=== PATIENT | male | born 1965 | race Caucasian/White ===

== ENCOUNTER 2017-01-18 09:14 | Outpatient (CLI) | payer OTHER ==
[2017-01-18 12:42] LABS: BASOPHILS % (AUTO) 0.5 % (0.0-3.0); EOSINOPHILS # (AUTO) 0.3 K/ul (0.0-0.7); EOSINOPHILS % (AUTO) 3.4 % (0.0-7.0); HEMATOCRIT 40.6 % (42.0-52.0); HEMOGLOBIN 13.4 g/dl (14.0-18.0); IMMATURE GRANULOCYTE % (AUTO) 0.4 % (0.0-5.0); LYMPHOCYTES # (AUTO) 2.3 K/uL (0.60-3.4); LYMPHOCYTES % (AUTO) 27.5 (10.0-50.0); MEAN CORPUSCULAR HEMOGLOBIN 29.6 pg (27.0-31.0); MEAN CORPUSCULAR VOLUME 89.8 fl (80.0-94.0); MONOCYTES # (AUTO) 0.6 K/uL (0.4-2.0); MONOCYTES % (AUTO) 7.3 (0-10); NEUTROPHILS # (AUTO) 5.1 K/ul (2.0-6.9); NEUTROPHILS % (AUTO) 60.9; PLATELET COUNT 295 10^3/uL (140-440); RED BLOOD COUNT 4.52 10^6/ul (4.70-6.10); WHITE BLOOD COUNT 8.35 K/ul (4.2-10.2)
[2017-01-18 13:07] LABS: ALBUMIN 3.6 g/dL (3.4-5.0); ALBUMIN/GLOBULIN RATIO 1.03; ANION GAP 10.6; BILIRUBIN,TOTAL 0.27 mg/dL (0.00-1.20); BUN/CREATININE RATIO 7.37; CALCIUM 9.5 mg/dL (8.2-10.2); CREATININE 1.22 mg/dL (0.60-1.10); POTASSIUM 4.6 mmol/L (3.5-5.1); TOTAL PROTEIN 7.1 g/dL (6.4-8.2)
== END 2017-01-18 09:15 | disposition home or self-care (01) ==
LOC: LAB 09:14
PROVIDERS: ATTEND Nurse Practitioner Family
DX: I10 Essential (primary) hypertension (principal); E78.5 Hyperlipidemia, unspecified
CPT/HCPCS: 36415; 80053; 80061; 85025

== ENCOUNTER 2017-08-03 13:29 | Outpatient (CLI) ==
[2017-08-03 13:47] LABS: BASOPHILS % (AUTO) 0.5 % (0.0-3.0); EOSINOPHILS # (AUTO) 0.2 K/ul (0.0-0.7); EOSINOPHILS % (AUTO) 2.6 % (0.0-7.0); HEMOGLOBIN 15.3 g/dl (14.0-18.0); IMMATURE GRANULOCYTE % (AUTO) 0.3 % (0.0-5.0); LYMPHOCYTES # (AUTO) 2.9 K/uL (0.60-3.4); LYMPHOCYTES % (AUTO) 36.1 (10.0-50.0); MEAN CORPUSCULAR HEMOGLOBIN 30.4 pg (27.0-31.0); MEAN CORPUSCULAR VOLUME 89.3 fl (80.0-94.0); MONOCYTES # (AUTO) 0.6 K/uL (0.4-2.0); MONOCYTES % (AUTO) 7.1 (0-10); NEUTROPHILS # (AUTO) 4.2 K/ul (2.0-6.9); NEUTROPHILS % (AUTO) 53.4; PLATELET COUNT 325 10^3/uL (140-440); RED BLOOD COUNT 5.04 10^6/ul (4.70-6.10); WHITE BLOOD COUNT 7.93 K/ul (4.2-10.2)
[2017-08-03 19:20] LABS: ALBUMIN 3.9 g/dL (3.4-5.0); ALBUMIN/GLOBULIN RATIO 0.98; ANION GAP 15.7; BILIRUBIN,TOTAL 0.58 mg/dL (0.00-1.20); BUN/CREATININE RATIO 7.35; CALCIUM 10.3 mg/dL (8.2-10.2); CHOL/HDL RATIO 4.2 (4.5-6.4); CREATININE 1.36 mg/dL (0.60-1.10); POTASSIUM 4.7 mmol/L (3.5-5.1); TOTAL PROTEIN 7.9 g/dL (6.4-8.2)
== END 2017-08-03 13:30 | disposition home or self-care (01) ==
LOC: LAB 13:29
PROVIDERS: ATTEND Nurse Practitioner Family
DX: E78.5 Hyperlipidemia, unspecified (principal); I10 Essential (primary) hypertension; J44.9 Chronic obstructive pulmonary disease, unspecified; Z72.0 Tobacco use
CPT/HCPCS: 36415; 80053; 80061; 84443; 85025

== ENCOUNTER 2017-10-24 18:56 | Inpatient (IN) | payer OTHER ==
[2017-10-24 19:08] VITALS: BMI 29.5
[2017-10-24] MEDS ORDERED: SODIUM CHLORIDE 1,000 ML IV STA (19:24)
--- NOTE | 2017-10-24 19:30 | ED.PDOC ---
General ED Provider: Dr. ANTONIETTA HWANG Chief Complaint: Chest Pain Stated Complaint: Patient states that he woke up this morning with substernal chest pain that went away then started having right lower chest pain and upper abdominal pain that has slowly progressed and is now unbearable hence came to the ER. Time Seen by Physician: 19:27 Mode of Arrival: Walk-In Information Source: Patient Exam Limitations: No limitations Primary Care Provider: AILYN PAULINO Nursing and Triage Documentation Reviewed and Agree: Yes Reviewed sepsis parameters & appropriate labs ordered?: No System Inflammatory Response Syndrome: Not Applicable Sepsis Protocol: For patient's 13 years and over: Temp is 96.8 and below OR 101 and greater Pulse >90 BPM Resp >20/minute Acutely Altered Mental Status Are patient's symptoms suggestive of a new infection, such as: -Pneumonia -Skin, Soft Tissue -Endocarditis -UTI -Bone, Joint Infection -Implantable Device -Acute Abdominal Infection -Wound Infection -Meningitis -Blood Stream Catheter Infection -Unknown System Inflammatory Response Syndrome: Not Applicable Review of Systems - Review Of Systems Constitutional: Reports: No symptoms Eyes: Reports: No symptoms Ears, Nose, Mouth, Throat: Reports: No symptoms Respiratory: Reports: Short of air Cardiac: Reports: Chest pain GI: Reports: Abdominal pain (right upper quadrant ) : Reports: No symptoms Musculoskeletal: Reports: No symptoms Skin: Reports: No symptoms Neurological: Reports: Anxiety Endocrine: Reports: No symptoms Hematologic/Lymphatic: Reports: No symptoms All Other Systems: Reviewed and Negative Past Medical History - Past Medical History Endocrine: Reports: None Cardiovascular: Reports: Hypertension Respiratory: Reports: COPD Hematological: Reports: None Gastrointestinal: Reports: Diverticulitis Genitourinary: Reports: None Neuro/Psych: Reports: Anxiety Musculoskeletal: Reports: None Cancer: Reports: None - Surgical History General Surgical History: Reports: Cholecystectomy, Tonsillectomy, Orthopedic ( Plate in the right lower leg ), Hernia Repair (double ), Other (colostomy). Denies: Adenoidectomy - Family History Family History: Reports: Heart - Social History Smoking Status: Current every day smoker Hx Substance Use: Yes (marijuana) Alcohol Screening: Occasionally - Immunizations Tetanus Shot up to Date: No (unknown) Physical Exam - Physical Exam Appearance: Ill-appearing Ill-appearing: Moderate Pain Distress: Severe Eyes: RAÚL, EOMI, Conjunctiva clear ENT: Oropharynx normal Neck: Supple Respiratory: Airway patent, Breath sounds clear, Breath sounds equal, Respirations nonlabored Cardiovascular: RRR, Pulses normal, No rub, No murmur GI/: Soft, Nontender, No masses, Bowel sounds normal, No Organomegaly Musculoskeletal: Normal strength, ROM intact, No edema, No calf tenderness Skin: Warm, Dry, Normal color Neurological: Sensation intact, Motor intact, Reflexes intact, Cranial nerves intact, Alert, Oriented Psychiatric: Anxious Interpretation - Radiology Interpretation Radiology Interpretation By: ED Physician Radiology Results: Negative Exam Interpreted: Portable CXR - EKG Interpretation Time of EKG #1: 19:15 Rate: Normal Rhythm: Sinus Ectopy: None [place]: NL ST Segment: Normal Interpretation: Normal EKG Critical Care Note - Critical Care Note Total Time (mins): 35 Course - Course Hematology/Chemistry: 10/24/17 19:30 10/24/17 19:30 Orders, Labs, Meds: Lab Review 10/24/17 10/24/17 10/24/17 19:30 19:30 19:30 WBC 12.27 H RBC 4.73 Hgb 14.5 Hct 42.2 MCV 89.2 MCH 30.7 MCHC 34.4 RDW Coeff of Heather 13.8 Plt Count 249 Immature Gran % (Auto) 0.3 Neut % (Auto) 57.0 Lymph % (Auto) 30.0 [place] % (Auto) 9.6 Eos % (Auto) 2.9 Baso % (Auto) 0.2 Immature Gran # (Auto) 0.0 Neut # 7.0 H Lymph # 3.7 H [place] # 1.2 Eos # 0.4 Baso # 0.0 D-Dimer (Manual) Sodium 139 Potassium 4.2 Chloride 104 Carbon Dioxide 24 Anion Gap 15.2 BUN 5 L Creatinine 1.09 Estimated GFR (MDRD) 71.00 BUN/Creatinine Ratio 4.58 Glucose 95 Calcium 9.4 Total Bilirubin 0.5 AST 17 ALT 22 Alkaline Phosphatase 117 Total Creatine Kinase 65 Troponin I 0.0160 B-Natriuretic Peptide < 10 Total Protein 7.1 Albumin 3.5 Globulin 3.6 Albumin/Globulin Ratio 0.97 Amylase Lipase Urine Color Urine Clarity Urine pH Ur Specific [place] Urine Protein Urine Glucose (UA) Urine Ketones Urine Blood Urine Nitrite Urine Bilirubin Urine Urobilinogen Ur Leukocyte Esterase 10/24/17 10/24/17 10/24/17 19:30 19:30 19:57 WBC RBC Hgb Hct MCV MCH MCHC RDW Coeff of Heather Plt Count Immature Gran % (Auto) Neut % (Auto) Lymph % (Auto) [place] % (Auto) Eos % (Auto) Baso % (Auto) Immature Gran # (Auto) Neut # Lymph # [place] # Eos # Baso # D-Dimer (Manual) 865.71 Sodium Potassium Chloride Carbon Dioxide Anion Gap BUN Creatinine Estimated GFR (MDRD) BUN/Creatinine Ratio Glucose Calcium Total Bilirubin AST ALT Alkaline Phosphatase Total Creatine Kinase Troponin I B-Natriuretic Peptide Total Protein Albumin Globulin Albumin/Globulin Ratio Amylase 54 Lipase 16 Urine Color Yellow Urine Clarity Clear Urine pH 7.0 Ur Specific [place] 1.010 Urine Protein Negative Urine Glucose (UA) Negative Urine Ketones Negative Urine Blood Negative Urine Nitrite Negative Urine Bilirubin Negative Urine Urobilinogen 0.2 Ur Leukocyte Esterase Negative Orders Category Date Time Status ADMIT PATIENT INPATIENT .TO [facility] (MONITORED BED) ADMISSION 10/24/17 20: 46 Active EKG-(ED ONLY) Stat CARDIO 10/24/17 19:06 Completed EKG-(ED ONLY) Stat CARDIO 10/24/17 19:24 Stop Req EKG-(IP & OP ONLY) Routine CARDIO 10/25/17 07:00 Ordered NEBULIZER TREATMENT Routine CARDIO 10/24/17 20:38 Ordered INTAKE & OUTPUT Q8HR CARE 10/24/17 20:33 Active TELEMETRY MONITORING TELE CARE 10/24/17 20:47 Active ED APPLY O2 .ONCE EMERGENCY 10/24/17 19:24 Active ED INFUSION THERAPY NURSE APPLIED .ONCE EMERGENCY 10/24/17 19:24 Active ED IV/MEDIPORT/POWERPORT .ONCE EMERGENCY 10/24/17 19:24 Active AMYLASE Stat LAB 10/24/17 19:30 Completed B-TYPE NATRIURETIC PEPTIDE Stat LAB 10/24/17 19:30 Completed BASIC METABOLIC PANEL DAILY@0600 LAB 10/25/17 06:00 Ordered CBC W/ AUTO DIFF DAILY@0600 LAB 10/25/17 06:00 Ordered CBC W/ AUTO DIFF Stat LAB 10/24/17 19:30 Completed COMPREHENSIVE METABOLIC PANEL Stat LAB 10/24/17 19:30 Completed CREATINE KINASE Q8H LAB 10/25/17 02:45 Ordered CREATINE KINASE Q8H LAB 10/25/17 10:45 Ordered CREATINE KINASE Stat LAB 10/24/17 19:30 Completed D-DIMER Stat LAB 10/24/17 19:30 Completed LIPASE Stat LAB 10/24/17 19:30 Completed TROPONIN I Q8H LAB 10/25/17 02:45 Ordered TROPONIN I Q8H LAB 10/25/17 10:45 Ordered TROPONIN I Stat LAB 10/24/17 19:30 Completed UA [URINALYSIS C & S IF INDICATED] Stat LAB 10/24/17 19:57 Completed 0.9 % Sodium Chloride [Saline Flush] MEDS 10/24/17 19:24 Ordered 1 syr IVF PRN PRN Aspirin [Aspirin Chewable] MEDS 10/24/17 19:35 Discontinued 324 mg PO ONCE STA Budesonide/Formoterol Fumarate [Symbicort 160-4.5 Mcg MEDS 10/24/17 21:00 Ordered Inhaler] DOSE puff IH BID Dextroamphetamine/Amphetamine [Adderall 30 mg Tablet] MEDS 10/24/17 21:00 Ordered 15 mg PO BID Diazepam [Valium] MEDS 10/24/17 21:00 Ordered 5 mg PO TID Enoxaparin Sodium [Lovenox] MEDS 10/24/17 20:32 Discontinued 88 mg SUBCUT ONCE STA Hydromorphone HCl [Dilaudid 1 mg/ml Syringe] MEDS 10/24/17 19:51 Discontinued 1 mg IM ONCE STA Hydromorphone HCl/Pf [Dilaudid 2 mg/ml Syringe] MEDS 10/24/17 19:53 Discontinued 2 mg .ROUTE .STK-MED ONE Ipratropium/Albuterol Neb [Duoneb] MEDS 10/24/17 20:33 Ordered 1 vial NEB RTQ6H PRN Lamotrigine [Lamictal] MEDS 10/24/17 21:00 Ordered 150 mg PO BEDTIME Lisinopril [Zestril] MEDS 10/24/17 21:00 Ordered 10 mg PO BID Morphine Sulfate [Morphine 4 mg/ml Vial] MEDS 10/24/17 20:33 Ordered 4 mg IVP Q6H PRN Nitroglycerin [Nitrostat] MEDS 10/24/17 19:41 Discontinued 0.4 mg SL .STK-MED ONE Nitroglycerin [Nitrostat] MEDS 10/24/17 19:34 Discontinued 0.4 mg SL ONCE STA Olanzapine [Zyprexa] MEDS 10/24/17 21:00 Ordered 20 mg PO BEDTIME Ondansetron HCl/Pf [Zofran 4 mg/2 ml] MEDS 10/24/17 19:51 Discontinued 4 mg IVP ONCE STA Ondansetron HCl/Pf [Zofran 4 mg/2 ml] MEDS 10/24/17 20:33 Ordered 4 mg IVP Q6H PRN Sodium Chloride 0.9% [Sodium Chloride] 1,000 ml MEDS 10/24/17 19:24 Active IV 125 mls/hr Sodium Chloride 0.9% [Sodium Chloride] 1,000 ml MEDS 10/24/17 21:00 Ordered IV 75 mls/hr RESUSCITATION STATUS Routine OTHERS 10/24/17 20:33 Ordered CHEST, 1V AP ONLY Stat RADS 10/24/17 19:[address] ABDOMEN/PELVIS WO CONTRAST Stat RADS 10/24/17 19:36 Completed PULMONARY VENT/PERFUSION/ NM Stat RADS 10/25/17 08:00 Ordered Medications Generic Name Dose Route Start Last Admin Trade Name Freq PRN Reason Stop Dose Admin Albuterol/Ipratropium 1 vial 10/24/17 20:33 Duoneb NEB RTQ6H PRN Wheezing Budesonide/Formoterol Fumarate puff 10/24/17 21:00 Symbicort 160-4.5 Mcg Inhaler IH BID MAHIN Diazepam 5 mg 10/24/17 21:00 10/24/17 22:29 Valium PO 5 mg TID MAHIN Administration Sodium Chloride 1,000 mls @ 125 mls/hr 10/24/17 19:24 10/24/17 19:32 Sodium Chloride IV 10/25/17 03:23 125 mls/hr .Q8H STA Administration Sodium Chloride 1,000 mls @ 75 mls/hr 10/24/17 21:00 Sodium Chloride IV .[id number] MAHIN Lisinopril 10 mg 10/24/17 21:00 10/24/17 22:29 Zestril PO 10 mg BID MAHIN Administration Morphine Sulfate 4 mg 10/24/17 20:33 10/24/17 22:30 Morphine 4 Mg/Ml Vial IVP 4 mg Q6H PRN Administration severe pain Non-Formulary Medication 150 mg 10/24/17 21:00 02/18/18 22:55 Lamotrigine [Lamictal] PO Not Given BEDTIME MAHIN Non-Formulary Medication 20 mg 10/24/17 21:00 10/24/17 22:55 Olanzapine [Zyprexa] PO Not Given BEDTIME MAHIN Non-Formulary Medication 15 mg 10/24/17 21:00 10/24/17 22:55 Dextroamphetamine/Amphetamine [Adderall 30 Mg Tablet] PO Not Given BID MAHIN Ondansetron HCl 4 mg 10/24/17 20:33 Zofran 4 Mg/2 Ml IVP Q6H PRN Nausea / Vomiting Sodium Chloride 1 syr 10/24/17 19:24 10/24/17 19:32 Saline Flush IVF 1 syr PRN PRN Administration To flush IV Discontinued Medications Generic Name Dose Route Start Last Admin Trade Name Freq PRN Reason Stop Dose Admin Aspirin 324 mg 10/24/17 19:35 10/24/17 19:44 Aspirin Chewable PO 10/24/17 19:36 324 mg ONCE STA Administration Enoxaparin Sodium 88 mg 10/24/17 20:32 10/24/17 20:43 Lovenox SUBCUT 10/24/17 20:33 88 mg ONCE STA Administration Hydromorphone HCl 1 mg 10/24/17 19:51 10/24/17 20:00 Dilaudid 1 Mg/Ml Syringe IM 10/24/17 19:52 1 mg ONCE STA Administration Nitroglycerin 0.4 mg 10/24/17 19:34 10/24/17 19:35 Nitrostat SL 10/24/17 19:35 0.4 mg ONCE STA Administration Ondansetron HCl 4 mg 10/24/17 19:51 10/24/17 20:01 Zofran 4 Mg/2 Ml IVP 10/24/17 19:52 4 mg ONCE STA Administration Vital Signs: Temp Pulse Resp BP Pulse Ox 10/24/17 18:58 99.1 F 96 H 20 152/97 H 95 KUMAR Risk Score Age >/= 65: No >/= 3 CAD Risk Factors: Yes Known CAD (Stenosis >/= 50%): No ASA Use in Past 7 Days: No Severe Angina (>/= 2 episodes in 24 hours): Yes EKG ST Changes >/= 0.5mm: No Postive Cardiac Marker: No KUMAR Total Score: 2 KUMAR Risk Score: Risk Score Odds of by 30D 0 0.1 (0.1-0.2) 1 0.3 (0.2-0.3) 2 0.4 (0.3-0.5) 3 0.7 (0.6-0.9) 4 1.2 (1.0-1.5) 5 2.2 (1.9-2.6) 6 3.0 (2.5-3.6) 7 4.8 (3.8-6.1) Departure - Departure Time of Disposition: 21:35 Disposition: ADMITTED INPATIENT Discharge Problem: Chest pain Condition: Stable Pt referred to PMD for follow-up: Yes IPMP verified?: No Allergies/Adverse Reactions: Allergies Iodinated Contrast- Oral and IV Dye [Iodinated Contrast Media - IV Dye] Allergy (Intermediate, Verified 10/24/17 19:05) Flushing Disposition Discussed With: Patient, Family
[2017-10-24] MEDS ORDERED: NITROSTAT SL STA (19:34)
[2017-10-24] MEDS ORDERED: ASPIRIN CHEWABLE PO STA (19:35)
[2017-10-24] MEDS ORDERED: NITROSTAT SL ONE (19:41)
[2017-10-24] MEDS ORDERED: DILAUDID 1 MG/ML SYRINGE IM STA (19:51)
[2017-10-24] MEDS ORDERED: ZOFRAN 4 MG/2 ML IVP STA (19:51)
[2017-10-24] MEDS ORDERED: DILAUDID 2 MG/ML SYRINGE ONE (19:53)
--- NOTE | 2017-10-24 20:27 | CT ---
EXAM: CT abdomen pelvis without contrast HISTORY: Right upper quadrant and abdominal pain. Prior cholecystectomy and hernia repair. Patient with history of diverticulitis. COMPARISON: CT abdomen pelvis 02/19/2015 TECHNIQUE: Serial axial images of the abdomen pelvis were performed from the lung bases through the inferior pelvis without contrast. These were viewed in multiple planes. FINDINGS: There is minimal right pleural fluid. The lungs are clear. Evaluation is limited due to lack of contrast. The liver is unremarkable. The gallbladder has been removed. The adrenal glands are normal. Kidneys are normal. The spleen is normal. The pancreas is unremarkable. The stomach is distended. The small bowel in the abdomen pelvis is unremarkable. The colon is unremarkable. The appendix is n ormal. There has been anterior hernia repair. Urinary bladder is distended. The prostate is unrema rkable. There is no free fluid or lymphadenopathy. There is scattered degenerative disease of the l umbosacral spine. IMPRESSION: 1. No acute intra-abdominal or pelvic process to account for patient's symptoms. 2. Prior cholecystectomy with abdominal hernia repair. 3. There is degenerative disease of the spine. 4. Minimal right pleural fluid.
[2017-10-24] MEDS ORDERED: LOVENOX SUBCUT STA (20:32)
[2017-10-24] MEDS ORDERED: ZOFRAN 4 MG/2 ML IVP PRN (20:33)
[2017-10-24] MEDS ORDERED: DUONEB NEB PRN (20:33)
[2017-10-24] MEDS ORDERED: DEXTROAMPHETAMINE PO SCH (21:00)
[2017-10-24] MEDS ORDERED: LAMOTRIGINE 150 MG PO SCH (21:00)
[2017-10-24] MEDS ORDERED: AMPHETAMINE PO SCH (21:00)
[2017-10-24] MEDS ORDERED: NON-FORMULARY MEDICATION (Olanzapine [Zyprexa] 20 MG) PO SCH (21:00)
[2017-10-24] MEDS: ZESTRIL PO SCH (22:29)
[2017-10-24] MEDS: VALIUM PO SCH (22:29)
[2017-10-24] MEDS: MORPHINE 4 MG/ML VIAL IVP PRN (22:30)
--- NOTE | 2017-10-25 04:26 | DI ---
EXAM: Chest, single view, 10/24/2017 HISTORY: Chest pain COMPARISON: 10/24/2017 FINDINGS / IMPRESSION: Cardiomediastinal countours appear stable. There is no focal pulmonary conso lidation. No pleural effusion or pneumothorax. No acute cardiopulmonary process.
[2017-10-25] MEDS: MORPHINE 4 MG/ML VIAL IVP PRN ×4 (04:29→23:29)
[2017-10-25] MEDS ORDERED: TYLENOL PO STA (07:56)
--- NOTE | 2017-10-25 09:12 | NM ---
EXAM: Ventilation-perfusion lung scan HISTORY: Elevated D-dimer and shortness of breath COMPARISON: Chest x-ray On 10/24/2017 showed no acute process. TECHNIQUE: Patient was injected 5.2 mCi of technetium 99m labeled MAA intravenously. Patient was giv en 31.9 mCi of technetium 99m DTPA aerosol for ventilation imaging. FINDINGS: There is a small subsegmental perfusion defect at the right lung base. No definite segment al defect is seen. Aerosol distribution is very heterogeneous in both lung de la cruz throughout suggest ing obstructive lung disease. IMPRESSION: Low probability of pulmonary embolism.
[2017-10-25] MEDS: AMPHETAMINE PO SCH ×2 (10:01→23:50)
[2017-10-25] MEDS: DEXTROAMPHETAMINE PO SCH ×2 (10:01→23:50)
[2017-10-25] MEDS: SYMBICORT 160-4.5 MCG INHALER IH SCH ×2 (10:03→21:11)
[2017-10-25] MEDS: SODIUM CHLORIDE 1,000 ML IV SCH ×2 (10:07→10:34)
[2017-10-25] MEDS: ZESTRIL PO SCH ×2 (10:29→21:11)
[2017-10-25] MEDS: VALIUM PO SCH ×3 (10:30→21:11)
[2017-10-25] MEDS ORDERED: IMODIUM PO STA (10:48)
[2017-10-25] MEDS ORDERED: DECADRON 4 MG/ML SDV IVP STA (10:58)
[2017-10-25] MEDS: IMODIUM PO SCH (10:59)
[2017-10-25] MEDS ORDERED: IMODIUM A-D PO SCH (11:00)
[2017-10-25] MEDS: TORADOL IVP SCH ×2 (15:00→21:17)
[2017-10-25] MEDS ORDERED: ZYPREXA PO SCH (21:00)
[2017-10-25] MEDS ORDERED: LAMICTAL PO SCH (21:00)
[2017-10-26] MEDS: SODIUM CHLORIDE 1,000 ML IV SCH (00:58)
[2017-10-26] MEDS: IMODIUM PO SCH (08:07)
[2017-10-26] MEDS: AMPHETAMINE PO SCH (08:08)
[2017-10-26] MEDS: DEXTROAMPHETAMINE PO SCH (08:08)
[2017-10-26] MEDS: SYMBICORT 160-4.5 MCG INHALER IH SCH (08:08)
[2017-10-26] MEDS: VALIUM PO SCH (08:10)
[2017-10-26] MEDS: MORPHINE 4 MG/ML VIAL IVP PRN (08:11)
[2017-10-26] MEDS: ZESTRIL PO SCH (08:11)
[2017-10-26] MEDS ORDERED: DECADRON 4 MG/ML SDV IM STA (08:13)
[2017-10-26] MEDS: TORADOL IVP SCH (08:58)
[2017-10-26 10:40] VITALS: BP 113/78; TEMP 97.7
--- NOTE | 2017-11-05 13:39 | HP ---
DATE OF SERVICE: 10/24/17 CHIEF COMPLAINT: Cough, congestion and the right sided chest pain. HISTORY OF PRESENT ILLNESS: This is a 52 year old male came to the emergency room for coughing, congestion and getting yellow/green phlegm. Started having the right sided sharp chest pain since yesterday, hurts to breath. As the patient was getting worse came to the emergency room and was seen by ER physician. Temperature was 99.1, WBC with left shift 12.27, D-Dimer 865. Chest x-ray was negative. CT chest showed the right sided pleural effusion. In review of elevated D-dimer and the pleuritic chest pain the patient being admitted to the hospital for acute bronchitis, pleurisy pain and rule out pulmonary embolism. The iodinated contrast not given as patient is allergic to it. REVIEW OF SYSTEMS: CONSTITUTIONAL: No fever, no chills. Weakness and tiredness. HEENT: Normal. ENDOCRINE: No weight gain; no weight loss. CVS: Sharp right side chest pain. No PND, no orthopnea. No shortness of breath. No PND, no orthopnea. RESPIRATORY: Cough, Congestion. No hemoptysis. GI: No nausea, no vomiting. No abdominal pain. No melena. : No hematuria. No polyuria. MUSCULOSKELETAL: No joint swelling. PSYCHIATRIC: Not anxious. No depression. No suicidal thoughts. No homicidal thoughts. SKIN: Intact, no open lesions. PAST MEDICAL HISTORY: Hypertension COPD Diverticulosis Depression Anxiety PAST SURGICAL HISTORY: Cholecystectomy Bowel resection Hernia repair x2 PERSONAL HISTORY: The patient smokes occasional marijuana. No alcohol and no drugs. The patient's history is significant for the CHF, melanoma, polyps. MEDICATIONS: Zyprexa Lamictal Valium Adderall Symbicort Lisinopril Albuterol Imodium ALLERGIES: Iodinated contrast PHYSICAL EXAMINATION: V/S: Blood pressure 152/97, respiratory rate 20, heart rate 96, temperature 99.1 and saturation is 95 on 2 liters. HEENT: Atraumatic, normocephalic. No scleral icterus. Mucosa dry. NECK: Supple. No JVD, no bruit. No lymphadenopathy. No thyromegaly. HEART: S1, S2 normal. No murmur. No cyanosis or clubbing. No ascites. Right sided pleuritic chest pain on the right lower rib area. LUNGS: Clear to auscultation with basilar crackles, right more than left. No rales or rhonchi. ABDOMEN: Soft, nontender. Bowel sounds are active. No CVA tenderness. No rigidity or guarding. EXTREMITIES: No pedal edema. No cyanosis or clubbing MUSCULOSKELETAL: Normal joints, no swelling. NEUROLOGIC: The patient is SKIN: Intact; no open lesions. LYMPHATIC: No lymph nodes palpable. LABS: Sodium 139, potassium 4.2, chloride 104, bicarb 24, BUN 5, creatinine 1.09 and glucose is 95.WBC 12.27, hgb 14.5, hct 42.2, plt count 249. ASSESSMENT: 1. Right sided pleuritic chest pain 2. Elevated D-Dimer rule out PE 3. Depression 4. Bipolar PLAN: 1. Admit patient to the regular floor 2. CBC and CMP today and daily 3. Cardiac enzymes and Troponin 4. IV fluids 5. Lovenox 1mg/kg 6. DUO NEBS 7. Decadron 8. Morphine for the pain 9. Continue home medications. TIME SPENT: MORE THAN 75 minutes MTDD
--- NOTE | 2017-11-05 13:44 | PN ---
DATE OF SERVICE: 10/25/17 SUBJECTIVE: The patient is still having pain, still hurts to breath. Going for the VQ scan today. REVIEW OF SYSTEMS: CONSTITUTIONAL: No fever, no chills. HEENT: Normal. ENDOCRINE: No weight gain, no weight loss. CVS: No angina symptoms. No CHF symptoms. No palpitations. No atypical chest pain for CAD. No shortness of breath. No PND, no orthopnea. RESPIRATORY: No cough, no hemoptysis. GI: No nausea, no vomiting. No abdominal pain. : No hematuria. No polyuria. MUSCULOSKELETAL: No joint swelling. PSYCHIATRIC: Not anxious. No depression. No suicidal thoughts. No homicidal thoughts. SKIN: Intact. No rash. PHYSICAL EXAMINATION: V/S: Blood pressure 134/91, respiratory rate 20, heart rate 86, temperature 97.7 with saturation 96%. HEENT: Normocephalic, atraumatic. Mucosa dry. NECK: Supple. No JVD, no carotid bruit. No lymphadenopathy. LUNGS: Clear to auscultation. No rales or rhonchi. HEART: S1, S2 normal. No S3. No murmur, gallop or regurgitation. ABDOMEN: Soft, nontender. Bowel sounds active. No rigidity. No rebound or guarding. No CVA tenderness. Right rib tenderness is present. EXTREMITIES: No pedal edema. No clubbing or cyanosis MUSCULOSKELETAL: No joint swelling. NEUROLOGIC: Awake, alert, oriented times three. No focal deficit. LYMPHATIC: No lymph nodes palpable. SKIN: Intact. LABS: WBC 9.54, hgb 13.5, hct 39.7, plt count 234, sodium 139, potassium 4.2, chloride 105, bicarb 24, BUN 6, creatinine 0.98 and glucose 103. ASSESSMENT: 1. Pleuritic chest pain 2. Bronchitis 3. Upper respiratory infection 4. Elevated D-Dimer 5. Hypertension 6. Dyslipidemia PLAN: 1. VQ scan 2. Lovenox 3. Decadron 1cc 4. DUO NEBS 5. Toradol for the pain PRN TIME SPENT: More than 35 minutes MTDD
--- NOTE | 2017-12-03 13:45 | DS ---
DATE OF SERVICE: 10/26/17 FINAL DIAGNOSIS: 1. Upper respiratory infection with pleuritic chest pain 2. Elevated D-Dimer VQ scan showing minimal probable for the PE 3. Bronchitis 4. Hypertension 5. Dyslipidemia DISCHARGE INSTRUCTIONS: Discharge patient home. Followup in the [facility] within 5-7 days. MEDICATIONS AT DISCHARGE: Zyprexa Lamictal Valium Adderall Symbicort Lisinopril Ventolin Imodium NEW PRESCRIPTIONS: Prednisone 10mg twice a day for 5 more days. DIET INSTRUCTIONS: Cardiac and healthy ACTIVITY: As much as tolerated SMOKING: Current everyday smoker. Counseling for smoker done. DISEASE SPECIFIC EDUCATION: Pleuritic chest pain Pneumonia risk been discussed. The patient was reassured that EKG was normal. Cardiac enzymes were negative. D- dimer was negative. Given chest pain is most likely pleural origin and not anything related to the heart. Verbalized understanding. HOSPITAL COURSE: 52 year old male to the emergency room with chest pain since two days before, sharp, intermittent, right sided. Been having some upper respiratory infection, cough, congestion and shortness of breath. Temperature was 99.1. He has a history of hypertension, COPD and Depression. The patient was seen by Dr. Slater in the emergency room. Initial WBC 12.27 with left shift, D-dimer 865, chemistry negative, BNP negative, troponin negative, EKG was normal sinus and lipase negative. At that time the patient was admitted to the hospital for elevate D-Dimer level and pleuritic chest pain to rule out pulmonary embolism. Next day the patient had scheduled for the VQ scan, the VQ scan was negative for minimal probability. Dilaudid was given for the pain and DUO NEBS, Toradol and Dexamethasone which did help him. Lovenox for the DVT prophylaxis until PE protocol was negative on minimal probability. Meanwhile the patient is up and about walking, less cough and congested. Did not have any complication during the hospital stay. At that time the patient being discharged home. TIME SPENT: MORE THAN 65 MINUTES MTDD
== END 2017-10-26 13:15 | disposition home or self-care (01) | DRG 153 ==
LOC: ED 18:56 → MEDSURG A 20:50
PROVIDERS: ADMIT Emergency Medicine; ATTEND Emergency Medicine
DX: J06.9 Acute upper respiratory infection, unspecified (principal); J90 Pleural effusion, not elsewhere classified; J40 Bronchitis, not specified as acute or chronic; R79.1 Abnormal coagulation profile; R07.9 Chest pain, unspecified; R10.11 Right upper quadrant pain; R06.02 Shortness of breath; I10 Essential (primary) hypertension; R07.81 Pleurodynia; E78.5 Hyperlipidemia, unspecified; F17.210 Nicotine dependence, cigarettes, uncomplicated
CPT/HCPCS: 36415; 80048; 80053; 81001; 82150; 82550; 83690; 83880; 84484; 85025; 85379; 93005; 93010; 94640; 94761; 96361; 96374; 96375; 99284

== ENCOUNTER 2017-10-27 11:33 | Outpatient (CLI) | payer OTHER | END 2017-10-27 11:34 | disposition home or self-care (01) | LOC: LAB 11:33 | PROVIDERS: ATTEND Nurse Practitioner Family | DX: E78.5 Hyperlipidemia, unspecified (principal); J44.9 Chronic obstructive pulmonary disease, unspecified; I10 Essential (primary) hypertension; Z12.5 Encounter for screening for malignant neoplasm of prostate; Z72.0 Tobacco use | CPT/HCPCS: 36415; 80053; 80061; 85025 ==

== ENCOUNTER 2018-01-26 10:49 | Outpatient (CLI) | payer OTHER | END 2018-01-26 10:50 | disposition home or self-care (01) | LOC: RHC-LAB 10:49 | PROVIDERS: ATTEND Emergency Medicine | DX: I10 Essential (primary) hypertension (principal); F31.9 Bipolar disorder, unspecified; F20.9 Schizophrenia, unspecified; F90.9 Attention-deficit hyperactivity disorder, unspecified type; J44.9 Chronic obstructive pulmonary disease, unspecified; Z72.0 Tobacco use | CPT/HCPCS: 36415; 80053; 80061; 84443; 85025 ==

== ENCOUNTER 2018-02-09 08:21 | Outpatient (CLI) | payer OTHER ==
[2018-02-09] MEDS ORDERED: ALBUTEROL 0.083% NEB NEB STA (09:02)
== END 2018-02-09 08:22 | disposition home or self-care (01) ==
LOC: CAR 08:21
PROVIDERS: ATTEND Emergency Medicine
DX: J44.9 Chronic obstructive pulmonary disease, unspecified (principal); Z72.0 Tobacco use

== ENCOUNTER 2018-06-02 09:58 | Outpatient (CLI) | payer OTHER | END 2018-06-02 09:59 | disposition home or self-care (01) | LOC: FCC-LAB 09:58 | PROVIDERS: ATTEND Nurse Practitioner Family | DX: I10 Essential (primary) hypertension (principal); J44.9 Chronic obstructive pulmonary disease, unspecified | CPT/HCPCS: 36415; 80053; 85025 ==

== ENCOUNTER 2018-11-02 23:11 | Observation (INO) ==
[2018-11-02] MEDS ORDERED: SOLU-MEDROL 125 MG IVP STA (23:21)
[2018-11-02] MEDS ORDERED: ROCEPHIN 1 GM in SODIUM CHLORIDE 50 ML IV STA (23:21)
[2018-11-02] MEDS ORDERED: ALBUTEROL 0.042% NEB NEB STA (23:22)
[2018-11-02] MEDS ORDERED: DUONEB NEB STA (23:22)
[2018-11-02] MEDS ORDERED: XOPENEX 1.25 MG NEB STA (23:22)
[2018-11-02] MEDS ORDERED: ROCEPHIN ONE (23:29)
--- NOTE | 2018-11-03 01:11 | CT ---
EXAM: CT chest without contrast. HISTORY: Dyspnea. PROCEDURE: Contiguous axial CT images of the chest without contrast with coronal and sagittal reform ats. FINDINGS: The heart is within normal limits in size. The thoracic aorta is within normal limits in d iameter. No infiltrate or consolidation. There are a few nodules in the right lung measuring up to 5 mm. There are degenerative changes in the spine. There are no acute findings in the visualized po rtion of the abdomen. Impression: Right lung nodules measuring up to 5 mm. Recommend follow-up CT in 6 months to confirm s tability.
--- NOTE | 2018-11-03 01:27 | ED.PDOC ---
General ED Provider: Dr. JAYLIN SHIRLEY-ER Chief Complaint: Shortness of Air Stated Complaint: im sob Time Seen by Physician: 23:20 Mode of Arrival: Walk-In Information Source: Patient, Other Exam Limitations: No limitations Primary Care Provider: DUARTE MICHELE Nursing and Triage Documentation Reviewed and Agree: Yes Does patient meet sepsis criteria?: No System Inflammatory Response Syndrome: Not Applicable Sepsis Protocol: For patient's 13 years and over: Temp is 96.8 and below OR 101 and greater Pulse >90 BPM Resp >20/minute Acutely Altered Mental Status Are patient's symptoms suggestive of a new infection, such as: -Pneumonia -Skin, Soft Tissue -Endocarditis -UTI -Bone, Joint Infection -Implantable Device -Acute Abdominal Infection -Wound Infection -Meningitis -Blood Stream Catheter Infection -Unknown Respiratory Complaint Exam - Shortness of Air Complaint/Exam Onset/Duration: 24hrs Symptoms Are: Still present Timing: Constant Initial Severity: Mild Current Severity: Moderate Character: Reports: Dyspnea at rest Aggravating: Reports: None Alleviating: Reports: Bronchodilators Associated Signs and Symptoms: Reports: Cough, Wheezing Related History: Reports: Similar episode History of Healthcare-Acquired Pneumonia: No Home Oxygen Use: No Recent Stress Test: No Recent Echo/LV Function: No Respiratory Distress: Moderate Stridor Present: No Tracheal Deviation: No Subcutaneous Emphysema: No Accessory Muscle Use: No Retractions: Intercostal Diminished Breath Sounds: Yes Prolonged Expiratory Phase: No Unable to Speak Full Sentences: Yes Fatigue: Yes Leg Swelling: No Vivian's Sign Present: No Grunting Respirations: No Kussmaul Respirations: No Differential Diagnoses: COPD Exacerbation Quality Indicator For Non-Traumatic Chest Pain/Syncope: EKG Performed Review of Systems - Review Of Systems Constitutional: Reports: No symptoms Eyes: Reports: No symptoms Ears, Nose, Mouth, Throat: Reports: No symptoms Respiratory: Reports: Cough, Short of air, Wheezing Cardiac: Reports: No symptoms GI: Reports: No symptoms : Reports: No symptoms Musculoskeletal: Reports: No symptoms Skin: Reports: No symptoms Neurological: Reports: No symptoms Endocrine: Reports: No symptoms Hematologic/Lymphatic: Reports: No symptoms All Other Systems: Reviewed and Negative Past Medical History - Past Medical History Previously Healthy: No Endocrine: Reports: None Cardiovascular: Reports: Hypertension Respiratory: Reports: COPD Hematological: Reports: None Gastrointestinal: Reports: Diverticulitis Genitourinary: Reports: None Neuro/Psych: Reports: Anxiety Musculoskeletal: Reports: None Cancer: Reports: None - Surgical History General Surgical History: Reports: Cholecystectomy, Tonsillectomy, Orthopedic ( Plate in the right lower leg ), Hernia Repair (double ), Other (colostomy). Denies: Adenoidectomy - Family History Family History: Reports: Heart - Social History Smoking Status: Current every day smoker Hx Substance Use: Yes (marijuana) Alcohol Screening: Occasionally - Immunizations Tetanus Shot up to Date: Yes Physical Exam - Physical Exam Appearance: Well-appearing, No pain distress, Well-nourished Eyes: RAÚL, EOMI, Conjunctiva clear ENT: Ears normal, Nose normal, Oropharynx normal Neck: Supple Respiratory: Rhonchi, Wheezes Cardiovascular: RRR, Pulses normal, No rub, No murmur GI/: Soft Musculoskeletal: Normal strength Skin: Warm, Dry, Normal color Neurological: Sensation intact, Motor intact, Reflexes intact, Cranial nerves intact, Alert, Oriented Psychiatric: Affect appropriate, Mood appropriate, Anxious Interpretation - Radiology Interpretation Radiology Interpretation By: Radiologist Radiology Results: Negative Exam Interpreted: CT Scan - EKG Interpretation Time of EKG #1: 01:26 Rate: Tachy Rhythm: Sinus Ectopy: None [place]: NL ST Segment: Normal Interpretation: sinus tachy Physician Notification - Case Discussed Physician Notified: dr renteria Time of Notification: 01:27 Critical Care Note - Critical Care Note Total Time (mins): 0 Course - Course Hematology/Chemistry: 11/02/18 23:45 11/02/18 23:45 Orders, Labs, Meds: Lab Review 11/02/18 11/02/18 11/02/18 23:20 23:30 23:45 WBC 7.92 RBC 4.42 L Hgb 13.2 L Hct 40.3 L MCV 91.2 MCH 29.9 MCHC 32.8 RDW Coeff of Heather 13.3 Plt Count 301 Immature Gran % (Auto) 0.4 Neut % (Auto) 43.3 Lymph % (Auto) 42.3 [place] % (Auto) 8.8 Eos % (Auto) 4.7 Baso % (Auto) 0.5 Immature Gran # (Auto) 0.0 Neut # (Auto) 3.4 Lymph # (Auto) 3.4 [place] # (Auto) 0.7 Eos # (Auto) 0.4 Baso # (Auto) 0.0 Puncture Site Lb O2 Saturation 93.0 L ABG pH 7.289 L* ABG pCO2 53.5 H ABG pO2 75.0 L ABG HCO3 25.6 ABG Total CO2 27 ABG Base Excess -1 Clement Test + FiO2 % 21.0 Sodium Potassium Chloride Carbon Dioxide Anion Gap BUN Creatinine Estimated GFR (MDRD) BUN/Creatinine Ratio Glucose Calcium Total Bilirubin AST ALT Alkaline Phosphatase NT-Pro-B Natriuret Pep Total Protein Albumin Globulin Albumin/Globulin Ratio Influ A Molecular Assay Negative by naat Influ B Molecular Assay Negative by naat 11/02/18 11/02/18 23:45 23:45 WBC RBC Hgb Hct MCV MCH MCHC RDW Coeff of Heather Plt Count Immature Gran % (Auto) Neut % (Auto) Lymph % (Auto) [place] % (Auto) Eos % (Auto) Baso % (Auto) Immature Gran # (Auto) Neut # (Auto) Lymph # (Auto) [place] # (Auto) Eos # (Auto) Baso # (Auto) Puncture Site O2 Saturation ABG pH ABG pCO2 ABG pO2 ABG HCO3 ABG Total CO2 ABG Base Excess Clement Test FiO2 % Sodium 139.8 Potassium 4.41 Chloride 102.1 Carbon Dioxide 29.0 Anion Gap 13.11 BUN 7.1 L Creatinine 1.03 Estimated GFR (MDRD) 76.00 BUN/Creatinine Ratio 6.89 Glucose 109.0 H Calcium 9.22 Total Bilirubin 0.26 AST 27.0 ALT 27.0 Alkaline Phosphatase 84.2 NT-Pro-B Natriuret Pep 46.000 Total Protein 6.92 Albumin 4.02 Globulin 2.90 Albumin/Globulin Ratio 1.38 Influ A Molecular Assay Influ B Molecular Assay Orders Category Date Time Status ABG DRAW REQUEST Stat CARDIO 11/02/18 23:21 Completed EKG-(ED ONLY) Stat CARDIO 11/02/18 23:20 Completed NEBULIZER TREATMENT Stat CARDIO 11/02/18 23:22 Completed NEBULIZER TREATMENT Stat CARDIO 11/02/18 23:23 Completed [employer] [ED FIELD ADJUSTER APPLIED] .ONCE EMERGENCY 11/02/18 23:24 Active IV [ED IV/MEDIPORT/POWERPORT] .ONCE EMERGENCY 11/02/18 23:21 Active ABG Stat LAB 11/02/18 23:20 Completed BLOOD CULTURE (ED ONLY) Stat LAB 11/02/18 23:45 Received CBC W/ AUTO DIFF Stat LAB 11/02/18 23:45 Completed COMPREHENSIVE METABOLIC PANEL Stat LAB 11/02/18 23:45 Completed FLU A/B MOLECULAR Stat LAB 11/02/18 23:30 Completed MOLECULAR GROUP A STREP Stat LAB 11/02/18 23:30 Completed PROBNP [NT-PROBNP] Stat LAB 11/02/18 23:45 Completed SPUTUM CULTURE Stat LAB 11/03/18 00:27 Received 0.9 % Sodium Chloride [Saline Flush] MEDS 11/02/18 23:21 Ordered 1 syr IVF PRN PRN Albuterol Sulfate 0.042% Neb [Albuterol 0.042% Neb] MEDS 11/02/18 23:22 Discontinued 1 vial NEB ONCE STA Ceftriaxone Sodium [Rocephin] MEDS 11/02/18 23:29 Discontinued 1 gm .ROUTE .STK-MED ONE Ceftriaxone Sodium [Rocephin] 1 gm MEDS 11/02/18 23:21 Discontinued 0.9 % Sodium Chloride [Sodium Chloride] 50 ml IV ONCE Ipratropium/Albuterol Neb [Duoneb] MEDS 11/02/18 23:22 Discontinued 1 vial NEB ONCE STA Levalbuterol HCl [Xopenex 1.25 mg] MEDS 11/02/18 23:22 Discontinued 1 vial NEB ONCE STA Methylprednisolone Sod Succ/Pf [Solu-Medrol 125 mg] MEDS 11/02/18 23:21 Discontinued 125 [address] IVP ONCE STA CT CHEST W/O CONTRAST Stat RADS 11/02/18 23:23 Completed Medications Generic Name Dose Route Start Last Admin Trade Name Freq PRN Reason Stop Dose Admin Sodium Chloride 1 syr 11/02/18 23:21 11/02/18 23:48 Saline Flush IVF 1 syr PRN PRN Administration To flush IV Discontinued Medications Generic Name Dose Route Start Last Admin Trade Name Freq PRN Reason Stop Dose Admin Albuterol Sulfate 1 vial 11/02/18 23:22 11/03/18 00:14 Albuterol 0.042% Neb NEB 11/02/18 23:23 1 vial ONCE STA Administration Albuterol/Ipratropium 1 vial 11/02/18 23:22 11/03/18 00:24 Duoneb NEB 11/02/18 23:23 1 vial ONCE STA Administration Ceftriaxone Sodium 1 gm/ 50 mls @ 75 mls/hr 11/02/18 23:21 11/02/18 23:48 Sodium Chloride IV 11/03/18 00:00 75 mls/hr ONCE STA Administration Levalbuterol HCl 1 vial 11/02/18 23:22 11/02/18 23:40 Xopenex 1.25 Mg NEB 11/02/18 23:23 1 vial ONCE STA Administration Methylprednisolone Sodium Succinate 125 mg 11/02/18 23:21 11/02/18 23:49 Solu-Medrol 125 Mg IVP 11/02/18 23:22 125 mg ONCE STA Administration Vital Signs: Temp Pulse Resp BP Pulse Ox 11/03/18 01:16 98 F 101 H 21 128/82 98 11/02/18 23:19 97.9 F 109 H 36 H 141/95 H 94 L Departure - Departure Time of Disposition: Disposition: ADMITTED INPATIENT Discharge Problem: COPD exacerbation Acute respiratory failure Qualifiers: Respiratory failure complication: hypoxia Qualified Code(s): J96.01 - Acute respiratory failure with hypoxia Instructions: COPD (Chronic Obstructive Pulmonary Disease) (ED) Condition: Stable Pt referred to PMD for follow-up: Yes IPMP verified?: No Allergies/Adverse Reactions: Allergies Iodinated Contrast- Oral and IV Dye [Iodinated Contrast Media - IV Dye] Allergy (Intermediate, Verified 10/24/17 19:05) [place] Home Medications: Ambulatory Orders Loperamide HCl [Imodium A-D] 4 mg PO DAILY 10/25/17 Albuterol Sulfate [Ventolin Hfa] 2 puff IH Q4-6H PRN 11/03/18 Dextroamphetamine/Amphetamine [Adderall 30 mg Tablet] 30 mg PO BID 11/03/18 Diazepam [Valium] 5 mg PO TID 11/03/18 Lamotrigine [Lamictal] 150 mg PO BEDTIME 11/03/18 Olanzapine [Zyprexa] 20 mg PO BEDTIME 11/03/18 Transfer Form Completed: No Disposition Discussed With: Patient, Family
[2018-11-03 02:48] VITALS: BMI 30.3
[2018-11-03] MEDS: DUONEB NEB SCH ×4 (04:48→23:56)
[2018-11-03] MEDS ORDERED: SOLU-MEDROL 125 MG IVP SCH (05:00)
[2018-11-03] MEDS ORDERED: SOLU-MEDROL 125 MG ONE (05:30)
--- NOTE | 2018-11-03 06:34 | PCM ---
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 encouraged. Risks of mood altering drug d/w patient. Discussed this also in regards to #1 above. DVT Prophy: Lovenox 40mg daily. Diet: Regular Activity: Ad edgardo Vaccinations: Discuss influenza and pneumonia vaccine PPSV 23 at d/c. Discussed risks/benefits to vaccination, reviewed components of the vaccine, discussed VIS , discussed informed consent, informed consent obtained. Patient was allowed to accept or refuse vaccine. Questions answered to satisfactory state of patient. Chronic Back Pain: Stable, not on opiates at present. Doing okay and no c/o today. No red flags, normal neuro exam, monitor. Bipolar Disorder: Continue home meds. He appears stable, not part of the reason for admit. - We will continue home meds while he is in hospital. Disposition: Patient came into hospital in resp distress and quickly improved with inhaled bronchodilators/muscarinic agents. I will place him into observation status for today, continue home meds. Stop Rocephin, change coordinator to PO doxy BID today and will d/c him tomorrow for a total of 5 days. Prednisone 40mg for total of 5 days started today d/c solumedrol. Duoneb 4x daily with albuterol PRN in between. I will provide him with nicotine patch while in hospital. Readdress tomorrow if he wishes to use these at d/c. Psych history reviewed and stable. Chronic HTN, borderline, will monitor for now. I spent > 70 minutes today with patient, reviewing above, discussing meds, reviewing history and discussing labs, reviewing imaging. I did discuss case with Dr. Villanueva personally this am 1:23 11/03/18. He can afford meds tomorrow 11/04/18. It is reasonable to monitor today, make sure resp status is stable and d/c in am 11/04/18.
[2018-11-03] MEDS ORDERED: ALBUTEROL 0.083% NEB NEB PRN (07:12)
[2018-11-03] MEDS ORDERED: PREDNISONE PO SCH (08:00)
[2018-11-03] MEDS ORDERED: IMODIUM PO SCH (09:00)
[2018-11-03] MEDS ORDERED: VALIUM PO SCH (09:00)
[2018-11-03] MEDS ORDERED: LOPERAMIDE HCL 4 MG PO SCH (09:00)
[2018-11-03] MEDS ORDERED: ROCEPHIN 1 GM in SODIUM CHLORIDE 50 ML IV SCH (09:00)
[2018-11-03] MEDS ORDERED: NON-FORMULARY MEDICATION (Lisinopril [Lisinopril] 20 MG) PO SCH (09:00)
[2018-11-03] MEDS ORDERED: ZESTRIL PO SCH ×2 (09:00→14:30)
[2018-11-03] MEDS: DOXYCYCLINE HYCLATE PO SCH ×3 (10:59→21:14)
[2018-11-03] MEDS: NICODERM 21 MG TD SCH ×2 (11:00→11:36)
[2018-11-03] MEDS: LOVENOX SUBCUT SCH (11:00)
[2018-11-03] MEDS: NON-FORMULARY MEDICATION (Dextroamphetamine/Amphetamine [Adderall 30 Mg Tablet] 30 MG) PO SCH ×2 (13:11→20:51)
[2018-11-03] MEDS: VALIUM PO SCH ×2 (14:58→21:14)
[2018-11-03] MEDS: SYMBICORT 160-4.5 MCG INHALER IH SCH ×2 (15:26→20:52)
[2018-11-03] MEDS ORDERED: TYLENOL PO PRN (17:36)
[2018-11-03] MEDS ORDERED: ZANTAC PO STA (17:36)
[2018-11-03] MEDS ORDERED: NON-FORMULARY MEDICATION (Olanzapine [Zyprexa] 20 MG) PO SCH (21:00)
[2018-11-03] MEDS ORDERED: LAMOTRIGINE 150 MG PO SCH (21:00)
[2018-11-03] MEDS ORDERED: ZYPREXA PO SCH ×2 (21:00)
[2018-11-03] MEDS ORDERED: LAMICTAL PO SCH ×2 (21:00)
[2018-11-03] MEDS: ZESTRIL PO SCH (21:15)
[2018-11-04] MEDS: DUONEB NEB SCH (04:36)
[2018-11-04 05:22] VITALS: BP 123/77; TEMP 97.4
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
[2018-11-04] MEDS ORDERED: PNEUMOVAX 23 IM ONE (08:07)
[2018-11-04] MEDS ORDERED: FLUZONE QUAD 2018-2019 SYRINGE IM ONE (08:07)
[2018-11-04] MEDS ORDERED: IMODIUM PO SCH (09:00)
[2018-11-04] MEDS: ZESTRIL PO SCH ×2 (09:39→09:45)
[2018-11-04] MEDS: VALIUM PO SCH (09:40)
[2018-11-04] MEDS: DOXYCYCLINE HYCLATE PO SCH (09:40)
[2018-11-04] MEDS: LOVENOX SUBCUT SCH (09:45)
== END 2018-11-04 11:20 | disposition home or self-care (01) ==
LOC: ED 23:11 → MEDSURG B 11-03 01:29 → INTOOBSV 11-03 01:29
PROVIDERS: ADMIT Family Medicine; ATTEND Family Medicine
DX: J96.01 Acute respiratory failure with hypoxia (principal); J44.1 Chronic obstructive pulmonary disease with (acute) exacerbation; R65.10 Systemic inflammatory response syndrome (SIRS) of non-infectious origin without acute organ dysfunction; R06.00 Dyspnea, unspecified; R05 Cough; R06.2 Wheezing; I10 Essential (primary) hypertension; M54.9 Dorsalgia, unspecified; M54.5 Low back pain; F31.9 Bipolar disorder, unspecified; F12.90 Cannabis use, unspecified, uncomplicated; F17.200 Nicotine dependence, unspecified, uncomplicated; L71.1 Rhinophyma
CPT/HCPCS: 36415; 80053; 82803; 83880; 85025; 87040; 87070; 87502; 87651; 93005; 93010; 94150; 94640; 96365; 96375; 99284

== ENCOUNTER 2018-11-08 10:38 | Outpatient (CLI) | payer OTHER | END 2018-11-08 10:39 | disposition home or self-care (01) | LOC: RHC-LAB 10:38 | PROVIDERS: ATTEND Nurse Practitioner Family | DX: B35.1 Tinea unguium (principal) | CPT/HCPCS: 87101 ==

== ENCOUNTER 2018-12-26 09:29 | Outpatient (CLI) ==
--- NOTE | 2018-12-26 13:09 | DI ---
Examination: Five views of the lumbar spine. HISTORY: Dorsalgia. COMPARISON: CT abdomen 10/24/2017. FINDINGS: Right upper quadrant surgical clips. Mild osteophytosis in the lumbar spine. Postsurgica l changes are seen with probable hernia anchors noted. Sacroiliac joint degenerative changes are not ed. There is mild neural foraminal narrowing suggested bilaterally. Multilevel degenerative disc di sease and endplate degenerative changes throughout the visualized lumbar spine, worst at L4-L5 and L5 -S1. Multilevel anterior osteophytes. The vertebral body height and alignment are otherwise maintai young. No definite evidence of acute compression fracture. Facet degenerative changes are suspected f rom L3-L4 through L5-S1, worst inferiorly. Aortic atherosclerosis is present. IMPRESSION: Multilevel multifactorial degenerative changes as above worst in the lower lumbar spine.
--- NOTE | 2018-12-26 13:19 | DI ---
Examination: Three views of the thoracic spine. HISTORY: Dorsalis head. COMPARISON: CT chest 11/03/2018. FINDINGS: Aortic arch atherosclerosis. Cardiomediastinal silhouette normal in overall size configur ation. There is multilevel level thoracic osteophytosis. Multilevel thoracic disc disease with endp late degenerative changes. Age indeterminate compression deformity in the mid thoracic spine. The l ower thoracic spine is not well evaluated given angulation. The cervical thoracic junction is obscur ed by overlying soft tissues. IMPRESSION: Multilevel degenerative changes of the cervical spine including osteophytosis and degene rative disc disease with mild endplate degenerative changes. Mid thoracic compression deformity, likely chronic and appearing similar to prior CT given difference s in technique. The cervical thoracic junction and lower thoracic spine are not well evaluated given overlying struct ures and angulation.
--- NOTE | 2018-12-26 13:21 | DI ---
EXAM: CERVICAL SPINE, 5 VIEWS HISTORY: Neck pain. FINDINGS: No noticeable scoliosis. Lateral masses of C1 and C2 are normally aligned and the odonto id process is intact. Lateral projection reveals bridging anterior osteophytic spurs at C5/C6. No l oss of vertebral body height, acute fracture or spondylolisthesis. Bilateral oblique views reveal no gross bony encroachment on the neural foramina. IMPRESSION: 1. Degenerative changes at C5/C6.
== END 2018-12-26 09:30 | disposition home or self-care (01) ==
LOC: RAD 09:29
PROVIDERS: ATTEND Nurse Practitioner Family
DX: M54.9 Dorsalgia, unspecified (principal); G89.29 Other chronic pain

== ENCOUNTER 2019-01-02 08:14 | Outpatient (RCR) ==
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
== END 2019-01-03 23:59 ==
PROVIDERS: ATTEND Nurse Practitioner Family
DX: M54.2 Cervicalgia (principal); M54.9 Dorsalgia, unspecified; G89.29 Other chronic pain

== ENCOUNTER 2019-02-03 08:00 | Outpatient (RCR) ==
--- NOTE | 2019-01-04 11:05 | RS.OPPTDN ---
Subjective Date of Note: 01/04/19 Visit #: 1 Number of visits approved by Insurance: NA Date of Evaluation: 01/02/19 Payer Source: MEDICARE Treatment Diagnosis: Chronic low back pain, neck pain Current Subjective/complaints:: States his neck hurts sometimes worse than his back. States he didn't realize his muscles were so tight in his legs and back. States he will work on some stretching at home also. Pain Assessment - Pain Description Pain Location: neck and back Current Pain Intensity: mild this morning - Heat/Cryotherapy Treatment: Hot Pack Comments:: X 20 mins to neck and back in supine, prior to stretching. Interventions - Exercise/Activities/Manual Therapy Exercises/Activities: Pt received stretching to the low back into rotation, and stretching to HS, piriformis, and SKTC. In sitting, patient received stretching into lateral cervical flexion and rotation. Right side of trunk is tighter, as lower trunk rotation to his left is much less. Also right lateral neck muscles are more restricted, lateral flexion of the cervical spine is much less. Instructed in home stretching of HS and lower trunk rotation. Discussed body mechanics at the neck and how forward head and rounded shoulders postures develop and how to avoid it. Total minutes of Exercise: X 35 mins Manual Therapy: NA HOME EXERCISE PROGRAM: stretching of HS and lower trunk rotation. - Charges Timed Code Treatment Minutes: 35 mins Total Treatment Time: 55 mins Procedures billed for this date of service:: HP, Ex2 Assessment: Patient shows need for stretching to low back and hips to gain more flexibility and reduce stress on his low back. Stretching to the neck will also reduce muscle tension and ROM. Patient Education: Education of diagnosis, Body/Joint mechanics, Home Exercise Program, Education of Plan of Care Short Term Goals Goal #1: Pt independent and compliant with initial HEP. Goal to be met by: 01/17/19 Goal #2: Right SLR to 45-50 degrees. Goal to be met by: 01/17/19 Goal #3: Muscle tone in the upper traps decreased to minimal Goal to be met by: 01/17/19 Goal #4: Pt will demonstrate improved postural awareness. Goal to be met by: 01/17/19 Hot End Operator Goals Goal #1: Pt knows HEP and to continue ex's to maintain functional level at D/C. Goal to be met by: 02/12/19 Goal #2: Score on Oswestry LBP scale improved to 20. Goal to be met by: 02/12/19 Goal #3: Pt perform household and light yard work with min. neck and back pain. Goal to be met by: 02/12/19 Goal #4: Pt able to ambulate community distances with minimal low back pain. Goal to be met by: 02/12/19 Plan Dates of Hot End Operator Goals: 02/12/19 Expiration date of current Insurance Approval:: NA PLAN: Progress stretching to back and neck, plan to give corner or doorway stretch at next visit.
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
--- NOTE | 2019-01-10 09:33 | RS.OPPTDN ---
Subjective Date of Note: 01/10/19 Visit #: 4 Number of visits approved by Insurance: na Date of Evaluation: 01/02/19 Payer Source: MEDICARE Treatment Diagnosis: Chronic low back pain, neck pain Current Subjective/complaints:: Reports he feels he is doing a little better since starting therapy. States he is working on HEP. Pain Assessment - Pain Description Pain Location: neck and back Current Pain Intensity: 3-4/10 after treatment - Heat/Cryotherapy Treatment: Hot Pack ([id number] to neck and back prior to EX. patient in supine. ) Interventions - Exercise/Activities/Manual Therapy Exercises/Activities: Assisted HS, piriformis, SKTC, and LTR stretching. Also, ITB stretching today. In sitting, patient received stretching into lateral cervical flexion and rotation. Started assisted anterior chest stretch with hands clasped behind head, lateral trunk stretch with UE overhead, mid scap stretch with UE across midline, all with assist of therapist. Scap retraction. Isometric cervical retraction, 2s/3reps. Began postural correction with back to wall. Peformed anterior chest/doorway stretching, 3 positions. Patient maintains a very forward head posture and received education on body mechanics and need for postural correction. Instructed to perform HEP 3-4 times per day and to try postural correction in supine as well. Total minutes of Exercise: 32mins Manual Therapy: NA HOME EXERCISE PROGRAM: stretching of HS and lower trunk rotation, lateral cervical flexion and doorway stretch (pec stretch) - Charges Timed Code Treatment Minutes: 32mins Total Treatment Time: 52mins Procedures billed for this date of service:: HP, EX2 Assessment: Patient reporting progress and is attentive to all education. Patient Education: Education of diagnosis, Body/Joint mechanics, Home Exercise Program Patient demonstrates compliance with HEP?: Yes Short Term Goals Goal #1: Pt independent and compliant with initial HEP. Goal to be met by: 01/17/19 Progress towards Goal:: Progressing Goal #2: Right SLR to 45-50 degrees. Goal to be met by: 01/17/19 Goal #3: Muscle tone in the upper traps decreased to minimal Goal to be met by: 01/17/19 Goal #4: Pt will demonstrate improved postural awareness. Goal to be met by: 01/17/19 Fpc Goals Goal #1: Pt knows HEP and to continue ex's to maintain functional level at D/C. Goal to be met by: 02/12/19 Goal #2: Score on Oswestry LBP scale improved to 20. Goal to be met by: 02/12/19 Goal #3: Pt perform household and light yard work with min. neck and back pain. Goal to be met by: 02/12/19 Goal #4: Pt able to ambulate community distances with minimal low back pain. Goal to be met by: 02/12/19 Plan Dates of Brick Stacker Goals: 02/12/19 Expiration date of current Insurance Approval:: 02/12/19 PLAN: Continue and progress exercise to correct posture and increase functional activity level.
--- NOTE | 2019-01-12 14:01 | RS.OPPTDN ---
Subjective Date of Note: 01/12/19 Visit #: 5 Number of visits approved by Insurance: na Date of Evaluation: 01/02/19 Payer Source: MEDICARE Treatment Diagnosis: Chronic low back pain, neck pain Current Subjective/complaints:: Patient reports hamstrings are tight but feels she is doing better overall. Pain Assessment - Pain Description Pain Location: neck and lowback Pain Description: Aching Current Pain Intensity: moderate - Heat/Cryotherapy Treatment: Hot Pack ([id number] to neck and lowback prior to EX. Patient in supine. ) Interventions - Exercise/Activities/Manual Therapy Exercises/Activities: Assisted HS, piriformis, SKTC, LTR, and ITB stretching. Isometric hip flexion and isometric hip add. SLR, 10reps each. In sitting, patient received stretching into lateral cervical flexion and rotation. Postural correction with back to wall. Total minutes of Exercise: 26mins Manual Therapy: NA HOME EXERCISE PROGRAM: stretching of HS and lower trunk rotation, lateral cervical flexion and doorway stretch (pec stretch) - Charges Timed Code Treatment Minutes: 26mins Total Treatment Time: 46mins Procedures billed for this date of service:: HP, EX2 Assessment: Patient reporting some progress. Will need to progress to strengthening exercises. Patient Education: Home Exercise Program Patient demonstrates compliance with HEP?: Yes Short Term Goals Goal #1: Pt independent and compliant with initial HEP. Goal to be met by: 01/17/19 Progress towards Goal:: Progressing Goal #2: Right SLR to 45-50 degrees. Goal to be met by: 01/17/19 Progress towards Goal:: Progressing Goal #3: Muscle tone in the upper traps decreased to minimal Goal to be met by: 01/17/19 Goal #4: Pt will demonstrate improved postural awareness. Goal to be met by: 01/17/19 Longterm Goals Goal #1: Pt knows HEP and to continue ex's to maintain functional level at D/C. Goal to be met by: 02/12/19 Goal #2: Score on Oswestry LBP scale improved to 20. Goal to be met by: 02/12/19 Goal #3: Pt perform household and light yard work with min. neck and back pain. Goal to be met by: 02/12/19 Goal #4: Pt able to ambulate community distances with minimal low back pain. Goal to be met by: 02/12/19 Plan Dates of Wire Annealer Goals: 02/12/19 Expiration date of current Insurance Approval:: 02/12/19 PLAN: Progress exercise to reduce pain and increase functional activity level.
--- NOTE | 2019-01-17 11:30 | RS.OPPTDN ---
Subjective Date of Note: 01/17/19 Visit #: 6 Number of visits approved by Insurance: na Date of Evaluation: 01/02/19 Payer Source: MEDICARE Treatment Diagnosis: Chronic low back pain, neck pain Current Subjective/complaints:: Patient reports he is having more difficulty breathing today. Pain Assessment - Pain Description Pain Location: back and neck Pain Description: Dull, Aching Pain Description: nagging Current Pain Intensity: moderate - Heat/Cryotherapy Treatment: Hot Pack ([id number] to neck and back prior to EX. Patient in supine. ) Interventions - Exercise/Activities/Manual Therapy Exercises/Activities: Assisted HS, piriformis, SKTC, LTR, and ITB stretching. Patient given long belt and then a sheet to work on self hamstring and piriformis bilaterally. Isometric hip flexion and isometric hip add. SLR, 10reps each. 3# wand for overhead flexion with cues to engage abdominals for modified crunch. Alt hip flexion with 3# to each ankle, also cued to engage quads. In sitting, patient received stretching into lateral cervical flexion and rotation. Discussion of need to be consistent with HEP and patient given copy of new exercises. Total minutes of Exercise: 32mins Manual Therapy: NA HOME EXERCISE PROGRAM: stretching of HS and lower trunk rotation, lateral cervical flexion and doorway stretch (pec stretch) - Charges Timed Code Treatment Minutes: 32mins Total Treatment Time: 47mins Procedures billed for this date of service:: HP, EX2 Assessment: Patient nneds to increase stretching with HEP to increase hamstring flexibility. Patient Education: Body/Joint mechanics, Home Exercise Program, Activity Modification Short Term Goals Goal #1: Pt independent and compliant with initial HEP. Goal to be met by: 01/17/19 Progress towards Goal:: Progressing Goal #2: Right SLR to 45-50 degrees. Goal to be met by: 01/17/19 Progress towards Goal:: Progressing Goal #3: Muscle tone in the upper traps decreased to minimal Goal to be met by: 01/17/19 Goal #4: Pt will demonstrate improved postural awareness. Goal to be met by: 01/17/19 Medical Facilities Section Director Goals Goal #1: Pt knows HEP and to continue ex's to maintain functional level at D/C. Goal to be met by: 02/12/19 Goal #2: Score on Oswestry LBP scale improved to 20. Goal to be met by: 02/12/19 Goal #3: Pt perform household and light yard work with min. neck and back pain. Goal to be met by: 02/12/19 Progress towards goal: No Change Goal #4: Pt able to ambulate community distances with minimal low back pain. Goal to be met by: 02/12/19 Plan Dates of Correction Goals: 02/12/19 Expiration date of current Insurance Approval:: 02/12/19 PLAN: Continue patient edcuation and progression of HEP to increase flexibility and functional activity level.
--- NOTE | 2019-01-19 10:18 | RS.OPPTDN ---
Subjective Date of Note: 01/19/19 Visit #: 7 Number of visits approved by Insurance: na Date of Evaluation: 01/02/19 Payer Source: MEDICARE Treatment Diagnosis: Chronic low back pain, neck pain Current Subjective/complaints:: Patient reports painb at the neck and back remains at 3-4/10. States he is trying to work on HEP. Pain Assessment - Pain Description Pain Location: neck and back Current Pain Intensity: 3-4/10 - Heat/Cryotherapy Treatment: Hot Pack ([id number] to neck and back prior to EX. Patient in supine. ) Interventions - Exercise/Activities/Manual Therapy Exercises/Activities: Assisted HS, piriformis, SKTC, LTR, and ITB stretching. Assisted patient with long flat sheet to work on self hamstring, piriformis, and SKTC stretching, bilaterally. Alt hip flexion with 3# to each ankle, also cued to engage quads. Isometric hip flexion and isometric hip add. Isometric ankle inversion with hip IR with ball between feet. SLR, 10reps each. Worked on pelvic tilt with patient having difficulty and needing cues. Reviewed HEP and has discussion of need to be consistent with HEP. Total minutes of Exercise: 28mins Manual Therapy: NA HOME EXERCISE PROGRAM: stretching of HS and lower trunk rotation, lateral cervical flexion and doorway stretch (pec stretch) - Charges Timed Code Treatment Minutes: 28mins Total Treatment Time: 48mins Procedures billed for this date of service:: HP, EX2 Assessment: Patient continues to need cues to perfomr exercises and reports pain remains at 3-4/10. Will prepare for discharge next week if there is no additional progress. Patient Education: Body/Joint mechanics, Home Exercise Program, Home Safety, Education of Plan of Care Patient demonstrates compliance with HEP?: Yes Short Term Goals Goal #1: Pt independent and compliant with initial HEP. Goal to be met by: 01/17/19 Progress towards Goal:: Partially Met Goal #2: Right SLR to 45-50 degrees. Goal to be met by: 01/17/19 Progress towards Goal:: Progressing Goal #3: Muscle tone in the upper traps decreased to minimal Goal to be met by: 01/17/19 Goal #4: Pt will demonstrate improved postural awareness. Goal to be met by: 01/17/19 Etl Manager Goals Goal #1: Pt knows HEP and to continue ex's to maintain functional level at D/C. Goal to be met by: 02/12/19 Goal #2: Score on Oswestry LBP scale improved to 20. Goal to be met by: 02/12/19 Goal #3: Pt perform household and light yard work with min. neck and back pain. Goal to be met by: 02/12/19 Progress towards goal: No Change Goal #4: Pt able to ambulate community distances with minimal low back pain. Goal to be met by: 02/12/19 Plan Dates of Etl Manager Goals: 02/12/19 Expiration date of current Insurance Approval:: 02/12/19 PLAN: Continue instruction and progression of HEP.
--- NOTE | 2019-01-24 11:09 | RS.OPPTDN ---
Subjective Date of Note: 01/24/19 Visit #: 8 Number of visits approved by Insurance: na Date of Evaluation: 01/02/19 Payer Source: MEDICARE Treatment Diagnosis: Chronic low back pain, neck pain Current Subjective/complaints:: Patient reports he is doing better with stretching now that he is using a long beach towel as instructed. Pain Assessment - Pain Description Pain Location: lowback, neck Pain Description: Tightness, Aching Current Pain Intensity: mod - Heat/Cryotherapy Treatment: Hot Pack (20mins to neck and lowback prior to EX. Pt supine. ) Interventions - Exercise/Activities/Manual Therapy Exercises/Activities: Assisted HS, piriformis, SKTC, LTR, and ITB stretching. Patient performs DKTC, 3reps. Alt hip flexion with 3# to each ankle, cued to engage quads and gluts. Isometric hip flexion and isometric hip add. SLR, increased to 2s/10reps each. Green theraband resisted hip add and hip abd in hook-lying, bilaterally. Patient demos improvement in pelvic tilt with cues. Began overhead shoulder flexion with wand with ball between knees to engage core. Reviewed HEP and has discussion of need to be consistent with HEP. Total minutes of Exercise: 25mins Manual Therapy: NA HOME EXERCISE PROGRAM: stretching of HS and lower trunk rotation, lateral cervical flexion and doorway stretch (pec stretch) - Charges Timed Code Treatment Minutes: 25mins Total Treatment Time: 50mins Procedures billed for this date of service:: HP, EX2 Assessment: Patient progressing with stretching and stability exercises. Patient Education: Body/Joint mechanics, Home Exercise Program, Home Safety, Activity Modification Comments: Patient education of dx, spinal mechanics, and benefits of flexibility and core strengthening exercise. Patient demonstrates compliance with HEP?: Yes Short Term Goals Goal #1: Pt independent and compliant with initial HEP. Goal to be met by: 01/17/19 Progress towards Goal:: Met Goal #2: Right SLR to 45-50 degrees. Goal to be met by: 01/17/19 Progress towards Goal:: Progressing Goal #3: Muscle tone in the upper traps decreased to minimal Goal to be met by: 01/17/19 Goal #4: Pt will demonstrate improved postural awareness. Goal to be met by: 01/17/19 Progress towards Goal:: Progressing Deputy Program Manager Goals Goal #1: Pt knows HEP and to continue ex's to maintain functional level at D/C. Goal to be met by: 02/12/19 Progress towards goal: Progressing Goal #2: Score on Oswestry LBP scale improved to 20. Goal to be met by: 02/12/19 Goal #3: Pt perform household and light yard work with min. neck and back pain. Goal to be met by: 02/12/19 Progress towards goal: Progressing Goal #4: Pt able to ambulate community distances with minimal low back pain. Goal to be met by: 02/12/19 Plan Dates of Deputy Program Manager Goals: 02/12/19 Expiration date of current Insurance Approval:: 02/12/19 PLAN: Progress with exercise to increase functional activity level.
--- NOTE | 2019-01-26 09:22 | RS.OPPTDN ---
Subjective Date of Note: 01/26/19 Visit #: 9 Number of visits approved by Insurance: na Date of Evaluation: 01/02/19 Payer Source: MEDICARE Treatment Diagnosis: Chronic low back pain, neck pain Current Subjective/complaints:: Patient reports he is doing better. States pain level is staying lower and he feels he is getting stronger. Pain Assessment - Pain Description Pain Location: neck and back Pain Description: Dull Current Pain Intensity: 2/10 prior to EX Other Comments regarding Pain:: Reports some increase soreness with exercise, but states "it's a good sore". - Heat/Cryotherapy Treatment: Hot Pack ([id number] to neck and back prior to EX. patient in supine. ) Interventions - Exercise/Activities/Manual Therapy Exercises/Activities: Assisted HS, piriformis, SKTC, LTR, and ITB stretching. Alt hip flexion increased to 4# to each ankle, cued to engage quads and gluts. Isometric hip flexion and isometric hip add. SLR 2s/10reps each. Green theraband resisted hip add and hip abd in hook-lying, bilaterally. Patient demos improvement in pelvic tilt with cues. Increased to 3# wand for overhead shoulder flexion with ball between knees to engage core. In sitting, scap retraction. Standing at wall for posutral correction exercise in wall yohan starting position. Also isometric cervical retraction with pillow behind head. Patient education and discussion of safety with ADL's. Total minutes of Exercise: 24mins Manual Therapy: NA HOME EXERCISE PROGRAM: stretching of HS and lower trunk rotation, lateral cervical flexion and doorway stretch (pec stretch) - Charges Timed Code Treatment Minutes: 24mins Total Treatment Time: 49mins Procedures billed for this date of service:: HP, EX2 Assessment: Patient progressing with trunk strengthening and postural correction exercise. He is reporting a decrease in his average pain level. Patient Education: Body/Joint mechanics, Home Exercise Program, Home Safety, Activity Modification Patient demonstrates compliance with HEP?: Yes Short Term Goals Goal #1: Pt independent and compliant with initial HEP. Goal to be met by: 01/17/19 Progress towards Goal:: Met Goal #2: Right SLR to 45-50 degrees. Goal to be met by: 01/17/19 Progress towards Goal:: Partially Met Comments:: Performs 45 degree SLR, but not consistent Goal #3: Muscle tone in the upper traps decreased to minimal Goal to be met by: 01/17/19 Progress towards Goal:: Progressing Goal #4: Pt will demonstrate improved postural awareness. Goal to be met by: 01/17/19 Progress towards Goal:: Progressing Jumpbasting Facing Baster Goals Goal #1: Pt knows HEP and to continue ex's to maintain functional level at D/C. Goal to be met by: 02/12/19 Progress towards goal: Progressing Goal #2: Score on Oswestry LBP scale improved to 20. Goal to be met by: 02/12/19 Goal #3: Pt perform household and light yard work with min. neck and back pain. Goal to be met by: 02/12/19 Progress towards goal: Progressing Goal #4: Pt able to ambulate community distances with minimal low back pain. Goal to be met by: 02/12/19 Plan Dates of Jumpbasting Facing Baster Goals: 02/12/19 Expiration date of current Insurance Approval:: 02/12/19 PLAN: Continue and progress strengthening and postural correction to increase patients functional activity level.
--- NOTE | 2019-01-31 14:15 | RS.OPPTDN ---
Subjective Date of Note: 01/31/19 Visit #: 10 Number of visits approved by Insurance: na Date of Evaluation: 01/02/19 Payer Source: MEDICARE Treatment Diagnosis: Chronic low back pain, neck pain Current Subjective/complaints:: Patient reports he is seeing progress with daily activities since attending PT and working on HEP. States he was able to push-mow his front yard, approx 15mins, over the weekend without his pain increasing. States he continues to have back and neck pain but is able to do more activities and walking without pain stopping him. Pain Assessment - Pain Description Pain Location: back and neck Pain Description: Tightness, Dull, Aching Current Pain Intensity: 10 - Heat/Cryotherapy Treatment: Hot Pack ([id number] to neck and back prior to EX. Patient in supine. ) Interventions - Exercise/Activities/Manual Therapy Exercises/Activities: Assisted HS, piriformis, SKTC, LTR, and ITB stretching. Alt hip flexion 4# to each ankle, cued to engage quads and gluts. Isometric hip flexion and isometric hip add. SAQ 4#, 2s/10reps. SLR 2s/10reps each. Green theraband resisted hip add and hip abd in hook-lying, bilaterally. Patient demos improvement in pelvic tilt with cues. 3# wand for overhead shoulder flexion with ball between knees to engage core. In sitting, scap retraction. Reviewed standing at wall for posutral correction exercise in wall yohan starting position. Discussion of safety with ADL's. Total minutes of Exercise: 33mins Manual Therapy: NA HOME EXERCISE PROGRAM: stretching of HS and lower trunk rotation, lateral cervical flexion and doorway stretch (pec stretch) - Objective Findings Observations,measurements,etc.: Oswestry LBP score increased to 19 or 38% deficit (was 22 or 44% deficit on Eval) - Charges Timed Code Treatment Minutes: 33mins Total Treatment Time: 53mins Procedures billed for this date of service:: HP, EX2 Assessment: Patient progressing well with ability to perform functional daily activities. Will benefit from continuing current POC to increase patient functional level. Short Term Goals Goal #1: Pt independent and compliant with initial HEP. Goal to be met by: 01/17/19 Progress towards Goal:: Met Goal #2: Right SLR to 45-50 degrees. Goal to be met by: 01/17/19 Progress towards Goal:: Partially Met Goal #3: Muscle tone in the upper traps decreased to minimal Goal to be met by: 01/17/19 Progress towards Goal:: Progressing Goal #4: Pt will demonstrate improved postural awareness. Goal to be met by: 01/17/19 Progress towards Goal:: Progressing Auto Body Builder Apprentice Goals Goal #1: Pt knows HEP and to continue ex's to maintain functional level at D/C. Goal to be met by: 02/12/19 Progress towards goal: Progressing Goal #2: Score on Oswestry LBP scale improved to 20. Goal to be met by: 02/12/19 Goal #3: Pt perform household and light yard work with min. neck and back pain. Goal to be met by: 02/12/19 Progress towards goal: Progressing Goal #4: Pt able to ambulate community distances with minimal low back pain. Goal to be met by: 02/12/19 Plan Dates of Correction Goals: 02/12/19 Expiration date of current Insurance Approval:: 02/12/19 PLAN: Continue through next week with current POC to increase patients functional activity level.
--- NOTE | 2019-02-02 13:48 | RS.PTSUM ---
Progress Note/Summary Date of Note: 01/31/19 Date of Evaluation: 01/02/19 Number of Visits: 10 Reporting Period for this Progress Note: 01/02/19 through 01/31/19 Current Complaints/Gains: Mr. Johnston reports he is getting better. States he was able to push-mow his yard for approximately 15 minutes, without an increase in back and neck pain. Objective Measurements/Presentation: Bilateral hip flexion strength 4+/5. Bilateral SLR 50-55 degrees. He demonstrates independence with HEP. Score on Oswestry LBP scale 38% impairment today. He scored it at 44% impairment at initial evaluation. G Codes: NA Source of G Code Score: NA - Short Term Goals Goal #1: Pt independent and compliant with initial HEP. Goal to be met by: 01/17/19 Progress towards Goal:: Met Goal #2: Right SLR to 45-50 degrees. Goal to be met by: 01/17/19 Progress towards Goal:: Met Goal #3: Muscle tone in the upper traps decreased to minimal Goal to be met by: 02/06/19 Progress towards Goal:: Progressing Goal #4: Pt will demonstrate improved postural awareness. Goal to be met by: 02/06/19 Progress towards Goal:: Progressing - Intermediate Goals Goal #1: Pt knows HEP and to continue ex's to maintain functional level at D/C. Goal to be met by: 02/12/19 Progress towards goal: Progressing Goal #2: Score on Oswestry LBP scale improved to 20. Goal to be met by: 02/12/19 Goal #3: Pt perform household and light yard work with min. neck and back pain. Goal to be met by: 02/12/19 Progress towards goal: Progressing Goal #4: Pt able to ambulate community distances with minimal low back pain. Goal to be met by: 02/12/19 - Assessment Assessment of Improvement/Progress: Mr. Johnston shows improvement per Oswestry scale and per reports of being able to push-mow his yard without an increase in his back and neck pain. He demonstrates potential to benefit from further stretching and strengthening exercises to improve his level of function. Summary: Patient has made progress towards goals., Patient demonstrates potential to gain increased function with therapy - Plan Plan: Continue Plan of Care Frequency: 2 X week Duration: 1 week Dates of Intermediate Goals: 02/12/19 Expiration date of current Insurance Approval:: JIN
--- NOTE | 2019-02-03 13:37 | RS.OPPTDN ---
Subjective Date of Note: 02/03/19 Visit #: 11 Number of visits approved by Insurance: na Date of Evaluation: 01/02/19 Payer Source: MEDICARE Treatment Diagnosis: Chronic low back pain, neck pain Current Subjective/complaints:: Patient states he is walking better and is working on HEP. States his stomach is bothering him this morning and may not be able to finish exercises. Pain Assessment - Pain Description Pain Location: Back and neck pain Current Pain Intensity: 2 Interventions - Exercise/Activities/Manual Therapy Exercises/Activities: Assisted HS, piriformis, SKTC, LTR, and ITB stretching. Alt hip flexion 4# to each ankle, cued to engage quads and gluts. Isometric hip flexion and isometric hip add. Green theraband resisted hip add and hip abd in hook-lying, bilaterally. 3# wand for overhead shoulder flexion with ball between knees to engage core. In standing, postural corrention at wall, then wand for overhead flexion at wall. Scap retraction at wall with wand. Doorway stretch, 3 positions. Total minutes of Exercise: 32mins Manual Therapy: NA HOME EXERCISE PROGRAM: stretching of HS and lower trunk rotation, lateral cervical flexion and doorway stretch (pec stretch) - Charges Timed Code Treatment Minutes: 32mins Total Treatment Time: 52mins Procedures billed for this date of service:: HP, EX2h Assessment: Patient reporting progress with walking and most ADL's, but feeling ill today. Patient Education: Body/Joint mechanics, Home Exercise Program, Activity Modification Patient demonstrates compliance with HEP?: Yes Short Term Goals Goal #1: Pt independent and compliant with initial HEP. Goal to be met by: 01/17/19 Progress towards Goal:: Met Goal #2: Right SLR to 45-50 degrees. Goal to be met by: 01/17/19 Progress towards Goal:: Met Goal #3: Muscle tone in the upper traps decreased to minimal Goal to be met by: 02/06/19 Progress towards Goal:: Progressing Goal #4: Pt will demonstrate improved postural awareness. Goal to be met by: 02/06/19 Progress towards Goal:: Progressing Sales Support Specialist Goals Goal #1: Pt knows HEP and to continue ex's to maintain functional level at D/C. Goal to be met by: 02/12/19 Progress towards goal: Progressing Goal #2: Score on Oswestry LBP scale improved to 20. Goal to be met by: 02/12/19 Goal #3: Pt perform household and light yard work with min. neck and back pain. Goal to be met by: 02/12/19 Progress towards goal: Progressing Goal #4: Pt able to ambulate community distances with minimal low back pain. Goal to be met by: 02/12/19 Plan Dates of Halfway Goals: 02/12/19 Expiration date of current Insurance Approval:: 02/12/19 PLAN: Continue next week to progress strength and increase patients functional activity level.
== END 2019-02-03 23:59 ==
PROVIDERS: ATTEND Nurse Practitioner Family
DX: M54.2 Cervicalgia (principal); M54.5 Low back pain; G89.29 Other chronic pain

== ENCOUNTER 2019-06-19 02:10 | Inpatient (IN) ==
[2019-06-19] MEDS ORDERED: DECADRON IV STA (02:16)
[2019-06-19] MEDS ORDERED: SODIUM CHLORIDE IV STA (02:16)
--- NOTE | 2019-06-19 02:16 | ED.PDOC ---
General ED Provider: Dr. KAITLIN GUPTA Chief Complaint: Shortness of Air Stated Complaint: 2 days cough, back pain, short of air. Time Seen by Physician: 02:10 Mode of Arrival: Walk-In Information Source: Patient Exam Limitations: No limitations Nursing and Triage Documentation Reviewed and Agree: Yes Does patient meet sepsis criteria?: No System Inflammatory Response Syndrome: Not Applicable Sepsis Protocol: For patient's 13 years and over: Temp is 96.8 and below OR 101 and greater Pulse >90 BPM Resp >20/minute Acutely Altered Mental Status Are patient's symptoms suggestive of a new infection, such as: -Pneumonia -Skin, Soft Tissue -Endocarditis -UTI -Bone, Joint Infection -Implantable Device -Acute Abdominal Infection -Wound Infection -Meningitis -Blood Stream Catheter Infection -Unknown Review of Systems Review Of Systems Constitutional: Reports Malaise Ears, Nose, Mouth, Throat: Reports No symptoms Respiratory: Reports Cough, Short of air and Wheezing Cardiac: Reports No symptoms Neurological: Reports Anxiety All Other Systems: Reviewed and Negative [facility] Social History (Updated 06/19/19 @ 05:27 by GARIMA ESCOTO RN) Do you feel safe at home: Yes History of physical abuse: No History of emotional abuse: No History of sexual abuse: No Would you like helpful sources: No Smoking and tobacco status: Current every day smoker Alcohol intake: former Do you think of yourself as: straight/heterosexual Current gender identity: male Current diet type/program: regular Caffeine: Yes Physical Exam Physical Exam Appearance: Ill-appearing Ill-appearing: Mild (appears tired) Pain Distress: None Eyes: RAÚL ENT: Oropharynx normal Neck: Supple Respiratory: Airway patent, Breath sounds diminished and Wheezes (bilateral expiratory) Cardiovascular: RRR and Pulses normal GI/: Soft Musculoskeletal: Normal strength, ROM intact and No edema Skin: Warm, Dry and Normal color Neurological: Sensation intact, Motor intact, Alert and Oriented Psychiatric: Affect appropriate and Mood appropriate Interpretation Radiology Interpretation Radiology Interpretation By: Radiologist Exam Interpreted: Portable CXR Xray Comments: Diffuse interstitial prominence; correlate for bronchiolitis EKG Interpretation Time of EKG #1: 02:19 Rate: Tachy Rhythm: Sinus Ectopy: None [place]: NL ST Segment: Normal Re-Evaluation Re-Evaluation Time of Re-Evaluation: 03:15 Status: Improved (not nearly as short of breath as on arrival) Vital Signs Stable: Yes Appearance: Other (still fatigued and ill appearing) Lungs: Other (wheezing ) Neuro: Alert and Oriented X3 Physician Notification Case Discussed Physician Notified: Dr Cordova Time of Notification: 04:26 Critical Care Note Critical Care Note Total Time (mins): 40 Comments: Review of PT hx, clinical picture, labs, XRay, EKG, discussion with Dr Cordova and decision to admit Course Course Hematology/Chemistry: 06/19/19 02:30 06/19/19 02:30 Orders, Labs, Meds: Lab Review 06/19/19 06/19/19 06/19/19 02:30 02:30 02:30 WBC 6.60 RBC 4.33 L Hgb 13.4 L Hct 41.0 L MCV 94.7 H MCH 30.9 MCHC 32.7 RDW Coeff of Heather 14.3 Plt Count 201 Immature Gran % (Auto) 0.5 Neut % (Auto) 58.9 Lymph % (Auto) 25.9 Lamb % (Auto) 10.0 Eos % (Auto) 4.2 Baso % (Auto) 0.5 Immature Gran # (Auto) 0.0 Neut # (Auto) 3.9 Lymph # (Auto) 1.7 Lamb # (Auto) 0.7 Eos # (Auto) 0.3 Baso # (Auto) 0.0 D-Dimer (Manual) 594.80 Puncture Site O2 Saturation ABG pH ABG pCO2 ABG pO2 ABG HCO3 ABG Total CO2 ABG Base Excess Clement Test FiO2 % Sodium 133.8 L Potassium 4.20 Chloride 100.0 Carbon Dioxide 25.6 Anion Gap 12.40 BUN 10.6 Creatinine 1.21 H Estimated GFR (MDRD) 62.00 BUN/Creatinine Ratio 8.76 Glucose 101.7 Calcium 9.24 Total Bilirubin 0.40 AST 24.3 ALT 20.8 Alkaline Phosphatase 104.4 Troponin I < 0.012 Total Protein 7.08 Albumin 4.12 Globulin 2.96 Albumin/Globulin Ratio 1.39 06/19/19 03:45 WBC RBC Hgb Hct MCV MCH MCHC RDW Coeff of Heather Plt Count Immature Gran % (Auto) Neut % (Auto) Lymph % (Auto) Lamb % (Auto) Eos % (Auto) Baso % (Auto) Immature Gran # (Auto) Neut # (Auto) Lymph # (Auto) Lamb # (Auto) Eos # (Auto) Baso # (Auto) D-Dimer (Manual) Puncture Site Rrad O2 Saturation 88.0 L ABG pH 7.329 L ABG pCO2 45.6 H ABG pO2 59.0 L* ABG HCO3 24 ABG Total CO2 25 ABG Base Excess -2 Clement Test + FiO2 % 21.0 Sodium Potassium Chloride Carbon Dioxide Anion Gap BUN Creatinine Estimated GFR (MDRD) BUN/Creatinine Ratio Glucose Calcium Total Bilirubin AST ALT Alkaline Phosphatase Troponin I Total Protein Albumin Globulin Albumin/Globulin Ratio Orders Category Date Time Status ABG DRAW REQUEST Stat CARDIO 06/19/19 03:46 Completed NEBULIZER TREATMENT Stat CARDIO 06/19/19 02:22 Completed ACTIVITY .BR with BRP CARE 06/19/19 04:27 Completed INTAKE & OUTPUT Q8HR CARE 06/19/19 04:28 Completed VITAL SIGNS Q8HR CARE 06/19/19 02:17 Completed VITAL SIGNS Q8HR CARE 06/19/19 04:28 Active REGULAR DIET DIETARY 06/19/19 Breakfast Ordered ABG Stat LAB 06/19/19 03:45 Completed CBC W/ AUTO DIFF DAILY@0600 LAB 06/20/19 06:00 Ordered CBC W/ AUTO DIFF Stat LAB 06/19/19 02:30 Completed COMPREHENSIVE METABOLIC PANEL DAILY@0600 LAB 06/20/19 06:00 Ordered COMPREHENSIVE METABOLIC PANEL Stat LAB 06/19/19 02:30 Completed D-DIMER Stat LAB 06/19/19 02:30 Completed TROPONIN I Stat LAB 06/19/19 02:30 Completed Acetaminophen [Tylenol] MEDS 06/19/19 03:58 Discontinued 650 mg PO ONCE STA Dexamethasone 4 mg/ml Inj [Decadron 4 mg/ml Sdv] MEDS 06/19/19 02:29 Discontinued 8 mg .ROUTE .STK-MED ONE Dexamethasone 4 mg/ml Inj [Decadron 4 mg/ml Sdv] 8 mg MEDS 06/19/19 02:16 Discontinued 0.9 % Sodium Chloride [Sodium Chloride] 50 ml IV ONCE Ipratropium/Albuterol Neb [Duoneb] MEDS 06/19/19 02:24 Discontinued 3 ml NEB .STK-MED ONE Ipratropium/Albuterol Neb [Duoneb] MEDS 06/19/19 02:21 Discontinued 3 ml NEB ONCE STA Methylprednisolone Sod Succ/Pf [Solu-Medrol 40 mg] MEDS 06/19/19 06:00 Discontinued 40 mg IVP Q6HR Sodium Chloride 0.9% [Sodium Chloride] 1,000 ml MEDS 06/19/19 04:30 Active IV 75 mls/hr RESUSCITATION STATUS Routine OTHERS 06/19/19 04:27 Ordered CHEST, 1V AP ONLY Stat RADS 06/19/19 02:16 Completed Medications Generic Name Dose Route Start Last Admin Trade Name Freq PRN Reason Stop Dose Admin Hydrocodone Bitart/Acetaminophen 1 tab 06/19/19 11:07 06/19/19 19:49 [place] 5-325 PO 1 tab Q8HR PRN Administration pain Albuterol Sulfate 2 puff 06/19/19 20:07 06/20/19 01:17 Proair Hfa IH 2 puff Q4-6H PRN Administration Shortness of air/wheezing Diazepam 5 mg 06/19/19 06:00 06/19/19 22:03 Valium PO 5 mg TID MAHIN Administration Hydrocortisone Sodium Succinate 125 mg 06/19/19 18:00 06/19/19 23:23 Solu-Cortef 250 Mg IVP 125 mg Q6HR MAHIN Administration Sodium Chloride 1,000 mls @ 75 mls/hr 06/19/19 04:30 06/19/19 18:13 Sodium Chloride IV 75 mls/hr .[id number] MAHIN Administration Lamotrigine 150 mg 06/19/19 21:00 06/19/19 22:02 Lamictal PO 150 mg BEDTIME MAHIN Administration Lisinopril 20 mg 06/19/19 09:00 06/19/19 22:02 Zestril PO 20 mg BID MAHIN Administration Nicotine 1 patch 06/19/19 09:00 06/19/19 10:13 Nicoderm 21 Mg TD 1 patch DAILY MAHIN Administration Olanzapine 20 mg 06/19/19 21:00 06/19/19 22:03 Zyprexa PO 20 mg BEDTIME MAHIN Administration Ranitidine HCl 150 mg 06/19/19 06:30 06/19/19 06:53 Zantac PO 150 mg 0630 MAHIN Administration Discontinued Medications Generic Name Dose Route Start Last Admin Trade Name Freq PRN Reason Stop Dose Admin Acetaminophen 650 mg 06/19/19 03:58 06/19/19 04:23 Tylenol PO 06/19/19 03:59 650 mg ONCE STA Administration Hydrocodone Bitart/Acetaminophen 1 tab 06/19/19 05:51 06/19/19 06:53 [place] 5-325 PO 1 tab Q4HR PRN Administration pain Albuterol/Ipratropium 3 ml 06/19/19 02:21 06/19/19 02:48 Duoneb NEB 06/19/19 02:22 Not Given ONCE STA Albuterol/Ipratropium 3 ml 06/19/19 11:06 Duoneb NEB RTQ6H PRN Wheezing Albuterol/Ipratropium 3 ml 06/19/19 12:00 06/19/19 17:37 Duoneb NEB 3 ml RTQ6H MAHIN Administration Diltiazem HCl 90 mg 06/19/19 18:00 06/19/19 18:16 Cardizem PO 06/19/19 18:01 90 mg ONCE ONE Administration Dexamethasone Sodium Phosphate 52 mls @ 75 mls/hr 06/19/19 02:16 06/19/19 02:32 8 mg/ Sodium Chloride IV 06/19/19 02:57 75 mls/hr ONCE STA Administration Methylprednisolone Sodium Succinate 40 mg 06/19/19 06:00 06/19/19 05:33 Solu-Medrol 40 Mg IVP 40 mg Q6HR MAHIN Administration Non-Formulary Medication 30 mg 06/19/19 09:00 06/19/19 10:13 Dextroamphetamine-Amphetamine [Adderall] PO Not Given BID MAHIN Non-Formulary Medication 125 mg 06/19/19 14:00 Solucortef IV Q6H MAHIN Vital Signs: Temp Pulse Resp BP Pulse Ox 06/19/19 03:14 99 H 27 H 100 06/19/19 02:44 99 H 34 H 121/88 92 L 06/19/19 02:11 97.8 F 98 H 36 H 132/91 H 96 Discharge Plan Discharge Patient Disposition: ADMITTED INPATIENT Discharge Problem: COPD exacerbation ED Provider: KAITLIN GUPTA Condition: Stable Discharge Date/Time: 06/19/19 05:15
[2019-06-19] MEDS ORDERED: DUONEB NEB STA (02:21)
[2019-06-19] MEDS ORDERED: DUONEB NEB ONE (02:24)
[2019-06-19] MEDS ORDERED: DECADRON 4 MG/ML SDV ONE (02:29)
--- NOTE | 2019-06-19 02:43 | DI ---
EXAM: Chest, single view, 06/19/2019 HISTORY: Cough COMPARISON: 11/03/2018 FINDINGS / IMPRESSION: Cardiomediastinal contours appear within normal limits. There is diffuse int erstitial prominence with suggestion of peribronchial thickening. Correlate for bronchiolitis. There is no focal pulmonary consolidation. No pleural effusion or pneumothorax
[2019-06-19] MEDS ORDERED: TYLENOL PO STA (03:58)
[2019-06-19 05:25] VITALS: BMI 30.9
[2019-06-19] MEDS: SODIUM CHLORIDE 1,000 ML IV SCH ×2 (05:33→18:13)
[2019-06-19] MEDS ORDERED: NORCO 5-325 PO PRN (05:51)
[2019-06-19] MEDS ORDERED: SOLU-MEDROL 40 MG IVP SCH (06:00)
[2019-06-19] MEDS: ZANTAC PO SCH (06:53)
[2019-06-19] MEDS: VALIUM PO SCH ×4 (06:53→22:03)
[2019-06-19] MEDS ORDERED: DEXTROAMPHETAMINE AMPHETAMINE 30 MG PO SCH (09:00)
[2019-06-19] MEDS: ZESTRIL PO SCH ×2 (10:12→22:02)
[2019-06-19] MEDS: NICODERM 21 MG TD SCH (10:13)
[2019-06-19] MEDS ORDERED: DUONEB NEB PRN (11:06)
[2019-06-19] MEDS: NORCO 5-325 PO PRN ×2 (11:39→19:49)
[2019-06-19] MEDS: DUONEB NEB SCH ×2 (11:49→17:37)
[2019-06-19] MEDS ORDERED: SOLU-MEDROL 125 MG IVP SCH (13:00)
[2019-06-19] MEDS ORDERED: HYDROCORTISONE IV SCH (14:00)
[2019-06-19] MEDS ORDERED: CARDIZEM PO ONE (18:00)
[2019-06-19] MEDS: SOLU-CORTEF 250 MG IVP SCH ×2 (18:17→23:23)
[2019-06-19] MEDS ORDERED: PROAIR HFA IH PRN (20:07)
[2019-06-19] MEDS: LAMICTAL PO SCH (22:02)
[2019-06-19] MEDS: ZYPREXA PO SCH (22:03)
[2019-06-20] MEDS: NORCO 5-325 PO PRN ×3 (03:51→20:20)
[2019-06-20] MEDS: SOLU-CORTEF 250 MG IVP SCH ×4 (05:44→23:23)
[2019-06-20] MEDS: ZANTAC PO SCH (05:44)
[2019-06-20] MEDS: SODIUM CHLORIDE 1,000 ML IV SCH (07:38)
[2019-06-20] MEDS: ZESTRIL PO SCH ×2 (08:12→22:01)
[2019-06-20] MEDS: VALIUM PO SCH ×3 (08:12→22:02)
[2019-06-20] MEDS: NICODERM 21 MG TD SCH (08:12)
[2019-06-20] MEDS ORDERED: TUSSIONEX PO SCH (09:00)
[2019-06-20] MEDS ORDERED: CARDIZEM PO SCH (09:00)
[2019-06-20] MEDS: TUSSIONEX PO SCH ×2 (09:14→22:00)
[2019-06-20] MEDS: IMODIUM PO PRN (09:14)
[2019-06-20] MEDS: CARDIZEM PO SCH ×4 (09:14→22:02)
[2019-06-20] MEDS: XOPENEX 1.25 MG NEB SCH ×3 (11:09→23:40)
[2019-06-20] MEDS: LAMICTAL PO SCH (22:01)
[2019-06-20] MEDS: ZYPREXA PO SCH (22:01)
[2019-06-21] MEDS: NORCO 5-325 PO PRN ×2 (04:21→13:07)
[2019-06-21] MEDS: XOPENEX 1.25 MG NEB SCH ×4 (05:13→23:25)
[2019-06-21] MEDS: SOLU-CORTEF 250 MG IVP SCH ×2 (05:28→13:06)
[2019-06-21] MEDS: IMODIUM PO PRN (05:32)
[2019-06-21] MEDS: ZANTAC PO SCH (05:33)
[2019-06-21] MEDS: VALIUM PO SCH ×3 (08:09→20:50)
[2019-06-21] MEDS: CARDIZEM PO SCH ×4 (08:10→20:50)
[2019-06-21] MEDS: ZESTRIL PO SCH ×2 (08:10→20:50)
[2019-06-21] MEDS: NICODERM 21 MG TD SCH (08:10)
[2019-06-21] MEDS: TUSSIONEX PO SCH ×2 (08:14→20:50)
--- NOTE | 2019-06-21 11:10 | HP ---
DATE OF SERVICE: 06/19/19 CHIEF COMPLAINT: Shortness of breath. HISTORY OF PRESENT ILLNESS: Mr. Johnston is a pleasant 54-year-old patient who presented to the Emergency Department on 06/19/19 with complaints of shortness of breath. Also, with complaints of back pain and cough for the past two days. He presented as a walk- in to the Emergency Department. He was diagnosed with COPD exacerbation. Chest x-ray did show diffuse interstitial prominence with suggestion of peribronchial thickening correlate for bronchiolitis. There is no focal pulmonary consolidation and no pleural effusion or pneumothorax. The patient was started on nebulizer treatments. Dexamethasone was ordered for this patient. PAST MEDICAL HISTORY: Attention deficit disorder Back pain Bipolar disorder Diarrhea Diverticulitis History of colostomy Hypertension PAST SURGICAL HISTORY: Hernia repair bilaterally Tonsillectomy Colostomy for approximately three months after severe diverticulitis. 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 Right leg plate Dislocated ankle Leg repair History of carpal tunnel FAMILY HISTORY: Aunts have a history of colon cancer, throat and lung cancer. Father at age 33. He did have emphysema of the lung. Mother - malignant neoplasm, unknown type at 32 years-old. SOCIAL HISTORY: He is a current every day smoker. He reports approximately one pack per day. He does report a history of alcoholism. He states he is still not drinking stopping at age 48. He does report occasional marijuana use but he has been off marijuana for approximately a few weeks. MEDICATIONS: (CURRENT HOME) Albuterol Ventolin HFA two puffs inhalation every 4 to 6 hr as needed Dextroamphetamine 30 mg p.o. twice a day Diazepam (Valium) 5 mg p.o. three times a day Lamictal 150 mg at bedtime Lisinopril 20 mg twice a day Zyprexa 20 mg at bedtime Ranitidine HCL 150 mg p.o. daily Incruse Ellipta one puff inhalation daily ALLERGIES: CONTRAST REVIEW OF SYSTEMS: CONSTITUTIONAL: No reports of fever, chills, nightsweats or weight changes. HEENT: No reports of headache, nasal drainage, sore throat or blurred vision. CARDIOVASCULAR: No reports of chest pain. Denies any irregular rhythm. No orthopnea or peripheral edema. RESPIRATORY: He does complain of shortness of breath. He does complain of cough and congestion. He does have a history of COPD. GASTROINTESTINAL: No complaints of abdominal pain. He does have a significant history of diverticulitis as well as history of a colostomy for that. That has been reversed. Denies any nausea, vomiting, diarrhea, constipation, blood in stool or changes in stool consistency. GENITOURINARY: No reports of dysuria, hematuria, nocturia or urinary incontinence. MUSCULOSKELETAL: No reports of any unusual muscle pain, redness or swelling. NEUROLOGIC: No reports of any neurological deficits. Denies any dizziness, fatigue. PSYCHIATRIC: No complaints of anxiety, depression or mood changes. He does report his anxiety is stable at this time. He does see Mental Health. ENDOCRINE: No reports of any diabetes mellitus or thyroid disease. Denies any increased thirst, urination or heat or cold intolerance. INTEGUMENTARY: No reports of any unusual rashes, lesions or skin changes. PHYSICAL EXAMINATION: GENERAL: He is alert and oriented. He answers all questions appropriately. VITAL SIGNS: Temperature 97.7, pulse rate 96, blood pressure 134/88, respiratory rate 16, 02 saturation 97% on 2L/NC. Height 5'7, weight 197 lbs. HEENT: Head normocephalic, atraumatic. Pupils equal/reactive to light. Conjunctivae clear. NECK: Supple. No masses. No lymphadenopathy appreciated. No carotid bruits auscultated. CARDIOVASCULAR: S1, S2 regular rate and rhythm. No peripheral edema. LUNGS: Wheezing bilaterally. He is a bit short of breath with minimal exertion. He does have [address] at 2L/NC. ABDOMEN: Soft. Bowel sounds are positive. He does have noted some abdominal protrusion. He reports a history of herniation and repair to the left side of the abdomen. He has no tenderness, no rebound tenderness and no rigidity. NEUROLOGIC: Cranial nerves 2-12 grossly intact without any overt neurological deficit. SKIN: Warm and dry without any rash, lesion or wound. LABS AND DIAGNOSTIC TESTING: Have been reviewed. On admission his white count 6.60, hemoglobin 13.4, hematocrit 41.0, platelet count 201. Chemistry panel: Sodium 133.8, potassium 4.20, BUN 10.6, creatinine 1.21. Cardiac markers were negative. NT Pro-BNP 29.9. Urinalysis was negative. His urine screen was positive for Canninabinoids, Benzodiazepaines and opiods. ASSESSMENT: 1. Acute exacerbation of COPD. 2. History of chronic back pain. 3. History of bipolar disorder and attention deficit disorder. 4. History of diverticulitis with history of colostomy that has been reversed. 5. History of hypertension. 6. History of hyperlipidemia. 7. History of anxiety. PLAN: 1. We will change the Solu-Medrol to Solu-Cortef 125 mg every 8 hours. 2. Consider antibiotic treatment. Dr. Cordova will take a look at that and see if antibiotics are needed on this patient. 3. Will continue to monitor this patient closely. He apparently has [address] on 2L/nasal cannula. His respiratory status has improved with administration of steroids. 4. Further orders and recommendations per Dr. Cordova. TIME SPENT: GREATER THAN 65 MINUTES MTDD
--- NOTE | 2019-06-21 11:15 | PN ---
DATE OF SERVICE: 06/20/19 SUBJECTIVE: He claims he is feeling better. Lungs has minimal wheeze in the right upper posterior chest field. Breath sounds are diminished. No obvious rales. Heart is audible, slightly tachycardic. General condition is improved and the patient claims that indeed he feels better. ENMA
--- NOTE | 2019-06-21 11:22 | PN ---
DATE OF SERVICE: 06/19/19 SUBJECTIVE: Today he is feeling much better. He has been started on nebulizer treatments and Solu-Medrol for diagnosis of COPD exacerbation. He continues to have some wheezing bilaterally. Heart is regular rate and rhythm. He has no lower extremity edema. He does report he is breathing much better. OBJECTIVE: Today vital signs - he is afebrile. Temperature 98.7, pulse rate 118, blood pressure 158/85, respiratory rate 24, 02 sat 96% on 2L/NC. There are no new labs today to display just the admission labs that were ordered in the Emergency Department. His white count on admission was 6.60 and those were noted in the History and Physical. Overall he is feeling better. Again, he does have some wheezing to his lungs but is less short of breath. ENMA
[2019-06-21] MEDS: SODIUM CHLORIDE 1,000 ML IV SCH ×2 (11:26→11:27)
--- NOTE | 2019-06-21 12:43 | PN ---
DATE OF SERVICE: 06/20/19 SUBJECTIVE: The patient states "I can't tell a difference from yesterday to today" regarding his breathing. He tells me that his sputum is not coming up. He tells me that he is getting short of breath and winded just to get up to the bathroom and up to his closet and with changing clothing. OBJECTIVE: Lungs are coarse, upper and lower lobes. Heart is regular rate and rhythm. Today his vital signs he is afebrile. Temperature 98.7. He is a little bit tachycardic at 118. Blood pressure 158/85. His 02 sat is 96% on 2L/NC. On telemetry he is running normal sinus rhythm in the 90s to the 115 range. I did speak with the pharmacist regarding the Adderall prescription. They are not wanting to get the 20 mg dose of Adderall. They are wanting to see about prescribing the 15 mg dose and the patient taking his own home dosage and cutting the tablet in half. We will talk to Dr. Cordova regarding this solution for the Adderall prescription for the Adderall prescription as Dr. Cordova is wanting to decrease the patient's dose of Adderall as the patient's heart rate has been continuously elevated and Dr. Cordova feels that the patient is getting too much Adderall prescription I will discuss this with Dr. Cordova and we can also discuss this with the pharmacy. ENMA
[2019-06-21] MEDS: ADDERALL PO SCH ×2 (13:07→20:51)
--- NOTE | 2019-06-21 13:54 | CONS ---
DATE OF CONSULTATION: 06/20/19 REASON FOR CONSULTATION: Sinus tachycardia HISTORY OF PRESENT ILLNESS: 54 year old white male hospitalized with acute exacerbation of COPD. The patient given DUONEB and went into sinus tachycardia with rate of 140. REVIEW OF SYSTEMS: CONSTITUTIONAL: No night sweats. No fatigue, malaise, lethargy. No fever or chills. HEENT: Eyes: No visual changes. No eye pain. No eye discharge. ENT: No sinus drainage. No epistaxis. No sinus pain. No sore throat. No odynophagia. No ear pain. No congestion. RESPIRATORY: Cough, Congestion. No hemoptysis. No shortness of breath. CARDIOVASCULAR: No angina symptoms. No CHF symptoms. No atypical chest pain for CAD. Palpitations occasionally. No orthopnea. GASTROINTESTINAL: No abdominal pain. No nausea or vomiting. No diarrhea or constipation. No hematemesis. No hematochezia. GENITOURINARY: No urgency. No frequency. No dysuria. No hematuria. No obstructive symptoms. No discharge. No pain. No significant abnormal bleeding. MUSCULOSKELETAL: No musculoskeletal pain. No joint swelling. NEUROLOGICAL: No headache. No neck pain. No syncope. No seizures. No dizziness. PSYCHIATRIC: Not anxious. No depression. No suicidal thoughts. No homicidal thoughts. SKIN: No rash. No lesions. No wounds. ENDOCRINE: No unexplained weight loss. No weight gain. HEMATOLOGIC/LYMPHATIC: No anemia. No purpura. No petechiae. No prolonged or excessive bleeding. No palpable lymph nodes. MEDICATIONS: Adderall Valium Lamictal Zyprexa Ventolin HFA Ellipta ALLERGIES: Iodinated contrast PAST MEDICAL HISTORY: Hypertension Obesity Chronic lung disease ADHD DJD generalized SOCIAL/PERSONAL/FAMILY HISTORY: The patient is smoker, smokes more than a pack a day. No alcohol abuse. Does all activity of daily living. PHYSICAL EXAMINATION: GENERAL: The patient is oriented to time, place and person VITAL SIGNS: Temperature 98.7, pulse 100 per minute, respiratory rate 24, blood pressure 158/85 and pulse ox 95% HEENT: Head normocephalic, atraumatic. Eyes: Extraocular muscles are intact. Pupils are equal, round and reactive to light and accommodation. Ears: No lesions. Nose appeared normal. Throat: No exudate or erythema. NECK: Supple. No JVD, no carotid bruit. No lymphadenopathy or thyromegaly. LUNGS: Decreased breath sounds with mild wheeze. Clear to auscultation. Percussion note normal. Chest symmetrical. HEART: S1, S2, no S3. No murmurs. No cyanosis or clubbing. No ascites. Pulses: Dorsalis pedis and posterior tibial pulses +1 to +2 bilaterally. ABDOMEN: Soft. Nontender. Bowel sounds active. No CVA tenderness. No mass felt. EXTREMITIES: No edema. Full range of motion of all extremities, equal. NEUROLOGIC: No focal deficit. Cranial nerves II through XII are grossly intact. No headache, no double vision or headache. SKIN: Not dry. Intact. Turgor - normal. LYMPHATIC: No palpable lymph nodes/no lymphedema. MUSCULOSKELETAL: Normal joints with no swelling. Muscle tone is normal. LABS: Hgb 13.4, hct 40, WBC 10,000 normal differential, creatinine 0.8, BUN 9, potassium 4.4. PRO BNP 29. ASSESSMENT: 1. Sinus tachycardia secondary to DUO NEBS and COPD combination 2. Smoking with severe chronic lung disease 3. Hypertension 4. Obesity 5. Depression RECOMMENDATIONS: 1. T4, TSH 2. Cardizem 90mg twice a day 3. Echocardiogram to evaluate LV function 4. EKG 5. Telemetry 6. Strongly advised to quit smoking, counseling for smoking done 7. PFT in the morning 8. Steroids and antibiotics, agreed 10. The patient explained about extent of COPD looks like moderate to severe clinically Thanks for referral, will follow. RACHEALD
[2019-06-21] MEDS: ROCEPHIN 2 GM/50 ML D5W 2 GM/50 ML BAG IV SCH (16:19)
[2019-06-21] MEDS: SOLU-CORTEF 100 MG IVP SCH ×2 (17:43→23:09)
[2019-06-21] MEDS: ZYPREXA PO SCH (20:50)
[2019-06-21] MEDS: LAMICTAL PO SCH (20:50)
[2019-06-22] MEDS: SODIUM CHLORIDE 1,000 ML IV SCH ×2 (02:00→17:10)
[2019-06-22] MEDS: NORCO 5-325 PO PRN ×3 (04:45→23:28)
[2019-06-22] MEDS: XOPENEX 1.25 MG NEB SCH ×2 (05:05→12:15)
[2019-06-22] MEDS: ZANTAC PO SCH (05:49)
[2019-06-22] MEDS: SOLU-CORTEF 100 MG IVP SCH ×4 (05:50→23:29)
[2019-06-22] MEDS: ROCEPHIN 2 GM/50 ML D5W 2 GM/50 ML BAG IV SCH (08:00)
[2019-06-22] MEDS: CARDIZEM PO SCH ×4 (08:01→20:00)
[2019-06-22] MEDS: TUSSIONEX PO SCH ×2 (08:01→20:00)
[2019-06-22] MEDS: VALIUM PO SCH ×3 (08:01→20:00)
[2019-06-22] MEDS: ADDERALL PO SCH ×2 (08:01→19:59)
[2019-06-22] MEDS: ZESTRIL PO SCH ×2 (08:02→19:59)
[2019-06-22] MEDS: IMODIUM PO PRN (08:02)
[2019-06-22] MEDS: NICODERM 21 MG TD SCH (08:02)
--- NOTE | 2019-06-22 08:40 | PN ---
DATE OF SERVICE: 06/21/19 SUBJECTIVE: Today, he continues to complain of some shortness of breath. He complains of gurgling in his chest. His vital signs are stable. His temperature is 97.8, pulse rate 103, blood pressure 122/76, respiratory rate 20, 02 sat 95% on 2L/NC. On telemetry, he is running at 87. I did discuss with Dr. Cordova regarding his current medication regimen in the hospital. We will drop off on some of his Solu-Cortef. Will go down to 50 mg every 6 hours at this time. Because of his ongoing lung congestion will add on Ceftriaxone at 2 gm intravenous daily. If the congestion continues will plan on rechecking a chest x-ray in the morning. On exam, his lungs remain congested anteriorly and posteriorly with some rhonchi. He does have a regular rate and rhythm on his heart. He is short of breath with his minimal exertion. He has no lower extremity edema. He is in no acute distress. His most recent vital signs today at 1400 his blood pressure 153/94, his 02 sat 94% on 2L/NC. His pulse is 102. MTDD
--- NOTE | 2019-06-22 08:45 | PCM.CONS ---
CONSULTING PROVIDER: Dr. CASEY LEIVA ATTENDING PROVIDER: Dr. [facility]NA [facility] DATE OF SERVICE: 06/22/19 SUBJECTIVE: This 54 year old /WHITE M was hospitalized 06/19/19. The patient was seen on consult. The patient has acute bronchitis with severe COPD. He is a heavy smoker. His condition has slowly been improving. BMI of 29. His echo showed enlarged RV cavity. The patient qualifies for oxygen at home. He is strongly advised to wear the oxygen and to quit smoking. REVIEW OF SYSTEMS: CONSTITUTIONAL: No night sweats. No fatigue, malaise, lethargy. No fever or chills. HEENT: Eyes: No visual changes. No eye pain. No eye discharge. ENT: No runny nose. No epistaxis. No sinus pain. No odynophagia. No congestion. RESPIRATORY: No cough, no congestion. No hemoptysis. No shortness of breath. CARDIOVASCULAR: No angina symptoms. No CHF symptoms. No atypical chest pain for CAD. No palpitations. No orthopnea. GASTROINTESTINAL: No abdominal pain. No nausea or vomiting. No diarrhea or constipation. No hematemesis. No hematochezia. GENITOURINARY: No urgency. No frequency. No dysuria. No hematuria. No obstructive symptoms. No discharge. No pain. No significant abnormal bleeding. MUSCULOSKELETAL: No musculoskeletal pain; no joint swelling. NEUROLOGICAL: Awake, alert, oriented to time, place and person. No headache. No neck pain. No syncope. No seizures. No dizziness. PSYCHIATRIC: Not anxious. No depression. No suicidal thoughts. No homicidal thoughts. SKIN: No rash. No lesions. No wounds. ENDOCRINE: No unexplained weight loss. No weight gain. HEMATOLOGIC/LYMPHATIC: No anemia. No purpura. No petechiae. No prolonged or excessive bleeding. No palpable lymph nodes. PHYSICAL EXAMINATION: GENERAL: The patient is awake, alert and oriented, lying in bed in no distress. VITAL SIGNS: Temperature 98.1 F, Pulse 103, Respiratory Rate 20, BP 139/94, Pulse Ox 97% HEENT: Head normocephalic, atraumatic. Eyes: Extraocular muscles are intact. Pupils are equal, round and reactive to light and accommodation. Ears: No lesions. Nose appeared normal. Throat: No exudate or erythema. NECK: Supple. No JVD, no carotid bruit. No lymphadenopathy or thyromegaly. LUNGS: Decreased breath sounds with wheezing. Percussion note normal. Chest symmetrical. HEART: S1, S2, no S3. No murmurs. No cyanosis or clubbing. No ascites. Pulses: Dorsalis pedis and posterior tibial pulses +1 to +2 both sides. ABDOMEN: Soft. Non-tender. Bowel sounds active. No CVA tenderness. No mass felt. EXTREMITIES: No edema. Full range of motion of all extremities, equal. NEUROLOGIC: No focal deficit. Cranial nerves II through XII are grossly intact. No headache, no double vision or headache. SKIN: Warm and dry. Intact. Turgor-normal. LYMPHATIC: No palpable lymph nodes/no lymphedema. MUSCULOSKELETAL: Normal joints with no swelling. Muscle tone is normal. LAB REVIEW: 06/22/19 05:43 06/22/19 05:43 06/22/19 05:43: Sodium 137.9, Potassium 3.37 L, Chloride 97.7 L, Carbon Dioxide 32.7 H, Anion Gap 10.87, BUN 8.7 L, Creatinine 0.91, Estimated GFR (MDRD) 87.00, BUN/Creatinine Ratio 9.56, Glucose 123.2 H, Calcium 9.46, Total Bilirubin 0.40, AST 35.1, ALT 29.8, Alkaline Phosphatase 87.4, Total Protein 7.26, Albumin 4.15, Globulin 3.11, Albumin/Globulin Ratio 1.33 06/22/19 05:43: WBC 8.38, RBC 4.11 L, Hgb 12.6 L, Hct 38.9 L, MCV 94.6 H, MCH 30.7, MCHC 32.4, RDW Coeff of Heather 14.1, Plt Count 238, Immature Gran % (Auto) 0.4, Neut % (Auto) 70.7, Lymph % (Auto) 20.3, [place] % (Auto) 8.4, Eos % (Auto) 0.1, Baso % (Auto) 0.1, Immature Gran # (Auto) 0.0, Neut # (Auto) 5.9, Lymph # (Auto) 1.7, [place] # (Auto) 0.7, Eos # (Auto) 0.0, Baso # (Auto) 0.0 ASSESSMENT: Please see below. RECOMMENDATIONS/PLAN: 1. Continue Antibiotics, Steroids and NEBS 2. Pulmonary rehab discussed with the patient. Plan and coordination of the patient's care discussed in the presence of Math And Physics Instructor and Nurse. SCRIBED BY: Vanessa DILLARD scribed while in presence of service performed by Dr. CASEY LEIVA on 06/22/19 ([id number])
[2019-06-22] MEDS: LOVENOX SUBCUT SCH (11:47)
--- NOTE | 2019-06-22 14:50 | DI ---
EXAM: Two views of the chest. History: Chronic obstructive pulmonary disease and cough. Comparison: Chest radiograph 06/19/2019 Findings: Heart size is normal. No focal consolidation. No appreciable pleural fluid and no pneumo thorax. No acute osseous abnormalities. Impression: No acute cardiopulmonary process
[2019-06-22] MEDS: DUONEB NEB SCH ×2 (17:00→23:00)
[2019-06-22] MEDS: ZYPREXA PO SCH (20:00)
[2019-06-22] MEDS: LAMICTAL PO SCH (20:00)
[2019-06-23] MEDS: DUONEB NEB SCH ×2 (05:02→11:04)
[2019-06-23] MEDS: SOLU-CORTEF 100 MG IVP SCH ×2 (05:36→13:30)
[2019-06-23] MEDS: IMODIUM PO PRN (05:37)
[2019-06-23] MEDS: ZANTAC PO SCH (05:37)
[2019-06-23] MEDS: SODIUM CHLORIDE 1,000 ML IV SCH (06:04)
[2019-06-23] MEDS: NORCO 5-325 PO PRN (07:36)
[2019-06-23] MEDS: VALIUM PO SCH (08:56)
[2019-06-23] MEDS: ROCEPHIN 2 GM/50 ML D5W 2 GM/50 ML BAG IV SCH (08:56)
[2019-06-23] MEDS: NICODERM 21 MG TD SCH (08:56)
[2019-06-23] MEDS: TUSSIONEX PO SCH (08:56)
[2019-06-23] MEDS: CARDIZEM PO SCH ×2 (08:57)
[2019-06-23] MEDS: ADDERALL PO SCH (08:57)
[2019-06-23] MEDS: ZESTRIL PO SCH (08:57)
[2019-06-23] MEDS: LOVENOX SUBCUT SCH (08:57)
--- NOTE | 2019-06-23 09:44 | CONS ---
DATE OF SERVICE: 06/21/19 CONSULT FOLLOWUP SUBJECTIVE: 54 year old white male hospitalized with acute bronchitis and acute COPD. I was given a consult because the patient's heart rate went up to 140 after the DUO NEB treatment. The patient's condition as far as sinus tachycardia is concerned he is improved. He is on Cardizem 90mg twice a day with heart rate of 90-100 per minute now. REVIEW OF SYSTEMS: CONSTITUTIONAL: No night sweats. No fatigue, malaise, lethargy. No fever or chills. HEENT: Eyes: No visual changes. No eye pain. No eye discharge. ENT: No runny nose. No epistaxis. No sinus pain. No sore throat. No odynophagia. No ear pain. No congestion. RESPIRATORY: Cough, Congestion. No hemoptysis. CARDIOVASCULAR: No angina symptoms. No CHF symptoms. No atypical chest pain for CAD. No palpitations. Shortness of breath on exertion. GASTROINTESTINAL: No abdominal pain. No nausea or vomiting. No diarrhea or constipation. No hematemesis. No hematochezia. GENITOURINARY: No urgency. No frequency. No dysuria. No hematuria. No obstructive symptoms. No discharge. No pain. No significant abnormal bleeding. MUSCULOSKELETAL: No musculoskeletal pain. No joint swelling. No arthritis. NEUROLOGICAL: No headache. No neck pain. No syncope. No seizures. No dizziness. PSYCHIATRIC: Not anxious. No depression. No suicidal thoughts. No homicidal thoughts. SKIN: No rash. No lesions. No wounds. ENDOCRINE: No unexplained weight loss. No weight gain. HEMATOLOGIC/LYMPHATIC: No anemia. No purpura. No petechiae. No prolonged or excessive bleeding. No palpable lymph nodes. PHYSICAL EXAMINATION: VITAL SIGNS: Temperature 97.8, pulse 100, respiratory rate 20, blood pressure 122/76 and pulse ox 95%. HEENT: Head normocephalic, atraumatic. Eyes: Extraocular muscles are intact. Pupils are equal, round and reactive to light and accommodation. Ears: No lesions. Nose appeared normal. Throat: No exudate or erythema. NECK: Supple. No JVD, no carotid bruit. No lymphadenopathy or thyromegaly. LUNGS: Decreased breath sounds with mild wheeze. Percussion note normal. Chest symmetrical. HEART: S1, S2, no S3. No murmurs. No cyanosis or clubbing. No ascites. Pulses: Dorsalis pedis and posterior tibial pulses +1 to +2 bilaterally. ABDOMEN: Soft. Nontender. Bowel sounds active. No CVA tenderness. No mass felt. EXTREMITIES: No edema. Full range of motion of all extremities, equal. NEUROLOGIC: No focal deficit. Cranial nerves II through XII are grossly intact. No headache, no double vision or headache. SKIN: Not dry. Intact. Turgor - normal. LYMPHATIC: No palpable lymph nodes/no lymphedema. MUSCULOSKELETAL: Normal joints with no swelling. Muscle tone is normal. LABS: Hgb 13, HCT 40, WBC 10,000 normal differential, creatinine 0.8, BUN 8.7, potassium 4.4, PRO BNP 29. Echo showed normal LV contractility, enlarged RV cavity and normal valves. ASSESSMENT: 1. Acute bronchitis 2. Severe chronic lung disease 3. BMI OF 31, sedentary lifestyle 4. Smoking, counseling for smoking done RECOMMENDATIONS: 1. Continue Cardizem 2. Agreed with the management with COPD with acute exacerbation. Cardiovascular status is stable. MTDD
--- NOTE | 2019-06-23 11:57 | ECHO2D ---
Date of Exam: 06/21/19 Ordering Physician: DR. LILIANA RODNEY Room #: [id number] Reason for Echo: SOB, RESPIRATORY FAILURE M-Mode Normal Adult Results LV Dimensions Normal Adult Results AoV Opening excursions >1.6 >1.6 LVEDD-base- 3.5-5.8 4.6 Ao root dimensions 2.0-3.7 3.4 LVESD-base- 3.1-4.6 L. Atrium dimensions 1.9-3.8 3.2 Post. Wall thickness 0.8-1.1 1.1 IV septum (thickness) 0.7-1.2 1.1 Post. Wall excursion 0.72-1.3 NORMAL Septal motion NORMAL Systolic motion R. Ventricular cavity 1.5-2.0 2.8 LVEF 60% 57% Paradoxical septal wall motion NORMAL 2-D : 2-D M Mode Echocardiogram was performed using apical four chamber and left parasternal long and short axis views. Mitral, tricuspid and aortic valves appear to be normal. Contractility of the left ventricle seems to be normal, so is the cavity size. Left atrial cavity size and aortic root appear to be normal. There is no pericardial effusion. There is no thrombus noted in the left ventricle or left atrial cavity. No mitral valve prolapse noted. M-MODE: MV: NORMAL AV: NORMAL TV: NORMAL PV: CHAMBER SIZE: ENLARGED RIGHT VENTRICLE CAVITY WALL MOTION: NORMAL PERICARDIUM: NORMAL INTERPRETATION: 1. ENLARGED RIGHT VENTRICLE CAVITY 2. NORMAL LEFT VENTRICLE CONTRACTILITY 3. NORMAL VALVES MTDD
[2019-06-23 13:59] VITALS: BP 151/96; TEMP 98.6
--- NOTE | 2019-06-30 11:19 | DS ---
DATE OF SERVICE: 06/23/19 FINAL DIAGNOSES: 1. Acute exacerbation of COPD 2. Tachycardiac with consultation to Dr. Reed who has followed the patient during this acute stay 3. History of bipolar disorder 4. Attention deficit disorder 5. History of diverticulitis with a history of colostomy that has been reversed 6. History of hypertension 7. History of hyperlipidemia 8. History of anxiety BRIEF HISTORY OF PRESENT ILLNESS/HOSPITAL COURSE: Mr. Johnston is a 54 [address] old patient of Dr. Borrego that presented to the emergency department on 06/19/19 with complaints of shortness of breath. He had also complaints of back pain and some cough for the last several days prior to admission. He presented as a walk in through the emergency department. He was diagnosed with COPD exacerbation. He does not wear home oxygen. The chest x-ray did not show any signs of pneumonia but it did show diffused interstitial prominence with suggestion of peribronchial thickening with correlations for a bronchiolitis. There was no focal pulmonary consolidation and no pleural effusion or pneumothorax. The patient was started on Nebulizer treatments. Dexamethasone was ordered for this patient. The patient was eventually started on antibiotics during this acute stay. He continued to wear oxygen during the hospital course. He has had a slow progress in improvement. During his hospital course the decision was made to transition the patient to Transitional Care Unit to continue antibiotics and treat the patient for the exacerbation of COPD. PERTINENT LABS AND DIAGNOSTIC TESTING: WBC 6.60, hgb 13.4, hct 41.0. At discharge from inpatient his WBC 5.76, hgb 12.0, hct 38.1. Plt count 257. He had initial blood gasses done in the emergency department. His O2 saturation was 88%. pH 7.329, pCO2 45.6, pO2 59.0. HCO3 was 24, CO2 25, this was on room air O2 saturation. DISCHARGE DIET: Regular diet as tolerated DISCHARGE ACTIVITY: Gradually resume regular activities. DISCHARGE INSTRUCTIONS: The patient will continue on Rocephin intervenously as well as DVT prophylaxis and Solu-Cortef as he transitions to transitional care unit. Home medications have been addressed. Continue Oxygen at 2 liters at nasal cannula. We will continue to follow along with him in Transitional Care along with Dr. Reed. TIME SPENT: GREATER THAN 30 MINUTES MTDD
--- NOTE | 2019-06-30 11:26 | PN ---
DATE OF SERVICE: 06/22/19 SUBJECTIVE: Today his vital signs are stable, 139/94, pulse rate 103, respiratory rate 20, O2 saturation 97% on 2 liters per nasal canula. He is afebrile at 98.1. Today his white count is normal at 8.38, hgb 12.6, hct 38.9. His plt count 238, potassium is slightly low at 3.37, BUN 8.7, creatinine 0.91, GFR 87. He still complains of being winded when up the bathroom. We will plan on ordering a Chest x-ray a two view and change the Xopenex NEBS to DUO NEBS. Continue the O2. He still has wheezing bilaterally. He does sound a bit better from yesterday. He remained on Ceftriaxone intervenously and the Solu-Cortef. We will not plan to make any changes with that. Further orders and recommendations per Dr. Cordova. [facility] NETWORKJuaquin
== END 2019-06-23 15:14 | disposition swing bed (61) | DRG 192 ==
LOC: ED 02:11 → MEDSURG A 04:37
PROVIDERS: ADMIT General Practice; ATTEND General Practice
DX: F41.9 Anxiety disorder, unspecified; M54.9 Dorsalgia, unspecified; R06.02 Shortness of breath; Z72.0 Tobacco use; R05 Cough; R00.0 Tachycardia, unspecified; R53.81 Other malaise; R06.2 Wheezing; J44.1 Chronic obstructive pulmonary disease with (acute) exacerbation

== ENCOUNTER 2019-10-23 03:55 | Observation (INO) ==
[2019-10-23] MEDS ORDERED: DUONEB NEB STA (04:19)
[2019-10-23] MEDS ORDERED: XOPENEX 1.25 MG NEB STA (04:19)
[2019-10-23] MEDS ORDERED: SOLU-MEDROL 125 MG IVP STA (04:19)
[2019-10-23 04:54] LABS: HEMATOCRIT 39.2 % (42.0-52.0)
--- NOTE | 2019-10-23 05:44 | CT ---
Exam: CT of the chest without contrast History: Dyspnea Technique: [address] of the chest without intravascular contrast FINDINGS: The lung windows show a vague bilateral upper lobe ground-glass and micronodular infiltrat es. No consolidative opacities. There is a discrete 7 mm ground-glass nodule of the basilar right u pper lobe stable from 11/03/2018 right lower lobe 5 mm nodule abutting the pleura is also stable. Ri ght upper lobe 4 mm nodule abutting the pleura is stable. Mild atherosclerotic calcification of the aorta without aneurysm. No pathologic lymph node enlargement or abundance of the mediastinum. No ac dionisio findings of the chest wall soft tissues or bony thorax. No acute findings of the upper abdomen. Impression: 1. Left greater than right bilateral upper lobe nodular and ground-glass infiltrates suspect for pne umonia. 2. There are three indeterminate nodules described in the right lung stable from 11/03/2018. 1 year follow-up recommended until 5 years stability based on Fleischner guidelines.
--- NOTE | 2019-10-23 05:59 | ED.PDOC ---
General ED Provider: Dr. JAYLIN DIANE Chief Complaint: Shortness of Air Stated Complaint: lizzette picked up smoking again now i am coughing and sob Time Seen by Physician: 05:58 Mode of Arrival: Walk-In Information Source: Patient Primary Care Provider: REBEKAH TREVIÑO MD Nursing and Triage Documentation Reviewed and Agree: Yes Does patient meet sepsis criteria?: No System Inflammatory Response Syndrome: Not Applicable Sepsis Protocol: For patient's 13 years and over: Temp is 96.8 and below OR 101 and greater Pulse >90 BPM Resp >20/minute Acutely Altered Mental Status Are patient's symptoms suggestive of a new infection, such as: -Pneumonia -Skin, Soft Tissue -Endocarditis -UTI -Bone, Joint Infection -Implantable Device -Acute Abdominal Infection -Wound Infection -Meningitis -Blood Stream Catheter Infection -Unknown Respiratory Complaint Exam Respiratory Complaint/Exam Onset/Duration: 2-3 days Symptoms Are: Still present Timing: Intermittent Initial Severity: Mild Current Severity: Moderate Location: Chest Character: Reports Non-productive cough Aggravating: Reports URI Alleviating: Reports Bronchodilators Associated Signs and Symptoms: Reports Dyspnea and URI Home Oxygen Use: Yes Recent Stress Test: No Recent Echo/LV Function: No Current Antibiotic Use: No Current Asthma Medication Use: No Respiratory Distress: None Inadequate Respiratory Effort: Yes Dysphagia Present: No Stridor Present: No JVD Present: No Accessory Muscle Use: Yes Diminished Breath Sounds: No Sinus Tenderness: None Grunting Respirations: No Kussmaul Respirations: No Differential Diagnoses: COPD Exacerbation and Pneumonia Non-Traumatic Chest Pain Syncope: EKG Performed Review of Systems Review Of Systems Constitutional: Reports No symptoms Eyes: Reports No symptoms Ears, Nose, Mouth, Throat: Reports No symptoms Respiratory: Reports Cough and Short of air Cardiac: Reports No symptoms GI: Reports No symptoms : Reports No symptoms Musculoskeletal: Reports No symptoms Skin: Reports No symptoms Neurological: Reports No symptoms Endocrine: Reports No symptoms Hematologic/Lymphatic: Reports No symptoms All Other Systems: Reviewed and Negative [facility] Medical History Attention deficit disorder Back pain Bipolar disorder COPD (chronic obstructive pulmonary disease) (Acute) Diarrhea Diverticulitis Emphysema of lung (Acute) H/O colostomy Hypertension Family History Mother Cancer Father Emphysema lung Social History Smoking and tobacco status: Former smoker Tobacco: How many years used: 40 Smoking status stop date: 06/20/19 Second hand smoke exposure: No Alcohol intake: former Substance use type: does not use Adri/quaker: [place] Special adri needs: No Agree to transfusion: Yes Adopted: No Caregiver/support person: No Foster care: No Household members: significant other and family Housing: house Marital status: D Lives independently: Yes Daycare: no daycare Number of children: 1 Number of grandchildren: 5 Highest education level completed: some college, no degree Financial difficulty paying for basics: somewhat hard service: No MCC: No Current occupational status: disabled Current occupational exposures/hazards: No Do you think of yourself as: straight/heterosexual Current gender identity: male Seatbelt use: always Helmet use: No Drives intoxicated or rides with intoxicated hi lo driver: No Current diet type/program: regular Caffeine: Yes Water heater temperature set < 120 degrees: Yes Working smoke detector in home: Yes Fire extinguisher in home: Yes Carbon monoxide detector in home: No Firearms in home: No Physical Exam Physical Exam Appearance: Reports Well-appearing Ill-appearing: None Pain Distress: None Eyes: Reports RAÚL, EOMI and Conjunctiva clear ENT: Reports Ears normal, Nose normal and Oropharynx normal Neck: Supple Respiratory: Reports Airway patent, Breath sounds clear and Breath sounds equal Cardiovascular: Reports RRR, Pulses normal, No rub and No murmur GI/: Reports Soft, Nontender, No masses and Bowel sounds normal Musculoskeletal: Reports Normal strength and ROM intact Skin: Reports Warm and Dry Neurological: Reports Sensation intact, Motor intact, Reflexes intact, Cranial nerves intact, Alert and Oriented Psychiatric: Reports Affect appropriate and Mood appropriate Interpretation Radiology Interpretation Radiology Interpretation By: Radiologist Radiology Results: Positive Exam Interpreted: CT Scan Xray Comments: bilateral pneumonia EKG Interpretation Time of EKG #1: 05:55 Rate: Tachy Rhythm: Sinus Ectopy: None [place]: NL ST Segment: Normal Interpretation: sinus tachy Physician Notification Case Discussed Physician Notified: ms jama notified at 5:45 am but indicated Ms delatorre advertising sales consultant Critical Care Note Critical Care Note Total Time (mins): 0 Course Course Hematology/Chemistry: 10/23/19 04:50 10/23/19 04:50 Orders, Labs, Meds: Lab Review 10/23/19 10/23/19 10/23/19 04:15 04:50 04:50 WBC 9.63 RBC 4.31 L Hgb 12.9 L Hct 39.2 L MCV 91.0 MCH 29.9 MCHC 32.9 RDW Coeff of Heather 13.2 Plt Count 251 Immature Gran % (Auto) 0.3 Neut % (Auto) 39.7 L Lymph % (Auto) 43.4 [place] % (Auto) 10.8 H Eos % (Auto) 5.5 Baso % (Auto) 0.3 Immature Gran # (Auto) 0.0 Neut # (Auto) 3.8 Lymph # (Auto) 4.2 H [place] # (Auto) 1.0 Eos # (Auto) 0.5 Baso # (Auto) 0.0 Puncture Site Lrad O2 Saturation 99.0 ABG pH 7.336 L ABG pCO2 47.7 H ABG pO2 126.0 H ABG HCO3 25.5 ABG Total CO2 27 ABG Base Excess 0 Clement Test + O2 Delivery Device Nc Oxygen Liter Flow 2.00 FiO2 % 28.0 Sodium 134.7 Potassium 4.19 Chloride 101.5 Carbon Dioxide 23.4 Anion Gap 13.99 BUN 9.3 Creatinine 0.91 Estimated GFR (MDRD) 87.00 BUN/Creatinine Ratio 10.21 Glucose 127.2 H Calcium 9.28 Total Bilirubin 0.37 AST 22.5 ALT 19.7 Alkaline Phosphatase 94.2 Total Creatine Kinase 50.6 L Troponin I < 0.012 NT-Pro-B Natriuret Pep 28.600 Total Protein 6.98 Albumin 4.20 Globulin 2.78 Albumin/Globulin Ratio 1.51 Orders Category Date Time Status ABG DRAW REQUEST Stat CARDIO 10/23/19 04:15 Ordered EKG-(ED ONLY) Stat CARDIO 10/23/19 04:14 Ordered NEBULIZER TREATMENT Stat CARDIO 10/23/19 04:19 Ordered ED CUSTOMS INVESTIGATOR APPLIED .ONCE EMERGENCY 10/23/19 04:14 Active ED IV/MEDIPORT/POWERPORT .ONCE EMERGENCY 10/23/19 04:15 Active ABG Stat LAB 10/23/19 04:15 Completed CBC W/ AUTO DIFF Stat LAB 10/23/19 04:50 Completed COMPREHENSIVE METABOLIC PANEL Stat LAB 10/23/19 04:50 Completed CREATINE KINASE Stat LAB 02/17/20 04:50 Completed NT-PROBNP Stat LAB 10/23/19 04:50 Completed TROPONIN I Stat LAB 10/23/19 04:50 Completed 0.9 % Sodium Chloride [Saline Flush] MEDS 10/23/19 04:14 Active 1 syr IVF PRN PRN Ipratropium/Albuterol Neb [Duoneb] MEDS 10/23/19 04:19 Discontinued 3 ml NEB ONCE STA Levalbuterol HCl [Xopenex 1.25 mg] MEDS 10/23/19 04:19 Discontinued 1.25 mg NEB ONCE STA Methylprednisolone Sod Succ/Pf [Solu-Medrol 125 mg] MEDS 10/23/19 04:19 Discontinued [address] CHEST W/O CONTRAST Stat RADS 10/23/19 04:17 Completed Medications Generic Name Dose Route Start Last Admin Trade Name Freq PRN Reason Stop Dose Admin Sodium Chloride 1 syr 10/23/19 04:14 10/23/19 04:30 Saline Flush IVF 1 syr PRN PRN Administration To flush IV Discontinued Medications Generic Name Dose Route Start Last Admin Trade Name Freq PRN Reason Stop Dose Admin Albuterol/Ipratropium 3 ml 10/23/19 04:19 10/23/19 04:53 Duoneb NEB 10/23/19 04:20 3 ml ONCE STA Administration Levalbuterol HCl 1.25 mg 10/23/19 04:19 10/23/19 04:43 Xopenex 1.25 Mg NEB 10/23/19 04:20 1.25 mg ONCE STA Administration Methylprednisolone Sodium Succinate 125 mg 10/23/19 04:19 10/23/19 04:30 Solu-Medrol 125 Mg IVP 10/23/19 04:20 125 mg ONCE STA Administration Vital Signs: Temp Pulse Resp BP Pulse Ox 10/23/19 05:15 97.2 F L 118 H 23 144/90 H 99 10/23/19 04:01 97.3 F L 117 H 28 H 128/93 H 98 Discharge Plan Discharge Patient Disposition: ADMITTED INPATIENT Discharge Problem: COPD exacerbation, Pneumonia Prescriptions: No Action lisinopril 20 MG tablet 20 mg PO BID 90 Days Qty: 180 RF: 3 albuterol sulfate [Ventolin HFA] 8 GM HFA aerosol inhaler 2 puff inhalation Q4-6H PRN (Reason: short of air) 30 Days Qty: 1 RF: 6 Incruse Ellipta 62.5 MCG blister with device 1 puff inhalation DAILY 30 Days Qty: 1 RF: 6 lamotrigine [Lamictal] 150 MG tablet 150 mg PO BEDTIME RF: 0 dextroamphetamine-amphetamine [Adderall] 30 MG tablet 30 mg PO BID RF: 0 diazepam [Valium] 5 MG tablet 5 mg PO TID RF: 0 olanzapine [Zyprexa] 20 MG tablet 20 mg PO BEDTIME RF: 0 hydrocodone-acetaminophen [[place]] 5-325 mg tablet 1 tab PO BID PRN (Reason: Pain) RF: 0 Symbicort 160-4.5 mcg/actuation HFA aerosol inhaler 2 puff IH BID Qty: 10.2 RF: 5 ED Provider: JAYLIN DIANE Condition: Fair
[2019-10-23] MEDS: NORCO 5-325 PO PRN ×2 (06:36→15:07)
[2019-10-23 06:42] VITALS: BMI 32.2
[2019-10-23] MEDS ORDERED: PNEUMOVAX 23 IM ONE (07:12)
--- NOTE | 2019-10-23 07:28 | PCM ---
Chief Complaint Chief Complaint: "Shortness of Breath" History of Present Illness History of Present Illness: Leobardo Johnston is a 54 yo male patient of Dr. Kam Borrego w/ COPD, Chronic Respiratory Failure w/ home O2, Chronic LBP, HTN, ADD, Bipolar disorder, Diverticulosis w/ past colostomy and chronic diarrhea, and Obesity who presents to [facility] ER 10/23/2018 03:55 c/o's new onset of progressive SOB worsening to severe for the last 2 days. There was associated occasional worsening mild cough w/ rare small amount clear to greenish/yellow sputum, usual recliner orthopnea, usual 2L/NC home O2, increased fatigue, sleeping more than usual, and wheezing (had resolved when he stopped smoking). Patient used his inhalers are prescribed and home O2 @2L/NC. He noted he just wasn't feeling any better and in past times w/ pneumonia was told to come to the hospital sooner next time, and so he has. No other treatments were tried. Patient states he got his flu shot in Dr. Borrego office last June 2019 but there is no record of the vaccine being given. Admission labs w/ abnormals include: CBC RBC 4.31L H/H 12.9/39.2 (patient normal when compared to last year's clinic visits); ABG's on 2L/NC were better than his past readings w/ O2 Sat 99%, pH 7.33 pCO2 47.7, and pO2 121.0H; CMP Glucose 127.2 and all ovther values WNL; and Troponin and BNP wnl. CT of Chest w/o contrast showed bilateral R>L UL pnemonia findings (see radiology report w/ labs below). Patient was treated in ER w/ Levalbuterol/Ipratroprium nebs and Solu-Medrol 125mg IVP. Patient was admitted for observation w/ PNA and was confirmed as Full Code status. Review of Systems Constitutional: Reports fatigue and other; Denies fever, chills, weakness, sweats and loss of appetite (Usual decreased appetite. Eats 2 very light meals/day.) Eyes: Reports blurred vision ("only when I try to read"); Denies double-vision, discharge, itching, pain, redness and photophobia Ears: Denies pain, bleeding, drainage and hearing loss Nose: Denies bleeding, congestion and discharge Throat: Denies pain, swelling and voice change Mouth: Denies bleeding, pain and swelling Respiratory: Reports cough, shortness of air and wheeze; Denies hemoptysis and pain with breathing Cardiovascular: Reports orthopnea (recliner orthopnea); Denies chest pain, left arm pain, diaphoresis, PND, edema, palpitations and syncope Gastrointestinal: Reports diarrhea (Chronic after Colostomy reanastamosis 2002. ); Denies abdominal pain, nausea, vomiting, melena, hematemesis, hematochezia, dysphagia and constipation Genitourinary: Reports frequency (w/ 5-8 c. coffee/day; 2.5L H2O/day); Denies dysuria, hematuria, incontinence and flank pain Neurological: Reports tremor (Hand shakes d/t psych meds per psychiatrist. ); Denies headache, dizziness, seizure, numbness, weakness, speech difficulty, problems with walking and fainting Musculoskeletal: Reports pain (Chronic neck and LBP controlled w/ Valium and Holt daily use.) Skin: Reports pruritus (dry skin in my lower legs/ankles w/ intermittent itching.); Denies rash, lacerations, wounds and bruising Hematology: Reports easy bruising; Denies easy bleeding and swollen glands Endocrine: Reports excessive thirst and polyuria; Denies weight changes, cold intolerance, heat intolerance and excessive hunger Psychiatric: Reports depression (Dr. Biggs, Psychiatrist, face-time visits every 3 mos. at [facility]), anxiety and hopelessness ("better off than I used to be"); Denies sleeplessness, suicidal (and Denies hx of same.) and hallucinations Habits: Reports tobacco use (Past user; stopped 06/20/2019; 42yr user 2-3PPD), substance use (MJ --last use ) and alcohol use (Stopped all ETOH 6-7 yrs ago; was "heavy drinker") Allergies Allergies Allergy/AdvReac Type Severity Reaction Status Date / Time Iodinated Contrast Media Allergy Intermediate Flushing Unverified 10/23/19 04:05 [Iodinated Contrast Media - IV Dye] [facility] Medical History (Updated 10/23/19 @ 11:34 by JANINE MCKNIGHT) Attention deficit disorder Back pain Bipolar disorder Chronic diarrhea (Acute) COPD (chronic obstructive pulmonary disease) (Acute) Diverticulitis Diverticulosis (Acute) H/O colostomy Hypertension Surgical History History of gastrointestinal surgery History of genitourinary surgery History of musculoskeletal system surgery History of surgery Status post hernia repair Status post tonsillectomy Family History (Updated 10/23/19 @ 08:29 by JANINE MCKNIGHT) Mother Cancer Father Emphysema lung Alcohol abuse Heart attack BROTHER Heart attack Alcohol abuse Social History Smoking and tobacco status: Former smoker Tobacco: How many years used: 42 Smoking status stop date: 06/20/19 Second hand smoke exposure: No Alcohol intake: former Substance use type: does not use, former substance user and marijuana Adri/worship: [employer] Special adri needs: No Agree to transfusion: Yes Adopted: No Caregiver/support person: No Foster care: No Household members: significant other and family Housing: house Marital status: D Lives independently: Yes Daycare: no daycare Number of children: 1 Number of grandchildren: 5 Highest education level completed: some college, no degree Financial difficulty paying for basics: somewhat hard service: No long term: No Current occupational status: disabled Current occupational exposures/hazards: No Do you think of yourself as: straight/heterosexual Current gender identity: male Seatbelt use: always Helmet use: No Drives intoxicated or rides with intoxicated national dedicated truck driver: No Current diet type/program: regular Caffeine: Yes Water heater temperature set < 120 degrees: Yes Working smoke detector in home: Yes Fire extinguisher in home: Yes Carbon monoxide detector in home: No Firearms in home: No Medications Medications: Medications Generic Name Dose Route Start Last Admin Trade Name Freq PRN Reason Stop Dose Admin Hydrocodone Bitart/Acetaminophen 1 tab 10/23/19 06:03 10/23/19 06:36 Holt 5-325 PO 1 tab BID PRN Administration MODERATE PAIN Albuterol/Ipratropium 3 ml 10/23/19 12:00 Duoneb NEB RTQ6H MAHIN Budesonide/Formoterol Fumarate 2 puff 10/23/19 09:00 Symbicort 160-4.5 Mcg Inhaler IH BID MAHIN Diazepam 5 mg 10/23/19 09:00 Valium PO TID MAHIN Enoxaparin Sodium 40 mg 10/23/19 09:00 Lovenox SUBCUT DAILY [facility] Levofloxacin/Dextrose 750 mg in 150 mls @ 100 mls/hr 10/23/19 08:00 Levaquin 750 Mg/150 Ml D5w IV 10/26/19 07:59 DAILY [facility] Lamotrigine 150 mg 10/23/19 21:00 Lamictal PO BEDTIME MAHIN Lisinopril 20 mg 10/23/19 09:00 Zestril PO BID [facility] Methylprednisolone Sodium Succinate 40 mg 10/23/19 18:00 Solu-Medrol 40 Mg IVP Q12H MAHIN Non-Formulary Medication 1 puff 10/23/19 09:00 Umeclidinium [Incruse Ellipta] IH DAILY [facility] Non-Formulary Medication 30 mg 10/23/19 09:00 Dextroamphetamine-Amphetamine [Adderall] PO BID MAHIN Olanzapine 20 mg 10/23/19 21:00 Zyprexa PO BEDTIME MAHIN Sodium Chloride 1 syr 10/23/19 04:14 10/23/19 04:30 Saline Flush IVF 1 syr PRN PRN Administration To flush IV Body Composition Height: 5 ft 7 in Weight: 205 lb 11.06 oz Body Mass Index (BMI): 32.2 Vital Signs Temperature: 97.5 F Pulse Rate: 109 Respiratory Rate: 22 Blood Pressure: 144/90 O2 Sat by Pulse Oximetry: 97 Physical Examination Appearance: Reports Well-appearing, No pain distress and Obese Ill-appearing: Mild Eyes: Reports RAÚL, EOMI, Conjunctiva clear and Conjunctiva inflammed ENT: Reports Ears normal, Nose normal and Oropharynx normal; Denies TMs Occluded, Rhinorrhea, Erythema, Exudate and Dry mucosa Neck: Supple Respiratory: Reports Airway patent, Breath sounds clear (except for a few scattered expiratory wheezes.), Breath sounds equal, Breath sounds diminished and Respirations nonlabored; Denies Crackles, Rhonchi and Retractions Cardiovascular: Reports RRR, Pulses normal, No rub, No murmur and Tachycardia (Telemetry ST 103) GI/: Reports Soft, Nontender, No masses, Bowel sounds normal and No Organomegaly Musculoskeletal: Reports Normal strength, ROM intact, No edema and No calf tenderness Skin: Reports Warm and Dry (Few scratch dawson noted from earlier itching bilateral anterior shins/ankle areas. No rash or lesions.) Neurological: Reports Sensation intact, Motor intact, Alert and Oriented (X4) Psychiatric: Reports Affect appropriate and Mood appropriate; Denies Anxious and Depressed Lab/Tests/Diagnostic Imaging Lab/Tests/Diagnostic Imaging: Lab Review 10/23/19 10/23/19 10/23/19 04:15 04:50 04:50 WBC 9.63 RBC 4.31 L Hgb 12.9 L Hct 39.2 L MCV 91.0 MCH 29.9 MCHC 32.9 RDW Coeff of Heather 13.2 Plt Count 251 Immature Gran % (Auto) 0.3 Neut % (Auto) 39.7 L Lymph % (Auto) 43.4 [place] % (Auto) 10.8 H Eos % (Auto) 5.5 Baso % (Auto) 0.3 Immature Gran # (Auto) 0.0 Neut # (Auto) 3.8 Lymph # (Auto) 4.2 H [place] # (Auto) 1.0 Eos # (Auto) 0.5 Baso # (Auto) 0.0 Puncture Site Lrad O2 Saturation 99.0 ABG pH 7.336 L ABG pCO2 47.7 H ABG pO2 126.0 H ABG HCO3 25.5 ABG Total CO2 27 ABG Base Excess 0 Clement Test + O2 Delivery Device Nc Oxygen Liter Flow 2.00 FiO2 % 28.0 Sodium 134.7 Potassium 4.19 Chloride 101.5 Carbon Dioxide 23.4 Anion Gap 13.99 BUN 9.3 Creatinine 0.91 Estimated GFR (MDRD) 87.00 BUN/Creatinine Ratio 10.21 Glucose 127.2 H Calcium 9.28 Total Bilirubin 0.37 AST 22.5 ALT 19.7 Alkaline Phosphatase 94.2 Total Creatine Kinase 50.6 L Troponin I < 0.012 NT-Pro-B Natriuret Pep 28.600 Total Protein 6.98 Albumin 4.20 Globulin 2.78 Albumin/Globulin Ratio 1.51 10/23/2019 CT Chest w/o Contrast Impression: 1. Left greater than right bilateral upper lobe nodular and ground-glass infiltrates suspect for pneumonia. 2. There are three indeterminate nodules described in the right lung stable from 11/03/2018. 1 year follow-up recommended until 5 years stability based on Fleischner guidelines. Orders Category Date Time Status ADMIT PATIENT INPATIENT .TO [facility] (MONITORED BED) ADMISSION 10/23/19 05:59 Active ABG DRAW REQUEST Stat CARDIO 10/23/19 04:15 Completed EKG-(ED ONLY) Stat CARDIO 10/23/19 04:14 Completed NEBULIZER TREATMENT Routine CARDIO 10/23/19 06:01 Ordered NEBULIZER TREATMENT Stat CARDIO 10/23/19 04:19 Completed OXYGEN Routine CARDIO 10/23/19 06:00 Ordered ACTIVITY .BR with BRP CARE 10/23/19 05:59 Active INTAKE & OUTPUT Q8HR CARE 10/23/19 06:00 Completed TELEMETRY MONITORING TELE CARE 10/23/19 05:59 Active VITAL SIGNS Q8HR CARE 10/23/19 06:00 Active REGULAR DIET DIETARY 10/23/19 Breakfast Ordered ED MEDICAL CASE WORKER APPLIED .ONCE EMERGENCY 10/23/19 04:14 Active ED IV/MEDIPORT/POWERPORT .ONCE EMERGENCY 10/23/19 04:15 Active ABG Stat LAB 10/23/19 04:15 Completed CBC W/ AUTO DIFF DAILY@0600 LAB 10/24/19 06:00 Ordered CBC W/ AUTO DIFF Stat LAB 10/23/19 04:50 Completed COMPREHENSIVE METABOLIC PANEL DAILY@0600 LAB 10/24/19 06:00 Ordered COMPREHENSIVE METABOLIC PANEL Stat LAB 10/23/19 04:50 Completed CREATINE KINASE Stat LAB 10/23/19 04:50 Completed NT-PROBNP Stat LAB 10/23/19 04:50 Completed TROPONIN I Stat LAB 10/23/19 04:50 Completed 0.9 % Sodium Chloride [Saline Flush] MEDS 10/23/19 04:14 Active 1 syr IVF PRN PRN Budesonide/Formoterol Fumarate [Symbicort 160-4.5 Mcg MEDS 10/23/19 09:00 Active Inhaler] 2 puff IH BID Diazepam [Valium] MEDS 10/23/19 09:00 Active 5 mg PO TID Enoxaparin Sodium [Lovenox] MEDS 10/23/19 09:00 Active 40 mg SUBCUT DAILY Hydrocodone Bit/Acetaminophen [Holt 5-325] MEDS 10/23/19 06:03 Active 1 tab PO BID PRN Ipratropium/Albuterol Neb [Duoneb] MEDS 10/23/19 04:19 Discontinued 3 ml NEB ONCE STA Ipratropium/Albuterol Neb [Duoneb] MEDS 10/23/19 12:00 Active 3 ml NEB RTQ6H Lamotrigine [Lamictal] MEDS 10/23/19 21:00 Active 150 mg PO BEDTIME Levalbuterol HCl [Xopenex 1.25 mg] MEDS 10/23/19 04:19 Discontinued 1.25 mg NEB ONCE STA Levofloxacin/D5w [Levaquin 750 mg/150 ml D5w] MEDS 10/23/19 08:00 Active 750 mg in 150 ml IV DAILY Lisinopril [Zestril] MEDS 10/23/19 09:00 Active 20 mg PO BID Methylprednisolone Sod Succ/Pf [Solu-Medrol 125 mg] MEDS 10/23/19 04:19 Discontinued 125 mg IVP ONCE STA Methylprednisolone Sod Succ/Pf [Solu-Medrol 40 mg] MEDS 10/23/19 18:00 Active 40 mg IVP Q12H Olanzapine [Zyprexa] MEDS 10/23/19 21:00 Active 20 mg PO BEDTIME Pneumococcal 23-Maritza P-Sac Vac [Pneumovax 23] MEDS 10/23/19 07:12 Discontinued 0.5 ml IM .ONCE ONE dextroamphetamine-amphetamine [Adderall] MEDS 10/23/19 09:00 Active 30 mg PO BID umeclidinium [Incruse Ellipta] MEDS 10/23/19 09:00 Active 1 puff IH DAILY RESUSCITATION STATUS Routine OTHERS 10/23/19 05:[address] CHEST W/O CONTRAST Stat RADS 10/23/19 04:17 Completed Medications Generic Name Dose Route Start Last Admin Trade Name Freq PRN Reason Stop Dose Admin Hydrocodone Bitart/Acetaminophen 1 tab 10/23/19 06:03 10/23/19 06:36 Holt 5-325 PO 1 tab BID PRN Administration MODERATE PAIN Albuterol/Ipratropium 3 ml 10/23/19 12:00 Duoneb NEB RTQ6H MAHIN Budesonide/Formoterol Fumarate 2 puff 10/23/19 09:00 Symbicort 160-4.5 Mcg Inhaler IH BID MAHIN Diazepam 5 mg 10/23/19 09:00 Valium PO TID MAHIN Enoxaparin Sodium 40 mg 10/23/19 09:00 Lovenox SUBCUT DAILY MA[facility] Levofloxacin/Dextrose 750 mg in 150 mls @ 100 mls/hr 10/23/19 08:00 Levaquin 750 Mg/150 Ml D5w IV 10/26/19 07:59 DAILY MAHIN Lamotrigine 150 mg 10/23/19 21:00 Lamictal PO BEDTIME MAHIN Lisinopril 20 mg 10/23/19 09:00 Zestril PO BID MAHIN Methylprednisolone Sodium Succinate 40 mg 10/23/19 18:00 Solu-Medrol 40 Mg IVP Q12H MAHIN Non-Formulary Medication 1 puff 10/23/19 09:00 Umeclidinium [Incruse Ellipta] IH DAILY [facility] Non-Formulary Medication 30 mg 10/23/19 09:00 Dextroamphetamine-Amphetamine [Adderall] PO BID [facility] Olanzapine 20 mg 10/23/19 21:00 Zyprexa PO BEDTIME MAHIN Sodium Chloride 1 syr 10/23/19 04:14 10/23/19 04:30 Saline Flush IVF 1 syr PRN PRN Administration To flush IV Discontinued Medications Generic Name Dose Route Start Last Admin Trade Name Freq PRN Reason Stop Dose Admin Albuterol/Ipratropium 3 ml 10/23/19 04:19 10/23/19 04:53 Duoneb NEB 10/23/19 04:20 3 ml ONCE STA Administration Levalbuterol HCl 1.25 mg 10/23/19 04:19 10/23/19 04:43 Xopenex 1.25 Mg NEB 10/23/19 04:20 1.25 mg ONCE STA Administration Methylprednisolone Sodium Succinate 125 mg 10/23/19 04:19 10/23/19 04:30 Solu-Medrol 125 Mg IVP 10/23/19 04:20 125 mg ONCE STA Administration Pneumococcal Polyvalent Vaccine 0.5 ml 10/23/19 07:12 Pneumovax 23 IM 10/23/19 07:13 .ONCE ONE Assessment (1) Pneumonia: Status: Acute Code(s): J18.9 - Pneumonia, unspecified organism SNOMED Code(s): 246106283 Qualifiers: Laterality: bilateral Lung location: upper lobe of lung Pneumonia type: due to unspecified organism Qualified Code(s): J18.9 - Pneumonia, unspecified organism (2) Chronic bronchitis with COPD (chronic obstructive pulmonary disease): Status: Acute Code(s): J44.9 - Chronic obstructive pulmonary disease, unspecified SNOMED Code(s): 587098739 (3) Dependence on supplemental oxygen: Status: Acute Code(s): Z99.81 - Dependence on supplemental oxygen SNOMED Code(s): 615018222677 (4) Chronic diarrhea: Status: Acute Code(s): K52.9 - Noninfective gastroenteritis and colitis, unspecified SNOMED Code(s): 599997232 (5) Essential (primary) hypertension: Status: Chronic Code(s): I10 - Essential (primary) hypertension SNOMED Code(s): 95416144 (6) Former smoker: Status: Chronic Code(s): Z87.891 - Personal history of nicotine dependence SNOMED Code(s): 9797961 (7) Chronic back pain: Status: Chronic Code(s): M54.9 - Dorsalgia, unspecified SNOMED Code(s): 563722884 Qualifiers: Back pain laterality: bilateral Back pain location: low back pain Sciatica presence: without sciatica Qualified Code(s): M54.5 - Low back pain; G89.29 - Other chronic pain (8) Bipolar disorder: Status: Chronic Code(s): F31.9 - Bipolar disorder, unspecified SNOMED Code(s): 56903924 Qualifiers: Active/Remission status: currently active Current bipolar episode type: mixed Current episode severity: moderate Qualified Code(s): F31.62 - Bipolar disorder, current episode mixed, moderate (9) BMI greater than 30: Status: Chronic Code(s): MTL0085 - SNOMED Code(s): 065888689 Plan Plan: * Pneumonia-Recovering w/ onset in last 2 days--complicated w/ COPD and chronic home O2 use. CXR noted L>R bilateral upper lobe nodular and ground- glass infiltrates suspect for pneumonia. Continue Levaquin 750mg IV Q 24 hrs; Nebs Levalbuterol/Ipratroprium Q 6hrs; O2 per protocol. Monitor VS Q4hrs. * COPD w/ dependence on supplemental O2--Recovering; Con't O2 w/ O2 sat goal 92- 98% as per PCP instructions on chart review; Solu-Medrol 40mg IV Q12 hrs.; see PNA above. * Chronic Diarrhea--persistent and controlled w/ home meds; monitor and report problems. * Former Smoker--Improving-Tobacco free since 06/2019; praised and encouraged to continue tobacco/smoke free. * Chronic Back Pain--Controlled w/ pain meds. [facility] site checked w/ patient record indicating monthly refills of Diazepam and Adderall per Dr. Ravin Biggs MD and Holt per [facility] X2. Dr. Borrego OV note refers to 07/2019 Pain Management referral. Con't home meds and observe for side effects of other issues. Patient to con't w/ pain management upon d/c. * Bipolar Disorder & ADD-Controlled w/ meds--Con't home meds. See Chronic Back Pain comments. * BMI >30--Inadequately responding; Con't w/ diet and exercise as per pulmonary rehab program. Needs assistance w/ diet/support group. Discuss w/ PCP. * DVT Prophylaxis--Improving; SCD's; Lovenox.
[2019-10-23] MEDS: IMODIUM PO PRN (08:55)
[2019-10-23] MEDS ORDERED: NON-FORMULARY MEDICATION (Umeclidinium [Incruse Ellipta] 1 PUFF) IH SCH (09:00)
[2019-10-23] MEDS ORDERED: SYMBICORT 160-4.5 MCG INHALER IH SCH (09:00)
[2019-10-23] MEDS: VALIUM PO SCH ×3 (09:03→20:06)
[2019-10-23] MEDS: ZESTRIL PO SCH ×2 (09:04→20:06)
[2019-10-23] MEDS: LEVAQUIN 750 MG/150 ML D5W 750 MG/150 ML BAG IV SCH (09:04)
[2019-10-23] MEDS: LOVENOX SUBCUT SCH (09:07)
[2019-10-23] MEDS: DEXTROAMPHETAMINE AMPHETAMINE 30 MG PO SCH ×2 (09:46→20:07)
[2019-10-23] MEDS: SOLU-MEDROL 40 MG IVP SCH ×2 (10:30→21:28)
[2019-10-23] MEDS: DUONEB NEB SCH ×3 (11:09→23:25)
[2019-10-23] MEDS ORDERED: LAMICTAL PO SCH (21:00)
[2019-10-23] MEDS ORDERED: ZYPREXA PO SCH (21:00)
[2019-10-24] MEDS: NORCO 5-325 PO PRN ×2 (03:36→12:44)
[2019-10-24 04:22] LABS: HEMATOCRIT 37.2 % (42.0-52.0)
[2019-10-24] MEDS: DUONEB NEB SCH ×2 (04:55→11:23)
[2019-10-24] MEDS: IMODIUM PO PRN (07:31)
[2019-10-24] MEDS: SOLU-MEDROL 40 MG IVP SCH (09:06)
[2019-10-24] MEDS: LEVAQUIN 750 MG/150 ML D5W 750 MG/150 ML BAG IV SCH (09:06)
[2019-10-24] MEDS: VALIUM PO SCH (09:06)
[2019-10-24] MEDS: ZESTRIL PO SCH (09:07)
[2019-10-24] MEDS: LOVENOX SUBCUT SCH (09:14)
--- NOTE | 2019-10-24 09:17 | PCM.PROG ---
Date Seen by Provider: 10/24/19 Time Seen by Provider: 09:17 Objective: Vitals: T=97.9 F, P=98, R=16, EO=095/80, SPO2=97 HEENT: [] Neck: [] Lungs: [] CVS: [] Abdomen: [] Extremities: [] Neurological: [] Skin: [] Lab/Tests/Diagnostic Imaging: [] (1) Pneumonia: Status: Acute Code(s): J18.9 - Pneumonia, unspecified organism SNOMED Code(s): 093523084 (2) Chronic bronchitis with COPD (chronic obstructive pulmonary disease): Status: Acute Code(s): J44.9 - Chronic obstructive pulmonary disease, unspecified SNOMED Code(s): 246570014 (3) Dependence on supplemental oxygen: Status: Acute Code(s): Z99.81 - Dependence on supplemental oxygen SNOMED Code(s): 629816511885 (4) Chronic diarrhea: Status: Acute Code(s): K52.9 - Noninfective gastroenteritis and colitis, unspecified SNOMED Code(s): 676486603 (5) Essential (primary) hypertension: Status: Chronic Code(s): I10 - Essential (primary) hypertension SNOMED Code(s): 72056424 (6) Former smoker: Status: Chronic Code(s): Z87.891 - Personal history of nicotine dependence SNOMED Code(s): 3317413 (7) Chronic back pain: Status: Chronic Code(s): M54.9 - Dorsalgia, unspecified SNOMED Code(s): 210349790 (8) Bipolar disorder: Status: Chronic Code(s): F31.9 - Bipolar disorder, unspecified SNOMED Code(s): 81444278 (9) BMI greater than 30: Status: Chronic Code(s): NEQ9805 - SNOMED Code(s): 320144456
[2019-10-24 10:49] VITALS: BP 124/79; TEMP 98
--- NOTE | 2019-10-24 11:41 | PCM.DC ---
Final Diagnosis: Shortness of Breath Acute on Chronic Respiratory Failure Pneumonia. (1) Acute and chronic respiratory failure: Status: Acute Code(s): J96.20 - Acute and chronic respiratory failure, unspecified whether with hypoxia or hypercapnia SNOMED Code(s): 52272504 Qualifiers: Respiratory failure complication: hypoxia Qualified Code(s): J96.21 - Acute and chronic respiratory failure with hypoxia (2) Pneumonia: Status: Acute Code(s): J18.9 - Pneumonia, unspecified organism SNOMED Code(s): 583446780 Qualifiers: Laterality: bilateral Lung location: upper lobe of lung Pneumonia type: due to unspecified organism Qualified Code(s): J18.9 - Pneumonia, unspecified organism (3) Chronic bronchitis with COPD (chronic obstructive pulmonary disease): Status: Acute Code(s): J44.9 - Chronic obstructive pulmonary disease, unspecified SNOMED Code(s): 213744679 (4) Dependence on supplemental oxygen: Status: Acute Code(s): Z99.81 - Dependence on supplemental oxygen SNOMED Code(s): 627155715025 (5) Chronic diarrhea: Status: Acute Code(s): K52.9 - Noninfective gastroenteritis and colitis, unspecified SNOMED Code(s): 659886899 (6) Essential (primary) hypertension: Status: Chronic Code(s): I10 - Essential (primary) hypertension SNOMED Code(s): 26457167 (7) Former smoker: Status: Chronic Code(s): Z87.891 - Personal history of nicotine dependence SNOMED Code(s): 6302505 (8) Chronic back pain: Status: Chronic Code(s): M54.9 - Dorsalgia, unspecified SNOMED Code(s): 485984423 Qualifiers: Back pain laterality: bilateral Back pain location: low back pain Sciatica presence: without sciatica Qualified Code(s): M54.5 - Low back pain; G89.29 - Other chronic pain (9) Bipolar disorder: Status: Chronic Code(s): F31.9 - Bipolar disorder, unspecified SNOMED Code(s): 16977412 Qualifiers: Active/Remission status: currently active Current bipolar episode type: mixed Current episode severity: moderate Qualified Code(s): F31.62 - Bipolar disorder, current episode mixed, moderate (10) BMI greater than 30: Status: Chronic Code(s): KZH9101 - SNOMED Code(s): 318412554 (11) Attention deficit disorder: Status: None SNOMED Code(s): 904483019 Qualifiers: Hyperactivity presence: unspecified Qualified Code(s): F98.8 - Other specified behavioral and emotional disorders with onset usually occurring in childhood and adolescence Reason for Hospitalization: Acute on Chronic Respiratory Failure w/ home O2 not able to maintain patient's breathing. Pneumonia per CT lungs--needed IV steroids, routine nebulizer treatments, and IV antibiotics. Prognosis at Discharge: Stable w/ O2 use at 2L/NC and able to tolerate PO antibiotic therapy at home and resume inhalers. Condition at Discharge: Recovering from acute episode of a chronic disease COPD w/ Chronic Respiratory Failure Home O2 use Medications at Discharge: Ambulatory Orders Medication Instructions Recorded dextroamphetamine-amphetamine 30 mg PO BID 11/03/18 [Adderall] diazepam [Valium] 5 mg PO TID 11/03/18 lamotrigine [Lamictal] 150 mg PO BEDTIME 11/03/18 olanzapine [Zyprexa] 20 mg PO BEDTIME 11/03/18 Incruse Ellipta 1 puff INHALATION DAILY 30 Days #1 04/12/19 ih albuterol sulfate [Ventolin HFA] 2 puff INHALATION Q4-6H PRN 30 04/12/19 Days #1 ih lisinopril 20 mg PO BID 90 Days #180 tab-cap 04/12/19 budesonide-formoterol HFA 160 2 puff IH BID #10.2 gm 07/07/19 mcg-4.5 mcg/actuation aerosol inhaler hydrocodone 5 mg-acetaminophen 325 1 tab PO BID PRN 09/20/19 mg tablet loperamide [Imodium A-D] 2 mg PO Q4H PRN 10/23/19 levofloxacin 750 mg PO Q24H #7 tab 10/24/19 prednisone 20 mg PO DAILY #18 tab 10/24/19 Lab/Diagnostics: Laboratory Results WBC 12.35 K/ul (4.2-10.2) H 10/24/19 04:05 RBC 4.15 10^6/ul (4.70-6.10) L 10/24/19 04:05 Hgb 12.4 g/dl (14.0-18.0) L 10/24/19 04:05 Hct 37.2 % (42.0-52.0) L 10/24/19 04:05 MCV 89.6 fl (80.0-94.0) 10/24/19 04:05 MCH 29.9 pg (27.0-31.0) 10/24/19 04:05 MCHC 33.3 (31.8-35.4) 10/24/19 04:05 RDW Coeff of Heather 13.2 % (11.6-14.8) 10/24/19 04:05 Plt Count 274 10^3/uL (140-440) 10/24/19 04:05 Immature Gran % (Auto) 0.4 % (0.0-5.0) 10/24/19 04:05 Neut % (Auto) 82.4 % (42.2-75.2) H 10/24/19 04:05 Lymph % (Auto) 13.1 (10.0-50.0) 10/24/19 04:05 [place] Zandt % (Auto) 4.0 (0-10) 10/24/19 04:05 Eos % (Auto) 0.0 % (0.0-7.0) 10/24/19 04:05 Baso % (Auto) 0.1 % (0.0-3.0) 10/24/19 04:05 Immature Gran # (Auto) 0.1 (0.0-1.0) 10/24/19 04:05 Neut # (Auto) 10.2 K/ul (2.0-6.9) H 10/24/19 04:05 Lymph # (Auto) 1.6 K/uL (0.60-3.4) 10/24/19 04:05 [place]andt # (Auto) 0.5 K/uL (0.4-2.0) 10/24/19 04:05 Eos # (Auto) 0.0 K/ul (0.0-0.7) 10/24/19 04:05 Baso # (Auto) 0.0 K/uL (0-0.2) 10/24/19 04:05 Puncture Site Lrad 10/23/19 04:15 O2 Saturation 99.0 % (95-100) 10/23/19 04:15 ABG pH 7.336 (7.35-7.45) L 10/23/19 04:15 ABG pCO2 47.7 mmHg (35-45) H 10/23/19 04:15 ABG pO2 126.0 mmHg (85-100) H 10/23/19 04:15 ABG HCO3 25.5 (22.0-26.0) 10/23/19 04:15 ABG Total CO2 27 (22.0-28.0) 10/23/19 04:15 ABG Base Excess 0 (-2.0-2.0) 10/23/19 04:15 Clement Test + 10/23/19 04:15 O2 Delivery Device Nc 10/23/19 04:15 Oxygen Liter Flow 2.00 10/23/19 04:15 FiO2 % 28.0 % 10/23/19 04:15 Sodium 134.1 mmol/L (134.5-145) L 10/24/19 04:05 Potassium 4.06 mmol/L (3.5-5.1) 10/24/19 04:05 Chloride 97.8 mmol/L (98-107) L 10/24/19 04:05 Carbon Dioxide 22.4 mmol/L (22-30.0) 10/24/19 04:05 Anion Gap 17.96 10/24/19 04:05 BUN 11.4 mg/dL (9-20) 10/24/19 04:05 Creatinine 0.92 mg/dL (0.60-1.10) 10/24/19 04:05 Estimated GFR (MDRD) 86.00 mL/min 10/24/19 04:05 BUN/Creatinine Ratio 12.39 10/24/19 04:05 Glucose 150.6 mg/dL (74-106) H 10/24/19 04:05 Calcium 9.48 mg/dL (8.4-10.2) 10/24/19 04:05 Total Bilirubin 0.30 mg/dL (0.2-1.3) 10/24/19 04:05 AST 23.5 U/L (17-59) 10/24/19 04:05 ALT 27.6 U/L (0-50) 10/24/19 04:05 Alkaline Phosphatase 86.7 U/L (38-126) 10/24/19 04:05 Total Creatine Kinase 50.6 U/L (55-170) L 10/23/19 04:50 Troponin I < 0.012 ng/ml (0.0000-0.120) 10/23/19 04:50 NT-Pro-B Natriuret Pep 28.600 pg/mL (0-124) 10/23/19 04:50 Total Protein 7.06 g/dL (6.3-8.2) 10/24/19 04:05 Albumin 4.16 g/dL (3.5-5.0) 10/24/19 04:05 Globulin 2.90 10/24/19 04:05 Albumin/Globulin Ratio 1.43 10/24/19 04:05 10/23/2019 CT Chest w/o contrast FINDINGS: The lung windows show a vague bilateral upper lobe ground-glass and micronodular infiltrates. No consolidative opacities. There is a discrete 7 mm ground-glass nodule of the basilar right upper lobe stable from 11/03/2018 right lower lobe 5 mm nodule abutting the pleura is also stable. Right upper lobe 4 mm nodule abutting the pleura is stable. Mild atherosclerotic calcification of the aorta without aneurysm. No pathologic lymph node enlargement or abundance of the mediastinum. No acute findings of the chest wall soft tissues or bony thorax. No acute findings of the upper abdomen. Impression: 1. Left greater than right bilateral upper lobe nodular and ground-glass infiltrates suspect for pneumonia. 2. There are three indeterminate nodules described in the right lung stable from 11/03/2018. 1 year follow-up recommended until 5 years stability based on Fleischner guidelines. Education Provided to Patient and Family: Continue home oxygen as before. Start your nebulizer therapy as ordered per Dr. Borrego. Keep your follow-up appointment w/ Dr. Borrego as made per case management for Wednesday. Complete your antibiotic therapy as ordered. Continue your steroids in the morning with food as ordered. It is a taper dose that Dr. Borrego may want to change according to your response once you are home. Discuss your steroid therapy with Dr. Borrego and taper it as per his instructions. Return to ER for return of your symptoms as discussed. Follow-ups: Follow-up appointment w/ Dr. Borrego on Wednesday as made per case management. Discharge Disposition: Home Hospital Course: Leobardo Johnston is a 54 yo male patient of Dr. Kam Borrego w/ COPD, Chronic Respiratory Failure w/ home O2, Chronic LBP, HTN, ADD, Bipolar disorder, Diverticulosis w/ past colostomy and chronic diarrhea, and Obesity who presents to [facility] ER 10/23/2018 03:55 c/o's new onset of progressive SOB worsening to severe for the last 2 days. There was associated occasional worsening mild cough w/ rare small amount clear to greenish/yellow sputum, usual recliner orthopnea, usual 2L/NC home O2, increased fatigue, sleeping more than usual, and wheezing (had resolved when he stopped smoking). Patient now admits that he was not using his inhalers as prescribed and home because his O2 @2L/NC seemed to be enough. No home treatments were tried and he presented SOB and feeling fatigued. Patient states he got his flu shot in Dr. Borrego office last June 2019 but there is no record of the vaccine being given that could be found in EMR. Admission labs w/ abnormals include: CBC RBC 4.31L H/H 12.9/39.2 (patient normal when compared to last year's clinic visits); ABG's on 2L/NC were better than his past readings w/ O2 Sat 99%, pH 7.33 pCO2 47.7, and pO2 121.0H; CMP Glucose 127.2 and all ovther values WNL; and Troponin and BNP wnl. CT of Chest w/o contrast showed bilateral R>L UL pnemonia findings (see radiology report w/ labs below). Patient was treated in ER w/ Levalbuterol/Ipratroprium nebs and Solu-Medrol 125mg IVP. On 10/23/2019 he was examined by [facility] Hospitalist w/ a few wheezes noted, HARRELL, and occasional cough w/ clear thick sputum at times. Patient was mainly sleeping in bed tired from the sleep he was not getting [employer]. Solu-Medrol was cont'd at 40mg IV Q 8 hrs and DuoNebs Q 6hrs. Patient was encouraged to get up and about w/ O2 @2L/NC O2Sats 93-97%l There were diminished breath sounds w/ some scattered expiratory wheezes and a rare non-productive cough. By the 2nd day 10/24/2019 the patient was fully up and about in the room and halls w/o HARRELL using O2 @ 2L/NC. His lungs were CTA, and he was responding well to Nebs, IV steroids, and Levaquin 750mg IV Q 24 hrs. He remained afebrile his entire stay w/ O2 sats 96-97% on the continued 2L/NC and "feeling better than 100%" per patient report. There was no noted cough on exam. He admitted to needing to start using his prescribed inhalers per Dr. Borrego when he returns home and was highly encouraged to do that. His last day labs noted WBC increase to 12.35 expected after steroid therapy w/o fever; CMP was essentially normal except for Glucose 150.6 again as expected from steroid therapy. Plan: Pneumonia-Recovering w/ onset in last 4 days--complicated w/ COPD and chronic home O2 use. CXR noted L>R bilateral upper lobe nodular and ground- glass infiltrates suspect for pneumonia. Continue Levaquin 750mg PO X 7 days; Resume home inhalers as ordered per Dr. Borrego. O2 per home protocol. Good bentley ndwashing; cover w/ cough/sneeze as directed; screen visitors and avoid public places as able during this cold and flu season. COPD w/ dependence on supplemental O2--Recovering; Con't O2 w/ O2 sat goal 92- 98% as per PCP instructions on chart review; Prednisone PO every AM with food as directed; see PNA above. Chronic Diarrhea--persistent and controlled w/ home meds; con't home meds; monitor and report problems. Former Smoker--Improving-Tobacco free since 06/2019; praised and encouraged to continue tobacco/smoke free. Chronic Back Pain--Controlled w/ pain meds. ILP site checked w/ patient record indicating monthly refills of Diazepam and Adderall per Dr. Ravin Biggs MD and [place] 5/325 per [place] [address] X2. Dr. Borrego OV note refers to 07/2019 Pain Management referral. Con't home meds and observe for side effects of other issues. Patient to con't w/ pain management upon d/c. Bipolar Disorder & ADD-Controlled w/ meds--Con't home meds. See Chronic Back Pain comments. BMI >30--Inadequately responding; Con't w/ diet and exercise as per pulmonary rehab program. Needs assistance w/ diet/support group. Discuss w/ PCP. Disposition TIME; 45 minutes--Case Management, Nursing staff huddle, and patient education for discharge.
== END 2019-10-24 13:45 | disposition home or self-care (01) ==
LOC: ED 04:01 → MEDSURG B 05:59 → INTOOBSV 05:59 → MEDSURG B 06:25
PROVIDERS: ADMIT Nurse Practitioner Family; ATTEND Nurse Practitioner Family
DX: M54.5 Low back pain; F17.210 Nicotine dependence, cigarettes, uncomplicated; J96.21 Acute and chronic respiratory failure with hypoxia; G89.29 Other chronic pain; F98.8 Other specified behavioral and emotional disorders with onset usually occurring in childhood and adolescence; F31.62 Bipolar disorder, current episode mixed, moderate; R53.83 Other fatigue; R06.02 Shortness of breath; I10 Essential (primary) hypertension; Z87.19 Personal history of other diseases of the digestive system; J44.0 Chronic obstructive pulmonary disease with (acute) lower respiratory infection; R19.7 Diarrhea, unspecified; Z79.899 Other long term (current) drug therapy; K57.30 Diverticulosis of large intestine without perforation or abscess without bleeding; Z99.81 Dependence on supplemental oxygen; E66.9 Obesity, unspecified; J18.1 Lobar pneumonia, unspecified organism; M54.2 Cervicalgia

== ENCOUNTER 2021-04-29 08:17 | Inpatient (IN) ==
--- NOTE | 2021-04-29 08:58 | ED.PDOC ---
General <JAYLIN ALEXIS DO - Last Filed: 05/08/21 20:02> ED Provider: Dr. JAYLIN ALEXIS Chief Complaint: Fall Stated Complaint: FALLING EPISODE WHILE GETTING ON TRANSPORT BUS. POOR RECOLLECTION OF EVENT STATING "I WAS REAL TIRED AND HAVE TROUBLE REMEMBERING EXACT EVENTS LEADING UP TO [place]IDEN. WAS GETTING ON BUS TO GO FOR PULMONARY REHAB THERAPY, UNSURE WHERE HE WAS GOING. DENIES PAST HX OF STROKE OR MEMORY DISORDER. SOMEWHAT CONFUSED ABOUT [facility] Time Seen by Provider: 04/29/21 08:30 Mode of Arrival: Ambulance Information Source: Patient Exam Limitations: Clinical condition and Altered mental status Primary Care Provider: REBEKAH TREVIÑO MD Nursing and Triage Documentation Reviewed and Agree: Yes Does patient meet sepsis criteria?: No System Inflammatory Response Syndrome: Not Applicable Sepsis Protocol: For patient's 13 years and over: Temp is 96.8 and below OR 101 and greater Pulse >90 BPM Resp >20/minute Acutely Altered Mental Status Are patient's symptoms suggestive of a new infection, such as: -Pneumonia -Skin, Soft Tissue -Endocarditis -UTI -Bone, Joint Infection -Implantable Device -Acute Abdominal Infection -Wound Infection -Meningitis -Blood Stream Catheter Infection -Unknown Neurological Complaint Exam <JAYLIN ALEXIS DO - Last Filed: 05/08/21 20:02> Weakness Complaint/Exam Last Known Well: 3-4 DAYS Onset: Gradual Duration: 4 DAYS Symptoms Are: Still present Timing: Constant Episodes Lasting: Minutes Initial Severity: Moderate Current Severity: Moderate Character: Reports Lightheaded and Dizzy Aggravating: Reports Exertion, Headache and Position change Alleviating: Reports Lying down and Closing eyes Associated Signs and Symptoms: Reports Nausea, Short of air, Palpitations and Unsteady gait Related History: Similar episode Cardiac Risk Factors: Reports Hypertension CVA Risk Factors: Reports Hypertension and PVD JVD Present: No Carotid Bruit Present: No Nystagmus Present: No Gag Reflex Present: Yes Meningeal Signs Positive: No Focal Weakness: Present None Focal Sensory Loss: Present None Gait: Unable [id number]: Normal Findings Babinski Sign: Negative Right and Negative Left Differential Diagnoses: Hypovolemia, Labyrinthitis, Medication reaction, Metabolic abnormalities and Vasovagal reaction Quality Indicator For Non-Traumatic Chest Pain/Syncope: EKG Performed Altered Mental Status Complaint/Exam Current Mental Status: Confusion Last Known Well: Unknown Onset: Gradual Duration: 1 hr Symptoms Are: Still present Timing: Constant Episodes Lasting: Minutes Initial Severity: Moderate Current Severity: Mild Eye Deviation Present: No Character: Reports Confusion Aggravating: Reports Unknown Alleviating: Reports None Associated Signs and Symptoms: Reports Weakness and Headache Related History: Reports Similar episode Cardiac Risk Factors: Reports Hypertension CVA Risk Factors: Reports Hypertension Related Surgical History: Reports None Carotid Bruit Present: No Nystagmus Present: No Gag Reflex Present: No Meningeal Signs Positive: No Focal Weakness: Present None Focal Sensory Loss: Present None Gait: Unable [id number]: Normal Findings Babinski Sign: Negative Right and Negative Left Heel to Toe Normal: Yes Signs of Injury: Present Normal findings Thrombolytics Considered: No Differential Diagnoses: Hypoxia, Injury, Intoxication, Metabolic Disorder and Medication reaction Review of Systems <JAYLIN ALEXIS DO - Last Filed: 05/08/21 20:02> Review Of Systems Constitutional: Reports Malaise and Weakness Eyes: Reports No symptoms Ears, Nose, Mouth, Throat: Reports No symptoms Respiratory: Reports No symptoms Cardiac: Reports No symptoms GI: Reports No symptoms : Reports No symptoms Musculoskeletal: Reports No symptoms Neurological: Reports Cognitive dysfunction and Headache Endocrine: Reports No symptoms Hematologic/Lymphatic: Reports No symptoms All Other Systems: Reviewed and Negative PFSH <JAYLIN ALEXIS DO - Last Filed: 05/08/21 20:02> Medical History Attention deficit disorder Bipolar disorder Chronic diarrhea Contact with and (suspected) exposure to covid-19 COPD (chronic obstructive pulmonary disease) Diverticulitis Diverticulosis H/O colostomy Hypertension Family History Mother Cancer Depression FATHER Emphysema lung Alcohol abuse Heart attack BROTHER Heart attack Alcohol abuse Social History Smoking and tobacco status: Former smoker Tobacco: How many years used: 42 Smoking status stop date: 06/20/19 Second hand smoke exposure: No Alcohol intake: current Alcohol intake frequency: 3 or more drinks per day Alcohol type: beer Substance use type: does not use and former substance user Date of last use: former marijuana use Adri/quaker: SYNAGOGUE Special adri needs: No Agree to transfusion: Yes Adopted: No Caregiver/support person: No Foster care: No Household members: significant other and family Housing: house Marital status: D Lives independently: Yes Daycare: no daycare Number of children: 1 Number of grandchildren: 5 Highest education level completed: some college, no degree Financial difficulty paying for basics: somewhat hard service: No intermediate: No Current occupational status: disabled Current occupational exposures/hazards: No Leisure activites: games Do you think of yourself as: straight/heterosexual Current gender identity: male Seatbelt use: always Helmet use: No Drives intoxicated or rides with intoxicated mixer driver: No Current diet type/program: regular Caffeine: Yes Water heater temperature set < 120 degrees: Yes Working smoke detector in home: Yes Fire extinguisher in home: Yes Carbon monoxide detector in home: No Firearms in home: No Surgical History History of gastrointestinal surgery History of genitourinary surgery History of musculoskeletal system surgery History of surgery Status post hernia repair Status post tonsillectomy Physical Exam <JAYLIN ALEXIS DO - Last Filed: 05/08/21 20:02> Physical Exam Appearance: Reports Ill-appearing and Obese Ill-appearing: Moderate Pain Distress: Not Applicable Eyes: Reports RAÚL, EOMI, Conjunctiva clear, Right pupil size and Left pupil size ENT: Reports Ears normal, Nose normal and Oropharynx normal Neck: Supple Respiratory: Reports Breath sounds clear, Breath sounds diminished, Crackles and Wheezes Cardiovascular: Reports RRR and Pulses normal GI/: Reports Soft, Nontender, No masses, Bowel sounds normal and No Organomegaly Musculoskeletal: Reports Normal strength, ROM intact, No edema, No calf tenderness, Limited ROM and Limited strength Skin: Reports Warm, Normal color and Pale Neurological: Reports Sensation intact, Motor intact, Reflexes intact, Cranial nerves intact, Alert, Oriented and Alert to pain Psychiatric: Reports Affect appropriate and Mood appropriate <JAYLIN ALEXIS DO - Last Filed: 05/08/21 20:02> NIH Stroke Scale 1a. Level of Consciousness: 0=Alert and keenly responsive 1b. Level of Consciousness Questions: 0=Answers correctly to two questions 1c. Level of Consciousness Commands: 0=Performs two tasks correctly 2. Best Gaze: 0=Normal 3. Visual: 0=No visual loss 4. Facial Palsy: 0=Normal 5a. Motor Left Arm: 0=No drift,arm holds 90 degrees for 10 sec., leg 30 degrees for 5 sec. 5b. Motor Right Arm: 0=No drift,arm holds 90 degrees for 10 sec., leg 30 degrees for 5 sec. 6a. Motor Left Le=No drift,arm holds 90 degrees for 10 sec., leg 30 degrees for 5 sec. 6b. Motor Right Le=No drift,arm holds 90 degrees for 10 sec., leg 30 degrees for 5 sec. 7. Limb Ataxia: 0=Absent 8. Sensory: 0=Normal 9. Best Language: 0=No aphasia 10. Dysarthria: 0=Normal 11. Extincion and Inattention: 0=Normal Stroke Scale Total: 0 <ANTONIETTA HWANG MD - Last Filed: 05/07/21 05:59> NIH Stroke Scale Stroke Scale Total: 0 <REBEKAH TREVIÑO MD - Last Filed: 04/30/21 06:11> NIH Stroke Scale Stroke Scale Total: 0 Interpretation <JAYLIN ALEXIS DO - Last Filed: 05/08/21 20:02> Radiology Interpretation Radiology Interpretation By: Radiologist Exam Interpreted: CXR (No acute cardiopulmonary process.), CT Scan (No acute intracranial abnormality. 2. Chronic ischemic disease of the white matter and cerebral volume loss.) and Other EKG Interpretation Time of EKG #1: 09:11 Rate: Normal Rhythm: Sinus Ectopy: None [place]: Left ST Segment: Normal Interpretation: 1ST DEGREE AV BLOCK Physician Notification <JAYLIN ALEXIS DO - Last Filed: 05/08/21 20:02> Case Discussed Physician Notified: Dr Treviño Time of Notification: 13:00 Comments: Advised of patient in ER Physician Notified: Dr Treviño: request to be consulted in ER in order to manage patient; Time of Notification: 17:30 Comments: Feels it will be easier to facilitated transfer when bed is available Endorsed To/Discussed With: Dr Hwang- assumes care until Dr Treviño comes to department to evaluate pt Time of Discussion: 19:00 Critical Care Note <DO Orquidea DONOHUE Last Filed: 05/08/21 20:02> Critical Care Note Total Critical Care Time (mins): 120 Comments: The patient was monitored through out the day. Monitored pts neurological status and vitalsmMade several attempts to located tertiary facility for transfer and called several facilities([facility], [facility], [place], [place] ,) Discussed with Dr Gross at [facility] Contacted pts PCP Dr Treviño and discussed case on several occasions(total time20 Min) ,Sign out to Dr Hwang Course <JAYLIN ALEXIS, DO - Last Filed: 05/08/21 20:02> Course Hematology/Chemistry: 05/05/21 06:10 05/05/21 06:10 Orders, Labs, Meds: Lab Review 04/29/21 04/29/21 04/29/21 00:03 08:50 09:19 WBC RBC Hgb Hct MCV MCH MCHC RDW Coeff of Heather Plt Count Immature Gran % (Auto) Neut % (Auto) Lymph % (Auto) [place] % (Auto) Eos % (Auto) Baso % (Auto) Neut # (Auto) Lymph # (Auto) [place] # (Auto) Eos # (Auto) Baso # (Auto) Immature Gran # (Auto) Puncture Site Base Excess O2 Saturation ABG pH ABG pCO2 ABG pO2 ABG HCO3 ABG Total CO2 Clement Test Hemoglobin Oxyhemoglobin Carboxyhemoglobin Total Hemoglobin O2 Delivery Device Oxygen Liter Flow Sodium Potassium Chloride Carbon Dioxide Anion Gap BUN Creatinine Estimated GFR (MDRD) BUN/Creatinine Ratio Glucose Serum Osmolality Calcium Ionized Calcium Phosphorus Magnesium Total Bilirubin AST ALT Alkaline Phosphatase Total Creatine Kinase 912.5 H CK-MB (CK-2) 11.100 H* CK-MB (CK-2) % 1.2100 Troponin I NT-Pro-B Natriuret Pep Total Protein Albumin Globulin Albumin/Globulin Ratio TSH Random Cortisol 19.0 Urine Color Urine Clarity Urine pH Ur Specific [place] Urine Protein Urine Glucose (UA) Urine Ketones Urine Blood Urine Nitrite Urine Bilirubin Urine Urobilinogen Ur Leukocyte Esterase Urine Microscopic RBC Ur Squamous Epith Cells Urine Osmolality Ur Random Sodium Urine Opiates Screen Ur Oxycodone Screen Urine Methadone Screen Ur Propoxyphene Screen Ur Barbiturates Screen U Tricyclic Antidepress Ur Phencyclidine Scrn Ur Amphetamine Screen U Methamphetamines Scrn U Benzodiazepines Scrn Urine Cocaine Screen U Cannabinoids Screen Plasma/Serum Alcohol Adenovirus (PCR) Not detected B. pertussis DNA (PCR) Not detected B.parapertussis DNA PCR Not detected C. pneumoniae DNA (PCR) Not detected Coronavirus OC43 (PCR) Not detected Coronavirus HKU1 (PCR) Not detected Coronavirus 229E (PCR) Not detected Coronavirus NL63 (PCR) Not detected Human Metapneumovir PCR Not detected Influenza Type A (PCR) Not detected Influenza B (RT-PCR) Not detected M. pneumoniae (PCR) Not detected Parainfluenza 1 (PCR) Not detected Parainfluenza 2 (PCR) Not detected Parainfluenza 3 (PCR) Not detected Parainfluenza 4 (PCR) Not detected RSV (PCR) Not detected Entero/Rhino (PCR) Not detected SARS-CoV-2 (PCR) Not detected 04/29/21 04/29/21 04/29/21 09:19 09:19 09:19 WBC 17.20 H RBC 4.36 L Hgb 12.6 L Hct 33.9 L MCV 77.8 L MCH 28.9 MCHC 37.2 H RDW Coeff of Heather 11.1 L Plt Count 228 Immature Gran % (Auto) 0.8 Neut % (Auto) 88.2 H Lymph % (Auto) 4.7 L [place] % (Auto) 6.0 Eos % (Auto) 0.1 Baso % (Auto) 0.2 Neut # (Auto) 15.2 H Lymph # (Auto) 0.8 [place] # (Auto) 1.0 Eos # (Auto) 0.0 Baso # (Auto) 0.0 Immature Gran # (Auto) 0.1 Puncture Site R rad Base Excess 8.2 H O2 Saturation 99.7 H ABG pH 7.46 H ABG pCO2 45.0 ABG pO2 180.0 H ABG HCO3 32.0 H ABG Total CO2 33.4 H Clement Test + Hemoglobin 1.9 H Oxyhemoglobin 93.2 L Carboxyhemoglobin 2.7 H Total Hemoglobin 13.4 O2 Delivery Device Nc Oxygen Liter Flow 2.00 Sodium 95.1 L* Potassium 4.01 Chloride 57.3 L* Carbon Dioxide 31.7 H Anion Gap 10.11 BUN 8.0 L Creatinine 0.60 Estimated GFR (MDRD) 140.00 BUN/Creatinine Ratio 13.33 Glucose 129.7 H Serum Osmolality Calcium 7.89 L Ionized Calcium Phosphorus Magnesium Total Bilirubin 1.30 AST 80.3 H ALT 52.2 H Alkaline Phosphatase 97.0 Total Creatine Kinase CK-MB (CK-2) CK-MB (CK-2) % Troponin I NT-Pro-B Natriuret Pep Total Protein 6.21 L Albumin 3.98 Globulin 2.23 Albumin/Globulin Ratio 1.78 TSH Random Cortisol Urine Color Urine Clarity Urine pH Ur Specific [place] Urine Protein Urine Glucose (UA) Urine Ketones Urine Blood Urine Nitrite Urine Bilirubin Urine Urobilinogen Ur Leukocyte Esterase Urine Microscopic RBC Ur Squamous Epith Cells Urine Osmolality Ur Random Sodium Urine Opiates Screen Ur Oxycodone Screen Urine Methadone Screen Ur Propoxyphene Screen Ur Barbiturates Screen U Tricyclic Antidepress Ur Phencyclidine Scrn Ur Amphetamine Screen U Methamphetamines Scrn U Benzodiazepines Scrn Urine Cocaine Screen U Cannabinoids Screen Plasma/Serum Alcohol Adenovirus (PCR) B. pertussis DNA (PCR) B.parapertussis DNA PCR C. pneumoniae DNA (PCR) Coronavirus OC43 (PCR) Coronavirus HKU1 (PCR) Coronavirus 229E (PCR) Coronavirus NL63 (PCR) Human Metapneumovir PCR Influenza Type A (PCR) Influenza B (RT-PCR) M. pneumoniae (PCR) Parainfluenza 1 (PCR) Parainfluenza 2 (PCR) Parainfluenza 3 (PCR) Parainfluenza 4 (PCR) RSV (PCR) Entero/Rhino (PCR) SARS-CoV-2 (PCR) 04/29/21 04/29/21 04/29/21 09:19 09:19 11:05 WBC RBC Hgb Hct MCV MCH MCHC RDW Coeff of Heather Plt Count Immature Gran % (Auto) Neut % (Auto) Lymph % (Auto) [place] % (Auto) Eos % (Auto) Baso % (Auto) Neut # (Auto) Lymph # (Auto) [place] # (Auto) Eos # (Auto) Baso # (Auto) Immature Gran # (Auto) Puncture Site Base Excess O2 Saturation ABG pH ABG pCO2 ABG pO2 ABG HCO3 ABG Total CO2 Clement Test Hemoglobin Oxyhemoglobin Carboxyhemoglobin Total Hemoglobin O2 Delivery Device Oxygen Liter Flow Sodium Potassium Chloride Carbon Dioxide Anion Gap BUN Creatinine Estimated GFR (MDRD) BUN/Creatinine Ratio Glucose Serum Osmolality 200 Calcium Ionized Calcium Phosphorus 1.95 L Magnesium 1.31 L Total Bilirubin AST ALT Alkaline Phosphatase Total Creatine Kinase CK-MB (CK-2) CK-MB (CK-2) % Troponin I < 0.012 NT-Pro-B Natriuret Pep Total Protein Albumin Globulin Albumin/Globulin Ratio TSH Random Cortisol Urine Color Urine Clarity Urine pH Ur Specific [place] Urine Protein Urine Glucose (UA) Urine Ketones Urine Blood Urine Nitrite Urine Bilirubin Urine Urobilinogen Ur Leukocyte Esterase Urine Microscopic RBC Ur Squamous Epith Cells Urine Osmolality 418 Ur Random Sodium Urine Opiates Screen Ur Oxycodone Screen Urine Methadone Screen Ur Propoxyphene Screen Ur Barbiturates Screen U Tricyclic Antidepress Ur Phencyclidine Scrn Ur Amphetamine Screen U Methamphetamines Scrn U Benzodiazepines Scrn Urine Cocaine Screen U Cannabinoids Screen Plasma/Serum Alcohol Adenovirus (PCR) B. pertussis DNA (PCR) B.parapertussis DNA PCR C. pneumoniae DNA (PCR) Coronavirus OC43 (PCR) Coronavirus HKU1 (PCR) Coronavirus 229E (PCR) Coronavirus NL63 (PCR) Human Metapneumovir PCR Influenza Type A (PCR) Influenza B (RT-PCR) M. pneumoniae (PCR) Parainfluenza 1 (PCR) Parainfluenza 2 (PCR) Parainfluenza 3 (PCR) Parainfluenza 4 (PCR) RSV (PCR) Entero/Rhino (PCR) SARS-CoV-2 (PCR) 04/29/21 04/29/21 04/29/21 11:05 11:05 13:10 WBC RBC Hgb Hct MCV MCH MCHC RDW Coeff of Heather Plt Count Immature Gran % (Auto) Neut % (Auto) Lymph % (Auto) [place] % (Auto) Eos % (Auto) Baso % (Auto) Neut # (Auto) Lymph # (Auto) [place] # (Auto) Eos # (Auto) Baso # (Auto) Immature Gran # (Auto) Puncture Site Base Excess O2 Saturation ABG pH ABG pCO2 ABG pO2 ABG HCO3 ABG Total CO2 Clement Test Hemoglobin Oxyhemoglobin Carboxyhemoglobin Total Hemoglobin O2 Delivery Device Oxygen Liter Flow Sodium Potassium Chloride Carbon Dioxide Anion Gap BUN Creatinine Estimated GFR (MDRD) BUN/Creatinine Ratio Glucose Serum Osmolality 203 Calcium Ionized Calcium Phosphorus Magnesium Total Bilirubin AST ALT Alkaline Phosphatase Total Creatine Kinase CK-MB (CK-2) CK-MB (CK-2) % Troponin I NT-Pro-B Natriuret Pep Total Protein Albumin Globulin Albumin/Globulin Ratio TSH Random Cortisol Urine Color Yellow Urine Clarity Clear Urine pH 7.5 Ur Specific [place] 1.020 Urine Protein 1+ H Urine Glucose (UA) Trace H Urine Ketones 3+ H Urine Blood Trace-intact H Urine Nitrite Negative Urine Bilirubin Negative Urine Urobilinogen 1.0 H Ur Leukocyte Esterase Negative Urine Microscopic RBC 0-2 Ur Squamous Epith Cells 0-2 Urine Osmolality Ur Random Sodium Urine Opiates Screen Negative Ur Oxycodone Screen Positive H Urine Methadone Screen Negative Ur Propoxyphene Screen Negative Ur Barbiturates Screen Negative U Tricyclic Antidepress Positive H Ur Phencyclidine Scrn Negative Ur Amphetamine Screen Negative U Methamphetamines Scrn Negative U Benzodiazepines Scrn Positive H Urine Cocaine Screen Negative U Cannabinoids Screen Negative Plasma/Serum Alcohol Adenovirus (PCR) B. pertussis DNA (PCR) B.parapertussis DNA PCR C. pneumoniae DNA (PCR) Coronavirus OC43 (PCR) Coronavirus HKU1 (PCR) Coronavirus 229E (PCR) Coronavirus NL63 (PCR) Human Metapneumovir PCR Influenza Type A (PCR) Influenza B (RT-PCR) M. pneumoniae (PCR) Parainfluenza 1 (PCR) Parainfluenza 2 (PCR) Parainfluenza 3 (PCR) Parainfluenza 4 (PCR) RSV (PCR) Entero/Rhino (PCR) SARS-CoV-2 (PCR) 04/29/21 04/29/21 04/29/21 13:30 13:30 15:32 WBC RBC Hgb Hct MCV MCH MCHC RDW Coeff of Heather Plt Count Immature Gran % (Auto) Neut % (Auto) Lymph % (Auto) [place] % (Auto) Eos % (Auto) Baso % (Auto) Neut # (Auto) Lymph # (Auto) [place] # (Auto) Eos # (Auto) Baso # (Auto) Immature Gran # (Auto) Puncture Site Base Excess O2 Saturation ABG pH ABG pCO2 ABG pO2 ABG HCO3 ABG Total CO2 Clement Test Hemoglobin Oxyhemoglobin Carboxyhemoglobin Total Hemoglobin O2 Delivery Device Oxygen Liter Flow Sodium 96.1 L* 95.7 L* Potassium 4.23 4.33 Chloride 57.7 L* 59.2 L* Carbon Dioxide 33.2 H 30.0 Anion Gap 9.43 10.83 BUN 8.3 L Creatinine 0.58 L Estimated GFR (MDRD) 145.00 BUN/Creatinine Ratio 14.31 Glucose 119.5 H Serum Osmolality Calcium 8.29 L Ionized Calcium Phosphorus 2.29 L Magnesium Total Bilirubin AST ALT Alkaline Phosphatase Total Creatine Kinase CK-MB (CK-2) CK-MB (CK-2) % Troponin I NT-Pro-B Natriuret Pep 656.000 H Total Protein Albumin Globulin Albumin/Globulin Ratio TSH Random Cortisol Urine Color Urine Clarity Urine pH Ur Specific [place] Urine Protein Urine Glucose (UA) Urine Ketones Urine Blood Urine Nitrite Urine Bilirubin Urine Urobilinogen Ur Leukocyte Esterase Urine Microscopic RBC Ur Squamous Epith Cells Urine Osmolality Ur Random Sodium Urine Opiates Screen Ur Oxycodone Screen Urine Methadone Screen Ur Propoxyphene Screen Ur Barbiturates Screen U Tricyclic Antidepress Ur Phencyclidine Scrn Ur Amphetamine Screen U Methamphetamines Scrn U Benzodiazepines Scrn Urine Cocaine Screen U Cannabinoids Screen Plasma/Serum Alcohol < 10.0 Adenovirus (PCR) B. pertussis DNA (PCR) B.parapertussis DNA PCR C. pneumoniae DNA (PCR) Coronavirus OC43 (PCR) Coronavirus HKU1 (PCR) Coronavirus 229E (PCR) Coronavirus NL63 (PCR) Human Metapneumovir PCR Influenza Type A (PCR) Influenza B (RT-PCR) M. pneumoniae (PCR) Parainfluenza 1 (PCR) Parainfluenza 2 (PCR) Parainfluenza 3 (PCR) Parainfluenza 4 (PCR) RSV (PCR) Entero/Rhino (PCR) SARS-CoV-2 (PCR) 04/29/21 04/29/21 04/30/21 17:48 19:33 00:03 WBC RBC Hgb Hct MCV MCH MCHC RDW Coeff of Heather Plt Count Immature Gran % (Auto) Neut % (Auto) Lymph % (Auto) [place] % (Auto) Eos % (Auto) Baso % (Auto) Neut # (Auto) Lymph # (Auto) [place] # (Auto) Eos # (Auto) Baso # (Auto) Immature Gran # (Auto) Puncture Site Base Excess O2 Saturation ABG pH ABG pCO2 ABG pO2 ABG HCO3 ABG Total CO2 Clement Test Hemoglobin Oxyhemoglobin Carboxyhemoglobin Total Hemoglobin O2 Delivery Device Oxygen Liter Flow Sodium 98.7 L* 100.3 L* 101.6 L* Potassium 3.82 3.77 3.64 Chloride 60.1 L* 62.3 L* 65.8 L* Carbon Dioxide 30.7 H 29.6 29.0 Anion Gap 11.72 12.17 10.44 BUN 8.0 L 8.5 L 8.3 L Creatinine 0.58 L 0.50 L 0.52 L Estimated GFR (MDRD) 145.00 173.00 165.00 BUN/Creatinine Ratio 13.79 17.00 15.96 Glucose 113.4 H 119.0 H 105.6 Serum Osmolality Calcium 8.16 L 7.94 L 8.11 L Ionized Calcium Phosphorus Magnesium Total Bilirubin 1.55 H AST 112.4 H D ALT 54.4 H Alkaline Phosphatase 84.4 Total Creatine Kinase CK-MB (CK-2) CK-MB (CK-2) % Troponin I NT-Pro-B Natriuret Pep Total Protein 6.04 L Albumin 3.79 Globulin 2.25 Albumin/Globulin Ratio 1.68 TSH Random Cortisol Urine Color Urine Clarity Urine pH Ur Specific [place] Urine Protein Urine Glucose (UA) Urine Ketones Urine Blood Urine Nitrite Urine Bilirubin Urine Urobilinogen Ur Leukocyte Esterase Urine Microscopic RBC Ur Squamous Epith Cells Urine Osmolality Ur Random Sodium Urine Opiates Screen Ur Oxycodone Screen Urine Methadone Screen Ur Propoxyphene Screen Ur Barbiturates Screen U Tricyclic Antidepress Ur Phencyclidine Scrn Ur Amphetamine Screen U Methamphetamines Scrn U Benzodiazepines Scrn Urine Cocaine Screen U Cannabinoids Screen Plasma/Serum Alcohol Adenovirus (PCR) B. pertussis DNA (PCR) B.parapertussis DNA PCR C. pneumoniae DNA (PCR) Coronavirus OC43 (PCR) Coronavirus HKU1 (PCR) Coronavirus 229E (PCR) Coronavirus NL63 (PCR) Human Metapneumovir PCR Influenza Type A (PCR) Influenza B (RT-PCR) M. pneumoniae (PCR) Parainfluenza 1 (PCR) Parainfluenza 2 (PCR) Parainfluenza 3 (PCR) Parainfluenza 4 (PCR) RSV (PCR) Entero/Rhino (PCR) SARS-CoV-2 (PCR) 04/30/21 04/30/21 04/30/21 00:15 00:15 00:15 WBC RBC Hgb Hct MCV MCH MCHC RDW Coeff of Heather Plt Count Immature Gran % (Auto) Neut % (Auto) Lymph % (Auto) [place] % (Auto) Eos % (Auto) Baso % (Auto) Neut # (Auto) Lymph # (Auto) [place] # (Auto) Eos # (Auto) Baso # (Auto) Immature Gran # (Auto) Puncture Site Base Excess O2 Saturation ABG pH ABG pCO2 ABG pO2 ABG HCO3 ABG Total CO2 Clement Test Hemoglobin Oxyhemoglobin Carboxyhemoglobin Total Hemoglobin O2 Delivery Device Oxygen Liter Flow Sodium Potassium Chloride Carbon Dioxide Anion Gap BUN Creatinine Estimated GFR (MDRD) BUN/Creatinine Ratio Glucose Serum Osmolality 208 Calcium Ionized Calcium Phosphorus Magnesium Total Bilirubin AST ALT Alkaline Phosphatase Total Creatine Kinase CK-MB (CK-2) CK-MB (CK-2) % Troponin I NT-Pro-B Natriuret Pep Total Protein Albumin Globulin Albumin/Globulin Ratio TSH Random Cortisol Urine Color Urine Clarity Urine pH Ur Specific [place] Urine Protein Urine Glucose (UA) Urine Ketones Urine Blood Urine Nitrite Urine Bilirubin Urine Urobilinogen Ur Leukocyte Esterase Urine Microscopic RBC Ur Squamous Epith Cells Urine Osmolality 396 Ur Random Sodium 54.0 Urine Opiates Screen Ur Oxycodone Screen Urine Methadone Screen Ur Propoxyphene Screen Ur Barbiturates Screen U Tricyclic Antidepress Ur Phencyclidine Scrn Ur Amphetamine Screen U Methamphetamines Scrn U Benzodiazepines Scrn Urine Cocaine Screen U Cannabinoids Screen Plasma/Serum Alcohol Adenovirus (PCR) B. pertussis DNA (PCR) B.parapertussis DNA PCR C. pneumoniae DNA (PCR) Coronavirus OC43 (PCR) Coronavirus HKU1 (PCR) Coronavirus 229E (PCR) Coronavirus NL63 (PCR) Human Metapneumovir PCR Influenza Type A (PCR) Influenza B (RT-PCR) M. pneumoniae (PCR) Parainfluenza 1 (PCR) Parainfluenza 2 (PCR) Parainfluenza 3 (PCR) Parainfluenza 4 (PCR) RSV (PCR) Entero/Rhino (PCR) SARS-CoV-2 (PCR) 04/30/21 04/30/21 04/30/21 00:27 00:27 04:21 WBC 11.78 H D RBC 4.18 L Hgb 12.2 L Hct 33.1 L MCV 79.2 L MCH 29.2 MCHC 36.9 H RDW Coeff of Heather 11.3 L Plt Count 210 Immature Gran % (Auto) 0.5 Neut % (Auto) 80.6 H Lymph % (Auto) 10.0 [place] % (Auto) 8.0 Eos % (Auto) 0.7 Baso % (Auto) 0.2 Neut # (Auto) 9.5 H Lymph # (Auto) 1.2 [place] # (Auto) 0.9 Eos # (Auto) 0.1 Baso # (Auto) 0.0 Immature Gran # (Auto) 0.1 Puncture Site Base Excess O2 Saturation ABG pH ABG pCO2 ABG pO2 ABG HCO3 ABG Total CO2 Clement Test Hemoglobin Oxyhemoglobin Carboxyhemoglobin Total Hemoglobin O2 Delivery Device Oxygen Liter Flow Sodium 104.9 L* Potassium 3.74 Chloride 65.6 L* Carbon Dioxide 31.6 H Anion Gap 11.44 BUN 7.6 L Creatinine 0.61 Estimated GFR (MDRD) 137.00 BUN/Creatinine Ratio 12.45 Glucose 103.7 Serum Osmolality Calcium 8.40 Ionized Calcium 4.8 Phosphorus 2.29 L Magnesium 1.57 L Total Bilirubin AST ALT Alkaline Phosphatase Total Creatine Kinase CK-MB (CK-2) CK-MB (CK-2) % Troponin I NT-Pro-B Natriuret Pep Total Protein Albumin Globulin Albumin/Globulin Ratio TSH Random Cortisol Urine Color Urine Clarity Urine pH Ur Specific [place] Urine Protein Urine Glucose (UA) Urine Ketones Urine Blood Urine Nitrite Urine Bilirubin Urine Urobilinogen Ur Leukocyte Esterase Urine Microscopic RBC Ur Squamous Epith Cells Urine Osmolality Ur Random Sodium Urine Opiates Screen Ur Oxycodone Screen Urine Methadone Screen Ur Propoxyphene Screen Ur Barbiturates Screen U Tricyclic Antidepress Ur Phencyclidine Scrn Ur Amphetamine Screen U Methamphetamines Scrn U Benzodiazepines Scrn Urine Cocaine Screen U Cannabinoids Screen Plasma/Serum Alcohol Adenovirus (PCR) B. pertussis DNA (PCR) B.parapertussis DNA PCR C. pneumoniae DNA (PCR) Coronavirus OC43 (PCR) Coronavirus HKU1 (PCR) Coronavirus 229E (PCR) Coronavirus NL63 (PCR) Human Metapneumovir PCR Influenza Type A (PCR) Influenza B (RT-PCR) M. pneumoniae (PCR) Parainfluenza 1 (PCR) Parainfluenza 2 (PCR) Parainfluenza 3 (PCR) Parainfluenza 4 (PCR) RSV (PCR) Entero/Rhino (PCR) SARS-CoV-2 (PCR) 04/30/21 04/30/21 08:06 12:00 WBC RBC Hgb Hct MCV MCH MCHC RDW Coeff of Heather Plt Count Immature Gran % (Auto) Neut % (Auto) Lymph % (Auto) [place] % (Auto) Eos % (Auto) Baso % (Auto) Neut # (Auto) Lymph # (Auto) [place] # (Auto) Eos # (Auto) Baso # (Auto) Immature Gran # (Auto) Puncture Site Base Excess O2 Saturation ABG pH ABG pCO2 ABG pO2 ABG HCO3 ABG Total CO2 Clement Test Hemoglobin Oxyhemoglobin Carboxyhemoglobin Total Hemoglobin O2 Delivery Device Oxygen Liter Flow Sodium 106.0 L* 106.9 L* Potassium 3.48 L Chloride 66.5 L* Carbon Dioxide 32.4 H Anion Gap 10.58 BUN 7.1 L Creatinine 0.60 Estimated GFR (MDRD) 140.00 BUN/Creatinine Ratio 11.83 Glucose 96.0 Serum Osmolality Calcium 8.38 L Ionized Calcium Phosphorus Magnesium Total Bilirubin 1.47 H AST 111.0 H ALT 57.9 H Alkaline Phosphatase 92.5 Total Creatine Kinase CK-MB (CK-2) CK-MB (CK-2) % Troponin I NT-Pro-B Natriuret Pep Total Protein 6.44 Albumin 4.10 Globulin 2.34 Albumin/Globulin Ratio 1.75 TSH 0.572 Random Cortisol Urine Color Urine Clarity Urine pH Ur Specific [place] Urine Protein Urine Glucose (UA) Urine Ketones Urine Blood Urine Nitrite Urine Bilirubin Urine Urobilinogen Ur Leukocyte Esterase Urine Microscopic RBC Ur Squamous Epith Cells Urine Osmolality Ur Random Sodium Urine Opiates Screen Ur Oxycodone Screen Urine Methadone Screen Ur Propoxyphene Screen Ur Barbiturates Screen U Tricyclic Antidepress Ur Phencyclidine Scrn Ur Amphetamine Screen U Methamphetamines Scrn U Benzodiazepines Scrn Urine Cocaine Screen U Cannabinoids Screen Plasma/Serum Alcohol Adenovirus (PCR) B. pertussis DNA (PCR) B.parapertussis DNA PCR C. pneumoniae DNA (PCR) Coronavirus OC43 (PCR) Coronavirus HKU1 (PCR) Coronavirus 229E (PCR) Coronavirus NL63 (PCR) Human Metapneumovir PCR Influenza Type A (PCR) Influenza B (RT-PCR) M. pneumoniae (PCR) Parainfluenza 1 (PCR) Parainfluenza 2 (PCR) Parainfluenza 3 (PCR) Parainfluenza 4 (PCR) RSV (PCR) Entero/Rhino (PCR) SARS-CoV-2 (PCR) Orders Category Date Time Status ABG DRAW REQUEST Stat CARDIO 04/29/21 08:48 Completed EKG-(ED ONLY) Stat CARDIO 04/29/21 08:58 Completed METERED DOSE INHALATION Routine CARDIO 04/29/21 09:08 Completed METERED DOSE INHALATION Routine CARDIO 04/29/21 14:33 Completed METERED DOSE INHALATION Routine CARDIO 04/29/21 14:34 Completed METERED DOSE INHALATION Routine CARDIO 04/29/21 19:26 Completed METERED DOSE INHALATION Routine CARDIO 04/29/21 19:27 Completed C-DIFF MONITORING (NURSING) BID CARE 04/30/21 08:53 Completed FALL: BEHAVIOR MANAGEMENT PRN CARE 04/29/21 23:09 Completed IV [ED IV/MEDIPORT/POWERPORT] .ONCE EMERGENCY 04/29/21 09:51 Completed ABG COOX Stat LAB 04/29/21 09:19 Completed BASIC METABOLIC PANEL Stat LAB 04/29/21 13:30 Completed BASIC METABOLIC PANEL Stat LAB 04/29/21 17:48 Completed BASIC METABOLIC PANEL Stat LAB 04/30/21 04:21 Completed BLOOD ALCOHOL Stat LAB 04/29/21 13:30 Completed BLOOD CULTURE (ED ONLY) Stat LAB 04/29/21 09:19 Completed BMP [BASIC METABOLIC PANEL] Stat LAB 04/29/21 19:33 Completed CBC W/ AUTO DIFF DAILY@0600 LAB 05/01/21 04:36 Completed CBC W/ AUTO DIFF Stat LAB 04/29/21 09:19 Completed CBC W/ AUTO DIFF Stat LAB 04/30/21 00:27 Completed CMP [COMPREHENSIVE METABOLIC PANEL] Stat LAB 04/29/21 09:19 Completed COMPREHENSIVE METABOLIC PANEL DAILY@0600 LAB 05/01/21 04:36 Completed COMPREHENSIVE METABOLIC PANEL Stat LAB 04/30/21 00:03 Completed COMPREHENSIVE METABOLIC PANEL Stat LAB 04/30/21 08:06 Completed CORTISOL,RANDOM Stat LAB 04/29/21 00:03 Completed CPK [CREATINE KINASE] Stat LAB 04/29/21 09:19 Completed ELECTROLYTES Stat LAB 04/29/21 15:32 Completed IONIZED CALCIUM Stat LAB 04/30/21 00:27 Completed MAGNESIUM DAILY@0600 LAB 05/01/21 04:36 Completed MAGNESIUM Stat LAB 04/29/21 09:19 Completed MAGNESIUM Stat LAB 04/30/21 04:21 Completed NT-PROBNP Stat LAB 04/29/21 13:30 Completed OSMOLALITY,URINE Stat LAB 04/29/21 11:05 Completed OSMOLALITY,URINE Stat LAB 04/30/21 00:15 Completed PHOSPHORUS DAILY@0600 LAB 05/01/21 04:36 Completed PHOSPHORUS Stat LAB 04/29/21 09:19 Completed PHOSPHORUS Stat LAB 04/29/21 13:30 Completed PHOSPHORUS Stat LAB 04/30/21 04:21 Completed RESPIRATORY PANEL 2.1 (PCR) Stat LAB 04/29/21 08:50 Completed SERUM OSMOLALITY Stat LAB 04/29/21 11:05 Completed SERUM OSMOLALITY Stat LAB 04/29/21 13:10 Completed SERUM OSMOLALITY Stat LAB 04/30/21 00:15 Completed SODIUM Q4H LAB 04/30/21 12:00 Completed SODIUM Q4H LAB 04/30/21 16:05 Completed SODIUM Q4H LAB 04/30/21 19:51 Completed SODIUM,URINE Stat LAB 04/30/21 00:15 Completed THYROID STIMULATING HORMONE Routine LAB 04/30/21 12:00 Completed THYROID STIMULATING HORMONE Routine LAB 04/30/21 19:51 Completed TROPONIN I Stat LAB 04/29/21 09:19 Completed UA [URINALYSIS C & S IF INDICATED] Stat LAB 04/29/21 11:05 Completed URINE DRUG SCREEN (RAPID FOR ED) [DRUG SCREEN, URINE, LAB 04/29/21 11:05 Comp leted RAPID] Stat c-diff [C. DIFFICILE] Routine LAB 04/30/21 08:51 Completed 0.9 % Sodium Chloride [Saline Flush] MEDS 04/29/21 09:51 Discontinued 1 syr IVF PRN PRN Albuterol Inhaler(with Spacer) [Ventolin Hfa (Per Puff- MEDS 04/29/21 09:08 Discontinued with Spacer)] 2 puff IH ONCE ONE Albuterol Inhaler(with Spacer) [Ventolin Hfa (Per Puff- MEDS 04/29/21 14:33 D iscontinued with Spacer)] 2 puff IH ONCE ONE Albuterol Inhaler(with Spacer) [Ventolin Hfa (Per Puff- MEDS 04/29/21 19:25 Discontinued with Spacer)] 2 puff IH ONCE PRN Hydrocortisone Sod Succ/Pf [Solu-Cortef 100 mg] MEDS 04/30/21 00:00 Discontinued 100 mg IVP ONCE ONE Hydrocortisone Sod Succ/Pf [Solu-Cortef 250 mg] MEDS 04/30/21 20:00 Discontinued 50 mg IVP Q6HR Ipratropium Inhaler(Spacer) [Atrovent Hfa Inhaler (Per MEDS 04/29/21 09:08 Discontinued Puff-with Spacer)] 2 puff IH ONCE ONE Ipratropium Inhaler(Spacer) [Atrovent Hfa Inhaler (Per MEDS 04/29/21 14:34 Discontinued Puff-with Spacer)] 2 puff IH ONCE STA Ipratropium Inhaler(Spacer) [Atrovent Hfa Inhaler (Per MEDS 04/30/21 00:00 Discontinued Puff-with Spacer)] 2 puff IH RTQ6H Sodium Chloride 3% 100 ml MEDS 04/29/21 18:30 Discontinued IV 600 mls/hr Sodium Chloride 3% 500 ml MEDS 04/29/21 11:00 Discontinued IV 15 mls/hr Vitamin B-1 Inj [Thiamine] 100 mg MEDS 04/30/21 09:00 Discontinued 0.9 % Sodium Chloride [Sodium Chloride] 50 ml IV ONCE CHEST, 1V AP ONLY Stat RADS 04/29/21 08:[address] HEAD W/O CONTRAST Stat RADS 04/29/21 08:49 Completed Medications Discontinued Medications Generic Name Dose Route Start Last Admin Trade Name Freq PRN Reason Stop Dose Admin Acetaminophen 500 mg 04/30/21 20:20 05/05/21 05:45 Acetaminophen 500 Mg Tablet PO 500 mg TID PRN Administration Mild Pain Albuterol Sulfate 2 puff 04/29/21 09:08 04/29/21 09:24 Albuterol Sulfate (Ventolin Hfa) 18 Gm 1 Puff With Spacer IH 04/29/21 09:09 2 puff ONCE ONE Administration Albuterol Sulfate 2 puff 04/29/21 14:33 04/29/21 14:47 Albuterol Sulfate (Ventolin Hfa) 18 Gm 1 Puff With Spacer IH 04/29/21 14:34 2 puff ONCE ONE Administration Albuterol Sulfate 2 puff 04/29/21 19:25 04/30/21 12:00 Albuterol Sulfate (Ventolin Hfa) 18 Gm 1 Puff With Spacer IH 2 puff ONCE PRN Administration SOB Albuterol Sulfate 2 puff 04/30/21 16:31 05/05/21 04:55 Albuterol Sulfate (Ventolin Hfa) 18 Gm 1 Puff With Spacer IH 2 puff Q4-6H PRN Administration wheezing Aripiprazole 10 mg 04/30/21 17:00 05/05/21 08:36 Aripiprazole 5 Mg Tablet PO 10 mg DAILY MAHIN Administration Calamine/Phenol 1 applic 05/03/21 09:00 05/05/21 08:37 Menthol/Zinc Oxide 113 Gm Ointment TP 1 applic BID MAHIN Administration Diazepam 2 mg 04/30/21 16:31 05/05/21 08:36 Diazepam 2 Mg Tablet PO 2 mg DAILY MAHIN Administration Enoxaparin Sodium 40 mg 05/02/21 09:00 05/05/21 08:40 Enoxaparin Sodium 40 Mg/0.4 Ml Syr SUBCUT 40 mg DAILY MAHIN Administration Gabapentin 300 mg 04/30/21 21:00 05/05/21 08:36 Gabapentin 300 Mg Capsule PO 300 mg TID MAHIN Administration Hydrocortisone Sodium Succinate 100 mg 04/30/21 00:00 04/30/21 00:05 Hydrocortisone Sod Succ/Pf 100 Mg/2 Ml Vial IVP 04/30/21 00:01 100 mg ONCE ONE Administration Hydrocortisone Sodium Succinate 50 mg 04/30/21 20:00 Hydrocortisone Sod Succ/Pf 250 Mg/2 Ml Vial IVP Q6HR MAHIN Hydrocortisone Sodium Succinate 50 mg 04/30/21 13:00 05/03/21 05:55 Hydrocortisone Sod Succ/Pf 100 Mg/2 Ml Vial IVP 50 mg Q6HR MAHIN Administration Hydroxyzine HCl 25 - 50 mg 04/30/21 16:31 05/02/21 03:19 Hydroxyzine Hcl 25 Mg Tablet PO 25 mg QID PRN Administration anxiety Sodium Chloride 500 mls @ 15 mls/hr 04/29/21 11:00 04/29/21 10:50 Sodium Chloride 3% IV 15 mls/hr .[id number] MAHIN Administration Sodium Chloride 100 mls @ 600 mls/hr 04/29/21 18:30 04/29/21 18:22 Sodium Chloride 3% IV 04/29/21 18:39 600 mls/hr .Q10M ONE Administration Thiamine HCl 100 mg/ Sodium 51 mls @ 100 mls/hr 04/30/21 09:00 04/30/21 08:12 Chloride IV 04/30/21 09:30 100 mls/hr ONCE ONE Administration Sodium Chloride 100 mls @ 400 mls/hr 05/01/21 08:16 05/01/21 09:53 Sodium Chloride 3% IV 05/01/21 08:30 400 mls/hr .Q15M ONE Administration Sodium Chloride 100 mls @ 400 mls/hr 05/02/21 10:33 05/02/21 11:04 Sodium Chloride 3% IV 05/02/21 10:47 400 mls/hr .Q15M ONE Administration Ipratropium [place] 2 puff 04/29/21 09:08 04/29/21 09:24 Ipratropium [place] 12.9 Gm Hfa Inhaler Per Puff With Spacer IH 04/29/21 09:09 2 puff ONCE ONE Administration Ipratropium [place] 2 puff 04/29/21 14:34 04/29/21 14:47 Ipratropium [place] 12.9 Gm Hfa Inhaler Per Puff With Spacer IH 04/29/21 14:35 2 puff ONCE STA Administration Ipratropium [place] 2 puff 04/30/21 00:00 05/05/21 04:55 Ipratropium [place] 12.9 Gm Hfa Inhaler Per Puff With Spacer IH 2 puff RTQ6H MAHIN Administration Lisinopril 20 mg 04/30/21 21:00 05/05/21 08:36 Lisinopril 10 Mg Tablet PO 20 mg BID MAHIN Administration Loperamide HCl 2 mg 04/30/21 20:21 05/05/21 05:51 Loperamide Hcl 2 Mg Tablet PO 2 mg AFTER LOOSE STOOLS PRN Administration Diarrhea Magnesium Oxide 400 mg 05/04/21 11:30 05/05/21 08:36 Magnesium Oxide 400 Mg Tablet PO 400 mg DAILY MAHIN Administration Nortriptyline HCl 100 mg 04/30/21 17:00 05/04/21 20:19 Nortriptyline Hcl 10 Mg Capsule PO 100 mg BEDTIME MAHIN Administration Potassium Chloride 20 meq 05/01/21 08:30 05/05/21 08:36 Potassium Chloride 20 Meq Tab PO 20 meq BIDWM MAHIN Administration Prednisone 20 mg 05/03/21 08:30 05/05/21 08:36 Prednisone 20 Mg Tablet PO 20 mg DAILYWM MAHIN Administration Sodium Chloride 1 syr 04/29/21 09:51 0.9% Sodium Chloride 10 Ml Disp.Syrin IVF PRN PRN To flush IV Sodium Chloride 1 syr 05/01/21 05:15 05/05/21 05:46 0.9% Sodium Chloride 10 Ml Disp.Syrin IVF 1 syr Q8HR MAHIN Administration Vital Signs: Temp Pulse Resp BP Pulse Ox 04/30/21 12:51 93 H 18 142/77 H 98 04/30/21 10:50 86 19 152/92 H 97 04/30/21 09:29 86 18 133/89 100 04/30/21 08:47 97.7 F 85 24 151/97 H 96 04/29/21 08:17 98.0 F 96 H 20 165/97 H 97 <ANTONIETTA HWANG MD - Last Filed: 05/07/21 05:59> Course Orders, Labs, Meds: Lab Review 04/29/21 04/29/21 04/29/21 00:03 08:50 09:19 WBC RBC Hgb Hct MCV MCH MCHC RDW Coeff of Heather Plt Count Immature Gran % (Auto) Neut % (Auto) Lymph % (Auto) [place] % (Auto) Eos % (Auto) Baso % (Auto) Neut # (Auto) Lymph # (Auto) [place] # (Auto) Eos # (Auto) Baso # (Auto) Immature Gran # (Auto) Puncture Site Base Excess O2 Saturation ABG pH ABG pCO2 ABG pO2 ABG HCO3 ABG Total CO2 Clement Test Hemoglobin Oxyhemoglobin Carboxyhemoglobin Total Hemoglobin O2 Delivery Device Oxygen Liter Flow Sodium Potassium Chloride Carbon Dioxide Anion Gap BUN Creatinine Estimated GFR (MDRD) BUN/Creatinine Ratio Glucose Serum Osmolality Calcium Ionized Calcium Phosphorus Magnesium Total Bilirubin AST ALT Alkaline Phosphatase Total Creatine Kinase 912.5 H CK-MB (CK-2) 11.100 H* CK-MB (CK-2) % 1.2100 Troponin I NT-Pro-B Natriuret Pep Total Protein Albumin Globulin Albumin/Globulin Ratio TSH Random Cortisol 19.0 Urine Color Urine Clarity Urine pH Ur Specific [place] Urine Protein Urine Glucose (UA) Urine Ketones Urine Blood Urine Nitrite Urine Bilirubin Urine Urobilinogen Ur Leukocyte Esterase Urine Microscopic RBC Ur Squamous Epith Cells Urine Osmolality Ur Random Sodium Urine Opiates Screen Ur Oxycodone Screen Urine Methadone Screen Ur Propoxyphene Screen Ur Barbiturates Screen U Tricyclic Antidepress Ur Phencyclidine Scrn Ur Amphetamine Screen U Methamphetamines Scrn U Benzodiazepines Scrn Urine Cocaine Screen U Cannabinoids Screen Plasma/Serum Alcohol Adenovirus (PCR) Not detected B. pertussis DNA (PCR) Not detected B.parapertussis DNA PCR Not detected C. pneumoniae DNA (PCR) Not detected Coronavirus OC43 (PCR) Not detected Coronavirus HKU1 (PCR) Not detected Coronavirus 229E (PCR) Not detected Coronavirus NL63 (PCR) Not detected Human Metapneumovir PCR Not detected Influenza Type A (PCR) Not detected Influenza B (RT-PCR) Not detected M. pneumoniae (PCR) Not detected Parainfluenza 1 (PCR) Not detected Parainfluenza 2 (PCR) Not detected Parainfluenza 3 (PCR) Not detected Parainfluenza 4 (PCR) Not detected RSV (PCR) Not detected Entero/Rhino (PCR) Not detected SARS-CoV-2 (PCR) Not detected 04/29/21 04/29/21 04/29/21 09:19 09:19 09:19 WBC 17.20 H RBC 4.36 L Hgb 12.6 L Hct 33.9 L MCV 77.8 L MCH 28.9 MCHC 37.2 H RDW Coeff of Heather 11.1 L Plt Count 228 Immature Gran % (Auto) 0.8 Neut % (Auto) 88.2 H Lymph % (Auto) 4.7 L [place] % (Auto) 6.0 Eos % (Auto) 0.1 Baso % (Auto) 0.2 Neut # (Auto) 15.2 H Lymph # (Auto) 0.8 [place] # (Auto) 1.0 Eos # (Auto) 0.0 Baso # (Auto) 0.0 Immature Gran # (Auto) 0.1 Puncture Site R rad Base Excess 8.2 H O2 Saturation 99.7 H ABG pH 7.46 H ABG pCO2 45.0 ABG pO2 180.0 H ABG HCO3 32.0 H ABG Total CO2 33.4 H Clement Test + Hemoglobin 1.9 H Oxyhemoglobin 93.2 L Carboxyhemoglobin 2.7 H Total Hemoglobin 13.4 O2 Delivery Device Nc Oxygen Liter Flow 2.00 Sodium 95.1 L* Potassium 4.01 Chloride 57.3 L* Carbon Dioxide 31.7 H Anion Gap 10.11 BUN 8.0 L Creatinine 0.60 Estimated GFR (MDRD) 140.00 BUN/Creatinine Ratio 13.33 Glucose 129.7 H Serum Osmolality Calcium 7.89 L Ionized Calcium Phosphorus Magnesium Total Bilirubin 1.30 AST 80.3 H ALT 52.2 H Alkaline Phosphatase 97.0 Total Creatine Kinase CK-MB (CK-2) CK-MB (CK-2) % Troponin I NT-Pro-B Natriuret Pep Total Protein 6.21 L Albumin 3.98 Globulin 2.23 Albumin/Globulin Ratio 1.78 TSH Random Cortisol Urine Color Urine Clarity Urine pH Ur Specific [place] Urine Protein Urine Glucose (UA) Urine Ketones Urine Blood Urine Nitrite Urine Bilirubin Urine Urobilinogen Ur Leukocyte Esterase Urine Microscopic RBC Ur Squamous Epith Cells Urine Osmolality Ur Random Sodium Urine Opiates Screen Ur Oxycodone Screen Urine Methadone Screen Ur Propoxyphene Screen Ur Barbiturates Screen U Tricyclic Antidepress Ur Phencyclidine Scrn Ur Amphetamine Screen U Methamphetamines Scrn U Benzodiazepines Scrn Urine Cocaine Screen U Cannabinoids Screen Plasma/Serum Alcohol Adenovirus (PCR) B. pertussis DNA (PCR) B.parapertussis DNA PCR C. pneumoniae DNA (PCR) Coronavirus OC43 (PCR) Coronavirus HKU1 (PCR) Coronavirus 229E (PCR) Coronavirus NL63 (PCR) Human Metapneumovir PCR Influenza Type A (PCR) Influenza B (RT-PCR) M. pneumoniae (PCR) Parainfluenza 1 (PCR) Parainfluenza 2 (PCR) Parainfluenza 3 (PCR) Parainfluenza 4 (PCR) RSV (PCR) Entero/Rhino (PCR) SARS-CoV-2 (PCR) 04/29/21 04/29/21 04/29/21 09:19 09:19 11:05 WBC RBC Hgb Hct MCV MCH MCHC RDW Coeff of Heather Plt Count Immature Gran % (Auto) Neut % (Auto) Lymph % (Auto) [place] % (Auto) Eos % (Auto) Baso % (Auto) Neut # (Auto) Lymph # (Auto) [place] # (Auto) Eos # (Auto) Baso # (Auto) Immature Gran # (Auto) Puncture Site Base Excess O2 Saturation ABG pH ABG pCO2 ABG pO2 ABG HCO3 ABG Total CO2 Clement Test Hemoglobin Oxyhemoglobin Carboxyhemoglobin Total Hemoglobin O2 Delivery Device Oxygen Liter Flow Sodium Potassium Chloride Carbon Dioxide Anion Gap BUN Creatinine Estimated GFR (MDRD) BUN/Creatinine Ratio Glucose Serum Osmolality 200 Calcium Ionized Calcium Phosphorus 1.95 L Magnesium 1.31 L Total Bilirubin AST ALT Alkaline Phosphatase Total Creatine Kinase CK-MB (CK-2) CK-MB (CK-2) % Troponin I < 0.012 NT-Pro-B Natriuret Pep Total Protein Albumin Globulin Albumin/Globulin Ratio TSH Random Cortisol Urine Color Urine Clarity Urine pH Ur Specific [place] Urine Protein Urine Glucose (UA) Urine Ketones Urine Blood Urine Nitrite Urine Bilirubin Urine Urobilinogen Ur Leukocyte Esterase Urine Microscopic RBC Ur Squamous Epith Cells Urine Osmolality 418 Ur Random Sodium Urine Opiates Screen Ur Oxycodone Screen Urine Methadone Screen Ur Propoxyphene Screen Ur Barbiturates Screen U Tricyclic Antidepress Ur Phencyclidine Scrn Ur Amphetamine Screen U Methamphetamines Scrn U Benzodiazepines Scrn Urine Cocaine Screen U Cannabinoids Screen Plasma/Serum Alcohol Adenovirus (PCR) B. pertussis DNA (PCR) B.parapertussis DNA PCR C. pneumoniae DNA (PCR) Coronavirus OC43 (PCR) Coronavirus HKU1 (PCR) Coronavirus 229E (PCR) Coronavirus NL63 (PCR) Human Metapneumovir PCR Influenza Type A (PCR) Influenza B (RT-PCR) M. pneumoniae (PCR) Parainfluenza 1 (PCR) Parainfluenza 2 (PCR) Parainfluenza 3 (PCR) Parainfluenza 4 (PCR) RSV (PCR) Entero/Rhino (PCR) SARS-CoV-2 (PCR) 04/29/21 04/29/21 04/29/21 11:05 11:05 13:10 WBC RBC Hgb Hct MCV MCH MCHC RDW Coeff of Heather Plt Count Immature Gran % (Auto) Neut % (Auto) Lymph % (Auto) [place] % (Auto) Eos % (Auto) Baso % (Auto) Neut # (Auto) Lymph # (Auto) [place] # (Auto) Eos # (Auto) Baso # (Auto) Immature Gran # (Auto) Puncture Site Base Excess O2 Saturation ABG pH ABG pCO2 ABG pO2 ABG HCO3 ABG Total CO2 Clement Test Hemoglobin Oxyhemoglobin Carboxyhemoglobin Total Hemoglobin O2 Delivery Device Oxygen Liter Flow Sodium Potassium Chloride Carbon Dioxide Anion Gap BUN Creatinine Estimated GFR (MDRD) BUN/Creatinine Ratio Glucose Serum Osmolality 203 Calcium Ionized Calcium Phosphorus Magnesium Total Bilirubin AST ALT Alkaline Phosphatase Total Creatine Kinase CK-MB (CK-2) CK-MB (CK-2) % Troponin I NT-Pro-B Natriuret Pep Total Protein Albumin Globulin Albumin/Globulin Ratio TSH Random Cortisol Urine Color Yellow Urine Clarity Clear Urine pH 7.5 Ur Specific [place] 1.020 Urine Protein 1+ H Urine Glucose (UA) Trace H Urine Ketones 3+ H Urine Blood Trace-intact H Urine Nitrite Negative Urine Bilirubin Negative Urine Urobilinogen 1.0 H Ur Leukocyte Esterase Negative Urine Microscopic RBC 0-2 Ur Squamous Epith Cells 0-2 Urine Osmolality Ur Random Sodium Urine Opiates Screen Negative Ur Oxycodone Screen Positive H Urine Methadone Screen Negative Ur Propoxyphene Screen Negative Ur Barbiturates Screen Negative U Tricyclic Antidepress Positive H Ur Phencyclidine Scrn Negative Ur Amphetamine Screen Negative U Methamphetamines Scrn Negative U Benzodiazepines Scrn Positive H Urine Cocaine Screen Negative U Cannabinoids Screen Negative Plasma/Serum Alcohol Adenovirus (PCR) B. pertussis DNA (PCR) B.parapertussis DNA PCR C. pneumoniae DNA (PCR) Coronavirus OC43 (PCR) Coronavirus HKU1 (PCR) Coronavirus 229E (PCR) Coronavirus NL63 (PCR) Human Metapneumovir PCR Influenza Type A (PCR) Influenza B (RT-PCR) M. pneumoniae (PCR) Parainfluenza 1 (PCR) Parainfluenza 2 (PCR) Parainfluenza 3 (PCR) Parainfluenza 4 (PCR) RSV (PCR) Entero/Rhino (PCR) SARS-CoV-2 (PCR) 04/29/21 04/29/21 04/29/21 13:30 13:30 15:32 WBC RBC Hgb Hct MCV MCH MCHC RDW Coeff of Heather Plt Count Immature Gran % (Auto) Neut % (Auto) Lymph % (Auto) [place] % (Auto) Eos % (Auto) Baso % (Auto) Neut # (Auto) Lymph # (Auto) [place] # (Auto) Eos # (Auto) Baso # (Auto) Immature Gran # (Auto) Puncture Site Base Excess O2 Saturation ABG pH ABG pCO2 ABG pO2 ABG HCO3 ABG Total CO2 Clement Test Hemoglobin Oxyhemoglobin Carboxyhemoglobin Total Hemoglobin O2 Delivery Device Oxygen Liter Flow Sodium 96.1 L* 95.7 L* Potassium 4.23 4.33 Chloride 57.7 L* 59.2 L* Carbon Dioxide 33.2 H 30.0 Anion Gap 9.43 10.83 BUN 8.3 L Creatinine 0.58 L Estimated GFR (MDRD) 145.00 BUN/Creatinine Ratio 14.31 Glucose 119.5 H Serum Osmolality Calcium 8.29 L Ionized Calcium Phosphorus 2.29 L Magnesium Total Bilirubin AST ALT Alkaline Phosphatase Total Creatine Kinase CK-MB (CK-2) CK-MB (CK-2) % Troponin I NT-Pro-B Natriuret Pep 656.000 H Total Protein Albumin Globulin Albumin/Globulin Ratio TSH Random Cortisol Urine Color Urine Clarity Urine pH Ur Specific [place] Urine Protein Urine Glucose (UA) Urine Ketones Urine Blood Urine Nitrite Urine Bilirubin Urine Urobilinogen Ur Leukocyte Esterase Urine Microscopic RBC Ur Squamous Epith Cells Urine Osmolality Ur Random Sodium Urine Opiates Screen Ur Oxycodone Screen Urine Methadone Screen Ur Propoxyphene Screen Ur Barbiturates Screen U Tricyclic Antidepress Ur Phencyclidine Scrn Ur Amphetamine Screen U Methamphetamines Scrn U Benzodiazepines Scrn Urine Cocaine Screen U Cannabinoids Screen Plasma/Serum Alcohol < 10.0 Adenovirus (PCR) B. pertussis DNA (PCR) B.parapertussis DNA PCR C. pneumoniae DNA (PCR) Coronavirus OC43 (PCR) Coronavirus HKU1 (PCR) Coronavirus 229E (PCR) Coronavirus NL63 (PCR) Human Metapneumovir PCR Influenza Type A (PCR) Influenza B (RT-PCR) M. pneumoniae (PCR) Parainfluenza 1 (PCR) Parainfluenza 2 (PCR) Parainfluenza 3 (PCR) Parainfluenza 4 (PCR) RSV (PCR) Entero/Rhino (PCR) SARS-CoV-2 (PCR) 04/29/21 04/29/21 04/30/21 17:48 19:33 00:03 WBC RBC Hgb Hct MCV MCH MCHC RDW Coeff of Heather Plt Count Immature Gran % (Auto) Neut % (Auto) Lymph % (Auto) [place] % (Auto) Eos % (Auto) Baso % (Auto) Neut # (Auto) Lymph # (Auto) [place] # (Auto) Eos # (Auto) Baso # (Auto) Immature Gran # (Auto) Puncture Site Base Excess O2 Saturation ABG pH ABG pCO2 ABG pO2 ABG HCO3 ABG Total CO2 Clement Test Hemoglobin Oxyhemoglobin Carboxyhemoglobin Total Hemoglobin O2 Delivery Device Oxygen Liter Flow Sodium 98.7 L* 100.3 L* 101.6 L* Potassium 3.82 3.77 3.64 Chloride 60.1 L* 62.3 L* 65.8 L* Carbon Dioxide 30.7 H 29.6 29.0 Anion Gap 11.72 12.17 10.44 BUN 8.0 L 8.5 L 8.3 L Creatinine 0.58 L 0.50 L 0.52 L Estimated GFR (MDRD) 145.00 173.00 165.00 BUN/Creatinine Ratio 13.79 17.00 15.96 Glucose 113.4 H 119.0 H 105.6 Serum Osmolality Calcium 8.16 L 7.94 L 8.11 L Ionized Calcium Phosphorus Magnesium Total Bilirubin 1.55 H AST 112.4 H D ALT 54.4 H Alkaline Phosphatase 84.4 Total Creatine Kinase CK-MB (CK-2) CK-MB (CK-2) % Troponin I NT-Pro-B Natriuret Pep Total Protein 6.04 L Albumin 3.79 Globulin 2.25 Albumin/Globulin Ratio 1.68 TSH Random Cortisol Urine Color Urine Clarity Urine pH Ur Specific [place] Urine Protein Urine Glucose (UA) Urine Ketones Urine Blood Urine Nitrite Urine Bilirubin Urine Urobilinogen Ur Leukocyte Esterase Urine Microscopic RBC Ur Squamous Epith Cells Urine Osmolality Ur Random Sodium Urine Opiates Screen Ur Oxycodone Screen Urine Methadone Screen Ur Propoxyphene Screen Ur Barbiturates Screen U Tricyclic Antidepress Ur Phencyclidine Scrn Ur Amphetamine Screen U Methamphetamines Scrn U Benzodiazepines Scrn Urine Cocaine Screen U Cannabinoids Screen Plasma/Serum Alcohol Adenovirus (PCR) B. pertussis DNA (PCR) B.parapertussis DNA PCR C. pneumoniae DNA (PCR) Coronavirus OC43 (PCR) Coronavirus HKU1 (PCR) Coronavirus 229E (PCR) Coronavirus NL63 (PCR) Human Metapneumovir PCR Influenza Type A (PCR) Influenza B (RT-PCR) M. pneumoniae (PCR) Parainfluenza 1 (PCR) Parainfluenza 2 (PCR) Parainfluenza 3 (PCR) Parainfluenza 4 (PCR) RSV (PCR) Entero/Rhino (PCR) SARS-CoV-2 (PCR) 04/30/21 04/30/21 04/30/21 00:15 00:15 00:15 WBC RBC Hgb Hct MCV MCH MCHC RDW Coeff of Heather Plt Count Immature Gran % (Auto) Neut % (Auto) Lymph % (Auto) [place] % (Auto) Eos % (Auto) Baso % (Auto) Neut # (Auto) Lymph # (Auto) [place] # (Auto) Eos # (Auto) Baso # (Auto) Immature Gran # (Auto) Puncture Site Base Excess O2 Saturation ABG pH ABG pCO2 ABG pO2 ABG HCO3 ABG Total CO2 Clement Test Hemoglobin Oxyhemoglobin Carboxyhemoglobin Total Hemoglobin O2 Delivery Device Oxygen Liter Flow Sodium Potassium Chloride Carbon Dioxide Anion Gap BUN Creatinine Estimated GFR (MDRD) BUN/Creatinine Ratio Glucose Serum Osmolality 208 Calcium Ionized Calcium Phosphorus Magnesium Total Bilirubin AST ALT Alkaline Phosphatase Total Creatine Kinase CK-MB (CK-2) CK-MB (CK-2) % Troponin I NT-Pro-B Natriuret Pep Total Protein Albumin Globulin Albumin/Globulin Ratio TSH Random Cortisol Urine Color Urine Clarity Urine pH Ur Specific [place] Urine Protein Urine Glucose (UA) Urine Ketones Urine Blood Urine Nitrite Urine Bilirubin Urine Urobilinogen Ur Leukocyte Esterase Urine Microscopic RBC Ur Squamous Epith Cells Urine Osmolality 396 Ur Random Sodium 54.0 Urine Opiates Screen Ur Oxycodone Screen Urine Methadone Screen Ur Propoxyphene Screen Ur Barbiturates Screen U Tricyclic Antidepress Ur Phencyclidine Scrn Ur Amphetamine Screen U Methamphetamines Scrn U Benzodiazepines Scrn Urine Cocaine Screen U Cannabinoids Screen Plasma/Serum Alcohol Adenovirus (PCR) B. pertussis DNA (PCR) B.parapertussis DNA PCR C. pneumoniae DNA (PCR) Coronavirus OC43 (PCR) Coronavirus HKU1 (PCR) Coronavirus 229E (PCR) Coronavirus NL63 (PCR) Human Metapneumovir PCR Influenza Type A (PCR) Influenza B (RT-PCR) M. pneumoniae (PCR) Parainfluenza 1 (PCR) Parainfluenza 2 (PCR) Parainfluenza 3 (PCR) Parainfluenza 4 (PCR) RSV (PCR) Entero/Rhino (PCR) SARS-CoV-2 (PCR) 04/30/21 04/30/21 04/30/21 00:27 00:27 04:21 WBC 11.78 H D RBC 4.18 L Hgb 12.2 L Hct 33.1 L MCV 79.2 L MCH 29.2 MCHC 36.9 H RDW Coeff of Heather 11.3 L Plt Count 210 Immature Gran % (Auto) 0.5 Neut % (Auto) 80.6 H Lymph % (Auto) 10.0 [place] % (Auto) 8.0 Eos % (Auto) 0.7 Baso % (Auto) 0.2 Neut # (Auto) 9.5 H Lymph # (Auto) 1.2 [place] # (Auto) 0.9 Eos # (Auto) 0.1 Baso # (Auto) 0.0 Immature Gran # (Auto) 0.1 Puncture Site Base Excess O2 Saturation ABG pH ABG pCO2 ABG pO2 ABG HCO3 ABG Total CO2 Clement Test Hemoglobin Oxyhemoglobin Carboxyhemoglobin Total Hemoglobin O2 Delivery Device Oxygen Liter Flow Sodium 104.9 L* Potassium 3.74 Chloride 65.6 L* Carbon Dioxide 31.6 H Anion Gap 11.44 BUN 7.6 L Creatinine 0.61 Estimated GFR (MDRD) 137.00 BUN/Creatinine Ratio 12.45 Glucose 103.7 Serum Osmolality Calcium 8.40 Ionized Calcium 4.8 Phosphorus 2.29 L Magnesium 1.57 L Total Bilirubin AST ALT Alkaline Phosphatase Total Creatine Kinase CK-MB (CK-2) CK-MB (CK-2) % Troponin I NT-Pro-B Natriuret Pep Total Protein Albumin Globulin Albumin/Globulin Ratio TSH Random Cortisol Urine Color Urine Clarity Urine pH Ur Specific [place] Urine Protein Urine Glucose (UA) Urine Ketones Urine Blood Urine Nitrite Urine Bilirubin Urine Urobilinogen Ur Leukocyte Esterase Urine Microscopic RBC Ur Squamous Epith Cells Urine Osmolality Ur Random Sodium Urine Opiates Screen Ur Oxycodone Screen Urine Methadone Screen Ur Propoxyphene Screen Ur Barbiturates Screen U Tricyclic Antidepress Ur Phencyclidine Scrn Ur Amphetamine Screen U Methamphetamines Scrn U Benzodiazepines Scrn Urine Cocaine Screen U Cannabinoids Screen Plasma/Serum Alcohol Adenovirus (PCR) B. pertussis DNA (PCR) B.parapertussis DNA PCR C. pneumoniae DNA (PCR) Coronavirus OC43 (PCR) Coronavirus HKU1 (PCR) Coronavirus 229E (PCR) Coronavirus NL63 (PCR) Human Metapneumovir PCR Influenza Type A (PCR) Influenza B (RT-PCR) M. pneumoniae (PCR) Parainfluenza 1 (PCR) Parainfluenza 2 (PCR) Parainfluenza 3 (PCR) Parainfluenza 4 (PCR) RSV (PCR) Entero/Rhino (PCR) SARS-CoV-2 (PCR) 04/30/21 04/30/21 08:06 12:00 WBC RBC Hgb Hct MCV MCH MCHC RDW Coeff of Heather Plt Count Immature Gran % (Auto) Neut % (Auto) Lymph % (Auto) [place] % (Auto) Eos % (Auto) Baso % (Auto) Neut # (Auto) Lymph # (Auto) [place] # (Auto) Eos # (Auto) Baso # (Auto) Immature Gran # (Auto) Puncture Site Base Excess O2 Saturation ABG pH ABG pCO2 ABG pO2 ABG HCO3 ABG Total CO2 Clement Test Hemoglobin Oxyhemoglobin Carboxyhemoglobin Total Hemoglobin O2 Delivery Device Oxygen Liter Flow Sodium 106.0 L* 106.9 L* Potassium 3.48 L Chloride 66.5 L* Carbon Dioxide 32.4 H Anion Gap 10.58 BUN 7.1 L Creatinine 0.60 Estimated GFR (MDRD) 140.00 BUN/Creatinine Ratio 11.83 Glucose 96.0 Serum Osmolality Calcium 8.38 L Ionized Calcium Phosphorus Magnesium Total Bilirubin 1.47 H AST 111.0 H ALT 57.9 H Alkaline Phosphatase 92.5 Total Creatine Kinase CK-MB (CK-2) CK-MB (CK-2) % Troponin I NT-Pro-B Natriuret Pep Total Protein 6.44 Albumin 4.10 Globulin 2.34 Albumin/Globulin Ratio 1.75 TSH 0.572 Random Cortisol Urine Color Urine Clarity Urine pH Ur Specific [place] Urine Protein Urine Glucose (UA) Urine Ketones Urine Blood Urine Nitrite Urine Bilirubin Urine Urobilinogen Ur Leukocyte Esterase Urine Microscopic RBC Ur Squamous Epith Cells Urine Osmolality Ur Random Sodium Urine Opiates Screen Ur Oxycodone Screen Urine Methadone Screen Ur Propoxyphene Screen Ur Barbiturates Screen U Tricyclic Antidepress Ur Phencyclidine Scrn Ur Amphetamine Screen U Methamphetamines Scrn U Benzodiazepines Scrn Urine Cocaine Screen U Cannabinoids Screen Plasma/Serum Alcohol Adenovirus (PCR) B. pertussis DNA (PCR) B.parapertussis DNA PCR C. pneumoniae DNA (PCR) Coronavirus OC43 (PCR) Coronavirus HKU1 (PCR) Coronavirus 229E (PCR) Coronavirus NL63 (PCR) Human Metapneumovir PCR Influenza Type A (PCR) Influenza B (RT-PCR) M. pneumoniae (PCR) Parainfluenza 1 (PCR) Parainfluenza 2 (PCR) Parainfluenza 3 (PCR) Parainfluenza 4 (PCR) RSV (PCR) Entero/Rhino (PCR) SARS-CoV-2 (PCR) Orders Category Date Time Status ABG DRAW REQUEST Stat CARDIO 04/29/21 08:48 Completed EKG-(ED ONLY) Stat CARDIO 04/29/21 08:58 Completed METERED DOSE INHALATION Routine CARDIO 04/29/21 09:08 Completed METERED DOSE INHALATION Routine CARDIO 04/29/21 14:33 Completed METERED DOSE INHALATION Routine CARDIO 04/29/21 14:34 Completed METERED DOSE INHALATION Routine CARDIO 04/29/21 19:26 Completed METERED DOSE INHALATION Routine CARDIO 04/29/21 19:27 Completed C-DIFF MONITORING (NURSING) BID CARE 04/30/21 08:53 Completed FALL: BEHAVIOR MANAGEMENT PRN CARE 04/29/21 23:09 Completed IV [ED IV/MEDIPORT/POWERPORT] .ONCE EMERGENCY 04/29/21 09:51 Completed ABG COOX Stat LAB 04/29/21 09:19 Completed BASIC METABOLIC PANEL Stat LAB 04/29/21 13:30 Completed BASIC METABOLIC PANEL Stat LAB 04/29/21 17:48 Completed BASIC METABOLIC PANEL Stat LAB 04/30/21 04:21 Completed BLOOD ALCOHOL Stat LAB 04/29/21 13:30 Completed BLOOD CULTURE (ED ONLY) Stat LAB 04/29/21 09:19 Completed BMP [BASIC METABOLIC PANEL] Stat LAB 04/29/21 19:33 Completed CBC W/ AUTO DIFF DAILY@0600 LAB 05/01/21 04:36 Completed CBC W/ AUTO DIFF Stat LAB 04/29/21 09:19 Completed CBC W/ AUTO DIFF Stat LAB 04/30/21 00:27 Completed CMP [COMPREHENSIVE METABOLIC PANEL] Stat LAB 04/29/21 09:19 Completed COMPREHENSIVE METABOLIC PANEL DAILY@0600 LAB 05/01/21 04:36 Completed COMPREHENSIVE METABOLIC PANEL Stat LAB 04/30/21 00:03 Completed COMPREHENSIVE METABOLIC PANEL Stat LAB 04/30/21 08:06 Completed CORTISOL,RANDOM Stat LAB 04/29/21 00:03 Completed CPK [CREATINE KINASE] Stat LAB 04/29/21 09:19 Completed ELECTROLYTES Stat LAB 04/29/21 15:32 Completed IONIZED CALCIUM Stat LAB 04/30/21 00:27 Completed MAGNESIUM DAILY@0600 LAB 05/01/21 04:36 Completed MAGNESIUM Stat LAB 04/29/21 09:19 Completed MAGNESIUM Stat LAB 04/30/21 04:21 Completed NT-PROBNP Stat LAB 04/29/21 13:30 Completed OSMOLALITY,URINE Stat LAB 04/29/21 11:05 Completed OSMOLALITY,URINE Stat LAB 04/30/21 00:15 Completed PHOSPHORUS DAILY@0600 LAB 05/01/21 04:36 Completed PHOSPHORUS Stat LAB 04/29/21 09:19 Completed PHOSPHORUS Stat LAB 04/29/21 13:30 Completed PHOSPHORUS Stat LAB 04/30/21 04:21 Completed RESPIRATORY PANEL 2.1 (PCR) Stat LAB 04/29/21 08:50 Completed SERUM OSMOLALITY Stat LAB 04/29/21 11:05 Completed SERUM OSMOLALITY Stat LAB 04/29/21 13:10 Completed SERUM OSMOLALITY Stat LAB 04/30/21 00:15 Completed SODIUM Q4H LAB 04/30/21 12:00 Completed SODIUM Q4H LAB 04/30/21 16:05 Completed SODIUM Q4H LAB 04/30/21 19:51 Completed SODIUM,URINE Stat LAB 04/30/21 00:15 Completed THYROID STIMULATING HORMONE Routine LAB 04/30/21 12:00 Completed THYROID STIMULATING HORMONE Routine LAB 04/30/21 19:51 Completed TROPONIN I Stat LAB 04/29/21 09:19 Completed UA [URINALYSIS C & S IF INDICATED] Stat LAB 04/29/21 11:05 Completed URINE DRUG SCREEN (RAPID FOR ED) [DRUG SCREEN, URINE, LAB 04/29/21 11:05 Completed RAPID] Stat c-diff [C. DIFFICILE] Routine LAB 04/30/21 08:51 Completed 0.9 % Sodium Chloride [Saline Flush] MEDS 04/29/21 09:51 Discontinued 1 syr IVF PRN PRN Albuterol Inhaler(with Spacer) [Ventolin Hfa (Per Puff- MEDS 04/29/21 09:08 Discontinued with Spacer)] 2 puff IH ONCE ONE Albuterol Inhaler(with Spacer) [Ventolin Hfa (Per Puff- MEDS 04/29/21 14:33 Discontinued with Spacer)] 2 puff IH ONCE ONE Albuterol Inhaler(with Spacer) [Ventolin Hfa (Per Puff- MEDS 04/29/21 19:25 Discontinued with Spacer)] 2 puff IH ONCE PRN Hydrocortisone Sod Succ/Pf [Solu-Cortef 100 mg] MEDS 04/30/21 00:00 Discontinued 100 mg IVP ONCE ONE Hydrocortisone Sod Succ/Pf [Solu-Cortef 250 mg] MEDS 04/30/21 20:00 Discontinued 50 mg IVP Q6HR Ipratropium Inhaler(Spacer) [Atrovent Hfa Inhaler (Per MEDS 04/29/21 09:08 Discontinued Puff-with Spacer)] 2 puff IH ONCE ONE Ipratropium Inhaler(Spacer) [Atrovent Hfa Inhaler (Per MEDS 04/29/21 14:34 Discontinued Puff-with Spacer)] 2 puff IH ONCE STA Ipratropium Inhaler(Spacer) [Atrovent Hfa Inhaler (Per MEDS 04/30/21 00:00 Discontinued Puff-with Spacer)] 2 puff IH RTQ6H Sodium Chloride 3% 100 ml MEDS 04/29/21 18:30 Discontinued IV 600 mls/hr Sodium Chloride 3% 500 ml MEDS 04/29/21 11:00 Discontinued IV 15 mls/hr Vitamin B-1 Inj [Thiamine] 100 mg MEDS 04/30/21 09:00 Discontinued 0.9 % Sodium Chloride [Sodium Chloride] 50 ml IV ONCE CHEST, 1V AP ONLY Stat RADS 04/29/21 08:[address] HEAD W/O CONTRAST Stat RADS 04/29/21 08:49 Completed Medications Discontinued Medications Generic Name Dose Route Start Last Admin Trade Name Freq PRN Reason Stop Dose Admin Acetaminophen 500 mg 04/30/21 20:20 05/05/21 05:45 Acetaminophen 500 Mg Tablet PO 500 mg TID PRN Administration Mild Pain Albuterol Sulfate 2 puff 04/29/21 09:08 04/29/21 09:24 Albuterol Sulfate (Ventolin Hfa) 18 Gm 1 Puff With Spacer IH 04/29/21 09:09 2 puff ONCE ONE Administration Albuterol Sulfate 2 puff 04/29/21 14:33 04/29/21 14:47 Albuterol Sulfate (Ventolin Hfa) 18 Gm 1 Puff With Spacer IH 04/29/21 14:34 2 puff ONCE ONE Administration Albuterol Sulfate 2 puff 04/29/21 19:25 04/30/21 12:00 Albuterol Sulfate (Ventolin Hfa) 18 Gm 1 Puff With Spacer IH 2 puff ONCE PRN Administration SOB Albuterol Sulfate 2 puff 04/30/21 16:31 05/05/21 04:55 Albuterol Sulfate (Ventolin Hfa) 18 Gm 1 Puff With Spacer IH 2 puff Q4-6H PRN Administration wheezing Aripiprazole 10 mg 04/30/21 17:00 05/05/21 08:36 Aripiprazole 5 Mg Tablet PO 10 mg DAILY MAHIN Administration Calamine/Phenol 1 applic 05/03/21 09:00 05/05/21 08:37 Menthol/Zinc Oxide 113 Gm Ointment TP 1 applic BID MAHIN Administration Diazepam 2 mg 04/30/21 16:31 05/05/21 08:36 Diazepam 2 Mg Tablet PO 2 mg DAILY MAHIN Administration Enoxaparin Sodium 40 mg 05/02/21 09:00 05/05/21 08:40 Enoxaparin Sodium 40 Mg/0.4 Ml Syr SUBCUT 40 mg DAILY MAHIN Administration Gabapentin 300 mg 04/30/21 21:00 05/05/21 08:36 Gabapentin 300 Mg Capsule PO 300 mg TID MAHIN Administration Hydrocortisone Sodium Succinate 100 mg 04/30/21 00:00 04/30/21 00:05 Hydrocortisone Sod Succ/Pf 100 Mg/2 Ml Vial IVP 04/30/21 00:01 100 mg ONCE ONE Administration Hydrocortisone Sodium Succinate 50 mg 04/30/21 20:00 Hydrocortisone Sod Succ/Pf 250 Mg/2 Ml Vial IVP Q6HR MAHIN Hydrocortisone Sodium Succinate 50 mg 04/30/21 13:00 05/03/21 05:55 Hydrocortisone Sod Succ/Pf 100 Mg/2 Ml Vial IVP 50 mg Q6HR MAHIN Administration Hydroxyzine HCl 25 - 50 mg 04/30/21 16:31 05/02/21 03:19 Hydroxyzine Hcl 25 Mg Tablet PO 25 mg QID PRN Administration anxiety Sodium Chloride 500 mls @ 15 mls/hr 04/29/21 11:00 04/29/21 10:50 Sodium Chloride 3% IV 15 mls/hr .[id number] MAHIN Administration Sodium Chloride 100 mls @ 600 mls/hr 04/29/21 18:30 04/29/21 18:22 Sodium Chloride 3% IV 04/29/21 18:39 600 mls/hr .Q10M ONE Administration Thiamine HCl 100 mg/ Sodium 51 mls @ 100 mls/hr 04/30/21 09:00 04/30/21 08:12 Chloride IV 04/30/21 09:30 100 mls/hr ONCE ONE Administration Sodium Chloride 100 mls @ 400 mls/hr 05/01/21 08:16 05/01/21 09:53 Sodium Chloride 3% IV 05/01/21 08:30 400 mls/hr .Q15M ONE Administration Sodium Chloride 100 mls @ 400 mls/hr 05/02/21 10:33 05/02/21 11:04 Sodium Chloride 3% IV 05/02/21 10:47 400 mls/hr .Q15M ONE Administration Ipratropium [place] 2 puff 04/29/21 09:08 04/29/21 09:24 Ipratropium [place] 12.9 Gm Hfa Inhaler Per Puff With Spacer IH 04/29/21 09:09 2 puff ONCE ONE Administration Ipratropium [place] 2 puff 04/29/21 14:34 04/29/21 14:47 Ipratropium [place] 12.9 Gm Hfa Inhaler Per Puff With Spacer IH 04/29/21 14:35 2 puff ONCE STA Administration Ipratropium [place] 2 puff 04/30/21 00:00 05/05/21 04:55 Ipratropium [place] 12.9 Gm Hfa Inhaler Per Puff With Spacer IH 2 puff RTQ6H MAHIN Administration Lisinopril 20 mg 04/30/21 21:00 05/05/21 08:36 Lisinopril 10 Mg Tablet PO 20 mg BID MAHIN Administration Loperamide HCl 2 mg 04/30/21 20:21 05/05/21 05:51 Loperamide Hcl 2 Mg Tablet PO 2 mg AFTER LOOSE STOOLS PRN Administration Diarrhea Magnesium Oxide 400 mg 05/04/21 11:30 05/05/21 08:36 Magnesium Oxide 400 Mg Tablet PO 400 mg DAILY MAHIN Administration Nortriptyline HCl 100 mg 04/30/21 17:00 05/04/21 20:19 Nortriptyline Hcl 10 Mg Capsule PO 100 mg BEDTIME MAHIN Administration Potassium Chloride 20 meq 05/01/21 08:30 05/05/21 08:36 Potassium Chloride 20 Meq Tab PO 20 meq BIDWM MAHIN Administration Prednisone 20 mg 05/03/21 08:30 05/05/21 08:36 Prednisone 20 Mg Tablet PO 20 mg DAILYWM MAHIN Administration Sodium Chloride 1 syr 04/29/21 09:51 0.9% Sodium Chloride 10 Ml Disp.Syrin IVF PRN PRN To flush IV Sodium Chloride 1 syr 05/01/21 05:15 05/05/21 05:46 0.9% Sodium Chloride 10 Ml Disp.Syrin IVF 1 syr Q8HR MAHIN Administration Vital Signs: Temp Pulse Resp BP Pulse Ox 04/30/21 12:51 93 H 18 142/77 H 98 04/30/21 10:50 86 19 152/92 H 97 04/30/21 09:29 86 18 133/89 100 04/30/21 08:47 97.7 F 85 24 151/97 H 96 04/29/21 08:17 98.0 F 96 H 20 165/97 H 97 <REBEKAH TREVIÑO MD - Last Filed: 04/30/21 06:11> Course Orders, Labs, Meds: Lab Review 04/29/21 04/29/21 04/29/21 00:03 08:50 09:19 WBC RBC Hgb Hct MCV MCH MCHC RDW Coeff of Heather Plt Count Immature Gran % (Auto) Neut % (Auto) Lymph % (Auto) [place] % (Auto) Eos % (Auto) Baso % (Auto) Neut # (Auto) Lymph # (Auto) [place] # (Auto) Eos # (Auto) Baso # (Auto) Immature Gran # (Auto) Puncture Site Base Excess O2 Saturation ABG pH ABG pCO2 ABG pO2 ABG HCO3 ABG Total CO2 Clement Test Hemoglobin Oxyhemoglobin Carboxyhemoglobin Total Hemoglobin O2 Delivery Device Oxygen Liter Flow Sodium Potassium Chloride Carbon Dioxide Anion Gap BUN Creatinine Estimated GFR (MDRD) BUN/Creatinine Ratio Glucose Serum Osmolality Calcium Ionized Calcium Phosphorus Magnesium Total Bilirubin AST ALT Alkaline Phosphatase Total Creatine Kinase 912.5 H CK-MB (CK-2) 11.100 H* CK-MB (CK-2) % 1.2100 Troponin I NT-Pro-B Natriuret Pep Total Protein Albumin Globulin Albumin/Globulin Ratio TSH Random Cortisol 19.0 Urine Color Urine Clarity Urine pH Ur Specific [place] Urine Protein Urine Glucose (UA) Urine Ketones Urine Blood Urine Nitrite Urine Bilirubin Urine Urobilinogen Ur Leukocyte Esterase Urine Microscopic RBC Ur Squamous Epith Cells Urine Osmolality Ur Random Sodium Urine Opiates Screen Ur Oxycodone Screen Urine Methadone Screen Ur Propoxyphene Screen Ur Barbiturates Screen U Tricyclic Antidepress Ur Phencyclidine Scrn Ur Amphetamine Screen U Methamphetamines Scrn U Benzodiazepines Scrn Urine Cocaine Screen U Cannabinoids Screen Plasma/Serum Alcohol Adenovirus (PCR) Not detected B. pertussis DNA (PCR) Not detected B.parapertussis DNA PCR Not detected C. pneumoniae DNA (PCR) Not detected Coronavirus OC43 (PCR) Not detected Coronavirus HKU1 (PCR) Not detected Coronavirus 229E (PCR) Not detected Coronavirus NL63 (PCR) Not detected Human Metapneumovir PCR Not detected Influenza Type A (PCR) Not detected Influenza B (RT-PCR) Not detected M. pneumoniae (PCR) Not detected Parainfluenza 1 (PCR) Not detected Parainfluenza 2 (PCR) Not detected Parainfluenza 3 (PCR) Not detected Parainfluenza 4 (PCR) Not detected RSV (PCR) Not detected Entero/Rhino (PCR) Not detected SARS-CoV-2 (PCR) Not detected 04/29/21 04/29/21 04/29/21 09:19 09:19 09:19 WBC 17.20 H RBC 4.36 L Hgb 12.6 L Hct 33.9 L MCV 77.8 L MCH 28.9 MCHC 37.2 H RDW Coeff of Heather 11.1 L Plt Count 228 Immature Gran % (Auto) 0.8 Neut % (Auto) 88.2 H Lymph % (Auto) 4.7 L [place] % (Auto) 6.0 Eos % (Auto) 0.1 Baso % (Auto) 0.2 Neut # (Auto) 15.2 H Lymph # (Auto) 0.8 [place] # (Auto) 1.0 Eos # (Auto) 0.0 Baso # (Auto) 0.0 Immature Gran # (Auto) 0.1 Puncture Site R rad Base Excess 8.2 H O2 Saturation 99.7 H ABG pH 7.46 H ABG pCO2 45.0 ABG pO2 180.0 H ABG HCO3 32.0 H ABG Total CO2 33.4 H Clement Test + Hemoglobin 1.9 H Oxyhemoglobin 93.2 L Carboxyhemoglobin 2.7 H Total Hemoglobin 13.4 O2 Delivery Device Nc Oxygen Liter Flow 2.00 Sodium 95.1 L* Potassium 4.01 Chloride 57.3 L* Carbon Dioxide 31.7 H Anion Gap 10.11 BUN 8.0 L Creatinine 0.60 Estimated GFR (MDRD) 140.00 BUN/Creatinine Ratio 13.33 Glucose 129.7 H Serum Osmolality Calcium 7.89 L Ionized Calcium Phosphorus Magnesium Total Bilirubin 1.30 AST 80.3 H ALT 52.2 H Alkaline Phosphatase 97.0 Total Creatine Kinase CK-MB (CK-2) CK-MB (CK-2) % Troponin I NT-Pro-B Natriuret Pep Total Protein 6.21 L Albumin 3.98 Globulin 2.23 Albumin/Globulin Ratio 1.78 TSH Random Cortisol Urine Color Urine Clarity Urine pH Ur Specific [place] Urine Protein Urine Glucose (UA) Urine Ketones Urine Blood Urine Nitrite Urine Bilirubin Urine Urobilinogen Ur Leukocyte Esterase Urine Microscopic RBC Ur Squamous Epith Cells Urine Osmolality Ur Random Sodium Urine Opiates Screen Ur Oxycodone Screen Urine Methadone Screen Ur Propoxyphene Screen Ur Barbiturates Screen U Tricyclic Antidepress Ur Phencyclidine Scrn Ur Amphetamine Screen U Methamphetamines Scrn U Benzodiazepines Scrn Urine Cocaine Screen U Cannabinoids Screen Plasma/Serum Alcohol Adenovirus (PCR) B. pertussis DNA (PCR) B.parapertussis DNA PCR C. pneumoniae DNA (PCR) Coronavirus OC43 (PCR) Coronavirus HKU1 (PCR) Coronavirus 229E (PCR) Coronavirus NL63 (PCR) Human Metapneumovir PCR Influenza Type A (PCR) Influenza B (RT-PCR) M. pneumoniae (PCR) Parainfluenza 1 (PCR) Parainfluenza 2 (PCR) Parainfluenza 3 (PCR) Parainfluenza 4 (PCR) RSV (PCR) Entero/Rhino (PCR) SARS-CoV-2 (PCR) 04/29/21 04/29/21 04/29/21 09:19 09:19 11:05 WBC RBC Hgb Hct MCV MCH MCHC RDW Coeff of Heather Plt Count Immature Gran % (Auto) Neut % (Auto) Lymph % (Auto) [place] % (Auto) Eos % (Auto) Baso % (Auto) Neut # (Auto) Lymph # (Auto) [place] # (Auto) Eos # (Auto) Baso # (Auto) Immature Gran # (Auto) Puncture Site Base Excess O2 Saturation ABG pH ABG pCO2 ABG pO2 ABG HCO3 ABG Total CO2 Clement Test Hemoglobin Oxyhemoglobin Carboxyhemoglobin Total Hemoglobin O2 Delivery Device Oxygen Liter Flow Sodium Potassium Chloride Carbon Dioxide Anion Gap BUN Creatinine Estimated GFR (MDRD) BUN/Creatinine Ratio Glucose Serum Osmolality 200 Calcium Ionized Calcium Phosphorus 1.95 L Magnesium 1.31 L Total Bilirubin AST ALT Alkaline Phosphatase Total Creatine Kinase CK-MB (CK-2) CK-MB (CK-2) % Troponin I < 0.012 NT-Pro-B Natriuret Pep Total Protein Albumin Globulin Albumin/Globulin Ratio TSH Random Cortisol Urine Color Urine Clarity Urine pH Ur Specific [place] Urine Protein Urine Glucose (UA) Urine Ketones Urine Blood Urine Nitrite Urine Bilirubin Urine Urobilinogen Ur Leukocyte Esterase Urine Microscopic RBC Ur Squamous Epith Cells Urine Osmolality 418 Ur Random Sodium Urine Opiates Screen Ur Oxycodone Screen Urine Methadone Screen Ur Propoxyphene Screen Ur Barbiturates Screen U Tricyclic Antidepress Ur Phencyclidine Scrn Ur Amphetamine Screen U Methamphetamines Scrn U Benzodiazepines Scrn Urine Cocaine Screen U Cannabinoids Screen Plasma/Serum Alcohol Adenovirus (PCR) B. pertussis DNA (PCR) B.parapertussis DNA PCR C. pneumoniae DNA (PCR) Coronavirus OC43 (PCR) Coronavirus HKU1 (PCR) Coronavirus 229E (PCR) Coronavirus NL63 (PCR) Human Metapneumovir PCR Influenza Type A (PCR) Influenza B (RT-PCR) M. pneumoniae (PCR) Parainfluenza 1 (PCR) Parainfluenza 2 (PCR) Parainfluenza 3 (PCR) Parainfluenza 4 (PCR) RSV (PCR) Entero/Rhino (PCR) SARS-CoV-2 (PCR) 04/29/21 04/29/21 04/29/21 11:05 11:05 13:10 WBC RBC Hgb Hct MCV MCH MCHC RDW Coeff of Heather Plt Count Immature Gran % (Auto) Neut % (Auto) Lymph % (Auto) [place] % (Auto) Eos % (Auto) Baso % (Auto) Neut # (Auto) Lymph # (Auto) [place] # (Auto) Eos # (Auto) Baso # (Auto) Immature Gran # (Auto) Puncture Site Base Excess O2 Saturation ABG pH ABG pCO2 ABG pO2 ABG HCO3 ABG Total CO2 Clement Test Hemoglobin Oxyhemoglobin Carboxyhemoglobin Total Hemoglobin O2 Delivery Device Oxygen Liter Flow Sodium Potassium Chloride Carbon Dioxide Anion Gap BUN Creatinine Estimated GFR (MDRD) BUN/Creatinine Ratio Glucose Serum Osmolality 203 Calcium Ionized Calcium Phosphorus Magnesium Total Bilirubin AST ALT Alkaline Phosphatase Total Creatine Kinase CK-MB (CK-2) CK-MB (CK-2) % Troponin I NT-Pro-B Natriuret Pep Total Protein Albumin Globulin Albumin/Globulin Ratio TSH Random Cortisol Urine Color Yellow Urine Clarity Clear Urine pH 7.5 Ur Specific [place] 1.020 Urine Protein 1+ H Urine Glucose (UA) Trace H Urine Ketones 3+ H Urine Blood Trace-intact H Urine Nitrite Negative Urine Bilirubin Negative Urine Urobilinogen 1.0 H Ur Leukocyte Esterase Negative Urine Microscopic RBC 0-2 Ur Squamous Epith Cells 0-2 Urine Osmolality Ur Random Sodium Urine Opiates Screen Negative Ur Oxycodone Screen Positive H Urine Methadone Screen Negative Ur Propoxyphene Screen Negative Ur Barbiturates Screen Negative U Tricyclic Antidepress Positive H Ur Phencyclidine Scrn Negative Ur Amphetamine Screen Negative U Methamphetamines Scrn Negative U Benzodiazepines Scrn Positive H Urine Cocaine Screen Negative U Cannabinoids Screen Negative Plasma/Serum Alcohol Adenovirus (PCR) B. pertussis DNA (PCR) B.parapertussis DNA PCR C. pneumoniae DNA (PCR) Coronavirus OC43 (PCR) Coronavirus HKU1 (PCR) Coronavirus 229E (PCR) Coronavirus NL63 (PCR) Human Metapneumovir PCR Influenza Type A (PCR) Influenza B (RT-PCR) M. pneumoniae (PCR) Parainfluenza 1 (PCR) Parainfluenza 2 (PCR) Parainfluenza 3 (PCR) Parainfluenza 4 (PCR) RSV (PCR) Entero/Rhino (PCR) SARS-CoV-2 (PCR) 04/29/21 04/29/21 04/29/21 13:30 13:30 15:32 WBC RBC Hgb Hct MCV MCH MCHC RDW Coeff of Heather Plt Count Immature Gran % (Auto) Neut % (Auto) Lymph % (Auto) [place] % (Auto) Eos % (Auto) Baso % (Auto) Neut # (Auto) Lymph # (Auto) [place] # (Auto) Eos # (Auto) Baso # (Auto) Immature Gran # (Auto) Puncture Site Base Excess O2 Saturation ABG pH ABG pCO2 ABG pO2 ABG HCO3 ABG Total CO2 Clement Test Hemoglobin Oxyhemoglobin Carboxyhemoglobin Total Hemoglobin O2 Delivery Device Oxygen Liter Flow Sodium 96.1 L* 95.7 L* Potassium 4.23 4.33 Chloride 57.7 L* 59.2 L* Carbon Dioxide 33.2 H 30.0 Anion Gap 9.43 10.83 BUN 8.3 L Creatinine 0.58 L Estimated GFR (MDRD) 145.00 BUN/Creatinine Ratio 14.31 Glucose 119.5 H Serum Osmolality Calcium 8.29 L Ionized Calcium Phosphorus 2.29 L Magnesium Total Bilirubin AST ALT Alkaline Phosphatase Total Creatine Kinase CK-MB (CK-2) CK-MB (CK-2) % Troponin I NT-Pro-B Natriuret Pep 656.000 H Total Protein Albumin Globulin Albumin/Globulin Ratio TSH Random Cortisol Urine Color Urine Clarity Urine pH Ur Specific [place] Urine Protein Urine Glucose (UA) Urine Ketones Urine Blood Urine Nitrite Urine Bilirubin Urine Urobilinogen Ur Leukocyte Esterase Urine Microscopic RBC Ur Squamous Epith Cells Urine Osmolality Ur Random Sodium Urine Opiates Screen Ur Oxycodone Screen Urine Methadone Screen Ur Propoxyphene Screen Ur Barbiturates Screen U Tricyclic Antidepress Ur Phencyclidine Scrn Ur Amphetamine Screen U Methamphetamines Scrn U Benzodiazepines Scrn Urine Cocaine Screen U Cannabinoids Screen Plasma/Serum Alcohol < 10.0 Adenovirus (PCR) B. pertussis DNA (PCR) B.parapertussis DNA PCR C. pneumoniae DNA (PCR) Coronavirus OC43 (PCR) Coronavirus HKU1 (PCR) Coronavirus 229E (PCR) Coronavirus NL63 (PCR) Human Metapneumovir PCR Influenza Type A (PCR) Influenza B (RT-PCR) M. pneumoniae (PCR) Parainfluenza 1 (PCR) Parainfluenza 2 (PCR) Parainfluenza 3 (PCR) Parainfluenza 4 (PCR) RSV (PCR) Entero/Rhino (PCR) SARS-CoV-2 (PCR) 04/29/21 04/29/21 04/30/21 17:48 19:33 00:03 WBC RBC Hgb Hct MCV MCH MCHC RDW Coeff of Heather Plt Count Immature Gran % (Auto) Neut % (Auto) Lymph % (Auto) [place] % (Auto) Eos % (Auto) Baso % (Auto) Neut # (Auto) Lymph # (Auto) [place] # (Auto) Eos # (Auto) Baso # (Auto) Immature Gran # (Auto) Puncture Site Base Excess O2 Saturation ABG pH ABG pCO2 ABG pO2 ABG HCO3 ABG Total CO2 Clement Test Hemoglobin Oxyhemoglobin Carboxyhemoglobin Total Hemoglobin O2 Delivery Device Oxygen Liter Flow Sodium 98.7 L* 100.3 L* 101.6 L* Potassium 3.82 3.77 3.64 Chloride 60.1 L* 62.3 L* 65.8 L* Carbon Dioxide 30.7 H 29.6 29.0 Anion Gap 11.72 12.17 10.44 BUN 8.0 L 8.5 L 8.3 L Creatinine 0.58 L 0.50 L 0.52 L Estimated GFR (MDRD) 145.00 173.00 165.00 BUN/Creatinine Ratio 13.79 17.00 15.96 Glucose 113.4 H 119.0 H 105.6 Serum Osmolality Calcium 8.16 L 7.94 L 8.11 L Ionized Calcium Phosphorus Magnesium Total Bilirubin 1.55 H AST 112.4 H D ALT 54.4 H Alkaline Phosphatase 84.4 Total Creatine Kinase CK-MB (CK-2) CK-MB (CK-2) % Troponin I NT-Pro-B Natriuret Pep Total Protein 6.04 L Albumin 3.79 Globulin 2.25 Albumin/Globulin Ratio 1.68 TSH Random Cortisol Urine Color Urine Clarity Urine pH Ur Specific [place] Urine Protein Urine Glucose (UA) Urine Ketones Urine Blood Urine Nitrite Urine Bilirubin Urine Urobilinogen Ur Leukocyte Esterase Urine Microscopic RBC Ur Squamous Epith Cells Urine Osmolality Ur Random Sodium Urine Opiates Screen Ur Oxycodone Screen Urine Methadone Screen Ur Propoxyphene Screen Ur Barbiturates Screen U Tricyclic Antidepress Ur Phencyclidine Scrn Ur Amphetamine Screen U Methamphetamines Scrn U Benzodiazepines Scrn Urine Cocaine Screen U Cannabinoids Screen Plasma/Serum Alcohol Adenovirus (PCR) B. pertussis DNA (PCR) B.parapertussis DNA PCR C. pneumoniae DNA (PCR) Coronavirus OC43 (PCR) Coronavirus HKU1 (PCR) Coronavirus 229E (PCR) Coronavirus NL63 (PCR) Human Metapneumovir PCR Influenza Type A (PCR) Influenza B (RT-PCR) M. pneumoniae (PCR) Parainfluenza 1 (PCR) Parainfluenza 2 (PCR) Parainfluenza 3 (PCR) Parainfluenza 4 (PCR) RSV (PCR) Entero/Rhino (PCR) SARS-CoV-2 (PCR) 04/30/21 04/30/21 04/30/21 00:15 00:15 00:15 WBC RBC Hgb Hct MCV MCH MCHC RDW Coeff of Heather Plt Count Immature Gran % (Auto) Neut % (Auto) Lymph % (Auto) [place] % (Auto) Eos % (Auto) Baso % (Auto) Neut # (Auto) Lymph # (Auto) [place] # (Auto) Eos # (Auto) Baso # (Auto) Immature Gran # (Auto) Puncture Site Base Excess O2 Saturation ABG pH ABG pCO2 ABG pO2 ABG HCO3 ABG Total CO2 Clement Test Hemoglobin Oxyhemoglobin Carboxyhemoglobin Total Hemoglobin O2 Delivery Device Oxygen Liter Flow Sodium Potassium Chloride Carbon Dioxide Anion Gap BUN Creatinine Estimated GFR (MDRD) BUN/Creatinine Ratio Glucose Serum Osmolality 208 Calcium Ionized Calcium Phosphorus Magnesium Total Bilirubin AST ALT Alkaline Phosphatase Total Creatine Kinase CK-MB (CK-2) CK-MB (CK-2) % Troponin I NT-Pro-B Natriuret Pep Total Protein Albumin Globulin Albumin/Globulin Ratio TSH Random Cortisol Urine Color Urine Clarity Urine pH Ur Specific [place] Urine Protein Urine Glucose (UA) Urine Ketones Urine Blood Urine Nitrite Urine Bilirubin Urine Urobilinogen Ur Leukocyte Esterase Urine Microscopic RBC Ur Squamous Epith Cells Urine Osmolality 396 Ur Random Sodium 54.0 Urine Opiates Screen Ur Oxycodone Screen Urine Methadone Screen Ur Propoxyphene Screen Ur Barbiturates Screen U Tricyclic Antidepress Ur Phencyclidine Scrn Ur Amphetamine Screen U Methamphetamines Scrn U Benzodiazepines Scrn Urine Cocaine Screen U Cannabinoids Screen Plasma/Serum Alcohol Adenovirus (PCR) B. pertussis DNA (PCR) B.parapertussis DNA PCR C. pneumoniae DNA (PCR) Coronavirus OC43 (PCR) Coronavirus HKU1 (PCR) Coronavirus 229E (PCR) Coronavirus NL63 (PCR) Human Metapneumovir PCR Influenza Type A (PCR) Influenza B (RT-PCR) M. pneumoniae (PCR) Parainfluenza 1 (PCR) Parainfluenza 2 (PCR) Parainfluenza 3 (PCR) Parainfluenza 4 (PCR) RSV (PCR) Entero/Rhino (PCR) SARS-CoV-2 (PCR) 04/30/21 04/30/21 04/30/21 00:27 00:27 04:21 WBC 11.78 H D RBC 4.18 L Hgb 12.2 L Hct 33.1 L MCV 79.2 L MCH 29.2 MCHC 36.9 H RDW Coeff of Heather 11.3 L Plt Count 210 Immature Gran % (Auto) 0.5 Neut % (Auto) 80.6 H Lymph % (Auto) 10.0 [place] % (Auto) 8.0 Eos % (Auto) 0.7 Baso % (Auto) 0.2 Neut # (Auto) 9.5 H Lymph # (Auto) 1.2 [place] # (Auto) 0.9 Eos # (Auto) 0.1 Baso # (Auto) 0.0 Immature Gran # (Auto) 0.1 Puncture Site Base Excess O2 Saturation ABG pH ABG pCO2 ABG pO2 ABG HCO3 ABG Total CO2 Clement Test Hemoglobin Oxyhemoglobin Carboxyhemoglobin Total Hemoglobin O2 Delivery Device Oxygen Liter Flow Sodium 104.9 L* Potassium 3.74 Chloride 65.6 L* Carbon Dioxide 31.6 H Anion Gap 11.44 BUN 7.6 L Creatinine 0.61 Estimated GFR (MDRD) 137.00 BUN/Creatinine Ratio 12.45 Glucose 103.7 Serum Osmolality Calcium 8.40 Ionized Calcium 4.8 Phosphorus 2.29 L Magnesium 1.57 L Total Bilirubin AST ALT Alkaline Phosphatase Total Creatine Kinase CK-MB (CK-2) CK-MB (CK-2) % Troponin I NT-Pro-B Natriuret Pep Total Protein Albumin Globulin Albumin/Globulin Ratio TSH Random Cortisol Urine Color Urine Clarity Urine pH Ur Specific [place] Urine Protein Urine Glucose (UA) Urine Ketones Urine Blood Urine Nitrite Urine Bilirubin Urine Urobilinogen Ur Leukocyte Esterase Urine Microscopic RBC Ur Squamous Epith Cells Urine Osmolality Ur Random Sodium Urine Opiates Screen Ur Oxycodone Screen Urine Methadone Screen Ur Propoxyphene Screen Ur Barbiturates Screen U Tricyclic Antidepress Ur Phencyclidine Scrn Ur Amphetamine Screen U Methamphetamines Scrn U Benzodiazepines Scrn Urine Cocaine Screen U Cannabinoids Screen Plasma/Serum Alcohol Adenovirus (PCR) B. pertussis DNA (PCR) B.parapertussis DNA PCR C. pneumoniae DNA (PCR) Coronavirus OC43 (PCR) Coronavirus HKU1 (PCR) Coronavirus 229E (PCR) Coronavirus NL63 (PCR) Human Metapneumovir PCR Influenza Type A (PCR) Influenza B (RT-PCR) M. pneumoniae (PCR) Parainfluenza 1 (PCR) Parainfluenza 2 (PCR) Parainfluenza 3 (PCR) Parainfluenza 4 (PCR) RSV (PCR) Entero/Rhino (PCR) SARS-CoV-2 (PCR) 04/30/21 04/30/21 08:06 12:00 WBC RBC Hgb Hct MCV MCH MCHC RDW Coeff of Heather Plt Count Immature Gran % (Auto) Neut % (Auto) Lymph % (Auto) [place] % (Auto) Eos % (Auto) Baso % (Auto) Neut # (Auto) Lymph # (Auto) [place] # (Auto) Eos # (Auto) Baso # (Auto) Immature Gran # (Auto) Puncture Site Base Excess O2 Saturation ABG pH ABG pCO2 ABG pO2 ABG HCO3 ABG Total CO2 Clement Test Hemoglobin Oxyhemoglobin Carboxyhemoglobin Total Hemoglobin O2 Delivery Device Oxygen Liter Flow Sodium 106.0 L* 106.9 L* Potassium 3.48 L Chloride 66.5 L* Carbon Dioxide 32.4 H Anion Gap 10.58 BUN 7.1 L Creatinine 0.60 Estimated GFR (MDRD) 140.00 BUN/Creatinine Ratio 11.83 Glucose 96.0 Serum Osmolality Calcium 8.38 L Ionized Calcium Phosphorus Magnesium Total Bilirubin 1.47 H AST 111.0 H ALT 57.9 H Alkaline Phosphatase 92.5 Total Creatine Kinase CK-MB (CK-2) CK-MB (CK-2) % Troponin I NT-Pro-B Natriuret Pep Total Protein 6.44 Albumin 4.10 Globulin 2.34 Albumin/Globulin Ratio 1.75 TSH 0.572 Random Cortisol Urine Color Urine Clarity Urine pH Ur Specific [place] Urine Protein Urine Glucose (UA) Urine Ketones Urine Blood Urine Nitrite Urine Bilirubin Urine Urobilinogen Ur Leukocyte Esterase Urine Microscopic RBC Ur Squamous Epith Cells Urine Osmolality Ur Random Sodium Urine Opiates Screen Ur Oxycodone Screen Urine Methadone Screen Ur Propoxyphene Screen Ur Barbiturates Screen U Tricyclic Antidepress Ur Phencyclidine Scrn Ur Amphetamine Screen U Methamphetamines Scrn U Benzodiazepines Scrn Urine Cocaine Screen U Cannabinoids Screen Plasma/Serum Alcohol Adenovirus (PCR) B. pertussis DNA (PCR) B.parapertussis DNA PCR C. pneumoniae DNA (PCR) Coronavirus OC43 (PCR) Coronavirus HKU1 (PCR) Coronavirus 229E (PCR) Coronavirus NL63 (PCR) Human Metapneumovir PCR Influenza Type A (PCR) Influenza B (RT-PCR) M. pneumoniae (PCR) Parainfluenza 1 (PCR) Parainfluenza 2 (PCR) Parainfluenza 3 (PCR) Parainfluenza 4 (PCR) RSV (PCR) Entero/Rhino (PCR) SARS-CoV-2 (PCR) Orders Category Date Time Status ABG DRAW REQUEST Stat CARDIO 04/29/21 08:48 Completed EKG-(ED ONLY) Stat CARDIO 04/29/21 08:58 Completed METERED DOSE INHALATION Routine CARDIO 04/29/21 09:08 Completed METERED DOSE INHALATION Routine CARDIO 04/29/21 14:33 Completed METERED DOSE INHALATION Routine CARDIO 04/29/21 14:34 Completed METERED DOSE INHALATION Routine CARDIO 04/29/21 19:26 Completed METERED DOSE INHALATION Routine CARDIO 04/29/21 19:27 Completed C-DIFF MONITORING (NURSING) BID CARE 04/30/21 08:53 Completed FALL: BEHAVIOR MANAGEMENT PRN CARE 04/29/21 23:09 Completed IV [ED IV/MEDIPORT/POWERPORT] .ONCE EMERGENCY 04/29/21 09:51 Completed ABG COOX Stat LAB 04/29/21 09:19 Completed BASIC METABOLIC PANEL Stat LAB 04/29/21 13:30 Completed BASIC METABOLIC PANEL Stat LAB 04/29/21 17:48 Completed BASIC METABOLIC PANEL Stat LAB 04/30/21 04:21 Completed BLOOD ALCOHOL Stat LAB 04/29/21 13:30 Completed BLOOD CULTURE (ED ONLY) Stat LAB 04/29/21 09:19 Completed BMP [BASIC METABOLIC PANEL] Stat LAB 04/29/21 19:33 Completed CBC W/ AUTO DIFF DAILY@0600 LAB 05/01/21 04:36 Completed CBC W/ AUTO DIFF Stat LAB 04/29/21 09:19 Completed CBC W/ AUTO DIFF Stat LAB 04/30/21 00:27 Completed CMP [COMPREHENSIVE METABOLIC PANEL] Stat LAB 04/29/21 09:19 Completed COMPREHENSIVE METABOLIC PANEL DAILY@0600 LAB 05/01/21 04:36 Completed COMPREHENSIVE METABOLIC PANEL Stat LAB 04/30/21 00:03 Completed COMPREHENSIVE METABOLIC PANEL Stat LAB 04/30/21 08:06 Completed CORTISOL,RANDOM Stat LAB 04/29/21 00:03 Completed CPK [CREATINE KINASE] Stat LAB 04/29/21 09:19 Completed ELECTROLYTES Stat LAB 04/29/21 15:32 Completed IONIZED CALCIUM Stat LAB 04/30/21 00:27 Completed MAGNESIUM DAILY@0600 LAB 05/01/21 04:36 Completed MAGNESIUM Stat LAB 04/29/21 09:19 Completed MAGNESIUM Stat LAB 04/30/21 04:21 Completed NT-PROBNP Stat LAB 04/29/21 13:30 Completed OSMOLALITY,URINE Stat LAB 04/29/21 11:05 Completed OSMOLALITY,URINE Stat LAB 04/30/21 00:15 Completed PHOSPHORUS DAILY@0600 LAB 05/01/21 04:36 Completed PHOSPHORUS Stat LAB 04/29/21 09:19 Completed PHOSPHORUS Stat LAB 04/29/21 13:30 Completed PHOSPHORUS Stat LAB 04/30/21 04:21 Completed RESPIRATORY PANEL 2.1 (PCR) Stat LAB 04/29/21 08:50 Completed SERUM OSMOLALITY Stat LAB 04/29/21 11:05 Completed SERUM OSMOLALITY Stat LAB 04/29/21 13:10 Completed SERUM OSMOLALITY Stat LAB 04/30/21 00:15 Completed SODIUM Q4H LAB 04/30/21 12:00 Completed SODIUM Q4H LAB 04/30/21 16:05 Completed SODIUM Q4H LAB 04/30/21 19:51 Completed SODIUM,URINE Stat LAB 04/30/21 00:15 Completed THYROID STIMULATING HORMONE Routine LAB 04/30/21 12:00 Completed THYROID STIMULATING HORMONE Routine LAB 04/30/21 19:51 Completed TROPONIN I Stat LAB 04/29/21 09:19 Completed UA [URINALYSIS C & S IF INDICATED] Stat LAB 04/29/21 11:05 Completed URINE DRUG SCREEN (RAPID FOR ED) [DRUG SCREEN, URINE, LAB 04/29/21 11:05 Completed RAPID] Stat c-diff [C. DIFFICILE] Routine LAB 04/30/21 08:51 Completed 0.9 % Sodium Chloride [Saline Flush] MEDS 04/29/21 09:51 Discontinued 1 syr IVF PRN PRN Albuterol Inhaler(with Spacer) [Ventolin Hfa (Per Puff- MEDS 04/29/21 09:08 Discontinued with Spacer)] 2 puff IH ONCE ONE Albuterol Inhaler(with Spacer) [Ventolin Hfa (Per Puff- MEDS 04/29/21 14:33 Discontinued with Spacer)] 2 puff IH ONCE ONE Albuterol Inhaler(with Spacer) [Ventolin Hfa (Per Puff- MEDS 04/29/21 19:25 Discontinued with Spacer)] 2 puff IH ONCE PRN Hydrocortisone Sod Succ/Pf [Solu-Cortef 100 mg] MEDS 04/30/21 00:00 Discontinued 100 mg IVP ONCE ONE Hydrocortisone Sod Succ/Pf [Solu-Cortef 250 mg] MEDS 04/30/21 20:00 Discontinued 50 mg IVP Q6HR Ipratropium Inhaler(Spacer) [Atrovent Hfa Inhaler (Per MEDS 04/29/21 09:08 Discontinued Puff-with Spacer)] 2 puff IH ONCE ONE Ipratropium Inhaler(Spacer) [Atrovent Hfa Inhaler (Per MEDS 04/29/21 14:34 Discontinued Puff-with Spacer)] 2 puff IH ONCE STA Ipratropium Inhaler(Spacer) [Atrovent Hfa Inhaler (Per MEDS 04/30/21 00:00 Discontinued Puff-with Spacer)] 2 puff IH RTQ6H Sodium Chloride 3% 100 ml MEDS 04/29/21 18:30 Discontinued IV 600 mls/hr Sodium Chloride 3% 500 ml MEDS 04/29/21 11:00 Discontinued IV 15 mls/hr Vitamin B-1 Inj [Thiamine] 100 mg MEDS 04/30/21 09:00 Discontinued 0.9 % Sodium Chloride [Sodium Chloride] 50 ml IV ONCE CHEST, 1V AP ONLY Stat RADS 04/29/21 08:[address] HEAD W/O CONTRAST Stat RADS 04/29/21 08:49 Completed Medications Discontinued Medications Generic Name Dose Route Start Last Admin Trade Name Freq PRN Reason Stop Dose Admin Acetaminophen 500 mg 04/30/21 20:20 05/05/21 05:45 Acetaminophen 500 Mg Tablet PO 500 mg TID PRN Administration Mild Pain Albuterol Sulfate 2 puff 04/29/21 09:08 04/29/21 09:24 Albuterol Sulfate (Ventolin Hfa) 18 Gm 1 Puff With Spacer IH 04/29/21 09:09 2 puff ONCE ONE Administration Albuterol Sulfate 2 puff 04/29/21 14:33 04/29/21 14:47 Albuterol Sulfate (Ventolin Hfa) 18 Gm 1 Puff With Spacer IH 04/29/21 14:34 2 puff ONCE ONE Administration Albuterol Sulfate 2 puff 04/29/21 19:25 04/30/21 12:00 Albuterol Sulfate (Ventolin Hfa) 18 Gm 1 Puff With Spacer IH 2 puff ONCE PRN Administration SOB Albuterol Sulfate 2 puff 04/30/21 16:31 05/05/21 04:55 Albuterol Sulfate (Ventolin Hfa) 18 Gm 1 Puff With Spacer IH 2 puff Q4-6H PRN Administration wheezing Aripiprazole 10 mg 04/30/21 17:00 05/05/21 08:36 Aripiprazole 5 Mg Tablet PO 10 mg DAILY MAHIN Administration Calamine/Phenol 1 applic 05/03/21 09:00 05/05/21 08:37 Menthol/Zinc Oxide 113 Gm Ointment TP 1 applic BID MAHIN Administration Diazepam 2 mg 04/30/21 16:31 05/05/21 08:36 Diazepam 2 Mg Tablet PO 2 mg DAILY MAHIN Administration Enoxaparin Sodium 40 mg 05/02/21 09:00 05/05/21 08:40 Enoxaparin Sodium 40 Mg/0.4 Ml Syr SUBCUT 40 mg DAILY MAHIN Administration Gabapentin 300 mg 04/30/21 21:00 05/05/21 08:36 Gabapentin 300 Mg Capsule PO 300 mg TID MAHIN Administration Hydrocortisone Sodium Succinate 100 mg 04/30/21 00:00 04/30/21 00:05 Hydrocortisone Sod Succ/Pf 100 Mg/2 Ml Vial IVP 04/30/21 00:01 100 mg ONCE ONE Administration Hydrocortisone Sodium Succinate 50 mg 04/30/21 20:00 Hydrocortisone Sod Succ/Pf 250 Mg/2 Ml Vial IVP Q6HR MAHIN Hydrocortisone Sodium Succinate 50 mg 04/30/21 13:00 05/03/21 05:55 Hydrocortisone Sod Succ/Pf 100 Mg/2 Ml Vial IVP 50 mg Q6HR MAHIN Administration Hydroxyzine HCl 25 - 50 mg 04/30/21 16:31 05/02/21 03:19 Hydroxyzine Hcl 25 Mg Tablet PO 25 mg QID PRN Administration anxiety Sodium Chloride 500 mls @ 15 mls/hr 04/29/21 11:00 04/29/21 10:50 Sodium Chloride 3% IV 15 mls/hr .[id number] MAHIN Administration Sodium Chloride 100 mls @ 600 mls/hr 04/29/21 18:30 04/29/21 18:22 Sodium Chloride 3% IV 04/29/21 18:39 600 mls/hr .Q10M ONE Administration Thiamine HCl 100 mg/ Sodium 51 mls @ 100 mls/hr 04/30/21 09:00 04/30/21 08:12 Chloride IV 04/30/21 09:30 100 mls/hr ONCE ONE Administration Sodium Chloride 100 mls @ 400 mls/hr 05/01/21 08:16 05/01/21 09:53 Sodium Chloride 3% IV 05/01/21 08:30 400 mls/hr .Q15M ONE Administration Sodium Chloride 100 mls @ 400 mls/hr 05/02/21 10:33 05/02/21 11:04 Sodium Chloride 3% IV 05/02/21 10:47 400 mls/hr .Q15M ONE Administration Ipratropium [place] 2 puff 04/29/21 09:08 04/29/21 09:24 Ipratropium [place] 12.9 Gm Hfa Inhaler Per Puff With Spacer IH 04/29/21 09:09 2 puff ONCE ONE Administration Ipratropium [place] 2 puff 04/29/21 14:34 04/29/21 14:47 Ipratropium [place] 12.9 Gm Hfa Inhaler Per Puff With Spacer IH 04/29/21 14:35 2 puff ONCE STA Administration Ipratropium [place] 2 puff 04/30/21 00:00 05/05/21 04:55 Ipratropium [place] 12.9 Gm Hfa Inhaler Per Puff With Spacer IH 2 puff RTQ6H MAHIN Administration Lisinopril 20 mg 04/30/21 21:00 05/05/21 08:36 Lisinopril 10 Mg Tablet PO 20 mg BID MAHIN Administration Loperamide HCl 2 mg 04/30/21 20:21 05/05/21 05:51 Loperamide Hcl 2 Mg Tablet PO 2 mg AFTER LOOSE STOOLS PRN Administration Diarrhea Magnesium Oxide 400 mg 05/04/21 11:30 05/05/21 08:36 Magnesium Oxide 400 Mg Tablet PO 400 mg DAILY MAHIN Administration Nortriptyline HCl 100 mg 04/30/21 17:00 05/04/21 20:19 Nortriptyline Hcl 10 Mg Capsule PO 100 mg BEDTIME MAHIN Administration Potassium Chloride 20 meq 05/01/21 08:30 05/05/21 08:36 Potassium Chloride 20 Meq Tab PO 20 meq BIDWM MAHIN Administration Prednisone 20 mg 05/03/21 08:30 05/05/21 08:36 Prednisone 20 Mg Tablet PO 20 mg DAILYWM MAHIN Administration Sodium Chloride 1 syr 04/29/21 09:51 0.9% Sodium Chloride 10 Ml Disp.Syrin IVF PRN PRN To flush IV Sodium Chloride 1 syr 05/01/21 05:15 05/05/21 05:46 0.9% Sodium Chloride 10 Ml Disp.Syrin IVF 1 syr Q8HR MAHIN Administration Vital Signs: Temp Pulse Resp BP Pulse Ox 04/30/21 12:51 93 H 18 142/77 H 98 04/30/21 10:50 86 19 152/92 H 97 04/30/21 09:29 86 18 133/89 100 04/30/21 08:47 97.7 F 85 24 151/97 H 96 04/29/21 08:17 98.0 F 96 H 20 165/97 H 97 Discharge Plan Discharge Patient Disposition: ADMITTED INPATIENT Discharge Problem: Hyponatremia ED Provider: JAYLIN ALEXIS Condition: Good <JAYLIN ALEXIS DO - Last Filed: 05/08/21 20:02> Physician Progress Note: 1730 hr Patient has been monitored and treated in ER Pharmacological consult with Joselin who has offered her assistance treatment. Dr Treviño request to consult and manage patient in ER in order to more easily facilitate transfer when bed becomes available [] []
[2021-04-29] MEDS ORDERED: ATROVENT HFA INHALER (PER PUFF-WITH SPACER) IH ONE (09:08)
[2021-04-29] MEDS ORDERED: VENTOLIN HFA (PER PUFF-WITH SPACER) IH ONE ×2 (09:08→14:33)
[2021-04-29 09:25] LABS: BASOPHILS % (AUTO) 0.2 % (0.0-3.0); EOSINOPHILS % (AUTO) 0.1 % (0.0-7.0); HEMATOCRIT 33.9 % (42.0-52.0); HEMOGLOBIN 12.6 g/dl (14.0-18.0); IMMATURE GRANULOCYTE # (AUTO) 0.1 (0.0-1.0); IMMATURE GRANULOCYTE % (AUTO) 0.8 % (0.0-5.0); LYMPHOCYTES # (AUTO) 0.8 K/uL (0.60-3.4); LYMPHOCYTES % (AUTO) 4.7 (10.0-50.0); MEAN CORPUSCULAR HEMOGLOBIN 28.9 pg (27.0-31.0); MEAN CORPUSCULAR HGB CONC 37.2 (31.8-35.4); MEAN CORPUSCULAR VOLUME 77.8 fl (80.0-94.0); NEUTROPHILS # (AUTO) 15.2 K/ul (2.0-6.9); NEUTROPHILS % (AUTO) 88.2 % (42.2-75.2); PLATELET COUNT 228 10^3/uL (140-440); RDW COEFFICIENT OF VARIATION 11.1 % (11.6-14.8); RED BLOOD COUNT 4.36 10^6/ul (4.70-6.10)
[2021-04-29 09:26] LABS: BORDETELLA PARAPERTUSSIS (PCR) NOT DETECTED (NOT DETECT); BORDETELLA PERTUSSIS (PCR) NOT DETECTED (NOT DETECT); CHLAMYDIA PNEUMONIAE (PCR) NOT DETECTED (NOT DETECT); CORONAVIRUS 229E (PCR) NOT DETECTED (NOT DETECT); CORONAVIRUS HKU1 (PCR) NOT DETECTED (NOT DETECT); CORONAVIRUS NL63 (PCR) NOT DETECTED (NOT DETECT); CORONAVIRUS OC43 (PCR) NOT DETECTED (NOT DETECT); HUMAN METAPNEUMOVIRUS (PCR) NOT DETECTED (NOT DETECT); HUMAN RHINOVIRUS/ENTEROV (PCR) NOT DETECTED (NOT DETECT); INFLUENZA B (PCR) NOT DETECTED (NOT DETECT); MYCOPLASMA PNEUMONIAE (PCR) NOT DETECTED (NOT DETECT); PARAINFLUENZA VIRUS 1 (PCR) NOT DETECTED (NOT DETECT); PARAINFLUENZA VIRUS 2 (PCR) NOT DETECTED (NOT DETECT); PARAINFLUENZA VIRUS 3 (PCR) NOT DETECTED (NOT DETECT); PARAINFLUENZA VIRUS 4 (PCR) NOT DETECTED (NOT DETECT); RESPIRATORY SYNCYTIAL V (PCR) NOT DETECTED (NOT DETECT); SARS_COV_2 (PCR) NOT DETECTED (NOT DETECT)
[2021-04-29 09:38] LABS: CREATINE KINASE 912.5 U/L (55-170)
[2021-04-29 09:39] LABS: ALANINE AMINOTRANSFERASE 52.2 U/L (0-50); ALBUMIN 3.98 g/dL (3.5-5.0); ASPARTATE AMINO TRANSFERASE 80.3 U/L (17-59); BILIRUBIN,TOTAL 1.3 mg/dL (0.2-1.3); CALCIUM 7.89 mg/dL (8.4-10.2); CARBON DIOXIDE 31.7 mmol/L (22-30.0); CREATININE 0.6 mg/dL (0.60-1.10); GLUCOSE 129.7 mg/dL (74-106); POTASSIUM 4.01 mmol/L (3.5-5.1); TOTAL PROTEIN 6.21 g/dL (6.3-8.2)
[2021-04-29 09:43] LABS: SODIUM 95.1 mmol/L (134.5-145)
[2021-04-29 09:44] LABS: ABG PH 7.46 (7.35-7.45); CHLORIDE 57.3 mmol/L (98-107)
[2021-04-29 09:45] LABS: ABG O2 HGB 93.2 % (95-100); BEecf 8.2 (-2.0-3.0); COHb 2.7 (0.5-1.5); MetHb 1.9 (0-1.5); TCO2 33.4 (19-24); sO2 99.7 % (94-98); tHb 13.4 g/dl (11.7-17.4)
[2021-04-29] MEDS ORDERED: SODIUM CHLORIDE 3% 100 ML IV ONE (09:58)
[2021-04-29 10:08] LABS: MAGNESIUM 1.31 mg/dL (1.6-2.3); PHOSPHORUS 1.95 mg/dL (2.5-4.5)
[2021-04-29 10:18] LABS: CREATINE KINASE MB 11.1 ng/ml (0.0-2.38)
[2021-04-29 10:18] LABS: ADENOVIRUS (PCR) NOT DETECTED (NOT DETECT)
[2021-04-29] MEDS ORDERED: SODIUM CHLORIDE 3% 150 ML IV ONE (10:30)
--- NOTE | 2021-04-29 10:58 | DI ---
EXAM: CHEST FRONTAL VIEW HISTORY: Cough and congestion, history of COVID-19 COMPARISON: 06/22/2019 FINDINGS: Upper limit normal heart size appears stable. No acute infiltrates are seen. No vascular congestion. There is no consolidation, visible pleural fluid or pneumothorax. Bones reveal no acut e fracture. IMPRESSION: No acute cardiopulmonary process.
[2021-04-29] MEDS ORDERED: SODIUM CHLORIDE 3% 150 ML IV SCH (11:00)
[2021-04-29] MEDS ORDERED: SODIUM CHLORIDE 3% 500 ML IV SCH (11:00)
--- NOTE | 2021-04-29 11:03 | CT ---
EXAM: CT Head HISTORY: Poor memory of event COMPARISON: None TECHNIQUE: CT head performed without contrast FINDINGS: There is no mass effect, midline shift, or intracranial hemmorhage. [place] white differenti ation is preserved. There is no extra-axial collection. The ventricles, sulci, and basal cisterns a re patent and symmetric. There is chronic ischemic disease of the white matter and cerebral volume l oss. There is no depressed calvarial fracture. The mastoid air cells are clear. The visualized para nasal sinuses are clear. There are intracranial atherosclerotic calcifications. IMPRESSION: 1. No acute intracranial abnormality. 2. Chronic ischemic disease of the white matter and cerebral volume loss. All CT scans are performed using dose optimization techniques as appropriate to the performed exam an d include at least one of the following: Automated exposure control, adjustment of the mA and/or kV according t o size, and the use of iterative reconstruction technique.
[2021-04-29 11:14] LABS: BILIRUBIN,URINE Negative (NEGATIVE); CLARITY,URINE Clear (CLEAR); COLOR,URINE Yellow (YELLOW); GLUCOSE, URINE (UA) Trace (NEGATIVE); KETONES,URINE 3+ (NEGATIVE); LEUKOCYTE ESTERASE ,URINE Negative (NEGATIVE); NITRITE,URINE Negative (NEGATIVE); PH,URINE 7.5 (5-9); PROTEIN,URINE 1+ (NEGATIVE); URINE, BLOOD Trace-intact (NEGATIVE)
[2021-04-29 11:20] LABS: SQUAMOUS EPITHELIAL CELL,UR 0-2 (0-5); URINE RBC, MICROSCOPIC 0-2 (0-2)
[2021-04-29 11:24] LABS: AMPHETAMINE SCREEN,URINE NEGATIVE (NEGATIVE); BARBITURATE SCREEN,URINE NEGATIVE (NEGATIVE); BENZODIAZEPINES SCREEN,URINE POSITIVE (NEGATIVE); CANNABINOID SCREEN,URINE NEGATIVE (NEGATIVE); COCAIN SCREEN,URINE NEGATIVE (NEGATIVE); METHADONE URINE SCREEN NEGATIVE (NEGATIVE); METHAMPHETAMINES SCREEN,URINE NEGATIVE (NEGATIVE); OPIATE SCREEN,URINE NEGATIVE (NEGATIVE); OXYCODONE URINE SCREEN POSITIVE (NEGATIVE); PHENCYCLIDINE SCREEN,URINE NEGATIVE (NEGATIVE); PROPOXYPHENE URINE SCREEN NEGATIVE (NEGATIVE); TRICYCLIC ANTIDEPRESSANTS URIN POSITIVE (NEGATIVE)
[2021-04-29 13:49] LABS: BLOOD UREA NITROGEN 8.3 mg/dL (9-20); CALCIUM 8.29 mg/dL (8.4-10.2); CARBON DIOXIDE 33.2 mmol/L (22-30.0); CREATININE 0.58 mg/dL (0.60-1.10); GLUCOSE 119.5 mg/dL (74-106); PHOSPHORUS 2.29 mg/dL (2.5-4.5); POTASSIUM 4.23 mmol/L (3.5-5.1)
[2021-04-29 14:07] LABS: SODIUM 96.1 mmol/L (134.5-145)
[2021-04-29 14:08] LABS: BLOOD ALCOHOL < 10.0 mg/dL (0.0-50.0); CHLORIDE 57.7 mmol/L (98-107)
[2021-04-29] MEDS ORDERED: ATROVENT HFA INHALER (PER PUFF-WITH SPACER) IH STA (14:34)
[2021-04-29 15:45] LABS: POTASSIUM 4.33 mmol/L (3.5-5.1)
[2021-04-29 15:51] LABS: SODIUM 95.7 mmol/L (134.5-145)
[2021-04-29 15:52] LABS: CHLORIDE 59.2 mmol/L (98-107)
[2021-04-29 17:19] LABS: SERUM OSMOLALITY 200
[2021-04-29 17:20] LABS: OSMOLALITY,URINE 418
[2021-04-29 18:02] LABS: CALCIUM 8.16 mg/dL (8.4-10.2); CARBON DIOXIDE 30.7 mmol/L (22-30.0); CREATININE 0.58 mg/dL (0.60-1.10); GLUCOSE 113.4 mg/dL (74-106); POTASSIUM 3.82 mmol/L (3.5-5.1)
[2021-04-29 18:10] LABS: CHLORIDE 60.1 mmol/L (98-107); SODIUM 98.7 mmol/L (134.5-145)
[2021-04-29] MEDS: SODIUM CHLORIDE 3% 100 ML IV ONE ×2 (18:19→18:22)
[2021-04-29 19:47] LABS: BLOOD UREA NITROGEN 8.5 mg/dL (9-20); CALCIUM 7.94 mg/dL (8.4-10.2); CARBON DIOXIDE 29.6 mmol/L (22-30.0); CREATININE 0.5 mg/dL (0.60-1.10); POTASSIUM 3.77 mmol/L (3.5-5.1)
[2021-04-29 19:51] LABS: CHLORIDE 62.3 mmol/L (98-107); SODIUM 100.3 mmol/L (134.5-145)
--- NOTE | 2021-04-29 21:21 | PCM.CONS ---
Chief Complaint: Fall, Hyponatremia, hypomagnesemia, hypocalcemia, Confusion, incontinence of urine. History of Present Illness: This 55 year old /WHITE/M presented emergency room this morning at [address] Farfan. The patient was getting on a transport bus and had a falling episode. He had a poor recollection of the event stating he was really tired and had trouble remembering the exact events that led up to the incident. He was getting on the bus to go to his pulmonary rehab therapy today. He was unsure where he was going there was confusion. No history of stroke or memory issues. He has a mild chronic hyponatremia, history of nightmares, hypertension, RV enlargement, peripheral edema, shortness of breath, chronic oxygen therapy, COPD, lower extremity pain, ADHD, generalized anxiety disorder, chronic respiratory issues/COPD, chronic back pain, bipolar disorder, marijuana use, heavy smoker, BMI 38, ADHD. The patient was brought to the emergency room via ambulance. I was contacted and discussed case with DR. Farfan at at 100, 1022, 1130, 1730. I talked with pharmacy 1744, 1750, 1802, Dr. Farfan again at 180, and with nursing at hospital again at 2033 and with pharamcy at 2043. The patient was found to have altered mental status and markedly abnormal lab values. The patient was last known well 3 to 4 days ago with gradual onset over the last 4 days. Symptoms are still present constant worsening with fall today. Lightheadedness, dizziness, exertional issues, headache and positional change issues. Improved with lying down and closing eyes. The patient reports nausea, shortness of breath palpitations and unsteady gait. He reports weakness and hea dache generalized. Differential diagnosis considered in the emergency room to include hypoxia, injury, intoxication, metabolic disorder and medication reaction. Family history was reviewed and updated within the EMR. Patient is a poor historian at present and confused and history is somewhat unobtainable. Current alcohol intake 3 or more drinks per day beer. Physical exam ill- appearing obese, moderately ill-appearing, eyes pupils equal round and reactive, breath sounds are clear but diminished with some crackles and wheezes noted by emergency room team. NIH stroke score for this patient listed as 0. Chest x- ray was shown to have no acute cardiopulmonary process, CT scan of head no acute intracranial abnormality with chronic ischemic disease of the white matter and cerebral volume loss. EKG normal sinus rhythm no ectopy left axis ST segments normal with first-degree AV block. I was contacted several times throughout today as discussed above. ER note discussed we feel that patient requires ICU and our hospital is not currently equipped to treat this current patient. I have asked for them to consult me to the emergency room but not to admit the patient due to difficulty with lateral transfers. Coronavirus emergency has led to a current state of emergency where this patient requires ICU level care but no ICU beds are available. Initial laboratory evaluation showed a white blood cell count of 17.2, hemoglobin 12.6, hematocrit 33.9 and platelets of 228. ABG O2 saturation 99.7, pH 7.46, PCO2 45, PO2 180, HCO3 32, CO2 33.4. This interprets as a metabolic alkalosis primary with full respiratory compensation. Total CK elevated at 912.5, CK-MB 11.1 which is elevated. Bio fire PCR negative for all viral tests. The critical value was the sodium of 95.1. Potassium was normal at 4.01 and the chloride was very low at 57.3. CO2 elevated at 31.7. The anion gap of 10.11 creatinine 0.6 BUN 8.0 with a GFR of 140. Glucose 129.7 is not significant enough to make any major corrections. Calcium low at 7.89 corrects to 7.9 with an albumin of 3.98 and essentially normal. AST mildly elevated 80.3 ALT mildly elevated 52.2 which is not a ratio of 2:1. Alk phos normal at 97. Troponin was negative. Total protein low at 6.21. Serum osmolality returned at 200 at 1105. This is a send out. Phosphorus was low at 1.95, magnesium low at 1.31. Urine osmolality 418. Urine showed 1+ protein, trace glucose 3+ ketones trace intact blood with urobilinogen 1.0. Vitals at 817 showed temperature 98, pulse 96, respiratory rate 20, blood pressure 165/97 and pulse ox of 97. His HCTZ was just continued abruptly. We have contacted [facility] for the pharmacy. I will help to manage the patient in the emergency room with the ER team until a bed can become available for the patient at an acute care hospital. Throughout the conversations above I have recommended that the patient be transferred to emergency room. Our ER team tried throughout the day to transfer to emergency rooms with in a [facility] region. It is estimated that the hospital contacted approximately 30 hospitals for transfer. It is unknown fact that many hospitals in the region have no ICU coverage.[facility] on the bed board but they noted they did not have any staff. As of 5 PM this afternoon 6 beds were listed. There are essentially no ICU beds in the region. We asked acute care hospitals to admit to floor, they said with the parameters they cannot accept it should be ICU and they do not have beds/coverage/capacity. Repeat CMP at 1330 showed sodium 96.1 potassium 4.23, chloride 57.7, BUN 8.3, creatinine 0.58, GFR 145, glucose 119.5. Calcium 8.29 phosphorus 2.29. A alcohol returned as negative. Drug screen showed oxycodone, tricyclics, benzos. Repeat metabolic panel at 1532 showed sodium of 95.7. After talking with the pharmacist his rate of infusion increased for the hypertonic saline. Potassium 4.33, chloride 59.2 and anion gap of 10.83. Repeat at 1748 showed 98.7 sodium, potassium 3.82, chloride 60.1 calcium 8.16. BNP of 656. Repeat testing at 1933 showed sodium of 100.3 up from the 95.1 at presentation. It is recommended to increase by 4 to 6 meq/L/day. Potassium 3.77, chloride 62.3, creatinine 0.5 glucose 119 GFR 173 calcium 7.94. Hospitalist contact today including Andrew forrester [place], Etelvina hernandez,Nic Galindo,[place], [place] and [facility], [facility]. [facility] call back and noted that he did not have the nursing staff for another patient. [facility] waiting list for beds. Jessica Raman in [place]. [facility] in [facility], [facility], [facility] on [facility] on waiting list,, [place] try to get in [place] [facility]to, [facility] this includes [facility], [facility] and [facility] [place] purchase consider 1 stepdown bed available. Information obtained from girlfriend at 1536 today noted that patient drinks 6 beers per night. Thirsty all the time and drinks water coffee and beer. Patient is for the patient on the waiting list at [facility]. Additional information reviewed throughout charting. Patient has had periods of incontinence of urine, confusion, bruising to the left bicep and left hip. Constitutional: Weakness, Fatigue and Loss of appetite; No Fever, Chills or Sweats Eyes: Blurred vision; No Discharge, Itching, Pain, Redness or Photophobia Ears: No symptoms Nose: No symptoms Throat: No symptoms Mouth: No symptoms Respiratory: Cough, Shortness of air and Wheeze; No Hemoptysis or Pain with breathing Cardiovascular: No symptoms Gastrointestinal: Nausea Genitourinary: other (incontinence of urine. ) Neurological: Headache, Dizziness, Weakness, Speech difficulty and Fainting (possibly) Skin: No symptoms Immunology: No symptoms Hematology: No symptoms Endocrine: Excessive thirst and Polyuria Psychiatric: Depression, Anxiety and Sleeplessness; No Suicidal Habits: Tobacco use (former. ), Substance use (Marijuana. ) and Alcohol use (heavy) Past Medical History: ADHD, Back pain chronic, Bipolar disorder, Chronic Diarrhea, Diverticulitis, H/O Colostomy, HTN, Chronic tobacco. Marijuana use. Past Surgical History: Herniorrhaphy, colostomy historically/reversed, ureter surgery age 18, lower leg surgery right, carpal tunnel surgery, tonsillectomy. Allergies Allergy/AdvReac Type Severity Reaction Status Date / Time Iodinated Contrast Media Allergy Intermediate Flushing Verified 04/29/21 08:26 [Iodinated Contrast Media - IV Dye] lamotrigine [From Lamictal] AdvReac Intermediate rash Verified 04/29/21 08:26 Medications: Medications Generic Name Dose Route Start Last Admin Trade Name Freq PRN Reason Stop Dose Admin Albuterol Sulfate 2 puff 04/29/21 19:25 Albuterol Sulfate (Ventolin Hfa) 18 Gm 1 Puff With Spacer IH ONCE PRN SOB Ipratropium [place] 2 puff 04/30/21 00:00 Ipratropium [place] 12.9 Gm Hfa Inhaler Per Puff With Spacer IH RTQ6H MAHIN Sodium Chloride 1 syr 04/29/21 09:51 0.9% Sodium Chloride 10 Ml Disp.Syrin IVF PRN PRN To flush IV Past Family History: Father Emphysema. Mother living 78 malignant neoplasm. Aunts with colon, throat and lung cancers. 2 children 1 bio and 1 step 29 son and 21 daughter (step). Past Social History: Current every day smoker since age 16 >50 pack years. 74 pack years as of 06/02/18. Was up to 3ppd for a while. HIstory of ETOH abuse, no ETOH now. Lives with GF who also was ex . Physical Examination: Vital Signs - 24 hr 04/29/21 08:17 Temperature 98.0 F Pulse Rate 96 H Respiratory Rate 20 Blood Pressure 165/97 H O2 Sat by Pulse Oximetry 97 Constitutional: Appearance-Confusion, disheveled. Accident of stool as I walked into room and urine. He apologized profusely. I helped him to wipe his bottom to clean up the mess. he has stage 2 sacral decubitus ulcer mid buttock/sacral region. Mild distress. Changes to eyelids with weakness. 4 mm pupils with reactive nature. He was talkative, open, discussed case with me today. Aware of day/date/time/county/hospital, my name. Able to do basic computations. Orientation- Oriented x 3, alert Build and Nutrition-[Obese Male] General- Patient is slurrinng words a little, mild cognitive decline. Integumentary: General-No rashes, ulcers or lesions. Bruising along the left lateral forearm (bandaged). ecchymosis alonng left posterior bicep, left lateral hip/flank.Numerous Sk on back. No e/o secondary infection or worsening. Palpation- Normal skin moisture/turgor. Skin is warm to touch, appropriate. Capillary refill is normal bilateral Upper and lower extremity. Head/Neck: Head- normocephalic and atraumatic. Neck- without visible/palpable lumps or pulsations. Palpation- No bony tenderness about head/neck along frontal, occipital, temporal, parietal, mastoid, jawline, zygoma, orbit or any other location. NO temporal artery tenderness. No TMJ tenderness. Neck Supple. Thyroid-No thyromegaly, no nodules Eye: Bilaterally PERRLA, EOMI. No discharge. Upper and lower eyelids are normal. Sclera/conjunctiva normal without discharge. Cornea is normal and clear. Lens is normal. Eyeball appears normal. No ciliary flushing, no conjunctival injection. Mild sluggish eyelids bilaterally. ENMT: Pinna- normal without tenderness or erythema. External auditory canal Left- normal without erythema or discharge, no excessive cerumen. External auditory canal Right-normal without erythema or discharge, no excessive cerumen. TM left- [place]/pearly, normal light reflex and anatomy TM Right- [place]/pearly, normal light reflex and anatomy Hearing Assessment-normal to conversational speech. Nose and sinus- No sinus tenderness along frontal/maxillary region. External appearance normal and midline. Nares- bilateral quiet airflow, no discharge. Nasal mucosa- No bleeding noted and no ulcerations observed. [place], moist. Turbinates non boggy. Lips- normal color, moist without cracks/lesions Oral Cavity/Palate- hard/soft palate intact without lesions, oral mucosa pink and moist. Dentition assessed and poor overall. Tongue normal midline. Oropharynx- no pharyngeal erythema, Uvula midline. No post nasal drip. No exudate. Salivary glands- Non tender to palpation CHEST/LUNG: Inspection- symmetric chest wall no pectus deformity. Reduced effort, no distress, no use of accessory muscles. gurgling sounds are present. Palpation- nontender sternum, ribline. No abnormal pulsations. Auscultation- Breath sounds diminshed throughout all lung [place]. tracheal sounds, bronchial sounds overlying sternum, Bronchovessicular sounds and vessicular breath sounds reduced and coarse sounding. Adventitious sounds- wheezes, rales, rhonchi. CARDIOVASCULAR: Carotid artery- normal, no bruits or abnormal pulsations. Jugular vein- no pulsations. Palpation/Percussion- Normal PMI, no palpable thrill dAuscultation- Regular rate and rhythm. No murmur noted in sitting, supine positions. Extremities- no digital clubbing, cyanosis, edema, increased warmth. ABDOMEN: Inspection- normal and no visible pulsations. Normal contour. Auscultation- Bowel sounds normal, no abdominal bruits. Palpation/Percussion- soft, non-tender, no rebound tenderness, no rigidity (guarding), no jar tenderness, no masses. Liver-no hepatomegaly, Spleen no splenomegaly, Hernias - none. Rectal not examined. Peripheral Vascular: Upper extremity Left- Normal temperature with pink nailbeds and no ulcerations. Upper extremity Right- Normal temperature with pink nailbeds and no ulcerations. Lower extremity- Normal temperature with pink nailbeds and no ulcerations. DP pulses 2+ bilaterally. Pedal hair intact. Normal capillary refill. Edema- No edema. Some e/o chronic venous stasis. No acute or worsening edema. Musculoskeletal: Generalized-No generalized swelling or edema of extremities, no digital clubbing or cyanosis, neurovascularly intact all four extremities. Upper extremity- Symmetrical posture. No visible deformity. Normal sensation along medial and lateral upper extremity proximally and distally. NO tenderness overlying shoulder, lateral/medial epicondyle. Thermoforming Machine Operator 5/5 and strength 5/5 bilateral UE. Elbow palpated, no tenderness overlying olecranon. Normal supination, pronation to active/passive ROM and to resisted rotation. Bicep insertion/tricep insertion appear normal without obvious pathology. Rotator cuff evaluated and intact. Normal wrist ROM bilaterally. Normal hand movement, intrinsic muscles of hands normal. No tenderness to palpation of hands/wrists/elbows. Lower extremity- Hip: Not tender to palpation, no pain, no swelling, edema or erythema of surrounding tissue, normal strength and tone. Normal appearing hip ROM bilaterally without pain. Knee: Knee ROM normal. No tenderness overlying trochanters, no tenderness about patella, quad tendon, patellar tendon. No tenderness at tibial tuberosity. Ankle: normal ROM not tender to palpation along medial/lateral malleolus. Foot: Normal movement of toes, no tenderness bilateral feet/toes. Normal foot type. Spine/Ribs- No deformities, masses or tenderness, no known fractures, normal strength, Normal ROM. Normal stability No tenderness along C/T/L spine. Normal appearing ROM about spine. Neurological: General- Moves all 4 extremities symmetrically. Symmetrical face and body posture. Cranial nerves- individually evaluated II-XII and intact. PERRLA, Normal EOMI, visual/special senses appear intact, Face is symmetrical and normal sensation/movement, normal tongue, normal strength/posture of neck musculature. Reflexes- intact with DTR 2+ patellar, Achilles, bicep, brachial, tricep. Ankle clonus normal with 2 beats. Strength- 5/5 bilateral UE and LE. Soft touch- intact bilateral UE and LE. Temperature sensation- intact bilateral UE and LE. [place] sign negative. [place] sign negative. Neuropsych: Oriented- Person, place, time. (AAOx3), Mood/affect- Pleasant, aware of day/date/time/president/my name/cit/county. Speech-Mild dysarthria. Thought content Impoversihed. Lymphatic: Head/Neck- normal size and non tender to palpation. Axillary- normal size and non tender to palpation. Femoral and Inguinal- normal size and non tender to palpation. Laboratory Results - last 24 hr 04/29/21 04/29/21 04/29/21 08:50 09:19 09:19 WBC RBC Hgb Hct MCV MCH MCHC RDW Coeff of Heather Plt Count Immature Gran % (Auto) Neut % (Auto) Lymph % (Auto) [place] % (Auto) Eos % (Auto) Baso % (Auto) Neut # (Auto) Lymph # (Auto) [place] # (Auto) Eos # (Auto) Baso # (Auto) Immature Gran # (Auto) Puncture Site R rad Base Excess 8.2 H O2 Saturation 99.7 H ABG pH 7.46 H ABG pCO2 45.0 ABG pO2 180.0 H ABG HCO3 32.0 H ABG Total CO2 33.4 H Clement Test + Hemoglobin 1.9 H Oxyhemoglobin 93.2 L Carboxyhemoglobin 2.7 H Total Hemoglobin 13.4 O2 Delivery Device Nc Oxygen Liter Flow 2.00 Sodium Potassium Chloride Carbon Dioxide Anion Gap BUN Creatinine Estimated GFR (MDRD) BUN/Creatinine Ratio Glucose Serum Osmolality Calcium Phosphorus Magnesium Total Bilirubin AST ALT Alkaline Phosphatase Total Creatine Kinase 912.5 H CK-MB (CK-2) 11.100 H* CK-MB (CK-2) % 1.2100 Troponin I NT-Pro-B Natriuret Pep Total Protein Albumin Globulin Albumin/Globulin Ratio Urine Color Urine Clarity Urine pH Ur Specific [place] Urine Protein Urine Glucose (UA) Urine Ketones Urine Blood Urine Nitrite Urine Bilirubin Urine Urobilinogen Ur Leukocyte Esterase Urine Microscopic RBC Ur Squamous Epith Cells Urine Osmolality Urine Opiates Screen Ur Oxycodone Screen Urine Methadone Screen Ur Propoxyphene Screen Ur Barbiturates Screen U Tricyclic Antidepress Ur Phencyclidine Scrn Ur Amphetamine Screen U Methamphetamines Scrn U Benzodiazepines Scrn Urine Cocaine Screen U Cannabinoids Screen Plasma/Serum Alcohol Adenovirus (PCR) Not detected B. pertussis DNA (PCR) Not detected B.parapertussis DNA PCR Not detected C. pneumoniae DNA (PCR) Not detected Coronavirus OC43 (PCR) Not detected Coronavirus HKU1 (PCR) Not detected Coronavirus 229E (PCR) Not detected Coronavirus NL63 (PCR) Not detected Human Metapneumovir PCR Not detected Influenza Type A (PCR) Not detected Influenza B (RT-PCR) Not detected M. pneumoniae (PCR) Not detected Parainfluenza 1 (PCR) Not detected Parainfluenza 2 (PCR) Not detected Parainfluenza 3 (PCR) Not detected Parainfluenza 4 (PCR) Not detected RSV (PCR) Not detected Entero/Rhino (PCR) Not detected SARS-CoV-2 (PCR) Not detected 04/29/21 04/29/21 04/29/21 09:19 09:19 09:19 WBC 17.20 H RBC 4.36 L Hgb 12.6 L Hct 33.9 L MCV 77.8 L MCH 28.9 MCHC 37.2 H RDW Coeff of Heather 11.1 L Plt Count 228 Immature Gran % (Auto) 0.8 Neut % (Auto) 88.2 H Lymph % (Auto) 4.7 L [place] % (Auto) 6.0 Eos % (Auto) 0.1 Baso % (Auto) 0.2 Neut # (Auto) 15.2 H Lymph # (Auto) 0.8 [place] # (Auto) 1.0 Eos # (Auto) 0.0 Baso # (Auto) 0.0 Immature Gran # (Auto) 0.1 Puncture Site Base Excess O2 Saturation ABG pH ABG pCO2 ABG pO2 ABG HCO3 ABG Total CO2 Clement Test Hemoglobin Oxyhemoglobin Carboxyhemoglobin Total Hemoglobin O2 Delivery Device Oxygen Liter Flow Sodium 95.1 L* Potassium 4.01 Chloride 57.3 L* Carbon Dioxide 31.7 H Anion Gap 10.11 BUN 8.0 L Creatinine 0.60 Estimated GFR (MDRD) 140.00 BUN/Creatinine Ratio 13.33 Glucose 129.7 H Serum Osmolality Calcium 7.89 L Phosphorus Magnesium Total Bilirubin 1.30 AST 80.3 H ALT 52.2 H Alkaline Phosphatase 97.0 Total Creatine Kinase CK-MB (CK-2) CK-MB (CK-2) % Troponin I < 0.012 NT-Pro-B Natriuret Pep Total Protein 6.21 L Albumin 3.98 Globulin 2.23 Albumin/Globulin Ratio 1.78 Urine Color Urine Clarity Urine pH Ur Specific [place] Urine Protein Urine Glucose (UA) Urine Ketones Urine Blood Urine Nitrite Urine Bilirubin Urine Urobilinogen Ur Leukocyte Esterase Urine Microscopic RBC Ur Squamous Epith Cells Urine Osmolality Urine Opiates Screen Ur Oxycodone Screen Urine Methadone Screen Ur Propoxyphene Screen Ur Barbiturates Screen U Tricyclic Antidepress Ur Phencyclidine Scrn Ur Amphetamine Screen U Methamphetamines Scrn U Benzodiazepines Scrn Urine Cocaine Screen U Cannabinoids Screen Plasma/Serum Alcohol Adenovirus (PCR) B. pertussis DNA (PCR) B.parapertussis DNA PCR C. pneumoniae DNA (PCR) Coronavirus OC43 (PCR) Coronavirus HKU1 (PCR) Coronavirus 229E (PCR) Coronavirus NL63 (PCR) Human Metapneumovir PCR Influenza Type A (PCR) Influenza B (RT-PCR) M. pneumoniae (PCR) Parainfluenza 1 (PCR) Parainfluenza 2 (PCR) Parainfluenza 3 (PCR) Parainfluenza 4 (PCR) RSV (PCR) Entero/Rhino (PCR) SARS-CoV-2 (PCR) 04/29/21 04/29/21 04/29/21 09:19 11:05 11:05 WBC RBC Hgb Hct MCV MCH MCHC RDW Coeff of Heather Plt Count Immature Gran % (Auto) Neut % (Auto) Lymph % (Auto) [place] % (Auto) Eos % (Auto) Baso % (Auto) Neut # (Auto) Lymph # (Auto) [place] # (Auto) Eos # (Auto) Baso # (Auto) Immature Gran # (Auto) Puncture Site Base Excess O2 Saturation ABG pH ABG pCO2 ABG pO2 ABG HCO3 ABG Total CO2 Clement Test Hemoglobin Oxyhemoglobin Carboxyhemoglobin Total Hemoglobin O2 Delivery Device Oxygen Liter Flow Sodium Potassium Chloride Carbon Dioxide Anion Gap BUN Creatinine Estimated GFR (MDRD) BUN/Creatinine Ratio Glucose Serum Osmolality 200 Calcium Phosphorus 1.95 L Magnesium 1.31 L Total Bilirubin AST ALT Alkaline Phosphatase Total Creatine Kinase CK-MB (CK-2) CK-MB (CK-2) % Troponin I NT-Pro-B Natriuret Pep Total Protein Albumin Globulin Albumin/Globulin Ratio Urine Color Yellow Urine Clarity Clear Urine pH 7.5 Ur Specific [place] 1.020 Urine Protein 1+ H Urine Glucose (UA) Trace H Urine Ketones 3+ H Urine Blood Trace-intact H Urine Nitrite Negative Urine Bilirubin Negative Urine Urobilinogen 1.0 H Ur Leukocyte Esterase Negative Urine Microscopic RBC 0-2 Ur Squamous Epith Cells 0-2 Urine Osmolality 418 Urine Opiates Screen Ur Oxycodone Screen Urine Methadone Screen Ur Propoxyphene Screen Ur Barbiturates Screen U Tricyclic Antidepress Ur Phencyclidine Scrn Ur Amphetamine Screen U Methamphetamines Scrn U Benzodiazepines Scrn Urine Cocaine Screen U Cannabinoids Screen Plasma/Serum Alcohol Adenovirus (PCR) B. pertussis DNA (PCR) B.parapertussis DNA PCR C. pneumoniae DNA (PCR) Coronavirus OC43 (PCR) Coronavirus HKU1 (PCR) Coronavirus 229E (PCR) Coronavirus NL63 (PCR) Human Metapneumovir PCR Influenza Type A (PCR) Influenza B (RT-PCR) M. pneumoniae (PCR) Parainfluenza 1 (PCR) Parainfluenza 2 (PCR) Parainfluenza 3 (PCR) Parainfluenza 4 (PCR) RSV (PCR) Entero/Rhino (PCR) SARS-CoV-2 (PCR) 04/29/21 04/29/21 04/29/21 11:05 13:10 13:30 WBC RBC Hgb Hct MCV MCH MCHC RDW Coeff of Heather Plt Count Immature Gran % (Auto) Neut % (Auto) Lymph % (Auto) [place] % (Auto) Eos % (Auto) Baso % (Auto) Neut # (Auto) Lymph # (Auto) [place] # (Auto) Eos # (Auto) Baso # (Auto) Immature Gran # (Auto) Puncture Site Base Excess O2 Saturation ABG pH ABG pCO2 ABG pO2 ABG HCO3 ABG Total CO2 Clement Test Hemoglobin Oxyhemoglobin Carboxyhemoglobin Total Hemoglobin O2 Delivery Device Oxygen Liter Flow Sodium 96.1 L* Potassium 4.23 Chloride 57.7 L* Carbon Dioxide 33.2 H Anion Gap 9.43 BUN 8.3 L Creatinine 0.58 L Estimated GFR (MDRD) 145.00 BUN/Creatinine Ratio 14.31 Glucose 119.5 H Serum Osmolality 203 Calcium 8.29 L Phosphorus 2.29 L Magnesium Total Bilirubin AST ALT Alkaline Phosphatase Total Creatine Kinase CK-MB (CK-2) CK-MB (CK-2) % Troponin I NT-Pro-B Natriuret Pep Total Protein Albumin Globulin Albumin/Globulin Ratio Urine Color Urine Clarity Urine pH Ur Specific [place] Urine Protein Urine Glucose (UA) Urine Ketones Urine Blood Urine Nitrite Urine Bilirubin Urine Urobilinogen Ur Leukocyte Esterase Urine Microscopic RBC Ur Squamous Epith Cells Urine Osmolality Urine Opiates Screen Negative Ur Oxycodone Screen Positive H Urine Methadone Screen Negative Ur Propoxyphene Screen Negative Ur Barbiturates Screen Negative U Tricyclic Antidepress Positive H Ur Phencyclidine Scrn Negative Ur Amphetamine Screen Negative U Methamphetamines Scrn Negative U Benzodiazepines Scrn Positive H Urine Cocaine Screen Negative U Cannabinoids Screen Negative Plasma/Serum Alcohol < 10.0 Adenovirus (PCR) B. pertussis DNA (PCR) B.parapertussis DNA PCR C. pneumoniae DNA (PCR) Coronavirus OC43 (PCR) Coronavirus HKU1 (PCR) Coronavirus 229E (PCR) Coronavirus NL63 (PCR) Human Metapneumovir PCR Influenza Type A (PCR) Influenza B (RT-PCR) M. pneumoniae (PCR) Parainfluenza 1 (PCR) Parainfluenza 2 (PCR) Parainfluenza 3 (PCR) Parainfluenza 4 (PCR) RSV (PCR) Entero/Rhino (PCR) SARS-CoV-2 (PCR) 04/29/21 04/29/21 04/29/21 13:30 15:32 17:48 WBC RBC Hgb Hct MCV MCH MCHC RDW Coeff of Heather Plt Count Immature Gran % (Auto) Neut % (Auto) Lymph % (Auto) [place] % (Auto) Eos % (Auto) Baso % (Auto) Neut # (Auto) Lymph # (Auto) [place] # (Auto) Eos # (Auto) Baso # (Auto) Immature Gran # (Auto) Puncture Site Base Excess O2 Saturation ABG pH ABG pCO2 ABG pO2 ABG HCO3 ABG Total CO2 Clement Test Hemoglobin Oxyhemoglobin Carboxyhemoglobin Total Hemoglobin O2 Delivery Device Oxygen Liter Flow Sodium 95.7 L* 98.7 L* Potassium 4.33 3.82 Chloride 59.2 L* 60.1 L* Carbon Dioxide 30.0 30.7 H Anion Gap 10.83 11.72 BUN 8.0 L Creatinine 0.58 L Estimated GFR (MDRD) 145.00 BUN/Creatinine Ratio 13.79 Glucose 113.4 H Serum Osmolality Calcium 8.16 L Phosphorus Magnesium Total Bilirubin AST ALT Alkaline Phosphatase Total Creatine Kinase CK-MB (CK-2) CK-MB (CK-2) % Troponin I NT-Pro-B Natriuret Pep 656.000 H Total Protein Albumin Globulin Albumin/Globulin Ratio Urine Color Urine Clarity Urine pH Ur Specific Floyd Urine Protein Urine Glucose (UA) Urine Ketones Urine Blood Urine Nitrite Urine Bilirubin Urine Urobilinogen Ur Leukocyte Esterase Urine Microscopic RBC Ur Squamous Epith Cells Urine Osmolality Urine Opiates Screen Ur Oxycodone Screen Urine Methadone Screen Ur Propoxyphene Screen Ur Barbiturates Screen U Tricyclic Antidepress Ur Phencyclidine Scrn Ur Amphetamine Screen U Methamphetamines Scrn U Benzodiazepines Scrn Urine Cocaine Screen U Cannabinoids Screen Plasma/Serum Alcohol Adenovirus (PCR) B. pertussis DNA (PCR) B.parapertussis DNA PCR C. pneumoniae DNA (PCR) Coronavirus OC43 (PCR) Coronavirus HKU1 (PCR) Coronavirus 229E (PCR) Coronavirus NL63 (PCR) Human Metapneumovir PCR Influenza Type A (PCR) Influenza B (RT-PCR) M. pneumoniae (PCR) Parainfluenza 1 (PCR) Parainfluenza 2 (PCR) Parainfluenza 3 (PCR) Parainfluenza 4 (PCR) RSV (PCR) Entero/Rhino (PCR) SARS-CoV-2 (PCR) 04/29/21 19:33 WBC RBC Hgb Hct MCV MCH MCHC RDW Coeff of Heather Plt Count Immature Gran % (Auto) Neut % (Auto) Lymph % (Auto) [place] % (Auto) Eos % (Auto) Baso % (Auto) Neut # (Auto) Lymph # (Auto) [place] # (Auto) Eos # (Auto) Baso # (Auto) Immature Gran # (Auto) Puncture Site Base Excess O2 Saturation ABG pH ABG pCO2 ABG pO2 ABG HCO3 ABG Total CO2 Clement Test Hemoglobin Oxyhemoglobin Carboxyhemoglobin Total Hemoglobin O2 Delivery Device Oxygen Liter Flow Sodium 100.3 L* Potassium 3.77 Chloride 62.3 L* Carbon Dioxide 29.6 Anion Gap 12.17 BUN 8.5 L Creatinine 0.50 L Estimated GFR (MDRD) 173.00 BUN/Creatinine Ratio 17.00 Glucose 119.0 H Serum Osmolality Calcium 7.94 L Phosphorus Magnesium Total Bilirubin AST ALT Alkaline Phosphatase Total Creatine Kinase CK-MB (CK-2) CK-MB (CK-2) % Troponin I NT-Pro-B Natriuret Pep Total Protein Albumin Globulin Albumin/Globulin Ratio Urine Color Urine Clarity Urine pH Ur Specific Floyd Urine Protein Urine Glucose (UA) Urine Ketones Urine Blood Urine Nitrite Urine Bilirubin Urine Urobilinogen Ur Leukocyte Esterase Urine Microscopic RBC Ur Squamous Epith Cells Urine Osmolality Urine Opiates Screen Ur Oxycodone Screen Urine Methadone Screen Ur Propoxyphene Screen Ur Barbiturates Screen U Tricyclic Antidepress Ur Phencyclidine Scrn Ur Amphetamine Screen U Methamphetamines Scrn U Benzodiazepines Scrn Urine Cocaine Screen U Cannabinoids Screen Plasma/Serum Alcohol Adenovirus (PCR) B. pertussis DNA (PCR) B.parapertussis DNA PCR C. pneumoniae DNA (PCR) Coronavirus OC43 (PCR) Coronavirus HKU1 (PCR) Coronavirus 229E (PCR) Coronavirus NL63 (PCR) Human Metapneumovir PCR Influenza Type A (PCR) Influenza B (RT-PCR) M. pneumoniae (PCR) Parainfluenza 1 (PCR) Parainfluenza 2 (PCR) Parainfluenza 3 (PCR) Parainfluenza 4 (PCR) RSV (PCR) Entero/Rhino (PCR) SARS-CoV-2 (PCR) ASSESSMENT: Please see below. Hyponatremia: The patient has met criteria for severe hyponatremia. We have reached out to the several local institutions and no hospital beds are available for this patient in a intensive care unit. We have opted to maintain the patient in the emergency room and to continue to search for additional hospital beds for the patient. The duration of the hyponatremia is not known. When I talk with the patient in the emergency room at 930 this evening, he noted he had been feeling fine over the last week but only started feeling bad today. By definition acute hyponatremia is any that has developed in a period of less than 48 hours. Because this patient has developed symptoms at home it will be considered chronic for further work-up of this patient. However they true chronicity of this problem is unknown at this time. Severe hyponatremia is considered when less than 120 mEq/L and has the highest risk for demyelination syndrome. The patient has mild to moderate symptoms with headache fatigue lethargy nausea dizziness forgetfulness confusion and has no muscle cramps to report. Due to the extremely low sodium of less than 110 the mild to moderate symptoms may be a prelude to seizures as per up-to-date guidelines. The patient definitely meets criteria for observation and in this case intensive care unit level of care. As noted above due to Covid we do not have any intensive care units within a large radius of our hospital. The chandler for this patient is to avoid overcorrection. The recommended guidelines suggest no more than 8 mEq/L per 24 hours and ideally 4 to 6 mEq/L in that same time. Osmotic demyelination syndrome is permanent and often irreversible and I have discussed with patient and with the ER doctors today the risks for this syndrome if treating too much too fast. Those at greatest risk have sodium concentrations of less than 105 as does Mr. Johnston. Additionally history of alcoholism, malnutrition and hypophosphatemia add to the patient's risks. The literature suggests that a rate of 10 to 12 mEq/L may lead to the OTS more frequently and specifically a 18 mEq/L in 48 hours. Our patient was started on sodium 3% 10ml/hour, which was changed to 15ml/hour around 1-3pm today. I had patient receive 3% NS bolus of 100ml over 10 minutes and we had an increase in 4-6 meq/L as recommended. We do not have desmopressin to give. We have reviewed the causes of rapidly reversible hyponatremia. I am concerned about possible adrenal insufficiency. Patient is at risk for sodium being too low and too high. We discussed this with him today. Additional mechanisms will be used to reduce the risks of further hyponatremia to include stopping the HCTZ, restricting free water intake eliminate IV fluids and to increase dietary salt intake. Based on the patient serum osmolality of 200, he falls into the category of hypotonic hyponatremia. His glomerular filtration rate is not significantly impaired. Because he was on the thiazide this may be the ultimate cause of the hyponatremia. He does not appear to be edematous, his blood pressure is not low and he does have evidence of postural hypotension. I have added a urine sodium and a urine osmolality for midnight tonight. There are limitations with my lab and using outlying send out labs. As an example I do not have the ability to do an ACTH stimulation test but I can order a random cortisol at midnight. Concern for possible primary adrenal insufficiency and possible hypothyroidism. - Consult in ER. Critical care time 1 hour [id number] - 100 cc bolus 3% Saline at 0900 - Goal 4-6meq/L increase in sodium - Limit fluids, saline lock. No routine fluids. Patient can eat. - Re-evaluate labs at 1200 then again at 0400. - CBC/CMP at 0000. - Cortisol and TSH at 0000 - We will check urine saline, serum and urine osmol at 0000. - CMP again at 0400. - Hydrocortisone 100mg bolus after cortisol. consider repeat 50mg bolus q 6-8 hours. Hypocalcemia: Monitor CMP/bmp. Will check ionized calcium. Cortisol may improve this. Stopping the thiazide will imporve this. Negative chvostek and trousseau signs today. He has mild tachycardia and hypertension worth monitoring. - labs as listed. Repeat Ionized. Labs at 0000 and 0400. Hypophos: Repeat labs as listed. Will get another phos at 0400. consider replacement if phos remains low. use oral replacement. Current guidelines support no treatment for low phos if >2.0. It is noted that these should self/autocorrect and should not be given replacement except when urinary phosphate wasting is considered. Will check daily phos and if <2.0 consider oral replacement. May consider sodium phosphate and or adding skim milk (phosphate 15mmol per 480ml). Hypomag: Repeat labs as listed. Will get another mg++ at 0400. consider replacement. Regarding magnesium of 1.31, I would like to repeat in am. We will consider oral replacement w/ mag chloride (Slow Mag) daily. Repeat again in am tomorrow phos/mag. Leukocytosis: WBC 17.20 iff of neutrophils 88.2, lymphs 4.7%. Monitor. Repeat CBC tomorrow. Anemia: Hgb 12.6, down from 13.7 1 month prior. MCV is low at 77.8. RDW is low at 11.1. Alkalosis: Metabolic alkalosis with respiratory compensation. Alcohol abuse: thiamine 100mg IV daily. ETOH in hospital was negative. Wheezing/coarse breath sounds. Albuterol/ipratropium. Monitor for low K+. Albuterol could make the K+ worse. Sacral decubitus ulcer: Padding encouraged. Calmoseptinne if available. Offload weight. Diet: Normal diet DVT Prophy: VIOLETA/SCD w/ fall, risks for seizures, concern for bleed. Disposition: Plan at present is to keep in ED incase a bed becomes available. Should patient improve another 4-6 today, this should be to ~105, we will consider admission to floor with 2-3x daily BMP for sodium eval, and SCU level surveillance. Increase daily by 4-6 meq/L until >125. At that point d/c home with ?endocrinology evaluation. High risk patient, will be left in ER as he still may require ICU. He is at high risk for ODS. R/B/A to meds d/w patient, SE reviewed, handout offered regarding medications listed. We discussed treatment options. Total time spent today working with patient, discussing with ER, Pharmacy, evaluating patient just beyond 4 hours. Critical care time face to face in room total 1 hour as listed above. Total time with patient floor/phone calls/ER team contacting other hospitals, [facility], [facility], d/w specialists 4 hours of total time today. Time Spent: Total 4 hours Critical Care Time 1 hour.
[2021-04-29] MEDS: VENTOLIN HFA (PER PUFF-WITH SPACER) IH PRN (23:25)
[2021-04-29] MEDS: ATROVENT HFA INHALER (PER PUFF-WITH SPACER) IH SCH (23:25)
[2021-04-30] MEDS ORDERED: SOLU-CORTEF 100 MG IVP ONE
[2021-04-30 00:40] LABS: BASOPHILS % (AUTO) 0.2 % (0.0-3.0); EOSINOPHILS # (AUTO) 0.1 K/ul (0.0-0.7); EOSINOPHILS % (AUTO) 0.7 % (0.0-7.0); HEMATOCRIT 33.1 % (42.0-52.0); HEMOGLOBIN 12.2 g/dl (14.0-18.0); IMMATURE GRANULOCYTE # (AUTO) 0.1 (0.0-1.0); IMMATURE GRANULOCYTE % (AUTO) 0.5 % (0.0-5.0); LYMPHOCYTES # (AUTO) 1.2 K/uL (0.60-3.4); MEAN CORPUSCULAR HEMOGLOBIN 29.2 pg (27.0-31.0); MEAN CORPUSCULAR HGB CONC 36.9 (31.8-35.4); MEAN CORPUSCULAR VOLUME 79.2 fl (80.0-94.0); MONOCYTES # (AUTO) 0.9 K/uL (0.4-2.0); NEUTROPHILS # (AUTO) 9.5 K/ul (2.0-6.9); NEUTROPHILS % (AUTO) 80.6 % (42.2-75.2); PLATELET COUNT 210 10^3/uL (140-440); RDW COEFFICIENT OF VARIATION 11.3 % (11.6-14.8); RED BLOOD COUNT 4.18 10^6/ul (4.70-6.10); WHITE BLOOD COUNT 11.78 K/ul (4.2-10.2)
[2021-04-30 00:47] LABS: ALANINE AMINOTRANSFERASE 54.4 U/L (0-50); ALBUMIN 3.79 g/dL (3.5-5.0); ALKALINE PHOSPHATASE 84.4 U/L (38-126); ASPARTATE AMINO TRANSFERASE 112.4 U/L (17-59); BILIRUBIN,TOTAL 1.55 mg/dL (0.2-1.3); BLOOD UREA NITROGEN 8.3 mg/dL (9-20); CALCIUM 8.11 mg/dL (8.4-10.2); CREATININE 0.52 mg/dL (0.60-1.10); GLUCOSE 105.6 mg/dL (74-106); POTASSIUM 3.64 mmol/L (3.5-5.1); TOTAL PROTEIN 6.04 g/dL (6.3-8.2)
[2021-04-30 00:52] LABS: CHLORIDE 65.8 mmol/L (98-107); SODIUM 101.6 mmol/L (134.5-145)
[2021-04-30 04:39] LABS: BLOOD UREA NITROGEN 7.6 mg/dL (9-20); CALCIUM 8.4 mg/dL (8.4-10.2); CARBON DIOXIDE 31.6 mmol/L (22-30.0); CREATININE 0.61 mg/dL (0.60-1.10); GLUCOSE 103.7 mg/dL (74-106); MAGNESIUM 1.57 mg/dL (1.6-2.3); PHOSPHORUS 2.29 mg/dL (2.5-4.5); POTASSIUM 3.74 mmol/L (3.5-5.1)
[2021-04-30 05:03] LABS: SODIUM 104.9 mmol/L (134.5-145)
[2021-04-30 05:04] LABS: CHLORIDE 65.6 mmol/L (98-107)
[2021-04-30] MEDS: VENTOLIN HFA (PER PUFF-WITH SPACER) IH PRN ×5 (06:05→23:26)
[2021-04-30] MEDS: ATROVENT HFA INHALER (PER PUFF-WITH SPACER) IH SCH ×4 (06:06→23:27)
--- NOTE | 2021-04-30 06:27 | PCM.CONS ---
Chief Complaint: hyponatremia, altered mental status, incontinence of urine, hypomag, hypophos, leukcytosis, ETOH abuse. History of Present Illness: 55 year old /WHITE/M ER day #2 boarded in ER due to concern/risks/need for ICU and no availability. Patient is currently in ER room 4. I saw patient last pm, worked with patient through the day yesterday. Concern for beer potomania, polydipsia, thiazide effect as causes for multifactorial hyponatremia. I have ordered repeat metabolic panel for midnight and for 4:00 in the morning. Midnight metabolic panel showed sodium increased to 101.6, potassium 3.64, chloride 65.8, BUN 8.3, creatinine 0.52, GFR 165, glucose 105.6, calcium 8.11, AST 112.4, ALT 54.4, this is now closer to a 2:1 ratio than what was present before. AST has increased from about 8212.4. Albumin 3.79. Corrected calcium 8.3 which is now nearly normal. He had no [place], or Trousseau sign yesterday. Serum osmolality at 1215 was 208. Urine osmolality was 396 down from 418 and urine random sodium was 54. At 4:00 sodium 104.9 up just about 9 mEq/L. We have not had any more fluids running at this time. Potassium remains okay at 3.74, BUN 7.6 with creatinine 0.61. GFR 137. Phosphorus mildly low at 2.29, magnesium 1.57 mildly low as well. I have reviewed the nursing notes. Patient has attempted several times to go to bed. I found the same behavior last night. He seemed less confused when I saw him in the ER but still glassy eye appearance and cognitive slowing present. At 1835 last night patient incontinent of urine, voided 400 cc. Bed was cleaned. When I saw him last night at 2130 patient had incontinence of stool as well. He reports no pain, and noted he felt fine up until yesterday. Based on presentation leukocytosis is improving, anemia is present and microcytic but has a low RDW which is opposite of iron deficiency. I have started the patient on Solu-Cortef 100 mg at midnight and I will do 50 mg every 6 hours. I will provide replacement for phosphorus and magnesium. It appears calcium is correcting itself and it appears sodium is correcting as well. Again our goal is 4 to 6 mEq per 24 hours with max of 8. He has had just at 9 in the last 24 hours. Ideally would have less than 18 in a 48-hour period of time. We are still waiting for an ICU bed for patient I suspect if we do not get a bed today that I will admit patient to continue the work-up that we have started. We discussed with patient as well as ER team that due to coronavirus pandemic that we are doing the best option for this particular patient despite the limitations of a critical [facility]. 2051 BP 158/77, HR 93, o2 94% on 2L. Discussed case with SUPPLY CLERK Randi this am. She noted patient is more calm, sleeping better. BP seems better, he overall has done well. The TSH was inadvertantly ordered for 1200 today. I have changed that to 0800. I have ordered repeat CMP for 8 am and will try to get sodium q 4 hours. Current guidelines support no treatment for low phos if >2.0. It is noted that these should self/autocorrect and should not be given replacement except when urinary phosphate wasting is considered. Will check daily phos and if <2.0 consider oral replacement. May consider sodium phosphate and or adding skim milk (phosphate 15mmol per 480ml). Regarding magnesium of 1.57 (which is near normal of 1.6 to 2.3, we can consider oral replacement w/ mag chloride (Slow Mag) daily. Repeat again in am tomorrow phos/mag. Review of the algorithm of hyponatremia today. Hyperglycemia is not present, no pseudohyponatremia, Serum osmolality remains <280 and falls into category of hypotonic hyponatremia. GFR is not impaired to suggest renal failure. NO edema, ascites. Here is where the algorithm splits and becomes complicated for patient. He has mentioned feeling fine up until yesterday. But then noted dizziness with postural chagnes. Using that statement, urine sodium should be checked and urine sodium is 54 (41 1051 yesterday). Based on the algorithm, hypovolemic hyponatremia is present. Cortisol was measured, I did start him on GC to cover as cortisol will not be back in a while. He has stopped his diuretic to cover for diuretic induced process. No head injury to suggest cerebral salt wasting, negative CT head yesterday.. Returning to the algorithm, assuming no signs of hypovolemia, urine osmolality was 396, urine sodium was again >40 as noted abovve. It was recommended to eval for GC deficiency and severe hypothyroid. As noted I have him on GC replacement and have checked a TSH for this am. I cannot to an ACTH stim test, I have no ICU, I have no specialty services available for endocrinology, nephrology. Repeat Sodium 08:06 was 106, potassium 3.48, chloride 66.5, CO2 32.4, BUN 7.1, creatinine 0.60, calcium 8.38, bilirubin has decreased a little bit to 1.47, AST 111 ALT 57.9. I have added thiamine 100 mg daily. I will not provide any more hypertonic saline today. As he has had more than 11 point increase in 24 hours as recommended to be less than 18meq/L in 48 hours. I believe the steroids are working and we will check his levels again in 4 hours. If they are continuing to increase we may not use any more hypertonic saline. He has been given a snack tray/meal and if needed liquid I have requested Pedialyte instead of fresh water. He will continue to get Solu-Cortef 50 mg every 6 hours. He has requested today something for diarrhea. He has had 2 bowel movements 1 daily yesterday and one today which he says were explosive. Per nursing this does not look explosive Nor watery. Patient seen again in ED. Still waiting for transfer to ICU. Wyatt KLINE called [phone]. 5 minute conversation. Update [facility], nobody has ICU beds. [facility]. Contacted me today Dr. Alvarez. No hospital beds. [facility]. [facility] access center. They will give access to numerous numbers. [phone]. Additionaly look through [facility] in [place]. Another discussion, negative. We have reached out to [facility], we lost ground in our ICU spot due to other admissions. Still waiting on possible transfer. If no ability transfer in next few hours we may admit to our hospital to free up an ER bed. I saw patient today from 6:30-7:30am for critical care time. Patient has critical metabolic abnormality that requires ICU admission. No ICU beds are available. Constitutional: Weakness, Fatigue and Loss of appetite Eyes: No symptoms Ears: No symptoms Nose: No symptoms Throat: No symptoms Mouth: No symptoms Respiratory: Cough, Shortness of air, Wheeze and Pain with breathing Cardiovascular: No symptoms Gastrointestinal: Abdominal pain, Nausea and Diarrhea; No Melena, Hematemesis, Hematochezia or Dysphagia Genitourinary: dysuria and incontinence Neurological: Headache, Dizziness, Weakness, Speech difficulty, Problems with walking and Fainting; No Seizure, Numbness or Tremor Musculoskeletal: Pain (back. ) Skin: Rash, Bruising and Other (decubitus ulcer) Immunology: No symptoms Hematology: No symptoms Endocrine: Weight changes and Excessive thirst Psychiatric: Depression, Anxiety and Hopelessness Habits: Tobacco use, Substance use and Alcohol use Past Medical History: ADHD, Back pain chronic, Bipolar disorder, Chronic Diarrhea, Diverticulitis, H/O Colostomy, HTN, Chronic tobacco. Marijuana use. Past Surgical History: Herniorrhaphy, colostomy historically/reversed, ureter surgery age 18, lower leg surgery right, carpal tunnel surgery, tonsillectomy. Allergies Allergy/AdvReac Type Severity Reaction Status Date / Time Iodinated Contrast Media Allergy Intermediate Flushing Verified 04/29/21 08:26 [Iodinated Contrast Media - IV Dye] lamotrigine [From Lamictal] AdvReac Intermediate rash Verified 04/29/21 08:26 Medications: Medications Generic Name Dose Route Start Last Admin Trade Name Freq PRN Reason Stop Dose Admin Albuterol Sulfate 2 puff 04/29/21 19:25 04/29/21 23:25 Albuterol Sulfate (Ventolin Hfa) 18 Gm 1 Puff With Spacer IH 2 puff ONCE PRN Administration SOB Thiamine HCl 100 mg/ Sodium 51 mls @ 100 mls/hr 04/30/21 09:00 Chloride IV 04/30/21 09:30 ONCE ONE Ipratropium Crane 2 puff 04/30/21 00:00 04/29/21 23:25 Ipratropium Crane 12.9 Gm Hfa Inhaler Per Puff With Spacer IH 2 puff RTQ6H MAHIN Administration Sodium Chloride 1 syr 04/29/21 09:51 0.9% Sodium Chloride 10 Ml Disp.Syrin IVF PRN PRN To flush IV Past Family History: Father Emphysema. Mother living 78 malignant neoplasm. Aunts with colon, throat and lung cancers. 2 children 1 bio and 1 step 29 son and 21 daughter (step). Past Social History: Current every day smoker since age 16 >50 pack years. 74 pack years as of 06/02/18. Was up to 3ppd for a while. HIstory of ETOH abuse, no ETOH now. Lives with GF who also was ex . Physical Examination: Vitals: Temperature 98.0 F, Pulse 96, Respirations 20, Blood Pressure 165/97, SPO2 97 Body Measurements: Height 5 ft 7 in, Weight 246 lb 11.156 oz, BMI 38.6-Obese Vital Signs Temp Pulse Resp BP Pulse Ox 04/30/21 09:29 86 18 133/89 100 04/30/21 08:47 97.7 F 85 24 151/97 H 96 04/29/21 08:17 98.0 F 96 H 20 165/97 H 97 Constitutional:Appearance-More talkative, remains disheveled. stage 2 sacral decubitus ulcer mid buttock/sacral region. Mild distress. Changes to eyelids with weakness. 4 mm pupils with reactive nature. Unchanged. He was talkative, open, discussed case with me again today. Aware of day/date/time/county/hospital, my name. Able to do basic computations. Orientation- Oriented x 3, alertalthought a little somnnolent. Build and Nutrition-[Obese Male]General- Patient is slurrinng words a little, mild cognitive decline. Integumentary: General-No rashes, ulcers or lesions. Bruising along the left lateral forearm (bandaged) this am. ecchymosis alonng left posterior bicep, left lateral hip/flank.Numerous Sk on back. No e/o secondary infection or worsening.Palpation- Normal skin moisture/turgor. Skin is warm to touch, appropriate. Capillary refill is normal bilateral Upper and lower extremity. Head/Neck:Head- normocephalic and atraumatic.Neck- without visible/palpable lumps or pulsations.Palpation- No bony tenderness about head/neck along frontal, occipital, temporal, parietal, mastoid, jawline, zygoma, orbit or any other location. NO temporal artery tenderness. No TMJ tenderness. Neck Supple.Thyroid-No thyromegaly, no nodules Eye:Bilaterally PERRLA, EOMI. No discharge. Upper and lower eyelids are normal. Sclera/conjunctiva normal without discharge. Cornea is normal and clear. Lens is normal. Eyeball appears normal. No ciliary flushing, no conjunctival injection. Mild sluggish eyelids bilaterally. Unchanged. ENMT:Nose and sinus- No sinus tenderness along frontal/maxillary region. External appearance normal and midline.Nares- bilateral quiet airflow, no discharge.Nasal mucosa- No bleeding noted and no ulcerations observed. [place], moist. Turbinates non boggy.Lips-normal color, moist without cracks/lesions Oral Cavity/Palate- hard/soft palate intact without lesions, oral mucosa pink and moist. Tongue normal midline.Oropharynx- no pharyngeal erythema, Uvula midline. No post nasal drip. No exudate.Salivary glands- Non tender to palpation CHEST/LUNG:Inspection- symmetric chest wall no pectus deformity. Reduced effort, no distress, no use of accessory muscles. gurgling sounds are present. Palpation- nontender sternum, ribline. No abnormal pulsations.Auscultation- Breath sounds diminshed throughout all lung de [place] cruz. tracheal sounds, bronchial sounds overlying sternum, Bronchovessicular sounds and vessicular breath sounds reduced and coarse sounding.Adventitious sounds- wheezes, rales, rhonchi.These persist. Chronic/baseline state. CARDIOVASCULAR:Carotid artery-normal, no bruits or abnormal pulsations.Ju gular vein- no pulsations.Palpation/Percussion- Normal PMI, no palpable thrill dAuscultation- Regular rate and rhythm. No murmur noted in sitting, supine positions.Extremities- no digital clubbing, cyanosis, edema, increased warmth. ABDOMEN:Inspection- normal and no visible pulsations. Normal contour. Auscultation- Bowel sounds normal, no abdominal bruits.Palpation/Percussion- soft, non-tender, no rebound tenderness, no rigidity (guarding), no jar tenderness, no masses.Liver-no hepatomegaly,Spleen no splenomegaly,Hernias - none.Rectalnot examined. Peripheral Vascular:Upper extremityLeft- Normal temperature with pink nailbeds and no ulcerations.Upper extremity Right-Normal temperature with pink nailbeds and no ulcerations.Lower extremity- Normal temperature with pink nailbeds and no ulcerations. DP pulses 2+ bilaterally. Pedal hair intact. Normal capillary refill.Edema- No edema. Some e/o chronic venous stasis. No acute or worsening edema. Musculoskeletal:Generalized-No generalized swelling or edema of extremities, no digital clubbing or cyanosis, neurovascularly intact all four extremities. Neurological:General- Moves all 4 extremities symmetrically. Symmetrical face and body posture.Cranial nerves- individuallyevaluated II-XII and intact. PERRLA, Normal EOMI, visual/special senses appear intact, Face is symmetrical and normal sensation/movement, normal tongue, normal strength/posture of neck musculature.Reflexes- intact with DTR 2+ patellar, Achilles, bicep, brachial, tricep. Ankle clonus normal with 2 beats. Strength-5/5 bilateral UE and LE. Soft touch- intact bilateral UE and LE.Temperature sensation-intact bilateral UE and LE. Neuropsych:Oriented- Person, place, time. (AAOx3),Mood/affect- Pleasant, aware of day/date/time/president/my name/cit/county.Speech-Mild dysarthria. Thought content Impoverished. Lymphatic: Head/Neck- normal size and non tender to palpation.Axillary- normal size and non tender to palpation.Femoral and Inguinal- normal size and non tender to palpation. Laboratory Last Values WBC 11.78 K/ul (4.2-10.2) H D 04/30/21 00:27 RBC 4.18 10^6/ul (4.70-6.10) L 04/30/21 00:27 Hgb 12.2 g/dl (14.0-18.0) L 04/30/21 00:27 Hct 33.1 % (42.0-52.0) L 04/30/21 00:27 MCV 79.2 fl (80.0-94.0) L 04/30/21 00:27 MCH 29.2 pg (27.0-31.0) 04/30/21 00: MCHC 36.9 (31.8-35.4) H 04/30/21 00:27 RDW Coeff of Heather 11.3 % (11.6-14.8) L 04/30/21 00: Plt Count 210 10^3/uL (140-440) 04/30/21 00: Immature Gran % (Auto) 0.5 % (0.0-5.0) 04/30/21 00: Neut % (Auto) 80.6 % (42.2-75.2) H 04/30/21 00:27 Lymph % (Auto) 10.0 (10.0-50.0) 04/30/21 00:27 [place] % (Auto) 8.0 (0-10) 04/30/21 00:27 Eos % (Auto) 0.7 % (0.0-7.0) 04/30/21 00:27 Baso % (Auto) 0.2 % (0.0-3.0) 04/30/21 00:27 Neut # (Auto) 9.5 K/ul (2.0-6.9) H 04/30/21 00:27 Lymph # (Auto) 1.2 K/uL (0.60-3.4) 04/30/21 00:27 [place] # (Auto) 0.9 K/uL (0.4-2.0) 04/30/21 00:27 Eos # (Auto) 0.1 K/ul (0.0-0.7) 04/30/21 00:27 Baso # (Auto) 0.0 K/uL (0-0.2) 04/30/21 00:27 Immature Gran # (Auto) 0.1 (0.0-1.0) 04/30/21 00:27 Puncture Site R rad 04/29/21 09:19 Base Excess 8.2 (-2.0-3.0) H 04/29/21 09:19 O2 Saturation 99.7 % (94-98) H 04/29/21 09:19 ABG pH 7.46 (7.35-7.45) H 04/29/21 09:19 ABG pCO2 45.0 mmHg (35-45) 04/29/21 09:19 ABG pO2 180.0 mmHg (85-100) H 04/29/21 09:19 ABG HCO3 32.0 (21-28) H 04/29/21 09:19 ABG Total CO2 33.4 (19-24) H 04/29/21 09:19 Clement Test + 04/29/21 09:19 Hemoglobin 1.9 (0-1.5) H 04/29/21 09:19 Oxyhemoglobin 93.2 % (95-100) L 04/29/21 09:19 Carboxyhemoglobin 2.7 (0.5-1.5) H 04/29/21 09:19 Total Hemoglobin 13.4 g/dl (11.7-17.4) 04/29/21 09:19 O2 Delivery Device Nc 04/29/21 09:19 Oxygen Liter Flow 2.00 04/29/21 09:19 Sodium 106.0 mmol/L (134.5-145) L* 04/30/21 08:06 Potassium 3.48 mmol/L (3.5-5.1) L 04/30/21 08:06 Chloride 66.5 mmol/L (98-107) L* 04/30/21 08:06 Carbon Dioxide 32.4 mmol/L (22-30.0) H 04/30/21 08:06 Anion Gap 10.58 04/30/21 08:06 BUN 7.1 mg/dL (9-20) L 04/30/21 08:06 Creatinine 0.60 mg/dL (0.60-1.10) 04/30/21 08:06 Estimated GFR (MDRD) 140.00 mL/min 04/30/21 08:06 BUN/Creatinine Ratio 11.83 04/30/21 08:06 Glucose 96.0 mg/dL (74-106) 04/30/21 08:06 Serum Osmolality 208 04/30/21 00:15 Calcium 8.38 mg/dL (8.4-10.2) L 04/30/21 08:06 Phosphorus 2.29 mg/dL (2.5-4.5) L 04/30/21 04:21 Magnesium 1.57 mg/dL (1.6-2.3) L 04/30/21 04:21 Total Bilirubin 1.47 mg/dL (0.2-1.3) H 04/30/21 08:06 AST 111.0 U/L (17-59) H 04/30/21 08:06 ALT 57.9 U/L (0-50) H 04/30/21 08:06 Alkaline Phosphatase 92.5 U/L (38-126) 04/30/21 08:06 Total Creatine Kinase 912.5 U/L (55-170) H 04/29/21 09:19 CK-MB (CK-2) 11.100 ng/ml (0.0-2.38) H* 04/29/21 09:19 CK-MB (CK-2) % 1.2100 04/29/21 09:19 Troponin I < 0.012 ng/ml (0.0000-0.120) 04/29/21 09:19 NT-Pro-B Natriuret Pep 656.000 pg/mL (0-124) H 04/29/21 13:30 Total Protein 6.44 g/dL (6.3-8.2) 04/30/21 08:06 Albumin 4.10 g/dL (3.5-5.0) 04/30/21 08:06 Globulin 2.34 04/30/21 08:06 Albumin/Globulin Ratio 1.75 04/30/21 08:06 Urine Color Yellow (YELLOW) 04/29/21 11:05 Urine Clarity Clear (CLEAR) 04/29/21 11:05 Urine pH 7.5 (5-9) 04/29/21 11:05 Ur Specific [place] 1.020 (1.005-1.030) 04/29/21 11:05 Urine Protein 1+ (NEGATIVE) H 04/29/21 11:05 Urine Glucose (UA) Trace (NEGATIVE) H 04/29/21 11:05 Urine Ketones 3+ (NEGATIVE) H 04/29/21 11:05 Urine Blood Trace-intact (NEGATIVE) H 04/29/21 11:05 Urine Nitrite Negative (NEGATIVE) 04/29/21 11:05 Urine Bilirubin Negative (NEGATIVE) 04/29/21 11:05 Urine Urobilinogen 1.0 (0.2) H 04/29/21 11:05 Ur Leukocyte Esterase Negative (NEGATIVE) 04/29/21 11:05 Urine Microscopic RBC 0-2 (0-2) 04/29/21 11:05 Ur Squamous Epith Cells 0-2 (0-5) 04/29/21 11:05 Urine Osmolality 396 04/30/21 00:15 Ur Random Sodium 54.0 04/30/21 00:15 Urine Opiates Screen Negative (NEGATIVE) 04/29/21 11:05 Ur Oxycodone Screen Positive (NEGATIVE) H 04/29/21 11:05 Urine Methadone Screen Negative (NEGATIVE) 04/29/21 11:05 Ur Propoxyphene Screen Negative (NEGATIVE) 04/29/21 11:05 Ur Barbiturates Screen Negative (NEGATIVE) 04/29/21 11:05 U Tricyclic Antidepress Positive (NEGATIVE) H 04/29/21 11:05 Ur Phencyclidine Scrn Negative (NEGATIVE) 04/29/21 11:05 Ur Amphetamine Screen Negative (NEGATIVE) 04/29/21 11:05 U Methamphetamines Scrn Negative (NEGATIVE) 04/29/21 11:05 U Benzodiazepines Scrn Positive (NEGATIVE) H 04/29/21 11:05 Urine Cocaine Screen Negative (NEGATIVE) 04/29/21 11:05 U Cannabinoids Screen Negative (NEGATIVE) 04/29/21 11:05 Plasma/Serum Alcohol < 10.0 mg/dL (0.0-50.0) 04/29/21 13:30 Adenovirus (PCR) Not detected (NOT DETECT) 04/29/21 08:50 B. pertussis DNA (PCR) Not detected (NOT DETECT) 04/29/21 08:50 B.parapertussis DNA PCR Not detected (NOT DETECT) 04/29/21 08:50 C. pneumoniae DNA (PCR) Not detected (NOT DETECT) 04/29/21 08:50 Coronavirus OC43 (PCR) Not detected (NOT DETECT) 04/29/21 08:50 Coronavirus HKU1 (PCR) Not detected (NOT DETECT) 04/29/21 08:50 Coronavirus 229E (PCR) Not detected (NOT DETECT) 04/29/21 08:50 Coronavirus NL63 (PCR) Not detected (NOT DETECT) 04/29/21 08:50 Human Metapneumovir PCR Not detected (NOT DETECT) 04/29/21 08:50 Influenza Type A (PCR) Not detected (NOT DETECT) 04/29/21 08:50 Influenza B (RT-PCR) Not detected (NOT DETECT) 04/29/21 08:50 M. pneumoniae (PCR) Not detected (NOT DETECT) 04/29/21 08:50 Parainfluenza 1 (PCR) Not detected (NOT DETECT) 04/29/21 08:50 Parainfluenza 2 (PCR) Not detected (NOT DETECT) 04/29/21 08:50 Parainfluenza 3 (PCR) Not detected (NOT DETECT) 04/29/21 08:50 Parainfluenza 4 (PCR) Not detected (NOT DETECT) 04/29/21 08:50 RSV (PCR) Not detected (NOT DETECT) 04/29/21 08:50 Entero/Rhino (PCR) Not detected (NOT DETECT) 04/29/21 08:50 SARS-CoV-2 (PCR) Not detected (NOT DETECT) 04/29/21 08:50 Na/K Trends 04/29/21 04/29/21 04/29/21 Range/Units 09:19 13:30 15:32 Sodium 95.1 L* 96.1 L* 95.7 L* (134.5-145) mmol/L Potassium 4.01 4.23 4.33 (3.5-5.1) mmol/L 04/29/21 04/29/21 04/30/21 Range/Units 17:48 19:33 00:03 Sodium 98.7 L* 100.3 L* 101.6 L* (134.5-145) mmol/L Potassium 3.82 3.77 3.64 (3.5-5.1) mmol/L 04/30/21 04/30/21 Range/Units 04:21 08:06 Sodium 104.9 L* 106.0 L* (134.5-145) mmol/L Potassium 3.74 3.48 L (3.5-5.1) mmol/L Hyponatremia:The patient did okay overnight. Vitals reviewed and stable. Sodium has increased from 95.7 to 98.7 to 100.3 to 101.6 to 104.9 this am at 0400 to 106 at 0806. Reviewed telemetry, reviewed nursing notes, discussed case with ER doctor/nursing/pharmacy this am. Patient seen initially at [id number]. I have been on phone with ER for a total of another 30 minutes today. Labs rechecked at 0806. Sodium ordered for 1200 and TSH as well. I suspect adrenal insufficiency, mixed with thiazide and polydipsia. The patient has been givven solucortef 100mg yesterday. Will get 50mg q 6 hours. I have checked a TSH, pending. Free water intake has been elminated, no NS fluid running. He is up from 95.1 to 106 in 24 hours. I will hold on the repeat 3% dosing at this time. Will see how his sodium does over next 24 hours, consider repeat bolus 100ml 3% saline tomorrow. Goal 4-6meq/L per day. No more than 8meq/L in a day or 18meq/L in 48 hours. - 100 cc bolus 3% Saline at 0900 yesterday. consider repeat tomorrow. (NO 3% BOLUS FOR NOW) - Goal 4-6meq/L increase in sodium per day - Limit fluids, saline lock. No routine fluids. Patient can eat. - Diet regular with pedialyte to drink Limit to 1500 ml/day. - Re-evaluate labs sodium q 4 hours. - AM CBC/CMP daily - Daily mag/phos - Cortisol and TSH pending. - Daily urine osmol/urine sodium, serum osmol. - Hydrocortisone 500mg bolus q 6-8 hours. Hypocalcemia:Monitor calcium daily. This am 8.38 was 8.4 yesterday. This is beter than the 7.94 last night. ionized calcium pending. Albumin looks okay. He is on solu-cortef. Values are improving. Stopped the thiazide, I suspect it will improve this. Negative chvostek and trousseau signs today. He has mild tachycardia and hypertension worth monitoring. - labs as listed. - Await ionized calcium - Goal 8.40. Just at goal, no correction for now. Hypophos:Check daily. Repeat labs as listed. phos at 0400 was 2.29. When phos if >2.0 it is recommended not to treat and that it should self/autocorrect. Monitor. Will check daily phos and if <2.0 consider oral replacement. May consider sodium phosphate and or adding skim milk (phosphate 15mmol per 480ml). Hypomag:Repeat labs as listed daily phos/mag. Magnesium 1.57 and borderline normal. Yesterday magnesium of 1.31, I would like to repeat again tomorrow am. For now monitor. Leukocytosis: WBC 17.20 at initial check. Was 12.11 1 month ago 03/20/21 and 10.27 before that 07/15/20. Today wbc 11.78 and predmoninate neutrophils. Monitor. Repeat CBC daily am. Anemia: Hgb 12.6 yesterday, down from 13.7 at 1 month prior. MCV is low at 77.8. RDW is low at 11.1. Today WBC improved from 17.20 to 11.78 and hgb dropped from 12.6 to 12.2. The plt dropped from 228 to 210. This may be dilutional effect. Alkalosis:Metabolic alkalosis with respiratory compensation at admit. He is on o2. No tachypnea at present. Breathing seems baseline. ETOH Abuse/Transaminitis: 2:1 AST:ALT Ratio. On thiamine. ETOH negative at admit. Liver enzymes 112.4 AST/ALT 54.4 at midnight and then 111 and 57.9 at 0800 this am. Wheezing/coarse breath sounds.Albuterol/ipratropium. Monitor for low K+. Albuterol could make the K+ worse. Sacral decubitus ulcer:Padding encouraged. Calmoseptinne if available. Offload weight. Diet:Normal diet DVT Prophy:VIOLETA/SCD w/ fall, risks for seizures, concern for bleed. These were not on when I met with patient today. Encouraged nursing. C/O of ?Diarrhea: Nursing noted no diarrhea. He has had accident of stool x 2 wanted immodium. I will check Cdiff. I noted no reason for imodium with 2 stools in last 24 hours. - Cdiff ordered. Disposition:Plan at present is to keep in ED incase a bed becomes available. Should patient improve another 4-6 meq/L today, this should be to ~105, we will consider admission to floor with 2-3x daily BMP for sodium eval, and SCU level surveillance. Increase daily by 4-6 meq/L until >125. At that point d/c home with ?endocrinology evaluation. High risk patient, critical lab derangement, metabolic encephalopathy. , will be left in ER as he still may require ICU. He is at high risk for ODS. R/B/A to meds d/w patient, SE reviewed, handout offered regarding medications listed. We discussed treatment options. Total time spent today working with patient, discussing with ER, Pharmacy, evaluating patient just at 2.5 hours. I have talked with outlying hospitals, Physicians, reviewed data, discussed with ER team, checked back on patient again. Critical care time face to face in room total 1 hour as listed above. Total time with patient floor/phone calls/ER team contacting other hospitals, , [facility], d/w specialists 2.5 hours of total time today. Time Spent working on patient today 2.5 hours Critical Care Time 1 hour today. Addendum: 1900 After discussion with ER, with loss of place on hold/waiting lists, decision was made to put patient into hospital as full admit. Patient was eval by me again, orders entered, labs addressed, discussed case with nursing for another 30 minutes of time on this date of service. Total time today 3 hours of interactive care. Totl critical care time for this day (FACE TO FACE was 1 hour) Patient is critical, risks of seizing due to sodium. Risks of permanent osmotic demyelination. No ICU beds available. We are admitting him to critical access hospital as it is the best option for this patient in light of critical shortage due to SARS COV 19 pandemic. (1) Hyponatremia: Status: Acute Code(s): E87.1 - Hypo-osmolality and hyponatremia SNOMED Code(s): 20799532 (2) Hypomagnesemia: Status: Acute Code(s): E83.42 - Hypomagnesemia SNOMED Code(s): 198792542 (3) Hypophosphatasia: Status: Acute Code(s): E83.39 - Other disorders of phosphorus metabolism SNOMED Code(s): 712688685 (4) Leukocytosis: Status: Acute Code(s): D72.829 - Elevated white blood cell count, unspecified SNOMED Code(s): 254208265 (5) Anemia: Status: Acute Code(s): D64.9 - Anemia, unspecified SNOMED Code(s): 513113836 (6) Fall: Status: Acute Code(s): W19.XXXA - Unspecified fall, initial encounter SNOMED Code(s): 0133266 (7) Altered mental status: Status: Acute Code(s): R41.82 - Altered mental status, unspecified SNOMED Code(s): 703703953 (8) Chronic bronchitis with COPD (chronic obstructive pulmonary disease): Status: Acute Code(s): J44.9 - Chronic obstructive pulmonary disease, unspecified SNOMED Code(s): 106727432 (9) Dependence on supplemental oxygen: Status: Acute Code(s): Z99.81 - Dependence on supplemental oxygen SNOMED Code(s): 274919520766 (10) Hypocalcemia: Status: Acute Code(s): E83.51 - Hypocalcemia SNOMED Code(s): 6854874 (11) Metabolic encephalopathy: Status: Acute Code(s): G93.41 - Metabolic encephalopathy SNOMED Code(s): 08477606
[2021-04-30 08:20] LABS: ALANINE AMINOTRANSFERASE 57.9 U/L (0-50); ALBUMIN 4.1 g/dL (3.5-5.0); ALKALINE PHOSPHATASE 92.5 U/L (38-126); BILIRUBIN,TOTAL 1.47 mg/dL (0.2-1.3); BLOOD UREA NITROGEN 7.1 mg/dL (9-20); CALCIUM 8.38 mg/dL (8.4-10.2); CARBON DIOXIDE 32.4 mmol/L (22-30.0); CREATININE 0.6 mg/dL (0.60-1.10); POTASSIUM 3.48 mmol/L (3.5-5.1); TOTAL PROTEIN 6.44 g/dL (6.3-8.2)
[2021-04-30 08:28] LABS: CHLORIDE 66.5 mmol/L (98-107)
[2021-04-30] MEDS ORDERED: THIAMINE 100 MG in SODIUM CHLORIDE 50 ML IV ONE (09:00)
[2021-04-30 12:35] LABS: SODIUM 106.9 mmol/L (134.5-145)
[2021-04-30 12:47] LABS: THYROID STIMULATING HORMONE 0.572 uIU/L (0.465-4.68)
[2021-04-30] MEDS ORDERED: SOLU-CORTEF 250 MG IVP SCH ×2 (12:58→20:00)
[2021-04-30] MEDS: SOLU-CORTEF 100 MG IVP SCH ×2 (13:13→18:01)
[2021-04-30 15:20] VITALS: BMI 38.7
[2021-04-30] MEDS: ABILIFY PO SCH (17:23)
[2021-04-30] MEDS: PAMELOR PO SCH (17:23)
[2021-04-30] MEDS: VALIUM PO SCH (17:23)
[2021-04-30] MEDS: NEURONTIN PO SCH (20:04)
[2021-04-30] MEDS: ZESTRIL PO SCH (20:05)
[2021-04-30 20:07] LABS: SODIUM 107.5 mmol/L (134.5-145)
[2021-04-30 20:37] LABS: THYROID STIMULATING HORMONE 0.69 uIU/L (0.465-4.68)
[2021-04-30] MEDS: TYLENOL PO PRN (20:38)
[2021-05-01] MEDS: SOLU-CORTEF 100 MG IVP SCH ×5 (00:17→23:51)
[2021-05-01] MEDS: ATARAX PO PRN (01:57)
[2021-05-01 04:43] LABS: BASOPHILS % (AUTO) 0.1 % (0.0-3.0); EOSINOPHILS # (AUTO) 0.1 K/ul (0.0-0.7); EOSINOPHILS % (AUTO) 1.2 % (0.0-7.0); HEMATOCRIT 33.1 % (42.0-52.0); HEMOGLOBIN 11.9 g/dl (14.0-18.0); IMMATURE GRANULOCYTE # (AUTO) 0.1 (0.0-1.0); IMMATURE GRANULOCYTE % (AUTO) 0.6 % (0.0-5.0); LYMPHOCYTES # (AUTO) 1.7 K/uL (0.60-3.4); LYMPHOCYTES % (AUTO) 19.9 (10.0-50.0); MEAN CORPUSCULAR HEMOGLOBIN 29.4 pg (27.0-31.0); MEAN CORPUSCULAR VOLUME 81.7 fl (80.0-94.0); MONOCYTES # (AUTO) 0.9 K/uL (0.4-2.0); MONOCYTES % (AUTO) 10.8 (0-10); NEUTROPHILS # (AUTO) 5.8 K/ul (2.0-6.9); NEUTROPHILS % (AUTO) 67.4 % (42.2-75.2); PLATELET COUNT 201 10^3/uL (140-440); RDW COEFFICIENT OF VARIATION 11.5 % (11.6-14.8); RED BLOOD COUNT 4.05 10^6/ul (4.70-6.10); WHITE BLOOD COUNT 8.55 K/ul (4.2-10.2)
[2021-05-01 04:53] LABS: ALANINE AMINOTRANSFERASE 62.9 U/L (0-50); ALBUMIN 3.72 g/dL (3.5-5.0); ALKALINE PHOSPHATASE 82.5 U/L (38-126); ASPARTATE AMINO TRANSFERASE 90.2 U/L (17-59); BILIRUBIN,TOTAL 0.95 mg/dL (0.2-1.3); BLOOD UREA NITROGEN 8.1 mg/dL (9-20); CALCIUM 8.42 mg/dL (8.4-10.2); CARBON DIOXIDE 35.6 mmol/L (22-30.0); CREATININE 0.66 mg/dL (0.60-1.10); GLUCOSE 104.1 mg/dL (74-106); MAGNESIUM 1.63 mg/dL (1.6-2.3); PHOSPHORUS 2.66 mg/dL (2.5-4.5); POTASSIUM 3.17 mmol/L (3.5-5.1); TOTAL PROTEIN 5.88 g/dL (6.3-8.2)
[2021-05-01] MEDS: ATROVENT HFA INHALER (PER PUFF-WITH SPACER) IH SCH ×4 (05:01→23:11)
[2021-05-01] MEDS: VENTOLIN HFA (PER PUFF-WITH SPACER) IH PRN ×4 (05:01→23:11)
[2021-05-01] MEDS: IMODIUM PO PRN (06:04)
[2021-05-01 06:52] LABS: CHLORIDE 71.3 mmol/L (98-107); SODIUM 110.5 mmol/L (134.5-145)
--- NOTE | 2021-05-01 07:22 | PCM.PROG ---
Date Seen by Provider: 05/01/21 Time Seen by Provider: 07:00 Subjective: 55 yo CM this is now HD #2 was seen in ED on 04/29/21 with fall after getting onto bus, found to have severe life threatening hyponatremia, hypocalcemia, hypochloremia, hypophosphatemia, hypomagnesemia, leukocytosis, anemia, chronic COPD, chronic O2 dependence, incontinence of urine/stool, altered mental status. He was seen in ED and given 10-15ml/hour of 3% Saline all the while trying to find hospital bed that would take patient into ICU. Due to COVID pandemic, ~35 hospitals were contacted and none had capacity to take the patient. I was consulted, patient was given 100cc bolus of 3% saline. The osmolality serum/urinnen and sodium urine were all send out labs. It was felt that he was hypotonic hyponatremia based on algorithm and we started process of fluid restriction, and increase of sodium 4-6meq/L/day with max of 8meq/L/day or 18meq/L/day in 48 hours. TSH was checked and low normal/okay which suggested no significant hypothyroid symptoms. I will check a free t4 and total T3 in the chance that a pituitary failure was present. Additionally, based on the presentation, adrenal insufficiency was on the possibility. I ordered a cortisol in the am and started patient on solucortef 100mg once then 50mg q 6 hours. Sodium is improving. The patient started at 95.1 and increased to 108.4 by end of day yesterday. He was not given any more 3% 04/30/21. Thus between 04/29 and am of 05/01 he increased from 95-108 ~13 meq/L. Sodium at 1605 was 108.4. 107.5 at 1951. I was called by nursing with these values. This am with the [facility] patient is at 110.5, K+ is low at 3.17 now which is trending downward. BUN 8.1, cr 0.66, renal function is okay with gfr 125. AST improving from 110 to 90.2 and alt up a little at 62.9. Albumin is a little low at 3.72. I will add K+Cl- 20meq BID with meals starting today. CBC this am has resolved leukocytosis. WBC 8..55 and stable. The hgb dropped further to 11.9. Plt 201. I will add another serum osmolality, urine osmolality and urine sodium for 1200 today. Urine osmolality on 04/29 was 418 was 396 yesterday. Urine sodium 54 yesterday. Cortisol still pending. Last serum osmolality 208 yesterday am. Calcium has now corrected to 8.42. Magnesium is back to normal. Phos back to normal at 2.66. Potassium and sodium and chloride remain abnl. Patient will continue home meds. I did add immodium yesterday evening through nursing call after negativve cdiff. Patient was going to be admitted to SCU but with COVID issues, we need the negative pressure rooms and the SCU zone to be isolated. He was admitted to room 103 on medsurg A. Overnight vitals Reviewed: Remains afebrile. Pulse 85-98 in last 24 hours. BP yesterday am was still high 142-171/80-92, but was 119/76 at 2000, was 112/69 at 2147, 107/64 at 2347, 108/59 at 0045 nnk135/79 plus 114/69 at 0600. 02 at 2L NC. RR 18-20. Tele SR w/ 1st degree AVB. We reviewed tele through night as well. I+O reviewed. Not strict. Voids monitored and no c/o. Dinnner 75% consumed. Nursing notes reviewed. Patient mentioned headache last night and I put in order for Tylenol 500 mg 3 times daily as needed. Not from [facility] reviewed. Patient expressed COPD-like symptoms at 8 PM last night. Patient requested Imodium which was given. He had a negative C. difficile. No difficulty with voiding. IV site intact right hand. Small skin tear left forearm which we have been monitoring. Dry bandage in place. SCDs in place reason for use for blood clots however with concern for possible seizure I have opted to not use Lovenox for this patient. Fall precautions in place. Seizure pads in place. GCS 15 oriented fully at this point. The patient was uncomfortable and anxious at 2:00 this morning and Atarax was given. Critical lab of sodium 110 called this morning. Neurochecks remain unchanged vital signs stable. 6:00 this morning 1 loose stool. Imodium given. Patient does not have IVs at this time and diet has been encouraged for use of Pedialyte with meals instead of fresh water. Also Nexium twice daily with meals. REVIEW OF SYMPTOMS Constitutional: Weakness, Fatigue and Loss of appetite Eyes: No symptoms Ears: No symptoms Nose: No symptoms Throat: No symptoms Mouth: No symptoms Respiratory: Cough, Shortness of air, Wheeze and Pain with breathing Cardiovascular: No symptoms Gastrointestinal: Abdominal pain, Nausea and Diarrhea; No Melena, Hematemesis, Hematochezia or Dysphagia Genitourinary: dysuria and incontinence Neurological: Headache, Dizziness, Weakness, Speech difficulty, Problems with walking and Fainting; No Seizure, Numbness or Tremor Musculoskeletal: Pain (back. ) Skin: Rash, Bruising and Other (decubitus ulcer) Immunology: No symptoms Hematology: No symptoms Endocrine: Weight changes and Excessive thirst Psychiatric: Depression, Anxiety and Hopelessness Habits: Tobacco use, Substance use and Alcohol use Objective: Vital Signs - 24 hr 04/30/21 08:47 04/30/21 09:29 04/30/21 10:50 Temperature 97.7 F Pulse Rate 85 86 86 Pulse Rate [Apical] Respiratory Rate 24 18 19 Blood Pressure 151/97 H 133/89 152/92 H O2 Sat by Pulse Oximetry 96 100 97 04/30/21 12:51 04/30/21 14:45 04/30/21 15:40 Temperature 97.8 F Pulse Rate 93 H 98 H Pulse Rate [Apical] 94 H Respiratory Rate 18 24 Blood Pressure 142/77 H 171/92 H O2 Sat by Pulse Oximetry 98 98 04/30/21 16:05 04/30/21 17:00 04/30/21 17:55 Temperature 97.6 F Pulse Rate 94 H 96 H Pulse Rate [Apical] Respiratory Rate 20 Blood Pressure 160/89 H 150/86 H 160/86 H O2 Sat by Pulse Oximetry 96 04/30/21 19:00 04/30/21 20:00 04/30/21 21:47 Temperature 97.5 F L 98 F Pulse Rate 89 91 H Pulse Rate [Apical] 98 H Respiratory Rate 18 20 Blood Pressure 151/80 H 119/76 112/69 O2 Sat by Pulse Oximetry 96 96 04/30/21 22:20 04/30/21 23:47 05/01/21 00:45 Temperature Pulse Rate 86 Pulse Rate [Apical] Respiratory Rate 18 Blood Pressure 107/64 108/59 L O2 Sat by Pulse Oximetry 97 97 08/26/21 01:47 05/01/21 05:02 05/01/21 06:00 Temperature 97 F L 98.1 F Pulse Rate 95 H 83 Pulse Rate [Apical] Respiratory Rate 20 18 Blood Pressure 113/79 114/69 O2 Sat by Pulse Oximetry 97 95 97 Constitutional:Appearance-talkative, o2 in place. Left forearm skin tear is bandaged/healing. Sacral decub is bandaged/healing. Mild distress chronically, breathing at baseline..Previously noted weaknness of eyelids seems better. He is more alert, more activve. Likely improved significantly with sodium increase from 95 to 110. REactive pupils, follows. Follows commands. He is talkative, open, discussed case easily, follows suggestions and appears to understand. Aware of day/date/time/county/hospital, my name. Able to do basic computations. Orientation- Oriented x 3, alertremains a little somnnolent.Build and Nutrition-[Obese Male]General- Patient still has slurred words a little, mild cognitive decline.These are likely baseline. Integumentary: General-No rashes, ulcers or lesions. Bruising along the left lateral forearm (bandaged) this am. ecchymosis along left posterior bicep, left lateral hip/flank.Numerous Sk on back. No e/o secondary infection or worsening.Palpation- Normal skin moisture/turgor. Skin is warm to touch, appropriate. Capillary refill is normal bilateral Upper and lower extremity. Remains unchanged. Head/Neck:Head- normocephalic and atraumatic.Neck- without visible/palpable lumps or pulsations.Palpation- No bony tenderness about head/neck along frontal, occipital, temporal, parietal, mastoid, jawline, zygoma, orbit or any other location. NO temporal artery tenderness. No TMJ tenderness. Neck Supple.Thyroid-No thyromegaly, no nodules Eye:Bilaterally PERRLA, EOMI. No discharge. Upper and lower eyelids are normal. Sclera/conjunctiva normal without discharge. Cornea is normal and clear. Lens is normal. Eyeball appears normal. No ciliary flushing, no conjunctival injection. Mild sluggish eyelids bilaterally. Unchanged. ENMT:Nose and sinus- No sinus tenderness along frontal/maxillary region. External appearance normal and midline.Nares- bilateral quiet airflow, no discharge.Nasal mucosa- No bleeding noted and no ulcerations observed. [place], moist. Turbinates non boggy.Lips-normal color, moist without cracks/lesions Oral Cavity/Palate- hard/soft palate intact without lesions, oral mucosa pink and moist. Tongue normal midline.Oropharynx- no pharyngeal erythema, Uvula midline. No post nasal drip. No exudate.Salivary glands- Non tender to palpation CHEST/LUNG:Inspection- symmetric chest wall no pectus deformity. Reduced effort, no distress, no use of accessory muscles. gurgling sounds are present. Palpation- nontender sternum, ribline. No abnormal pulsations.Auscultation- Breath sounds diminshed throughout all lung de la cruz. tracheal sounds, bronchial sounds overlying sternum, Bronchovessicular sounds and vessicular breath sounds reduced and coarse sounding.Adventitious sounds- wheezes, rales, rhonchi.These persist. Chronic/baseline state. This is unchanged. No egophany, no pectoriloquy. No e/o consolidation. CARDIOVASCULAR:Carotid artery-normal, no bruits or abnormal pulsations. Jugular vein- no pulsations.Palpation/Percussion- Normal PMI, no palpable thrill dAuscultation- Regular rate and rhythm. No murmur noted in sitting, supine positions.Extremities- no digital clubbing, cyanosis, edema, increased warmth. ABDOMEN:Inspection- normal and no visible pulsations. Normal contour. Auscultation- Bowel sounds normal, no abdominal bruits.Palpation/Percussion- soft, non-tender, no rebound tenderness, no rigidity (guarding), no jar tenderness, no masses.Liver-no hepatomegaly,Spleen no splenomegaly,Hernias - none.Rectalnot examined. Peripheral Vascular:Upper extremityLeft- Normal temperature with pink nailbeds and no ulcerations.Upper extremity Right-Normal temperature with pink nailbeds and no ulcerations.Lower extremity- Normal temperature with pink nailbeds and no ulcerations. DP pulses 2+ bilaterally. Pedal hair intact. Normal capillary refill.Edema- No edema. Some e/o chronic venous stasis. No acute or worsening edema. Musculoskeletal:Generalized-No generalized swelling or edema of extremities, no digital clubbing or cyanosis, neurovascularly intact all four extremities. Neurological:General- Moves all 4 extremities symmetrically. Symmetrical face and body posture.Cranial nerves- individuallyevaluated II-XII and intact. PERRLA, Normal EOMI, visual/special senses appear intact, Face is symmetrical and normal sensation/movement, normal tongue, normal strength/posture of neck musculature.Reflexes- intact with DTR 2+ patellar, Achilles, bicep, brachial, t ricep. Ankle clonus normal with 2 beats. Strength-5/5 bilateral UE and LE. Soft touch- intact bilateral UE and LE.Temperature sensation-intact bilateral UE and LE. Neuropsych:Oriented- Person, place, time. (AAOx3),Mood/affect- Pleasant, aware of day/date/time/president/my name/cit/county.Speech-Mild dysarthria. Thought content Impoverished. The patient was asleep upon entry and he is actually doing better now. He was easily awoken was able to answer some questions and we discussed at length his risks for seizures as well as for with the degree of sodium and if increasing the sodium too high too fast. Lymphatic: Head/Neck- normal size and non tender to palpation.Axillary- normal size and non tender to palpation.Femoral and Inguinal- normal size and non tender to palpation. Laboratory Results - last 24 hr 04/30/21 04/30/21 04/30/21 08:06 12:00 16:05 WBC RBC Hgb Hct MCV MCH MCHC RDW Coeff of Heather Plt Count Immature Gran % (Auto) Neut % (Auto) Lymph % (Auto) [place] % (Auto) Eos % (Auto) Baso % (Auto) Neut # (Auto) Lymph # (Auto) [place] # (Auto) Eos # (Auto) Baso # (Auto) Immature Gran # (Auto) Sodium 106.0 L* 106.9 L* 108.4 L* Potassium 3.48 L Chloride 66.5 L* Carbon Dioxide 32.4 H Anion Gap 10.58 BUN 7.1 L Creatinine 0.60 Estimated GFR (MDRD) 140.00 BUN/Creatinine Ratio 11.83 Glucose 96.0 Calcium 8.38 L Phosphorus Magnesium Total Bilirubin 1.47 H AST 111.0 H ALT 57.9 H Alkaline Phosphatase 92.5 Total Protein 6.44 Albumin 4.10 Globulin 2.34 Albumin/Globulin Ratio 1.75 TSH 0.572 04/30/21 05/01/21 05/01/21 19:51 04:36 04:36 WBC 8.55 RBC 4.05 L Hgb 11.9 L Hct 33.1 L MCV 81.7 MCH 29.4 MCHC 36.0 H RDW Coeff of Heather 11.5 L Plt Count 201 Immature Gran % (Auto) 0.6 Neut % (Auto) 67.4 Lymph % (Auto) 19.9 [place] % (Auto) 10.8 H Eos % (Auto) 1.2 Baso % (Auto) 0.1 Neut # (Auto) 5.8 Lymph # (Auto) 1.7 [place] # (Auto) 0.9 Eos # (Auto) 0.1 Baso # (Auto) 0.0 Immature Gran # (Auto) 0.1 Sodium 107.5 L* 110.5 L* Potassium 3.17 L Chloride 71.3 L* Carbon Dioxide 35.6 H Anion Gap 6.77 BUN 8.1 L Creatinine 0.66 Estimated GFR (MDRD) 125.00 BUN/Creatinine Ratio 12.27 Glucose 104.1 Calcium 8.42 Phosphorus 2.66 Magnesium 1.63 Total Bilirubin 0.95 AST 90.2 H ALT 62.9 H Alkaline Phosphatase 82.5 Total Protein 5.88 L Albumin 3.72 Globulin 2.16 Albumin/Globulin Ratio 1.72 TSH 0.690 Na/K Trends 04/29/21 04/29/21 04/29/21 Range/Units 09:19 13:30 15:32 Sodium 95.1 L* 96.1 L* 95.7 L* (134.5-145) mmol/L Potassium 4.01 4.23 4.33 (3.5-5.1) mmol/L 04/29/21 04/29/21 04/30/21 Range/Units 17:48 19:33 00:03 Sodium 98.7 L* 100.3 L* 101.6 L* (134.5-145) mmol/L Potassium 3.82 3.77 3.64 (3.5-5.1) mmol/L 04/30/21 04/30/21 04/30/21 Range/Units 04:21 08:06 12:00 Sodium 104.9 L* 106.0 L* 106.9 L* (134.5-145) mmol/L Potassium 3.74 3.48 L (3.5-5.1) mmol/L 04/30/21 04/30/21 05/01/21 Range/Units 16:05 19:51 04:36 Sodium 108.4 L* 107.5 L* 110.5 L* (134.5-145) mmol/L Potassium 3.17 L (3.5-5.1) mmol/L (1) Hyponatremia: Status: Acute Code(s): E87.1 - Hypo-osmolality and hyponatremia SNOMED Code(s): 43501433 (2) Hypomagnesemia: Status: Acute Code(s): E83.42 - Hypomagnesemia SNOMED Code(s): 756478480 (3) Hypophosphatasia: Status: Acute Code(s): E83.39 - Other disorders of phosphorus metabolism SNOMED Code(s): 349168506 (4) Leukocytosis: Status: Acute Code(s): D72.829 - Elevated white blood cell count, unspecified SNOMED Code(s): 154283389 (5) Anemia: Status: Acute Code(s): D64.9 - Anemia, unspecified SNOMED Code(s): 316414028 (6) Fall: Status: Acute Code(s): W19.XXXA - Unspecified fall, initial encounter SNOMED Code(s): 2876320 (7) Altered mental status: Status: Acute Code(s): R41.82 - Altered mental status, unspecified SNOMED Code(s): 277416179 (8) Chronic bronchitis with COPD (chronic obstructive pulmonary disease): Status: Acute Code(s): J44.9 - Chronic obstructive pulmonary disease, unspecified SNOMED Code(s): 750010705 (9) Dependence on supplemental oxygen: Status: Acute Code(s): Z99.81 - Dependence on supplemental oxygen SNOMED Code(s): 328900368003 (10) Hypocalcemia: Status: Acute Code(s): E83.51 - Hypocalcemia SNOMED Code(s): 3268018 (11) Hypokalemia: Status: Acute Code(s): E87.6 - Hypokalemia SNOMED Code(s): 71346409 Plan: Hyponatremia:The patient REMAINS in critical care. Ideally he would be in an ICU within a hospital, however within 30+ hospitals there were no ICU available. Still at high risk for seizure and worsening. Patient sodiums every 4 hours. We will continue to check daily osmolality of both urine and sodium. The patient is improving. He remains in critical care and we spent a total of 30 minutes of critical care time today from initial evaluation at 7 through 730. Total fniy-bj-aunl time today plus floor time, plus discussion with nursing a total of 60 minutes were spent on coordination and counseling of care for this patient. The patient was asleep upon entry and easily awoken. Confusion is improving. He is aware of day date and time. He did okay overnight. Vitals reviewed and stable. CBC looks okay with white blood cell count normalized now hemoglobin is mildly anemic. The patient sodium has improved up to 107.5 as of last night at midnight and was 110.5 at 436 this morning. We will continue to monitor. The goal for today is another 4 to 6 mEq/L. We reviewed telemetry, reviewed nursing notes, discussed this case With case management and with pharmacy. We will provide another 100 cc of 3% saline today. I have monitored the labs throughout the day. The patient increased to 113.6 at 1219, 116.4 at 1618, and 119.2 at 20:12. I will likely not increase any more sodium tomorrow. His serum osmolality returned at 237 at 1104 at this morning. This is up from 208 the day before. This is a great sign that he is improving. The random cortisol did return at 19 mcg/dL which suggest the patient is likely not in adrenal insufficiency. Interestingly the patient is improving nicely with steroids. I may drop this down to prednisone 20 mg once sodium >120. TSH is stable thiazide has been held polydipsia has been averted. Goal 4-6meq/L per day. No more than 8meq/L in a day or 18meq/L in 48 hours. - Admit inpatient/Telemetry Critical status, metabolic derangement. - 100 cc bolus 3% Saline at 0900 today. consider repeat 48 hours. - Goal 4-6meq/L increase in sodium per day - Limit fluids, saline lock. No routine fluids. Patient can eat. Pedialyte to drink. - Diet regular with pedialyte to drink Limit to 1500 ml/day. - Re-evaluate labs sodium q 4 hours. - AM CBC/CMP daily - Daily mag/phos : Now normal. - Cortisol and TSH both normal. - Daily urine osmol/urine sodium, serum osmol. - Hydrocortisone 50 mg bolus q 6-8 hours to continue through 05/02/21 at least. Consider change to oral after sodium >120. Hypocalcemia:Resolved. ionized calcium was 4.8 on 04/30/21 which is normal. - Daily CMP - Goal >8.42. - now resolved. Hypophos:Resolved. Will stop Monitoring daily phos/mg++ Hypomag:Resolved. Will stop Monitoring daily phos/mg++. Leukocytosis: Resolved. WBC 17.20 at initial check. Now at 8.55. Stable. Anemia: Hgb 12.2 yesterday, down from 13.7 at 1 month prior to admit. Now at 11.9. MCV is normal at 81.7. RDW is low at 11.5. - Monitor daily with CBC. Hypokalemia: DOWN TO 3.17 from 3.48. 20meq BID ordered. Mg++ now normal. - CMP in am. Alkalosis:Metabolic alkalosis with respiratory compensation at admit. He is on o2. No tachypnea at present. Breathing seems baseline. No repeat ABG at this time. ETOH Abuse/Transaminitis:Improving now <2:1 Ratio. On thiamine 100mg daily. ETOH negative at admit. Liver enzymes 112.4 AST/ALT 54.4 at midnight and then 111 and 57.9 at 0800 this am. Wheezing/coarse breath sounds.Albuterol/ipratropium to continue. Monitor for low K+. This is present. Will replace K+Cl-. Aware that albuterol could make the K+ worse. Not on abx at present. Sacral decubitus ulcer:Padding encouraged. Calmoseptinne/polyphem if available. Offload weight. Diet:Normal diet w/ pedialyte to drink. DVT Prophy:CORINA/SCD w/ fall, risks for seizures, concern for bleed. I will consider stopping corina/scd tomorrow and use lovenox while in hospital. C/O of ?Diarrhea: Resume immodium. Cdiff testing negative. Disposition:Plan at present is to continue to work on sodium with goal in next 24 hours no more than 121 122. I do not want to go up more than 8 mEq in a day. I am at 6 milliequivalents per liter as of 1618. I have watch labs throughout the day. Telemetry remains okay. Labs look great. I have updated orders for the morning. I suspect this patient will be here at least through the weekend if not a few more days after. Because of hyponatremia multifactorial. It does not appear that he has adrenal insufficiency at this time. However he is improving greatly with the steroids and thus I will continue it while he is here and at least until sodium is greater than 120. We will continue to improve and monitor the electrolytes. Continue telemetry. The patient ideally would be admitted to ICU. However these beds are not available. He is at high risk for ODS. R/B/A to meds d/w patient, SE reviewed. We discussed treatment options. Total time spent today working with patient, discussing with nursing, Pharmacy, evaluating patient 1 hour. Critical care time face to face in room total 30 minutes. Critical Care Time: 30 minutes Metabolic encephalopathy/critical lab abnl finding. Floor time/review data/discussion 30 minutes Total Time: 60 minutes today.
[2021-05-01] MEDS ORDERED: SODIUM CHLORIDE 3% 100 ML IV ONE (08:16)
[2021-05-01] MEDS: VALIUM PO SCH (08:43)
[2021-05-01] MEDS: ABILIFY PO SCH (08:43)
[2021-05-01] MEDS: ZESTRIL PO SCH ×2 (08:43→20:18)
[2021-05-01] MEDS: K-DUR PO SCH ×2 (08:44→17:16)
[2021-05-01] MEDS: NEURONTIN PO SCH ×3 (08:44→20:18)
[2021-05-01 14:52] LABS: SERUM OSMOLALITY 237
[2021-05-01 14:53] LABS: OSMOLALITY,URINE 148
[2021-05-01 14:54] LABS: SODIUM,URINE <20.0
[2021-05-01] MEDS: PAMELOR PO SCH (20:18)
[2021-05-02] MEDS: ATARAX PO PRN (03:19)
[2021-05-02] MEDS: VENTOLIN HFA (PER PUFF-WITH SPACER) IH PRN (04:43)
[2021-05-02] MEDS: ATROVENT HFA INHALER (PER PUFF-WITH SPACER) IH SCH ×4 (04:43→23:25)
[2021-05-02] MEDS: SOLU-CORTEF 100 MG IVP SCH ×4 (05:45→23:43)
[2021-05-02 07:00] LABS: BASOPHILS % (AUTO) 0.1 % (0.0-3.0); EOSINOPHILS % (AUTO) 0.4 % (0.0-7.0); HEMATOCRIT 33.8 % (42.0-52.0); HEMOGLOBIN 11.6 g/dl (14.0-18.0); IMMATURE GRANULOCYTE % (AUTO) 0.4 % (0.0-5.0); LYMPHOCYTES # (AUTO) 1.3 K/uL (0.60-3.4); LYMPHOCYTES % (AUTO) 13.4 (10.0-50.0); MEAN CORPUSCULAR HEMOGLOBIN 29.1 pg (27.0-31.0); MEAN CORPUSCULAR HGB CONC 34.3 (31.8-35.4); MEAN CORPUSCULAR VOLUME 84.9 fl (80.0-94.0); MONOCYTES # (AUTO) 0.8 K/uL (0.4-2.0); MONOCYTES % (AUTO) 8.1 (0-10); NEUTROPHILS # (AUTO) 7.3 K/ul (2.0-6.9); NEUTROPHILS % (AUTO) 77.6 % (42.2-75.2); PLATELET COUNT 244 10^3/uL (140-440); RDW COEFFICIENT OF VARIATION 11.9 % (11.6-14.8); RED BLOOD COUNT 3.98 10^6/ul (4.70-6.10); WHITE BLOOD COUNT 9.45 K/ul (4.2-10.2)
--- NOTE | 2021-05-02 07:06 | PCM.PROG ---
Date Seen by Provider: 05/02/21 Time Seen by Provider: 06:59 Subjective: 55-year-old male now hospital day #3 admitted on 04/30/21 after >24 hour stay in ED awaiting ICU bed. 30+ hospitals contacted and no beds available. It was felt to be in best interest of patient to remain here and we have addressed his sodium on a daily basis. The patient has not had any additional falls since April 29 when he fell getting onto the bus on his way to pulmonology. He still has critical hyponatremia. However the hypocalcemia, hypochloremia, hypophosphatemia, hypomagnesemia, leukocytosis have all resolved. Anemia chronic and mild persists. Hypokalemia has been noted and we are correcting this with oral replacement. The patient is allowed to eat regular diet but instead of fresh water we have chosen to use Pedialyte for increased salt load. The patient has chronic COPD which is stable with DuoNebs and albuterol. This can cause potassium to drop and we are replacing this. The patient did have a 100 cc bolus of 3% saline yesterday. Sodium levels have been monitored. He started yesterday morning with 110.5. By 830 he was at 110.9, at 1219 he was 113.6, by 1618 the patient was at 116.4, by 2012 the patient was at 119.2, by this morning at 1220 the patient was at 119.8, and at 449 this morning he was at 119.7. Our current goal is 4 to 6 mEq/L/day increase in sodium to prevent osmotic demyelination syndrome. The patient's values are still critical and patient requires increased monitoring while in inpatient status. Without pandemic the patient would be in an ICU. serum osmolality most recently was 237 which is a marked improvement from 2 824 hours prior. Urine and serum osmolality are pending from this morning. Urine sodium pending from this morning. As previously noted the TSH was within normal limits. The cortisol returned normal as well. Once his sodium is above 120 I will stop the Solu- Cortef and I will change him to prednisone 20 mg daily to help both with his breathing as well as for stress response. I did not have capability of getting an ACTH. The most likely etiology for this patient is hypotonic hyponatremia multifactorial with ETOH abuse, thiazide, polydipsia. Based on algorithm, we started process of fluid restriction, he is limited to 1500ml/day. Not using free water, only pedialyte. Goal increase of sodium 4-6meq/L/day with max of 8meq/L/day or 18meq/L/day in 48 hours. He increased 9meq/L yesterday. I will not add the 100cc 3% today. Consider repeat tomorrow. Urine osmolality 148 down from 396, this suggests more water loss. Urine sodium <20. This is a more natural process based on his hyponatremia. C diff was negative 04/30. BC nnega tivve 04/29/21. Isolation Standard. Overnight nursing notes reviewed. AICHA Jacobo note from 194 reviewed exertional SOA. O2 chronically. Coarse sounds worse in upper lobes. cough small white sputum. TLM SR 90bpm vitals stable. no pain, no c/o, no dizziness. 1500ml fluid restriction, sodium improving. Neuro check at 2200 GCS 15 and stable. No Seizure. 0200 GCS 15 and unchanged. 0321 patient confused, scared, anxious. Atarax given. Vitals reviewed: Remainns afebrile, pulse 83-98. BP normal over last 24 hours. 108-140/59-86. Rr 16-20. O2 92-99 on 2L. Tele reviewed and SR and e/o 1st degree AV block. REVIEW OF SYMPTOMS Constitutional: Weakness, Fatigue and Loss of appetite Eyes: No symptoms Ears: No symptoms Nose: No symptoms Throat: No symptoms Mouth: No symptoms Respiratory: Cough, Shortness of air, Wheeze and Pain with breathing Cardiovascular: No symptoms Gastrointestinal: Abdominal pain, Nausea and Diarrhea; No Melena, Hematemesis, Hematochezia or Dysphagia Genitourinary: dysuria and incontinence Neurological: Headache, Dizziness, Weakness, Speech difficulty, Problems with walking and Fainting; No Seizure, Numbness or Tremor Musculoskeletal: Pain (back. ) Skin: Rash, Bruising and Other (decubitus ulcer) Immunology: No symptoms Hematology: No symptoms Endocrine: Weight changes and Excessive thirst Psychiatric: Depression, Anxiety and Hopelessness. Panic attack this am. Habits: Tobacco use, Substance use and Alcohol use Objective: Vital Signs - 24 hr 05/01/21 19:00 05/01/21 19:45 05/01/21 21:19 Temperature 97.9 F Pulse Rate 98 H Pulse Rate [Apical] Respiratory Rate 22 20 Blood Pressure 129/76 140/86 O2 Sat by Pulse Oximetry 96 05/02/21 02:00 05/02/21 04:42 05/02/21 05:59 Temperature 97.1 F L 97.4 F L Pulse Rate 85 86 Pulse Rate [Apical] Respiratory Rate 16 18 Blood Pressure 129/76 128/86 O2 Sat by Pulse Oximetry 99 92 L 98 05/02/21 08:00 05/02/21 10:00 05/02/21 13:44 Temperature 97.8 F Pulse Rate 112 H 107 H Pulse Rate [Apical] 86 Respiratory Rate 20 20 20 Blood Pressure 139/91 H 144/77 H O2 Sat by Pulse Oximetry 97 98 05/02/21 14:00 05/02/21 18:00 Temperature Pulse Rate 96 H Pulse Rate [Apical] Respiratory Rate 18 Blood Pressure 130/76 O2 Sat by Pulse Oximetry 97 99 Constitutional:Appearance-Asleep on entry. Easily awoken. He asked today about sex and if he could have this with his GF when he gets home. I noted it would be fine, he could do that if able. He was talkative, o2 in place. Left forearm skin tear is bandaged/healing and looks stable.. Sacral decub is bandaged/healing and is doing well. Mild distress chronically, breathing remains at baseline. No longer with weaknness of eyelids. He is more alert, more active.Drastically improvved sodium. Reactive pupils, follows commands. He is talkative, open, discussed case easily, follows suggestions and appears to understand. Aware of day/date/time/county/hospital, my name. Able to do basic computations.Orientation- Oriented x 3, alertBuild and Nutrition-[Obese Male]General- Patient still has slurred words a little, mild cognitive decline.These are likely baseline. Integumentary: General-No rashes, ulcers or lesions. Bruising along the left lateral forearm (bandaged) this am. ecchymosis along left posterior bicep, left lateral hip/flank.Numerous Sk on back. No e/o secondary infection or worsening.Palpation- Normal skin moisture/turgor. Skin is warm to touch, appropriate. Capillary refill is normal bilateral Upper and lower extremity. Remains unchanged. sacral abrasion is padde. Head/Neck:Head- normocephalic and atraumatic.Neck- without visible/palpable lumps or pulsations.Palpation- No bony tenderness about head/neck along frontal, occipital, temporal, parietal, mastoid, jawline, zygoma, orbit or any other location. NO temporal artery tenderness. No TMJ tenderness. Neck Supple.Thyroid-No thyromegaly, no nodules Eye:Bilaterally PERRLA, EOMI. No discharge. Upper and lower eyelids are normal. Sclera/conjunctiva normal without discharge. Cornea is normal and clear. Lens is normal. Eyeball appears normal. No ciliary flushing, no conjunctival injection. Mild sluggish eyelids bilaterally. Unchanged. ENMT:Nose and sinus- No sinus tenderness along frontal/maxillary region. External appearance normal and midline.Nares- bilateral quiet airflow, no discharge.Nasal mucosa- No bleeding noted and no ulcerations observed. [place], moist. Turbinates non boggy.Lips-normal color, moist without cracks/lesions Oral Cavity/Palate- hard/soft palate intact without lesions, oral mucosa pink and moist. Tongue normal midline.Oropharynx- no pharyngeal erythema, Uvula midline. No post nasal drip. No exudate.Salivary glands- Non tender to palpation CHEST/LUNG:Inspection- symmetric chest wall no pectus deformity. Reduced effort, no distress, no use of accessory muscles. gurgling sounds are present. Palpation- nontender sternum, ribline. No abnormal pulsations.Auscultation- Breath sounds diminshed throughout all lung [place]. tracheal sounds, bronchial sounds overlying sternum, Bronchovessicular sounds and vessicular breath sounds reduced and coarse sounding.Adventitious sounds- wheezes, rales, rhonchi.These persist. Chronic/baseline state. This is unchanged. No egophany, no pectoriloquy. No e/o consolidation. CARDIOVASCULAR:Carotid artery-normal, no bruits or abnormal pulsations. Jugular vein- no pulsations.Palpation/Percussion- Normal PMI, no palpable thrill dAuscultation- Regular rate and rhythm. No murmur noted in sitting, supine positions.Extremities- no digital clubbing, cyanosis, edema, increased warmth. ABDOMEN:Inspection- normal and no visible pulsations. Normal contour. Auscultation- Bowel sounds normal, no abdominal bruits.Palpation/Percussion- soft, non-tender, no rebound tenderness, no rigidity (guarding), no jar tenderness, no masses.Liver-no hepatomegaly, Peripheral Vascular:Upper extremityLeft- Normal temperature with pink nailbeds and no ulcerations.Upper extremity Right-Normal temperature with pink nailbeds and no ulcerations.Lower extremity- Normal temperature with pink nailbeds and no ulcerations. DP pulses 2+ bilaterally. Pedal hair intact. Normal capillary refill.Edema- No edema. Some e/o chronic venous stasis. No acute or worsening edema. Musculoskeletal:Generalized-No generalized swelling or edema of extremities, no digital clubbing or cyanosis, neurovascularly intact all four extremities. Neurological:General- Moves all 4 extremities symmetrically. Symmetrical face and body posture.Cranial nerves- individuallyevaluated II-XII and intact. PERRLA, Normal EOMI, visual/special senses appear intact, Face is symmetrical and normal sensation/movement, normal tongue, normal strength/posture of neck musculature.Reflexes- intact with DTR 2+ patellar, Achilles, bicep, brachial, tricep. Ankle clonus normal with 2 beats. Strength-5/5 bilateral UE and LE. Soft touch- intact bilateral UE and LE.Temperature sensation-intact bilateral UE and LE. Neuropsych:Oriented- Person, place, time. (AAOx3),Mood/affect- Pleasant, aware of day/date/time/president/my name/critical access hospital/county.Speech-Mild dysarthria. Thought content Impoverished. The patient was asleep upon entry and he is actually doing better now. He was easily awoken was able to answer some questi ons and we discussed at length his risks for seizures as well as for with the degree of sodium and if increasing the sodium too high too fast. Lymphatic: Head/Neck- normal size and non tender to palpation.Axillary- normal size and non tender to palpation.Femoral and Inguinal- normal size and non tender to palpation. Laboratory Last Values WBC 9.45 K/ul (4.2-10.2) 05/02/21 04:58 RBC 3.98 10^6/ul (4.70-6.10) L 05/02/21 04:58 Hgb 11.6 g/dl (14.0-18.0) L 05/02/21 04:58 Hct 33.8 % (42.0-52.0) L 05/02/21 04:58 MCV 84.9 fl (80.0-94.0) 05/02/21 04:58 MCH 29.1 pg (27.0-31.0) 05/02/21 04:58 MCHC 34.3 (31.8-35.4) 05/02/21 04:58 RDW Coeff of Heather 11.9 % (11.6-14.8) 05/02/21 04:58 Plt Count 244 10^3/uL (140-440) 05/02/21 04:58 Immature Gran % (Auto) 0.4 % (0.0-5.0) 05/02/21 04:58 Neut % (Auto) 77.6 % (42.2-75.2) H 05/02/21 04:58 Lymph % (Auto) 13.4 (10.0-50.0) 05/02/21 04:58 [place] % (Auto) 8.1 (0-10) 05/02/21 04:58 Eos % (Auto) 0.4 % (0.0-7.0) 05/02/21 04:58 Baso % (Auto) 0.1 % (0.0-3.0) 05/02/21 04:58 Neut # (Auto) 7.3 K/ul (2.0-6.9) H 05/02/21 04:58 Lymph # (Auto) 1.3 K/uL (0.60-3.4) 05/02/21 04:58 [place] # (Auto) 0.8 K/uL (0.4-2.0) 05/02/21 04:58 Eos # (Auto) 0.0 K/ul (0.0-0.7) 05/02/21 04:58 Baso # (Auto) 0.0 K/uL (0-0.2) 05/02/21 04:58 Immature Gran # (Auto) 0.0 (0.0-1.0) 05/02/21 04:58 Puncture Site R rad 04/29/21 09:19 Base Excess 8.2 (-2.0-3.0) H 04/29/21 09:19 O2 Saturation 99.7 % (94-98) H 04/29/21 09:19 ABG pH 7.46 (7.35-7.45) H 04/29/21 09:19 ABG pCO2 45.0 mmHg (35-45) 04/29/21 09:19 ABG pO2 180.0 mmHg (85-100) H 04/29/21 09:19 ABG HCO3 32.0 (21-28) H 04/29/21 09:19 ABG Total CO2 33.4 (19-24) H 04/29/21 09:19 Clement Test + 04/29/21 09:19 Hemoglobin 1.9 (0-1.5) H 04/29/21 09:19 Oxyhemoglobin 93.2 % (95-100) L 04/29/21 09:19 Carboxyhemoglobin 2.7 (0.5-1.5) H 04/29/21 09:19 Total Hemoglobin 13.4 g/dl (11.7-17.4) 04/29/21 09:19 O2 Delivery Device Ms 04/29/21 09:19 Oxygen Liter Flow 2.00 04/29/21 09:19 Sodium 122.5 mmol/L (134.5-145) L 05/02/21 16:35 Potassium 3.88 mmol/L (3.5-5.1) 05/02/21 04:58 Chloride 81.6 mmol/L (98-107) L 05/02/21 04:58 Carbon Dioxide 33.5 mmol/L (22-30.0) H 05/02/21 04:58 Anion Gap 7.78 05/02/21 04:58 BUN 8.6 mg/dL (9-20) L 05/02/21 04:58 Creatinine 0.67 mg/dL (0.60-1.10) 05/02/21 04:58 Estimated GFR (MDRD) 123.00 mL/min 05/02/21 04:58 BUN/Creatinine Ratio 12.83 05/02/21 04:58 Glucose 112.9 mg/dL (74-106) H 05/02/21 04:58 Serum Osmolality 249 05/02/21 07:00 Calcium 8.56 mg/dL (8.4-10.2) 05/02/21 04:58 Ionized Calcium 4.8 mg/dL (4.5-5.6) 04/30/21 00:27 Phosphorus 2.66 mg/dL (2.5-4.5) 05/01/21 04:36 Magnesium 1.63 mg/dL (1.6-2.3) 05/01/21 04:36 Total Bilirubin 0.46 mg/dL (0.2-1.3) 05/02/21 04:58 AST 59.7 U/L (17-59) H D 05/02/21 04:58 ALT 65.7 U/L (0-50) H 05/02/21 04:58 Alkaline Phosphatase 78.3 U/L (38-126) 05/02/21 04:58 Total Creatine Kinase 912.5 U/L (55-170) H 04/29/21 09:19 CK-MB (CK-2) 11.100 ng/ml (0.0-2.38) H* 04/29/21 09:19 CK-MB (CK-2) % 1.2100 04/29/21 09:19 Troponin I < 0.012 ng/ml (0.0000-0.120) 04/29/21 09:19 NT-Pro-B Natriuret Pep 656.000 pg/mL (0-124) H 04/29/21 13:30 Total Protein 5.85 g/dL (6.3-8.2) L 05/02/21 04:58 Albumin 3.58 g/dL (3.5-5.0) 05/02/21 04:58 Globulin 2.27 05/02/21 04:58 Albumin/Globulin Ratio 1.57 05/02/21 04:58 TSH 0.690 uIU/L (0.465-4.68) 04/30/21 19:51 Free T4 1.27 ng/dL (0.78-2.19) 05/02/21 08:11 Random Cortisol 19.0 ug/dL (.) 04/29/21 00:03 Urine Color Yellow (YELLOW) 04/29/21 11:05 Urine Clarity Clear (CLEAR) 04/29/21 11:05 Urine pH 7.5 (5-9) 04/29/21 11:05 Ur Specific [place] 1.020 (1.005-1.030) 04/29/21 11:05 Urine Protein 1+ (NEGATIVE) H 04/29/21 11:05 Urine Glucose (UA) Trace (NEGATIVE) H 04/29/21 11:05 Urine Ketones 3+ (NEGATIVE) H 04/29/21 11:05 Urine Blood Trace-intact (NEGATIVE) H 04/29/21 11:05 Urine Nitrite Negative (NEGATIVE) 04/29/21 11:05 Urine Bilirubin Negative (NEGATIVE) 04/29/21 11:05 Urine Urobilinogen 1.0 (0.2) H 04/29/21 11:05 Ur Leukocyte Esterase Negative (NEGATIVE) 04/29/21 11:05 Urine Microscopic RBC 0-2 (0-2) 04/29/21 11:05 Ur Squamous Epith Cells 0-2 (0-5) 04/29/21 11:05 Urine Osmolality 339 05/02/21 07:08 Ur Random Sodium <20.0 05/02/21 07:08 Urine Opiates Screen Negative (NEGATIVE) 04/29/21 11:05 Ur Oxycodone Screen Positive (NEGATIVE) H 04/29/21 11:05 Urine Methadone Screen Negative (NEGATIVE) 04/29/21 11:05 Ur Propoxyphene Screen Negative (NEGATIVE) 04/29/21 11:05 Ur Barbiturates Screen Negative (NEGATIVE) 04/29/21 11:05 U Tricyclic Antidepress Positive (NEGATIVE) H 04/29/21 11:05 Ur Phencyclidine Scrn Negative (NEGATIVE) 04/29/21 11:05 Ur Amphetamine Screen Negative (NEGATIVE) 04/29/21 11:05 U Methamphetamines Scrn Negative (NEGATIVE) 04/29/21 11:05 U Benzodiazepines Scrn Positive (NEGATIVE) H 04/29/21 11:05 Urine Cocaine Screen Negative (NEGATIVE) 04/29/21 11:05 U Cannabinoids Screen Negative (NEGATIVE) 04/29/21 11:05 Plasma/Serum Alcohol < 10.0 mg/dL (0.0-50.0) 04/29/21 13:30 Adenovirus (PCR) Not detected (NOT DETECT) 04/29/21 08:50 B. pertussis DNA (PCR) Not detected (NOT DETECT) 04/29/21 08:50 B.parapertussis DNA PCR Not detected (NOT DETECT) 04/29/21 08:50 C. pneumoniae DNA (PCR) Not detected (NOT DETECT) 04/29/21 08:50 Coronavirus OC43 (PCR) Not detected (NOT DETECT) 04/29/21 08:50 Coronavirus HKU1 (PCR) Not detected (NOT DETECT) 04/29/21 08:50 Coronavirus 229E (PCR) Not detected (NOT DETECT) 04/29/21 08:50 Coronavirus NL63 (PCR) Not detected (NOT DETECT) 04/29/21 08:50 Human Metapneumovir PCR Not detected (NOT DETECT) 04/29/21 08:50 Influenza Type A (PCR) Not detected (NOT DETECT) 04/29/21 08:50 Influenza B (RT-PCR) Not detected (NOT DETECT) 04/29/21 08:50 M. pneumoniae (PCR) Not detected (NOT DETECT) 04/29/21 08:50 Parainfluenza 1 (PCR) Not detected (NOT DETECT) 04/29/21 08:50 Parainfluenza 2 (PCR) Not detected (NOT DETECT) 04/29/21 08:50 Parainfluenza 3 (PCR) Not detected (NOT DETECT) 04/29/21 08:50 Parainfluenza 4 (PCR) Not detected (NOT DETECT) 04/29/21 08:50 RSV (PCR) Not detected (NOT DETECT) 04/29/21 08:50 Entero/Rhino (PCR) Not detected (NOT DETECT) 04/29/21 08:50 SARS-CoV-2 (PCR) Not detected (NOT DETECT) 04/29/21 08:50 Na/K Trends 04/29/21 04/29/21 04/29/21 Range/Units 09:19 13:30 15:32 Sodium 95.1 L* 96.1 L* 95.7 L* (134.5-145) mmol/L Potassium 4.01 4.23 4.33 (3.5-5.1) mmol/L 04/29/21 04/29/21 04/30/21 Range/Units 17:48 19:33 00:03 Sodium 98.7 L* 100.3 L* 101.6 L* (134.5-145) mmol/L Potassium 3.82 3.77 3.64 (3.5-5.1) mmol/L 04/30/21 04/30/21 04/30/21 Range/Units 04:21 08:06 12:00 Sodium 104.9 L* 106.0 L* 106.9 L* (134.5-145) mmol/L Potassium 3.74 3.48 L (3.5-5.1) mmol/L 04/30/21 04/30/21 05/01/21 Range/Units 16:05 19:51 04:36 Sodium 108.4 L* 107.5 L* 110.5 L* (134.5-145) mmol/L Potassium 3.17 L (3.5-5.1) mmol/L 05/01/21 05/01/21 05/01/21 Range/Units 08:30 12:19 16:18 Sodium 110.9 L* 113.6 L* 116.4 L* (134.5-145) mmol/L Potassium (3.5-5.1) mmol/L 05/01/21 05/02/21 05/02/21 Range/Units 20:12 00:20 04:49 Sodium 119.2 L* 119.8 L* 119.7 L* (134.5-145) mmol/L Potassium (3.5-5.1) mmol/L 05/02/21 05/02/21 05/02/21 Range/Units 04:58 08:11 12:08 Sodium 119.0 L* 117.3 L* 122.9 L (134.5-145) mmol/L Potassium 3.88 (3.5-5.1) mmol/L 05/02/21 Range/Units 16:35 Sodium 122.5 L (134.5-145) mmol/L Potassium (3.5-5.1) mmol/L (1) Hyponatremia: Status: Acute Code(s): E87.1 - Hypo-osmolality and hyponatremia SNOMED Code(s): 67359393 (2) Hypomagnesemia: Status: Acute Code(s): E83.42 - Hypomagnesemia SNOMED Code(s): 822797160 (3) Hypophosphatasia: Status: Acute Code(s): E83.39 - Other disorders of phosphorus metabolism SNOMED Code(s): 102657105 (4) Leukocytosis: Status: Acute Code(s): D72.829 - Elevated white blood cell count, unspecified SNOMED Code(s): 766555628 (5) Anemia: Status: Acute Code(s): D64.9 - Anemia, unspecified SNOMED Code(s): 933338546 (6) Fall: Status: Acute Code(s): W19.XXXA - Unspecified fall, initial encounter SNOMED Code(s): 0162305 (7) Altered mental status: Status: Acute Code(s): R41.82 - Altered mental status, unspecified SNOMED Code(s): 499551020 (8) Chronic bronchitis with COPD (chronic obstructive pulmonary disease): Status: Acute Code(s): J44.9 - Chronic obstructive pulmonary disease, unspecified SNOMED Code(s): 645570463 (9) Dependence on supplemental oxygen: Status: Acute Code(s): Z99.81 - Dependence on supplemental oxygen SNOMED Code(s): 381447364895 (10) Hypocalcemia: Status: Acute Code(s): E83.51 - Hypocalcemia SNOMED Code(s): 4834893 (11) Hypokalemia: Status: Acute Code(s): E87.6 - Hypokalemia SNOMED Code(s): 24702311 Plan: Hyponatremia:The patient received another 100 CC of 3% saline today. Sodium continues to improve. Hypophosphatemia, hypomagnesemia, hypocalcemia and hyperkalemia have resolved. As of 163 today the patient was at 122.5 for sodium. He feels much better, breathing at baseline and cognition at baseline. 30 minutes of critical care time this morning with review of telemetry, discussion with nursing, discussion with pharmacy, discussing with case management. Plan to discharge patient home in 24 to 48 hours. We will continue to monitor sodium and electrolytes. We will continue with daily osmolality for urine and serum and urine sodium. The importance of alcohol reduction were discussed with patient. I discussed no more than 2 drinks per day. We discussed polydipsia and concerns for overhydration. He was preoccupied with his ability to have sex when he gets home. That was his main concern today. We discussed that there should be no restrictions when he gets home. Today his sodium has improved from 119.8 dropped to 117.3 and then after another 100 cc bolus of 3% saline went to 122.9 and then 122.5. With his sodium increasing above 120 I will stop the Solu-Cortef and change it to prednisone 20 mg and do 1 week of this. His cortisol returned okay however he seemed to do much better with the steroids than without them. Goal 4-6meq/L per day. No more than 8meq/L in a day or 18meq/L in 48 hours. I believe we are beyond the acute concern for seizure activity but there is still risks with increasing salts too quickly. I suspect another 24 to 48 hours of hospital stay. We can discharge patient home after his sodium is greater than 130. - Continue Admit inpatient/Telemetry Critical status, metabolic derangement. - 100 cc bolus 3% Saline today. - Goal 4-6meq/L increase in sodium per day - Limit fluids, saline lock. No routine fluids. Patient can eat. Pedialyte to drink. - Diet regular with pedialyte to drink Limit to 1500 ml/day. - Re-evaluate labs sodium q 4 hours. - AM CBC/CMP daily - mag/phos : Now normal. - Cortisol and TSH both normal. - Daily urine osmol/urine sodium, serum osmol. - stop hydrocortisone and change to prednisone 20mg PO. Hypocalcemia:Resolved.ionized calcium was 4.8 on 04/30/21 which is normal. Calcium 05/02 was 8.56. - Daily CMP - Goal >8.42. - now resolved. Hypophos:Resolved.Will stop Monitoring daily phos/mg++ Hypomag:Resolved.Will stop Monitoring daily phos/mg++. Leukocytosis:Resolved.WBC 17.20 at initial check. Now at 8.55. Stable. Anemia: Hgb 11.9 yesterday, down from 12.6 at admit and 13.7 1 month prior to admit. Now at 11.6. MCV is normal at 84.9. RDW is normal. - Monitor daily with CBC. Hypokalemia:DOWN TO 3.17 from 3.48 asof 05/01. Today it is 3.88 and back to normal. Continue 20meq BID w/ meals. Mg++ now normal. - CMP in am. Alkalosis:Metabolic alkalosis with respiratory compensation at admit. He is on o2. No tachypnea at present. Breathing seems baseline. No repeat ABG at this time. ETOH Abuse/Transaminitis:Improving at a <2:1 Ratio. On thiamine 100mg daily. ETOH negative at admit. Liver enzymes 59.7 ast and 65.7 alt. Stable. Wheezing/coarse breath sounds.Albuterol/ipratropium to continue. Monitor for low K+. This is present. Will replace K+Cl-. Aware that albuterol could make the K+ worse. Not on abx at present. This is chronic/stable. Doing well. Sacral decubitus ulcer:Padding encouraged. Calmoseptinne/polyphem if available. Offload weight. Stable, unchanged. Abrasion along superior buttock. Diet:Normal diet w/ pedialyte to drink. DVT Prophy:D/C VIOLETA/SCD. Lovennox 40mg subcut to start. C/O of ?Diarrhea: Resume immodium. Cdiff testing negative.Monitor. Disposition:Plan to continue to improve sodium 4-6meq/Lday. I suspect another 48 hours of admission will be required. I will plan on d/c home once values >130 as that appears to be baseline for the patient. This am 30 minutes of critical care time with critical lab value and monitoring status needed. I suspect today will be the last time that this will be needed. I discussed w/ nurses and pharmacy that I did not want to go up more than 8 mEq in a day. I have monnitored tele and obseved labs throughout the day. Telemetry remains okay. Labs look great/better. I have updated orders for the morning. Hyponatremia multifactorial counseling given again today regarding ETOH and regarding polydipsia. Continue to monitor the electrolytes. Continue telemetry. The patient ideally would have had an ICU admit but no bed available in region due to COVID-19. He has been at high risk for ODS. R/B/A to meds d/w patient, SE reviewed. We discussed treatment options. Total time spent today working with patient, discussing with nursing, Pharmacy, evaluating patient 30 min. Critical care time coordination of care plus face to face in room total 30 minutes. None of this time includes documentation. Critical Care Time: 30 minutes Metabolic encephalopathy/critical lab abnl finding. Total Time: 30 minutes today.
[2021-05-02 07:38] LABS: ALANINE AMINOTRANSFERASE 65.7 U/L (0-50); ALBUMIN 3.58 g/dL (3.5-5.0); ALKALINE PHOSPHATASE 78.3 U/L (38-126); ASPARTATE AMINO TRANSFERASE 59.7 U/L (17-59); BILIRUBIN,TOTAL 0.46 mg/dL (0.2-1.3); BLOOD UREA NITROGEN 8.6 mg/dL (9-20); CALCIUM 8.56 mg/dL (8.4-10.2); CARBON DIOXIDE 33.5 mmol/L (22-30.0); CHLORIDE 81.6 mmol/L (98-107); CREATININE 0.67 mg/dL (0.60-1.10); GLUCOSE 112.9 mg/dL (74-106); POTASSIUM 3.88 mmol/L (3.5-5.1); TOTAL PROTEIN 5.85 g/dL (6.3-8.2)
[2021-05-02] MEDS: K-DUR PO SCH ×2 (09:06→16:37)
[2021-05-02] MEDS: ABILIFY PO SCH (09:07)
[2021-05-02] MEDS: NEURONTIN PO SCH ×3 (09:07→20:15)
[2021-05-02] MEDS: VALIUM PO SCH (09:07)
[2021-05-02] MEDS: ZESTRIL PO SCH ×2 (09:07→20:15)
[2021-05-02] MEDS: LOVENOX SUBCUT SCH (09:08)
[2021-05-02] MEDS: IMODIUM PO PRN (09:45)
[2021-05-02] MEDS ORDERED: SODIUM CHLORIDE 3% 100 ML IV ONE (10:33)
[2021-05-02] MEDS: TYLENOL PO PRN (15:20)
[2021-05-02] MEDS: PAMELOR PO SCH (20:14)
[2021-05-03] MEDS: VENTOLIN HFA (PER PUFF-WITH SPACER) IH PRN (04:55)
[2021-05-03] MEDS: ATROVENT HFA INHALER (PER PUFF-WITH SPACER) IH SCH ×4 (04:55→23:25)
[2021-05-03 05:47] LABS: BASOPHILS % (AUTO) 0.2 % (0.0-3.0); EOSINOPHILS % (AUTO) 0.3 % (0.0-7.0); HEMATOCRIT 35.4 % (42.0-52.0); HEMOGLOBIN 11.6 g/dl (14.0-18.0); IMMATURE GRANULOCYTE % (AUTO) 0.4 % (0.0-5.0); LYMPHOCYTES # (AUTO) 1.3 K/uL (0.60-3.4); LYMPHOCYTES % (AUTO) 13.5 (10.0-50.0); MEAN CORPUSCULAR HEMOGLOBIN 28.9 pg (27.0-31.0); MEAN CORPUSCULAR HGB CONC 32.8 (31.8-35.4); MEAN CORPUSCULAR VOLUME 88.1 fl (80.0-94.0); MONOCYTES # (AUTO) 0.6 K/uL (0.4-2.0); NEUTROPHILS # (AUTO) 7.4 K/ul (2.0-6.9); NEUTROPHILS % (AUTO) 79.6 % (42.2-75.2); PLATELET COUNT 239 10^3/uL (140-440); RDW COEFFICIENT OF VARIATION 12.1 % (11.6-14.8); RED BLOOD COUNT 4.02 10^6/ul (4.70-6.10); WHITE BLOOD COUNT 9.31 K/ul (4.2-10.2)
[2021-05-03] MEDS: SOLU-CORTEF 100 MG IVP SCH (05:55)
[2021-05-03 06:04] LABS: ALANINE AMINOTRANSFERASE 55.7 U/L (0-50); ALBUMIN 3.77 g/dL (3.5-5.0); ALKALINE PHOSPHATASE 75.5 U/L (38-126); ASPARTATE AMINO TRANSFERASE 42.4 U/L (17-59); BILIRUBIN,TOTAL 0.38 mg/dL (0.2-1.3); BLOOD UREA NITROGEN 9.8 mg/dL (9-20); CALCIUM 8.84 mg/dL (8.4-10.2); CARBON DIOXIDE 38.5 mmol/L (22-30.0); CREATININE 0.85 mg/dL (0.60-1.10); GLUCOSE 137.6 mg/dL (74-106); MAGNESIUM 1.46 mg/dL (1.6-2.3); PHOSPHORUS 3.29 mg/dL (2.5-4.5); POTASSIUM 4.15 mmol/L (3.5-5.1); SODIUM 126.2 mmol/L (134.5-145); TOTAL PROTEIN 6.04 g/dL (6.3-8.2)
--- NOTE | 2021-05-03 07:10 | PCM.PROG ---
Date Seen by Provider: 05/03/21 Time Seen by Provider: 06:40 Subjective: 55-year-old male now hospital day 4 admitted on April 30 after a 24- hour ER stay looking for an ICU bed. The patient presented to the emergency room on April 29 after a fall while getting onto a bus while on his way to pulmonology. The patient had altered mental status, incontinence of urine, confusion and presented to the emergency room. While in the emergency room it was found that he had a critical sodium of 95.1. It was also found that the patient was hypocalcemic at 7.89 which corrected to low. He was also found to be hypophosphatemic as well as hypomagnesemic. Urine osmolality was high serum osmolality was low and he met the criteria for hypotonic hyponatremia. We evaluated his TSH and cortisol and found them both to be normal. Prior to values returning the patient was started on Solu-Cortef to cover for adrenal insufficiency. He is a heavy drinker and had polydipsia and was on a thiazide. This was multifactorial. He received 3% normal saline several times throughout his hospital stay. , We have monitored his phosphorus and the magnesium and they have returned to normal. We have monitored his calcium and it has returned to normal. Sodium values from yesterday today include 119.8 at 00:20. 119.7 at 4:49 AM, 119 at 4:58 AM, 117.3 at 811, 122.9 at 1208 yesterday (this was after 100 cc bolus 3%), he was 122.5 at 1635 last night and 122.8 at 2001 last night. This morning on CMP he was at 126.2 which is nearly ready for discharge. CBC this morning normal white count 9.31. He has had a normal white count since May 01. The hemoglobin is stable at 11.6 similar to yesterday's value. Pl atelets are normal at 239. He has a normal MCV and a normal RDW. He has a mild neutrophilia likely steroid induced. Metabolic panel showed the sodium as mentioned above, potassium 4.15 normal, chloride 84 and low, CO2 38.5 elevated, creatinine 0.85 with a GFR of 94. Glucose 137.6 which is likely a factor of the steroid, calcium 8.84 normal. I did repeat a phosphorus this morning was 3.29 and normal. Magnesium mildly low 1.46. I will not need to correct this as it would likely correct itself. Liver enzymes appear to have resolved with AST normal at 42.4 and ALT of 55.7.Urine osmolality yesterday 339 and random sodium less than 20 which is appropriate. There have been no more imaging in the last 48 hours. C. difficile returned negative on April 30, blood culture has remained negative. Vitals over the last 24 show afebrile, heart rate from 85 through 112. Blood pressure has been 149/74, 145/90, and has been 136/80 this morning. His thiazide has been discontinued and I will not resume this. O2 saturation 95-99 on 2 L. He is on chronic oxygen at home anyways. His respiratory rate has been listed at 18-20 over the last 24 hours. Remote telemetry has shown sinus tach with first-degree AV block and sinus rhythm with AV block. I reviewed telemetry strips from May 02 at 1:00, 7:00, 1:00, 7:00 and again at 1:00 this morning. The patient is tolerating oral medications and per nursing stools are formed and he is using Imodium. Overnight nursing documents reviewed. AICHA Jacobo note at 0103 this morning fall precautions in place fluid restrictions in place telemetry reviewed mild swelling bilateral lower extremities. Urine output measured at 2115May 02, 2021 was 680 mL. Neurochecks intact with GCS 15. REVIEW OF SYMPTOMS Constitutional: Weakness, Fatigue and Loss of appetite These continue to improve. Eyes: No symptoms Ears: No symptoms Nose: No symptoms Throat: No symptoms Mouth: No symptoms Respiratory: Cough, Shortness of air, Wheeze and Pain with breathing Cardiovascular: No symptoms Gastrointestinal: Abdominal pain, Nausea and Diarrhea; No Melena, Hematemesis, Hematochezia or Dysphagia Genitourinary: dysuria and incontinence Neurological: Headache, Dizziness, Weakness, Speech difficulty, Problems with walking and Fainting; No Seizure, Numbness or Tremor Musculoskeletal: Pain (back. ) Skin: Rash, Bruising and Other (decubitus ulcer) Immunology: No symptoms Hematology: No symptoms Endocrine: Weight changes and Excessive thirst Psychiatric: Depression, Anxiety and Hopelessness. Panic attack this am. Habits: Tobacco use, Substance use and Alcohol use Objective: Vital Signs - 24 hr 05/02/21 08:00 05/02/21 10:00 05/02/21 13:44 Temperature 97.8 F Pulse Rate 112 H 107 H Pulse Rate [Apical] 86 Respiratory Rate 20 20 20 Blood Pressure 139/91 H 144/77 H O2 Sat by Pulse Oximetry 97 98 05/02/21 14:00 05/02/21 18:00 05/02/21 19:00 Temperature Pulse Rate 96 H Pulse Rate [Apical] Respiratory Rate 18 20 Blood Pressure 130/76 O2 Sat by Pulse Oximetry 97 99 05/02/21 20:00 05/02/21 21:16 05/03/21 02:00 Temperature 98.1 F 97.7 F Pulse Rate 94 H 94 H Pulse Rate [Apical] Respiratory Rate 18 18 Blood Pressure 149/74 H 145/90 H O2 Sat by Pulse Oximetry 95 99 96 05/03/21 05:30 Temperature 97.8 F Pulse Rate 96 H Pulse Rate [Apical] Respiratory Rate 18 Blood Pressure 136/80 O2 Sat by Pulse Oximetry 98 Constitutional:Appearance- Patient visit this am patient again Asleep on entry. but Easily awoken. He was awake/alert/oriented. He was talkative asked good questions o2 in place. Left forearm skin tear bandaged and clean.. Sacral decub is bandaged/healing/clean. Mild distress chronically, breathing remains at baseline. No longer with weakness of eyelids. Normal eye movements. He is more alert, more active. Sodium is doing much better and I suspect he is going to be d/c in 24-48hr. Reactive pupils, follows commands. follows suggestions and appears to understand. Aware of day/date/time/county/hospital, my name. Orientation- Oriented x 3, alertBuild and Nutrition-[Obese Male]General- Patient still has slurred words a little, which is baseline, mild cognitive decline which is baseline. Integumentary: General-No rashes, ulcers or lesions. Bruising along the left lateral forearm (bandaged) this am. ecchymosis along left posterior bicep, unchanged. left lateral hip/flank bruise unchanged. .Numerous Sk on back. No e/o secondary infection or worsening.Palpation- Normal skin moisture/turgor. Skin is warm to touch, appropriate. Capillary refill is normal bilateral Upper and lower extremity. Remains unchanged. sacral abrasion is padde. Head/Neck:Head- normocephalic and atraumatic.Neck- without visible/palpable lumps or pulsations.Palpation- No bony tenderness about head/neck along frontal, occipital, temporal, parietal, mastoid, jawline, zygoma, orbit or any other location. NO temporal artery tenderness. No TMJ tenderness. Neck Supple.Thyroid-No thyromegaly, no nodules Eye:Bilaterally PERRLA, EOMI. No discharge. Upper and lower eyelids are normal. Sclera/conjunctiva normal without discharge. ENMT:Nose and sinus- No sinus tenderness along frontal/maxillary region. External appearance normal and midline.Nares- bilateral quiet airflow, no discharge.Nasal mucosa- No bleeding noted and no ulcerations observed. [place], moist. Turbinates non boggy.Lips-normal color, moist without cracks/lesions Oral Cavity/Palate- hard/soft palate intact without lesions, oral mucosa pink and moist. Tongue normal midline.Oropharynx- no pharyngeal erythema, Uvula midline. No post nasal drip. No exudate.Salivary glands- Non tender to palpation CHEST/LUNG:Inspection- symmetric chest wall no pectus deformity. Reduced effort, no distress, no use of accessory muscles. gurgling sounds are present. Palpation- nontender sternum, ribline. No abnormal pulsations.Auscultation- Breath sounds diminshed throughout all lung [place]. tracheal sounds, bronchial sounds overlying sternum, Bronchovessicular sounds and vessicular breath sounds reduced and coarse sounding.Adventitious sounds- wheezes, rales, rhonchi.These persist. Chronic/baseline state. This is unchanged. No egophany, no pectoriloquy. No e/o consolidation. Chronic coarse sounds. No worse than previous. Maybe a bit more coarse in upper lobes. However, sounds remain consistent with baseline state for patient.. CARDIOVASCULAR:Carotid artery-normal, no bruits or abnormal pulsations. Jugular vein- no pulsations.Palpation/Percussion- Normal PMI, no palpable thri ll dAuscultation- Regular rate and rhythm. No murmur noted in sitting, supine positions.Extremities- no digital clubbing, cyanosis, edema, increased warmth. ABDOMEN:Inspection- normal and no visible pulsations. Normal contour. Auscultation- Bowel sounds normal, no abdominal bruits.Palpation/Percussion- soft, non-tender, no rebound tenderness, no rigidity (guarding), no jar tenderness, no masses.Liver-no hepatomegaly, Peripheral Vascular:Upper extremityLeft- Normal temperature with pink nailbeds and no ulcerations.Upper extremity Right-Normal temperature with pink nailbeds and no ulcerations.Lower extremity- Normal temperature with pink nailbeds and no ulcerations. DP pulses 2+ bilaterally. Pedal hair intact. Normal capillary refill.Edema- Mild dependent edema. Some e/o chronic venous stasis. No acute or worsening edema. Musculoskeletal:Generalized-No generalized swelling or edema of extremities, no digital clubbing or cyanosis, neurovascularly intact all four extremities. Neurological:General- Moves all 4 extremities symmetrically. Symmetrical face and body posture.Cranial nerves- individuallyevaluated II-XII and intact. PERRLA, Normal EOMI, visual/special senses appear intact, Face is symmetrical and normal sensation/movement, normal tongue, normal strength/posture of neck musculature.Strength-5/5 bilateral UE and LE.Soft touch- intact bilateral UE and LE.Temperature sensation-intact bilateral UE and LE. Neuropsych:Oriented- Person, place, time. (AAOx3),Mood/affect- Pleasant, aware of day/date/time/president/my name/[facility]/county.Speech-Mild dysar thria.Thought content Impoverished this appears to be chronnic. The patient was asleep upon entry and easily arroused. No stupor, no confusion noted. He was easily awoken was able to answer some questions and we discussed plan today. Lymphatic: Head/Neck- normal size and non tender to palpation.Axillary- normal size and non tender to palpation.Femoral and Inguinal- normal size and non tender to palpation. Laboratory Last Values WBC 9.31 K/ul (4.2-10.2) 05/03/21 05:19 RBC 4.02 10^6/ul (4.70-6.10) L 05/03/21 05:19 Hgb 11.6 g/dl (14.0-18.0) L 05/03/21 05:19 Hct 35.4 % (42.0-52.0) L 05/03/21 05:19 MCV 88.1 fl (80.0-94.0) 05/03/21 05:19 MCH 28.9 pg (27.0-31.0) 05/03/21 05:19 MCHC 32.8 (31.8-35.4) 05/03/21 05:19 RDW Coeff of Heather 12.1 % (11.6-14.8) 05/03/21 05:19 Plt Count 239 10^3/uL (140-440) 05/03/21 05:19 Immature Gran % (Auto) 0.4 % (0.0-5.0) 05/03/21 05:19 Neut % (Auto) 79.6 % (42.2-75.2) H 05/03/21 05:19 Lymph % (Auto) 13.5 (10.0-50.0) 05/03/21 05:19 [place] % (Auto) 6.0 (0-10) 05/03/21 05:19 Eos % (Auto) 0.3 % (0.0-7.0) 05/03/21 05:19 Baso % (Auto) 0.2 % (0.0-3.0) 05/03/21 05:19 Neut # (Auto) 7.4 K/ul (2.0-6.9) H 05/03/21 05:19 Lymph # (Auto) 1.3 K/uL (0.60-3.4) 05/03/21 05:19 [place] # (Auto) 0.6 K/uL (0.4-2.0) 05/03/21 05:19 Eos # (Auto) 0.0 K/ul (0.0-0.7) 05/03/21 05:19 Baso # (Auto) 0.0 K/uL (0-0.2) 05/03/21 05:19 Immature Gran # (Auto) 0.0 (0.0-1.0) 05/03/21 05:19 Puncture Site R rad 04/29/21 09:19 Base Excess 8.2 (-2.0-3.0) H 04/29/21 09:19 O2 Saturation 99.7 % (94-98) H 04/29/21 09:19 ABG pH 7.46 (7.35-7.45) H 04/29/21 09:19 ABG pCO2 45.0 mmHg (35-45) 04/29/21 09:19 ABG pO2 180.0 mmHg (85-100) H 04/29/21 09:19 ABG HCO3 32.0 (21-28) H 04/29/21 09:19 ABG Total CO2 33.4 (19-24) H 04/29/21 09:19 Clement Test + 04/29/21 09:19 Hemoglobin 1.9 (0-1.5) H 04/29/21 09:19 Oxyhemoglobin 93.2 % (95-100) L 04/29/21 09:19 Carboxyhemoglobin 2.7 (0.5-1.5) H 04/29/21 09:19 Total Hemoglobin 13.4 g/dl (11.7-17.4) 04/29/21 09:19 O2 Delivery Device Nc 04/29/21 09:19 Oxygen Liter Flow 2.00 04/29/21 09:19 Sodium 126.2 mmol/L (134.5-145) L 05/03/21 05:19 Potassium 4.15 mmol/L (3.5-5.1) 05/03/21 05:19 Chloride 84.0 mmol/L (98-107) L 05/03/21 05:19 Carbon Dioxide 38.5 mmol/L (22-30.0) H 05/03/21 05:19 Anion Gap 7.85 05/03/21 05:19 BUN 9.8 mg/dL (9-20) 05/03/21 05:19 Creatinine 0.85 mg/dL (0.60-1.10) 05/03/21 05:19 Estimated GFR (MDRD) 94.00 mL/min 05/03/21 05:19 BUN/Creatinine Ratio 11.52 05/03/21 05:19 Glucose 137.6 mg/dL (74-106) H 05/03/21 05:19 Serum Osmolality 249 05/02/21 07:00 Calcium 8.84 mg/dL (8.4-10.2) 05/03/21 05:19 Ionized Calcium 4.8 mg/dL (4.5-5.6) 04/30/21 00:27 Phosphorus 3.29 mg/dL (2.5-4.5) 05/03/21 05:19 Magnesium 1.46 mg/dL (1.6-2.3) L 05/03/21 05:19 Total Bilirubin 0.38 mg/dL (0.2-1.3) 05/03/21 05:19 AST 42.4 U/L (17-59) 05/03/21 05:19 ALT 55.7 U/L (0-50) H 05/03/21 05:19 Alkaline Phosphatase 75.5 U/L (38-126) 05/03/21 05:19 Total Creatine Kinase 912.5 U/L (55-170) H 04/29/21 09:19 CK-MB (CK-2) 11.100 ng/ml (0.0-2.38) H* 04/29/21 09:19 CK-MB (CK-2) % 1.2100 04/29/21 09:19 Troponin I < 0.012 ng/ml (0.0000-0.120) 04/29/21 09:19 NT-Pro-B Natriuret Pep 656.000 pg/mL (0-124) H 04/29/21 13:30 Total Protein 6.04 g/dL (6.3-8.2) L 05/03/21 05:19 Albumin 3.77 g/dL (3.5-5.0) 05/03/21 05:19 Globulin 2.27 05/03/21 05:19 Albumin/Globulin Ratio 1.66 05/03/21 05:19 TSH 0.690 uIU/L (0.465-4.68) 04/30/21 19:51 Free T4 1.27 ng/dL (0.78-2.19) 05/02/21 08:11 Random Cortisol 19.0 ug/dL (.) 04/29/21 00:03 Urine Color Yellow (YELLOW) 04/29/21 11:05 Urine Clarity Clear (CLEAR) 04/29/21 11:05 Urine pH 7.5 (5-9) 04/29/21 11:05 Ur Specific [place] 1.020 (1.005-1.030) 04/29/21 11:05 Urine Protein 1+ (NEGATIVE) H 04/29/21 11:05 Urine Glucose (UA) Trace (NEGATIVE) H 04/29/21 11:05 Urine Ketones 3+ (NEGATIVE) H 04/29/21 11:05 Urine Blood Trace-intact (NEGATIVE) H 04/29/21 11:05 Urine Nitrite Negative (NEGATIVE) 04/29/21 11:05 Urine Bilirubin Negative (NEGATIVE) 04/29/21 11:05 Urine Urobilinogen 1.0 (0.2) H 04/29/21 11:05 Ur Leukocyte Esterase Negative (NEGATIVE) 04/29/21 11:05 Urine Microscopic RBC 0-2 (0-2) 04/29/21 11:05 Ur Squamous Epith Cells 0-2 (0-5) 04/29/21 11:05 Urine Osmolality 339 05/02/21 07:08 Ur Random Sodium <20.0 05/02/21 07:08 Urine Opiates Screen Negative (NEGATIVE) 04/29/21 11:05 Ur Oxycodone Screen Positive (NEGATIVE) H 04/29/21 11:05 Urine Methadone Screen Negative (NEGATIVE) 04/29/21 11:05 Ur Propoxyphene Screen Negative (NEGATIVE) 04/29/21 11:05 Ur Barbiturates Screen Negative (NEGATIVE) 04/29/21 11:05 U Tricyclic Antidepress Positive (NEGATIVE) H 04/29/21 11:05 Ur Phencyclidine Scrn Negative (NEGATIVE) 04/29/21 11:05 Ur Amphetamine Screen Negative (NEGATIVE) 04/29/21 11:05 U Methamphetamines Scrn Negative (NEGATIVE) 04/29/21 11:05 U Benzodiazepines Scrn Positive (NEGATIVE) H 04/29/21 11:05 Urine Cocaine Screen Negative (NEGATIVE) 04/29/21 11:05 U Cannabinoids Screen Negative (NEGATIVE) 04/29/21 11:05 Plasma/Serum Alcohol < 10.0 mg/dL (0.0-50.0) 04/29/21 13:30 Adenovirus (PCR) Not detected (NOT DETECT) 04/29/21 08:50 B. pertussis DNA (PCR) Not detected (NOT DETECT) 04/29/21 08:50 B.parapertussis DNA PCR Not detected (NOT DETECT) 04/29/21 08:50 C. pneumoniae DNA (PCR) Not detected (NOT DETECT) 04/29/21 08:50 Coronavirus OC43 (PCR) Not detected (NOT DETECT) 04/29/21 08:50 Coronavirus HKU1 (PCR) Not detected (NOT DETECT) 04/29/21 08:50 Coronavirus 229E (PCR) Not detected (NOT DETECT) 04/29/21 08:50 Coronavirus NL63 (PCR) Not detected (NOT DETECT) 04/29/21 08:50 Human Metapneumovir PCR Not detected (NOT DETECT) 04/29/21 08:50 Influenza Type A (PCR) Not detected (NOT DETECT) 04/29/21 08:50 Influenza B (RT-PCR) Not detected (NOT DETECT) 04/29/21 08:50 M. pneumoniae (PCR) Not detected (NOT DETECT) 04/29/21 08:50 Parainfluenza 1 (PCR) Not detected (NOT DETECT) 04/29/21 08:50 Parainfluenza 2 (PCR) Not detected (NOT DETECT) 04/29/21 08:50 Parainfluenza 3 (PCR) Not detected (NOT DETECT) 04/29/21 08:50 Parainfluenza 4 (PCR) Not detected (NOT DETECT) 04/29/21 08:50 RSV (PCR) Not detected (NOT DETECT) 04/29/21 08:50 Entero/Rhino (PCR) Not detected (NOT DETECT) 04/29/21 08:50 SARS-CoV-2 (PCR) Not detected (NOT DETECT) 04/29/21 08:50 Na/K Trends 04/29/21 04/29/21 04/29/21 Range/Units 09:19 13:30 15:32 Sodium 95.1 L* 96.1 L* 95.7 L* (134.5-145) mmol/L Potassium 4.01 4.23 4.33 (3.5-5.1) mmol/L 04/29/21 04/29/21 04/30/21 Range/Units 17:48 19:33 00:03 Sodium 98.7 L* 100.3 L* 101.6 L* (134.5-145) mmol/L Potassium 3.82 3.77 3.64 (3.5-5.1) mmol/L 04/30/21 04/30/21 04/30/21 Range/Units 04:21 08:06 12:00 Sodium 104.9 L* 106.0 L* 106.9 L* (134.5-145) mmol/L Potassium 3.74 3.48 L (3.5-5.1) mmol/L 04/30/21 04/30/21 05/01/21 Range/Units 16:05 19:51 04:36 Sodium 108.4 L* 107.5 L* 110.5 L* (134.5-145) mmol/L Potassium 3.17 L (3.5-5.1) mmol/L 05/01/21 05/01/21 05/01/21 Range/Units 08:30 12:19 16:18 Sodium 110.9 L* 113.6 L* 116.4 L* (134.5-145) mmol/L Potassium (3.5-5.1) mmol/L 05/01/21 05/02/21 05/02/21 Range/Units 20:12 00:20 04:49 Sodium 119.2 L* 119.8 L* 119.7 L* (134.5-145) mmol/L Potassium (3.5-5.1) mmol/L 05/02/21 05/02/21 05/02/21 Range/Units 04:58 08:11 12:08 Sodium 119.0 L* 117.3 L* 122.9 L (134.5-145) mmol/L Potassium 3.88 (3.5-5.1) mmol/L 05/02/21 05/02/21 05/03/21 Range/Units 16:35 20:01 05:19 Sodium 122.5 L 122.8 L 126.2 L (134.5-145) mmol/L Potassium 4.15 (3.5-5.1) mmol/L (1) Hyponatremia: Status: Acute Code(s): E87.1 - Hypo-osmolality and hyponatremia SNOMED Code(s): 29502412 (2) Hypomagnesemia: Status: Acute Code(s): E83.42 - Hypomagnesemia SNOMED Code(s): 255190413 (3) Hypophosphatasia: Status: Acute Code(s): E83.39 - Other disorders of phosphorus metabolism SNOMED Code(s): 084096457 (4) Leukocytosis: Status: Acute Code(s): D72.829 - Elevated white blood cell count, unspecified SNOMED Code(s): 794302219 (5) Anemia: Status: Acute Code(s): D64.9 - Anemia, unspecified SNOMED Code(s): 797690505 (6) Fall: Status: Acute Code(s): W19.XXXA - Unspecified fall, initial encounter SNOMED Code(s): 0527869 (7) Altered mental status: Status: Acute Code(s): R41.82 - Altered mental status, unspecified SNOMED Code(s): 014971547 (8) Chronic bronchitis with COPD (chronic obstructive pulmonary disease): Status: Acute Code(s): J44.9 - Chronic obstructive pulmonary disease, unspecified SNOMED Code(s): 534665722 (9) Dependence on supplemental oxygen: Status: Acute Code(s): Z99.81 - Dependence on supplemental oxygen SNOMED Code(s): 270067481473 (10) Hypocalcemia: Status: Acute Code(s): E83.51 - Hypocalcemia SNOMED Code(s): 9457340 (11) Hypokalemia: Status: Acute Code(s): E87.6 - Hypokalemia SNOMED Code(s): 50685152 Plan: Hyponatremia:The patient received another 100 CC of 3% saline yesterday. This am he is up to 126.2. Stop solucortef. am sodium urine and osmol urine/serum are pennding. SCD have been stopped and changed to lovenox. Mild dependent edema. BP are mildly elevated but okay at present. COntinue lisinopril BID, do not refill thiazide. We will continue potassium replacement. Immodium started for his chronic diarrhea. Patient is doing well. I suspect d/c in next 24-48 hours as sodium >130. He is only a few points away. No longer critical. Last night into today first time since 04/29/21 out of critical range. Risks for ODS reduced at this time. We will monitor labs as listed. CBC/CMP in am tomorrow. He can be up ad edgardo, fall precautions. I will continue the fluid restriction but back it to 2000ml. Goal sodium increase remains at 4-6meq/L per day. However max goal of no more than 8meq/L in a day or 18meq/L in 48 hours. I believe we are beyond the acute concern for seizure activity but there is still risks with increasing salts too quickly. I suspect another 24 to 48 hours of hospital stay. We can discharge patient home after his sodium is greater than 130. - Continue Admit inpatient/Telemetry. Improved, no longer critical status, metabolic derangements are resolving. - Monitor sodium w/ Goal 4-6meq/L increase in sodium per day - Limit fluids, saline lock. No routine fluids. Patient can eat. Pedialyte to drink. - Diet regular with pedialyte to drink Limit to 2000 ml/day. - Re-evaluate labs sodium q 4 hours. - AM CBC/CMP daily - mag/phos : Now normal. - Cortisol and TSH both normal. - Daily urine osmol/urine sodium, serum osmol. - stop hydrocortisone and change to prednisone 20mg PO. HTN: continue lisinopril, consider non thiazide option for BP like amlodipine if needed. For now allow BP to remain at level. Normal this am. Hypocalcemia:Resolved.ionized calcium was 4.8 on 04/30/21 which is normal. Calcium 05/02 was 8.56 and today normal at 8.84 - Daily CMP - Goal >8.42. - now resolved. Hypophos:Resolved.Will stop Monitoring daily phos/mg++ Hypomag:Mild decrease again. Current value at 1.46. Repeat tomorrow. - mg++ tomorrow. Leukocytosis:Resolved.WBC 17.20 at initial check. Now Stable/normal. Anemia: Hgb 11.6 yesterday, today same value. The patient was 12.6 at admit and 13.7 1 month prior to admit. MCV is normal. RDW is normal. - Monitor daily with CBC. Hypokalemia:RESOLVED>. Today it is 4.15 and normal. Continue 20meq BID w/ meals. Mg++ low. - CMP in am. Alkalosis:Metabolic alkalosis with respiratory compensation at admit. He is on o2. No tachypnea at present. Breathing seems baseline. No repeat ABG at this time. ETOH Abuse/Transaminitis:Improving at a <2:1 Ratio. On thiamine 100mg daily. ETOH negative at admit. Liver enzymes 59.7 ast and 65.7 alt yesterday. Today they are 42.4 and 55.7. These are stable. Wheezing/coarse breath sounds.Albuterol/ipratropium to continue. Monitor for low K+. This is present. Will replace K+Cl-. Aware that albuterol could make the K+ worse. Not on abx at present. This is chronic/stable. Doing well. Sacral decubitus ulcer:Padding encouraged. Calmoseptinne/polyphem if available. Offload weight. Stable, unchanged. Abrasion along superior buttock. Diet:Normal diet w/ pedialyte to drink. - 2000ml limit. DVT Prophy: Lovennox 40mg subcut. C/O of ?Diarrhea: RESOLVED. Resume immodium. Cdiff testing negative.Monitor. Disposition:Plan to continue to improve sodium 4-6meq/Lday. I suspect another 24-48 hours of admission will be required. I will plan on d/c home once values >130 as that appears to be baseline for the patient. Today solucortef channged to prednisone. TOday is first day for non critical care time due to stability of sodium. Continue to monitor labs. Continue lovenox. Fluid restrict to 2L now. Monitor sodium another 1-2 days and prepare for d/c. Today I talked with nursing/patient. No more 3% saline at this time. We will continue admit for 1- 2 more days and when medically optimized, prepare for d/c. Likely out of the critical/acute ODS risk stage.. Will continue to f/u closely. Hospital admission has been good for patient. Counseling w/ patient has been completed. Total Time: 37 minutes today not including documenation time.
[2021-05-03] MEDS: ABILIFY PO SCH (08:33)
[2021-05-03] MEDS: NEURONTIN PO SCH ×3 (08:34→20:31)
[2021-05-03] MEDS: PREDNISONE PO SCH (08:34)
[2021-05-03] MEDS: VALIUM PO SCH (08:34)
[2021-05-03] MEDS: ZESTRIL PO SCH ×2 (08:35→20:31)
[2021-05-03] MEDS: K-DUR PO SCH ×2 (08:35→16:13)
[2021-05-03] MEDS: LOVENOX SUBCUT SCH (08:37)
[2021-05-03] MEDS: IMODIUM PO PRN (11:40)
[2021-05-03] MEDS: CALMOSEPTINE OINTMENT TP SCH ×2 (11:58→20:33)
[2021-05-03] MEDS: PAMELOR PO SCH (20:32)
[2021-05-04] MEDS: ATROVENT HFA INHALER (PER PUFF-WITH SPACER) IH SCH ×4 (05:10→23:30)
[2021-05-04 05:49] LABS: BASOPHILS # (AUTO) 0.1 K/uL (0-0.2); BASOPHILS % (AUTO) 0.4 % (0.0-3.0); EOSINOPHILS # (AUTO) 0.3 K/ul (0.0-0.7); EOSINOPHILS % (AUTO) 2.2 % (0.0-7.0); HEMATOCRIT 35.4 % (42.0-52.0); HEMOGLOBIN 11.3 g/dl (14.0-18.0); IMMATURE GRANULOCYTE # (AUTO) 0.1 (0.0-1.0); IMMATURE GRANULOCYTE % (AUTO) 0.6 % (0.0-5.0); LYMPHOCYTES # (AUTO) 2.6 K/uL (0.60-3.4); LYMPHOCYTES % (AUTO) 23.4 (10.0-50.0); MEAN CORPUSCULAR HEMOGLOBIN 28.9 pg (27.0-31.0); MEAN CORPUSCULAR HGB CONC 31.9 (31.8-35.4); MEAN CORPUSCULAR VOLUME 90.5 fl (80.0-94.0); MONOCYTES % (AUTO) 8.6 (0-10); NEUTROPHILS # (AUTO) 7.3 K/ul (2.0-6.9); NEUTROPHILS % (AUTO) 64.8 % (42.2-75.2); PLATELET COUNT 247 10^3/uL (140-440); RDW COEFFICIENT OF VARIATION 12.4 % (11.6-14.8); RED BLOOD COUNT 3.91 10^6/ul (4.70-6.10); WHITE BLOOD COUNT 11.23 K/ul (4.2-10.2)
[2021-05-04 06:06] LABS: ALANINE AMINOTRANSFERASE 57.2 U/L (0-50); ALBUMIN 3.72 g/dL (3.5-5.0); ALKALINE PHOSPHATASE 71.3 U/L (38-126); BILIRUBIN,TOTAL 0.38 mg/dL (0.2-1.3); BLOOD UREA NITROGEN 11.7 mg/dL (9-20); CALCIUM 8.7 mg/dL (8.4-10.2); CARBON DIOXIDE 38.3 mmol/L (22-30.0); CHLORIDE 86.7 mmol/L (98-107); CREATININE 0.84 mg/dL (0.60-1.10); GLUCOSE 91.1 mg/dL (74-106); MAGNESIUM 1.37 mg/dL (1.6-2.3); POTASSIUM 3.94 mmol/L (3.5-5.1); SODIUM 128.7 mmol/L (134.5-145); TOTAL PROTEIN 6.02 g/dL (6.3-8.2)
[2021-05-04] MEDS: VALIUM PO SCH (09:01)
[2021-05-04] MEDS: ABILIFY PO SCH (09:01)
[2021-05-04] MEDS: NEURONTIN PO SCH ×3 (09:01→20:19)
[2021-05-04] MEDS: ZESTRIL PO SCH ×2 (09:01→20:19)
[2021-05-04] MEDS: PREDNISONE PO SCH (09:02)
[2021-05-04] MEDS: K-DUR PO SCH ×2 (09:02→16:07)
[2021-05-04] MEDS: LOVENOX SUBCUT SCH (09:02)
[2021-05-04] MEDS: CALMOSEPTINE OINTMENT TP SCH ×2 (09:03→20:19)
--- NOTE | 2021-05-04 10:49 | PCM.PROG ---
Date Seen by Provider: 05/04/21 Time Seen by Provider: 10:46 Subjective: 55-year-old male now hospital day 5 admitted on April 30 after a 24- hour ER stay looking for an ICU bed. The patient presented to the emergency room on April 29 after a fall while getting onto a bus while on his way to pulmonology. The patient had altered mental status, incontinence of urine, confusion and presented to the emergency room. While in the emergency room it was found that he had a critical sodium of 95.1. It was also found that the patient was hypocalcemic at 7.89 which corrected to low. He was also found to be hypophosphatemic as well as hypomagnesemic. Urine osmolality was high serum osmolality was low and he met the criteria for hypotonic hyponatremia. We evaluated his TSH and cortisol and found them both to be normal. Prior to values returning the patient was started on Solu-Cortef to cover for adrenal insufficiency. The cortisol returned as normal and when sodium greater than 120 we switched to oral prednisone to complete a 10-day taper. He is admittedly a heavy drinker and had polydipsia and was on a thiazide. This ultimately caused a multifactorial hyponatremic state. He received 3% normal saline several times throughout his hospital stay. , We have monitored his phosphorus and the magnesium and they have returned to normal. We have monitored his calcium and it has returned to normal. Diarrhea resolved, cdiff negativve. Immodium used at home chronically, was allowed to resume here. Thiazide d/c and will not be resumed. Fluid restriction was reduced from 15 100-2000 mils yesterday. Labs this morning showed a mild increase in white blood cell count from 9.31- 11.23. The hemoglobin is relatively stable with a mild drop from 11.6-11.3 and a platelet count of 239 increased today to 247. The differential remains primary neutrophilia Metabolic panel shows continued improvement of the sodium. In the last 24 hours the patient has increased from 126.2 dropped mildly to 122.8 then increased back to 126.6 and then 127.9 early this morning. He is at 128.7 now. This is a marked improvement from the 95.1 that he was on April 29 at 9 in the morning. My goal is to plan to discharge once greater than 130. It appears 1-127.92 130.5 up to 134.1 is where he has been throughout 2019. I would like to discharge once he has reached greater than 130. Potassium remains okay 3.94. Chloride 86.7 improved from 84 yesterday. The carbon dioxide remains elevated at 38.3. He uses chronic oxygen. The GFR is at 95 with a creatinine of 0.84. Calcium normal stable 8.70. The magnesium has dropped again to 1.37. I will add some Slow-Mag with oral replacement. AST and ALT are more normal now. AST 37 and ALT 57.2. Protein is reduced at 6.02. The thyroid studies have returned and free T4 was 1.27 and normal. Total T3 91. There does not appear to be a significant hypothyroidism and the cortisol returned as normal without any significant adrenal insufficiency. I will use the 20 mg prednisone daily x5 days back down to 10 mg daily x5 days and then discontinue. Most recent serum osmolality 249 in May 02. This is improved from 200 on April 29. I have ordered serum and urine osmolality for the weekend but it does not appear that they have been done. Urine osmolality last on May 02 was 339 that is improved from April 29 of 418. Urine sodium less than 20 on May 01 and which is much better than the 54 in April 30. The hypotonic hyponatremia appears to be resolving. He still has hypomagnesemia. The hypokalemia is improved, the hypocalcemia is improved. Chronic COPD with chronic hypercapnia. Normal reports of diarrhea. The C. difficile returned negative, blood cultures from emergency room were negative. No antibiotics have been used throughout this hospital stay. The patient was changed from VIOLETA/SCD in the last 48 hours and is now on Lovenox 40 mg subcutaneous daily. Decubitus ulcer on the buttock is bandaged, left forearm skin tear likely from fall is better. Vitals:Remains afebrile throughout entire hospital stay. Heart rate last 24 hours 94 through 117. He did have 1 outlier of 54 at 0200 this morning. Blood pressure on average has remained normotensive. He did have 3 readings in the last 24 hours that were mildly elevated. 145/90 at 2:00 yesterday morning, 158/89 at 1636 last night and 158/94 at 2150 last night. Otherwise all values less than 140/90. O2 saturation on average in last 24 hours were 90 through 100%. This morning he did have an 88%. He is on 2 L nasal. Telemetry strips were reviewed. The patient has alternated between sinus rhythm and sinus tachycardia. Previously he was found to have a first-degree AV block. That was not seen on the most recent strips. Nursing notes: Neurochecks remain unchanged. GCS of 15. No significant changes. Again plan for discharge once sodium reaches 130. REVIEW OF SYMPTOMS Constitutional: Weakness, Fatigue improving. Eyes: No symptoms Ears: No symptoms Nose: No symptoms Throat: No symptoms Mouth: No symptoms Respiratory: Cough, Shortness of air, Wheeze and Pain with breathing Cardiovascular: No symptoms Gastrointestinal: Abdominal pain, Nausea and Diarrhea; No Melena, Hematemesis, Hematochezia or Dysphagia Genitourinary: dysuria and incontinence Neurological: Headache, Dizziness, Weakness, Speech difficulty, Problems with walking and Fainting; No Seizure, Numbness or Tremor Musculoskeletal: Pain (back. ) Skin: Rash, Bruising and Other (decubitus ulcer) Immunology: No symptoms Hematology: No symptoms Endocrine: Weight changes and Excessive thirst Psychiatric: Depression, Anxiety and Hopelessness. Habits: Tobacco use, Substance use and Alcohol use Objective: Vital Signs - 24 hr 05/03/21 14:00 05/03/21 16:36 05/03/21 20:00 Temperature 97.7 F Pulse Rate 105 H 107 H Respiratory Rate 20 20 20 Blood Pressure 133/83 158/89 H O2 Sat by Pulse Oximetry 98 90 L 97 05/03/21 21:50 05/04/21 02:00 05/04/21 05:53 Temperature 97.6 F 97.1 F L 97.4 F L Pulse Rate 107 H 54 L 97 H Respiratory Rate 18 16 18 Blood Pressure 158/94 H 115/74 128/89 O2 Sat by Pulse Oximetry 98 98 98 05/04/21 06:00 05/04/21 08:00 05/04/21 09:40 Temperature Pulse Rate Respiratory Rate 20 Blood Pressure O2 Sat by Pulse Oximetry 95 95 05/04/21 10:00 Temperature Pulse Rate 117 H Respiratory Rate 22 Blood Pressure 128/85 O2 Sat by Pulse Oximetry 88 L Constitutional:Appearance- Patient visit this am awake on entry. He was awake/alert/oriented. He was talkative asked good questions o2 in place. Left forearm skin tear healing nnicely. Scattered bruising. Sacral decub is bandaged/healing/clean. Mild distress chronically, breathing remains at baseline. Normal eye movements. Sodium is doing much better this am at just under 130. I suspect he is going to be d/c tomorrow. Reactive pupils, follows commands. follows suggestions and appears to understand. Aware of day/date/time/county/hospital, my name.Orientation- Oriented x 3, alertBuild and Nutrition-[Obese Male]General- Patient still has slurred words a little, which is baseline, mild cognitive decline which is baseline. Integumentary: General-No rashes, ulcers or lesions. Bruising along the left lateral forearm (bandaged) this am. ecchymosis along left posterior bicep, unchanged. left lateral hip/flank bruise unchanged. .Numerous Sk on back. No e/o secondary infection or worsening.Palpation- Normal skin moisture/turgor. Skin is warm to touch, appropriate. Capillary refill is normal bilateral Upper and lower extremity. Remains unchanged. sacral abrasion is padded and bandaged. . Head/Neck:Head- normocephalic and atraumatic.Neck- without visible/palpable lumps or pulsations.Palpation- No bony tenderness about head/neck along frontal, occipital, temporal, parietal, mastoid, jawline, zygoma, orbit or any other location. NO temporal artery tenderness. No TMJ tenderness. Neck Supple.Thyroid-No thyromegaly, no nodules Eye:Bilaterally PERRLA, EOMI. No discharge. Upper and lower eyelids are normal. Sclera/conjunctiva normal without discharge. ENMT:Nose and sinus- No sinus tenderness along frontal/maxillary region. External appearance normal and midline.Nares- bilateral quiet airflow, no discharge.Nasal mucosa- No bleeding noted and no ulcerations observed. [place], moist. Turbinates non boggy.Lips-normal color, moist without cracks/lesions Oral Cavity/Palate- hard/soft palate intact without lesions, oral mucosa pink and moist. Tongue normal midline.Oropharynx- no pharyngeal erythema, Uvula midline. No post nasal drip. No exudate.Salivary glands- Non tender to palpation CHEST/LUNG:Inspection- symmetric chest wall no pectus deformity. Reduced effort, no distress, no use of accessory muscles. gurgling sounds are present. Palpation- nontender sternum, ribline. No abnormal pulsations.Auscultation- Breath sounds diminshed throughout all lung de la cruz. tracheal sounds, bronchial sounds overlying sternum, Bronchovessicular sounds and vessicular breath sounds reduced and coarse sounding.Adventitious sounds- wheezes, rales, rhonchi.These persist. Chronic/baseline state. This is unchanged. No egophany, no pectoriloquy. No e/o consolidation. Chronic coarse sounds. No worse than previous. Maybe a bit more coarse in upper lobes. However, sounds remain consistent with baseline state for patient.. No worsening sounds Using incenntive spirom. CARDIOVASCULAR:Carotid artery-normal, no bruits or abnormal pulsations. Jugular vein- no pulsations.Palpation/Percussion- Normal PMI, no palpable thrill dAuscultation- Regular rate and rhythm. No murmur noted in sitting, supine positions.Extremities- no digital clubbing, cyanosis, edema, increased warmth. ABDOMEN:Inspection- normal and no visible pulsations. Normal contour. Auscultation- Bowel sounds normal, no abdominal bruits.Palpation/Percussion- soft, non-tender, no rebound tenderness, no rigidity (guarding), no jar tenderness, no masses.Liver-no hepatomegaly, Peripheral Vascular:Upper extremityLeft- Normal temperature with pink nailbeds and no ulcerations.Upper extremity Right-Normal temperature with pink nailbeds and no ulcerations.Lower extremity- Normal temperature with pink nailbeds and no ulcerations. DP pulses 2+ bilaterally. Pedal hair intact. Normal capillary refill.Edema- Mild dependent edema. Some e/o chronic venous stasis. No acute or worsening edema. Musculoskeletal:Generalized-No generalized swelling or edema of extremities, no digital clubbing or cyanosis, neurovascularly intact all four extremities. Neurological:General- Moves all 4 extremities symmetrically. Symmetrical face and body posture.Cranial nerves- individuallyevaluated II-XII and intact. PERRLA, Normal EOMI, visual/special senses appear intact, Face is symmetrical an d normal sensation/movement, normal tongue, normal strength/posture of neck musculature.Strength-5/5 bilateral UE and LE.Soft touch- intact bilateral UE and LE.Temperature sensation-intact bilateral UE and LE. Neuropsych:Oriented- Person, place, time. (AAOx3),Mood/affect- Pleasant, aware of day/date/time/president/my name/cit/county.Speech-Mild dysarthria.Thought content Impoverished this appears to be chronnic. The patient was asleep upon entry and easily arroused. No stupor, no confusion noted. He was easily awoken was able to answer some questions and we discussed plan today. Lymphatic: Head/Neck- normal size and non tender to palpation.Axillary- normal size and non tender to palpation.Femoral and Inguinal- normal size and non tender to palpation. Laboratory Results - last 24 hr 05/03/21 05/03/21 05/04/21 11:50 17:55 00:30 WBC RBC Hgb Hct MCV MCH MCHC RDW Coeff of Heather Plt Count Immature Gran % (Auto) Neut % (Auto) Lymph % (Auto) Jessamine % (Auto) Eos % (Auto) Baso % (Auto) Neut # (Auto) Lymph # (Auto) Jessamine # (Auto) Eos # (Auto) Baso # (Auto) Immature Gran # (Auto) Sodium 122.8 L 126.6 L 127.9 L Potassium Chloride Carbon Dioxide Anion Gap BUN Creatinine Estimated GFR (MDRD) BUN/Creatinine Ratio Glucose Calcium Magnesium Total Bilirubin AST ALT Alkaline Phosphatase Total Protein Albumin Globulin Albumin/Globulin Ratio 05/04/21 05/04/21 05:05 05:05 WBC 11.23 H RBC 3.91 L Hgb 11.3 L Hct 35.4 L MCV 90.5 MCH 28.9 MCHC 31.9 RDW Coeff of Heather 12.4 Plt Count 247 Immature Gran % (Auto) 0.6 Neut % (Auto) 64.8 Lymph % (Auto) 23.4 Jessamine % (Auto) 8.6 Eos % (Auto) 2.2 Baso % (Auto) 0.4 Neut # (Auto) 7.3 H Lymph # (Auto) 2.6 [place] # (Auto) 1.0 Eos # (Auto) 0.3 Baso # (Auto) 0.1 Immature Gran # (Auto) 0.1 Sodium 128.7 L Potassium 3.94 Chloride 86.7 L Carbon Dioxide 38.3 H Anion Gap 7.64 BUN 11.7 Creatinine 0.84 Estimated GFR (MDRD) 95.00 BUN/Creatinine Ratio 13.92 Glucose 91.1 Calcium 8.70 Magnesium 1.37 L Total Bilirubin 0.38 AST 37.0 ALT 57.2 H Alkaline Phosphatase 71.3 Total Protein 6.02 L Albumin 3.72 Globulin 2.30 Albumin/Globulin Ratio 1.61 Na/K Trends 04/29/21 04/29/21 04/29/21 Range/Units 09:19 13:30 15:32 Sodium 95.1 L* 96.1 L* 95.7 L* (134.5-145) mmol/L Potassium 4.01 4.23 4.33 (3.5-5.1) mmol/L 04/29/21 04/29/21 04/30/21 Range/Units 17:48 19:33 00:03 Sodium 98.7 L* 100.3 L* 101.6 L* (134.5-145) mmol/L Potassium 3.82 3.77 3.64 (3.5-5.1) mmol/L 04/30/21 04/30/21 04/30/21 Range/Units 04:21 08:06 12:00 Sodium 104.9 L* 106.0 L* 106.9 L* (134.5-145) mmol/L Potassium 3.74 3.48 L (3.5-5.1) mmol/L 04/30/21 04/30/21 05/01/21 Range/Units 16:05 19:51 04:36 Sodium 108.4 L* 107.5 L* 110.5 L* (134.5-145) mmol/L Potassium 3.17 L (3.5-5.1) mmol/L 05/01/21 05/01/21 05/01/21 Range/Units 08:30 12:19 16:18 Sodium 110.9 L* 113.6 L* 116.4 L* (134.5-145) mmol/L Potassium (3.5-5.1) mmol/L 05/01/21 05/02/21 05/02/21 Range/Units 20:12 00:20 04:49 Sodium 119.2 L* 119.8 L* 119.7 L* (134.5-145) mmol/L Potassium (3.5-5.1) mmol/L 05/02/21 05/02/21 05/02/21 Range/Units 04:58 08:11 12:08 Sodium 119.0 L* 117.3 L* 122.9 L (134.5-145) mmol/L Potassium 3.88 (3.5-5.1) mmol/L 05/02/21 05/02/21 05/03/21 Range/Units 16:35 20:01 05:19 Sodium 122.5 L 122.8 L 126.2 L (134.5-145) mmol/L Potassium 4.15 (3.5-5.1) mmol/L 05/03/21 05/03/21 05/04/21 Range/Units 11:50 17:55 00:30 Sodium 122.8 L 126.6 L 127.9 L (134.5-145) mmol/L Potassium (3.5-5.1) mmol/L 05/04/21 Range/Units 05:05 Sodium 128.7 L (134.5-145) mmol/L Potassium 3.94 (3.5-5.1) mmol/L (1) Hyponatremia: Status: Acute Code(s): E87.1 - Hypo-osmolality and hyponatremia SNOMED Code(s): 86166741 (2) Hypomagnesemia: Status: Acute Code(s): E83.42 - Hypomagnesemia SNOMED Code(s): 102932688 (3) Hypophosphatasia: Status: Acute Code(s): E83.39 - Other disorders of phosphorus metabolism SNOMED Code(s): 698331546 (4) Leukocytosis: Status: Acute Code(s): D72.829 - Elevated white blood cell count, unspecified SNOMED Code(s): 331037943 (5) Anemia: Status: Acute Code(s): D64.9 - Anemia, unspecified SNOMED Code(s): 214384444 (6) Fall: Status: Acute Code(s): W19.XXXA - Unspecified fall, initial encounter SNOMED Code(s): 4115238 (7) Altered mental status: Status: Acute Code(s): R41.82 - Altered mental status, unspecified SNOMED Code(s): 676794228 (8) Chronic bronchitis with COPD (chronic obstructive pulmonary disease): Status: Acute Code(s): J44.9 - Chronic obstructive pulmonary disease, unspecified SNOMED Code(s): 115063541 (9) Dependence on supplemental oxygen: Status: Acute Code(s): Z99.81 - Dependence on supplemental oxygen SNOMED Code(s): 142019859056 (10) Hypocalcemia: Status: Acute Code(s): E83.51 - Hypocalcemia SNOMED Code(s): 3956243 (11) Hypokalemia: Status: Acute Code(s): E87.6 - Hypokalemia SNOMED Code(s): 97752078 Plan: Hyponatremia:The patient continues to improve. He has had no problems overnight. I believe he is out of the window for OD S. His sodium remains just under 130 at 128.7. This is improved from last value yesterday of 126.6. I suspect patient will be able to be discharged in the morning tomorrow. We will continue to focus today on walking. I discussed this with nurses yesterday. Continue to bandage the buttock wound on the sacrum and to focus on out of bed and incentive spirometer. The patient is on chronic oxygen. There is no new information to report. However the magnesium has dropped a little bit. I will replace this with oral magnesium replacement. We will continue potassium replacement. Current potassium is stable. Chloride remains low. He is on prednisone 20 mg we will do this for a total of 5 days drop to 10 for 5 days and then stop. I will see him in clinic within a week and we will monitor weekly metabolic panels for the next month. We have discussed alcohol at length both yesterday and again today. We will encourage him to drink no more than 2 alcoholic beverage servings per day. Additionally limit overuse of water and improve dietary intake. - Continue Admit inpatient/Telemetry. Improved, remains out of critical status, metabolic derangements are resolving. - Monitor sodium D/C home when >130. - Limit fluids, saline lock. No routine fluids. Patient can eat. Pedialyte or water to drink. 2000ml limit per day - Diet regular with pedialyte to drink Limit to 2000 ml/day. - Re-evaluate labs sodium q 4 hours. - AM CBC/CMP daily - Cortisol and TSH both normal. - Daily urine osmol/urine sodium, serum osmol. - Prednisone taper. HTN:Stable, with only a few elevated readings. continue lisinopril, consider non thiazide option for BP like amlodipine if needed. For now allow BP to remain at current level. Normal this am. WE will address further as Outpatient. Hypocalcemia:Resolved.ionized calcium was 4.8 on 04/30/21 which is normal. Calcium 05/02 was 8.56, 8.84 on 05/03 and today normal at 8.70 - Daily CMP - Goal >8.42. - now resolved. Hypophos:Resolved.Will stop Monitoring daily phos/mg++ Hypomag:Mild decrease again.Current value at 1.37, was 1.46 yesterday. Will replace mag. Repeat tomorrow. -mag Leukocytosis:Resolved.WBC 17.20 at initial check. Now Stable/normal. Anemia: Hgb 11.6 yesterday, today 11.3.. same value. The patient was 12.6 at admit and 13.7 1 month prior to admit. MCV is normal. RDW is normal. - Monitor daily with CBC. Hypokalemia:RESOLVED>.Today it is 3.94 and normal. Continue 20meq BID w/ meals. Mg++ low. will replace. - CMP in am. Alkalosis:Metabolic alkalosis with respiratory compensation at admit. He is on o2. No tachypnea at present. Breathing seems baseline. No repeat ABG at this time. ETOH Abuse/Transaminitis:Improving at a <2:1 Ratio. On thiamine 100mg daily. ETOH negative at admit. Liver enzymes 42.4 and 55.7 yesterday. Today they are 37 and 57.2. These are stable. Wheezing/coarse breath sounds.Albuterol/ipratropium to continue. Monitor for low K+. This is present. Will replace K+Cl-. Aware that albuterol could make the K+ worse. Not on abx at present. This is chronic/stable. Doing well. - Incentivve spirometer added yesterday - Walk patient - OOB Sacral decubitus ulcer:Padding encouraged. Calmoseptinne/polyphem if available. Offload weight. Stable, unchanged. Abrasion along superior buttock. Diet:Normal diet w/ pedialyte to drink. - 2000ml limit. DVT Prophy:Lovenox 40mg subcut. C/O of ?Diarrhea:RESOLVED.Resume immodium. Cdiff testing negative.Monitor. Disposition:Plan d/c tomorrow if sodium >129-130. Tolerating prednisone. Sacral wound is bandaged. Left forearm looks great. He has been more out of bed, Using incentive spirometer. I believe likely d/c tomorrow am with improved outcomes. F/U in clinic in next 1 week. Continue to monitor labs. Monitor tele, replaced K+ and Mg++. Continue lovenox for DVT prophy. Fluid restrict to 2L now. Thiamine 100mg daily. Prednisone 10 day taper (day 2 today). Monitor sodium another 1-2 days and prepare for d/c. Today I talked with nursing/patient. No more 3% saline at this time. We will continue admit for likely one more days. Ideally d/c at >130. however if doing as well as today and >128 I may opt for d/c with close outpatient f/u. Will stay today, likely d/c tomorrow as nearing full medically optimized state. D/c planning ongoing. Hospital admission has been good for patient. Counseling w/ patient has been completed. Total Time: 36 minutes today not including documentation time.
[2021-05-04] MEDS: MAG-OX PO SCH (12:28)
[2021-05-04] MEDS: TYLENOL PO PRN (16:07)
[2021-05-04] MEDS: IMODIUM PO PRN (17:16)
[2021-05-04] MEDS: PAMELOR PO SCH (20:19)
[2021-05-05 01:50] VITALS: TEMP 97.9
[2021-05-05] MEDS: VENTOLIN HFA (PER PUFF-WITH SPACER) IH PRN (04:55)
[2021-05-05] MEDS: ATROVENT HFA INHALER (PER PUFF-WITH SPACER) IH SCH (04:55)
[2021-05-05] MEDS: TYLENOL PO PRN (05:45)
[2021-05-05] MEDS: IMODIUM PO PRN (05:51)
[2021-05-05 06:15] LABS: BASOPHILS % (AUTO) 0.2 % (0.0-3.0); EOSINOPHILS # (AUTO) 0.3 K/ul (0.0-0.7); EOSINOPHILS % (AUTO) 2.1 % (0.0-7.0); HEMATOCRIT 34.9 % (42.0-52.0); HEMOGLOBIN 11.1 g/dl (14.0-18.0); IMMATURE GRANULOCYTE # (AUTO) 0.1 (0.0-1.0); IMMATURE GRANULOCYTE % (AUTO) 0.5 % (0.0-5.0); LYMPHOCYTES # (AUTO) 2.3 K/uL (0.60-3.4); LYMPHOCYTES % (AUTO) 18.8 (10.0-50.0); MEAN CORPUSCULAR HEMOGLOBIN 29.1 pg (27.0-31.0); MEAN CORPUSCULAR HGB CONC 31.8 (31.8-35.4); MEAN CORPUSCULAR VOLUME 91.6 fl (80.0-94.0); MONOCYTES # (AUTO) 0.8 K/uL (0.4-2.0); MONOCYTES % (AUTO) 6.9 (0-10); NEUTROPHILS # (AUTO) 8.6 K/ul (2.0-6.9); NEUTROPHILS % (AUTO) 71.5 % (42.2-75.2); PLATELET COUNT 249 10^3/uL (140-440); RDW COEFFICIENT OF VARIATION 12.4 % (11.6-14.8); RED BLOOD COUNT 3.81 10^6/ul (4.70-6.10); WHITE BLOOD COUNT 12.08 K/ul (4.2-10.2)
[2021-05-05 06:26] LABS: ALBUMIN 3.59 g/dL (3.5-5.0); ALKALINE PHOSPHATASE 67.7 U/L (38-126); ASPARTATE AMINO TRANSFERASE 32.4 U/L (17-59); BILIRUBIN,TOTAL 0.33 mg/dL (0.2-1.3); BLOOD UREA NITROGEN 12.1 mg/dL (9-20); CALCIUM 8.63 mg/dL (8.4-10.2); CARBON DIOXIDE 38.2 mmol/L (22-30.0); CHLORIDE 87.6 mmol/L (98-107); CREATININE 0.75 mg/dL (0.60-1.10); MAGNESIUM 1.39 mg/dL (1.6-2.3); POTASSIUM 4.49 mmol/L (3.5-5.1); SODIUM 128.2 mmol/L (134.5-145); TOTAL PROTEIN 5.79 g/dL (6.3-8.2)
--- NOTE | 2021-05-05 08:22 | PCM.DC ---
Final Diagnosis: 1. Severe Hyponatremia 2. Hypomagnesemia 3. Hypokalemia 4. hypophosphatemia 5. leukocytosis 6. Chronic O2 dependence. 7. Obesity BMI 38.7 8. Chronic COPD 9. Chronic anxiety/Mood disorder. 10 Decubitus ulcer prior to hospital stay. (1) Hyponatremia: Status: Acute Code(s): E87.1 - Hypo-osmolality and hyponatremia SNOMED Code(s): 42535717 (2) Hypomagnesemia: Status: Acute Code(s): E83.42 - Hypomagnesemia SNOMED Code(s): 728125614 (3) Hypophosphatasia: Status: Acute Code(s): E83.39 - Other disorders of phosphorus metabolism SNOMED Code(s): 687211921 (4) Leukocytosis: Status: Acute Code(s): D72.829 - Elevated white blood cell count, unspecified SNOMED Code(s): 919396371 (5) Anemia: Status: Acute Code(s): D64.9 - Anemia, unspecified SNOMED Code(s): 948147574 (6) Fall: Status: Acute Code(s): W19.XXXA - Unspecified fall, initial encounter SNOMED Code(s): 3560861 (7) Altered mental status: Status: Acute Code(s): R41.82 - Altered mental status, unspecified SNOMED Code(s): 604224743 (8) Chronic bronchitis with COPD (chronic obstructive pulmonary disease): Status: Acute Code(s): J44.9 - Chronic obstructive pulmonary disease, unspecified SNOMED Code(s): 453338362 (9) Dependence on supplemental oxygen: Status: Acute Code(s): Z99.81 - Dependence on supplemental oxygen SNOMED Code(s): 415921429835 (10) Hypocalcemia: Status: Acute Code(s): E83.51 - Hypocalcemia SNOMED Code(s): 3645393 (11) Hypokalemia: Status: Acute Code(s): E87.6 - Hypokalemia SNOMED Code(s): 62743617 Reason for Hospitalization: 1. Severe Critical Hyponatremia. 2. Electrolyte abnormalities 3. Metabolic encephalopathy 4. Sacral decubitus ulcer. 5. Altered mental status 6. Incontinence of urine 7. Chronic diarrhea Prognosis at Discharge: Markedly improved, back to baseline state. Breathing is stable. Mood stable. Cognition stable. Condition at Discharge: Back to baseline/improved. Medically optimized for d/c. Medications at Discharge: Ambulatory Orders Medication Instructions Recorded loperamide 2 mg tablet (Imodium 2 mg PO Q4H PRN 10/23/19 A-D) lisinopril 20 mg tablet 20 mg PO BID 90 Days #180 tab-cap 02/20/20 albuterol sulfate 90 mcg/actuation 2 puff INHALATION Q4-6H PRN 30 02/06/21 aerosol inhaler (Ventolin HFA) Days #1 ih ibuprofen 600 mg tablet 600 mg PO Q8H PRN #90 tab 02/25/21 diazepam 2 mg tablet (Valium) 2 mg PO QDAY PRN #30 tab 03/19/21 aripiprazole 10 mg tablet 10 mg PO QDAY #30 tab 04/16/21 gabapentin 300 mg capsule 300 mg PO TID #90 cap 04/16/21 hydroxyzine HCl 50 mg tablet 25 - 50 mg PO QID PRN #120 tab 04/16/21 methylphenidate HCl 20 mg 20 mg PO QAM #30 tab 04/16/21 tablet,extended release nortriptyline 50 mg capsule 100 mg PO QHS #60 cap 04/16/21 magnesium oxide 400 mg (241.3 mg 400 mg PO DAILY 30 Days #30 tab 05/05/21 magnesium) tablet menthol 0.44 %-zinc oxide 20.6 % 1 applic TOPICAL BID 30 Days #113 g 05/05/21 topical ointment (Calmoseptine) potassium chloride 20 mEq 20 meq PO BIDWM 30 Days #60 tab 05/05/21 tablet,extended release(part/cryst) (Klor-Con M) prednisone 10 mg tablet 10 mg PO DIRECTED #11 tab 05/05/21 thiamine HCl (vitamin B1) 100 mg 100 mg PO DAILY #30 tab 05/05/21 tablet torsemide 10 mg tablet 10 mg PO DAILY #30 tab 05/05/21 Lab/Diagnostics: Na/K Trends 04/29/21 04/29/21 04/29/21 Range/Units 09:19 13:30 15:32 Sodium 95.1 L* 96.1 L* 95.7 L* (134.5-145) mmol/L Potassium 4.01 4.23 4.33 (3.5-5.1) mmol/L 04/29/21 04/29/21 04/30/21 Range/Units 17:48 19:33 00:03 Sodium 98.7 L* 100.3 L* 101.6 L* (134.5-145) mmol/L Potassium 3.82 3.77 3.64 (3.5-5.1) mmol/L 04/30/21 04/30/21 04/30/21 Range/Units 04:21 08:06 12:00 Sodium 104.9 L* 106.0 L* 106.9 L* (134.5-145) mmol/L Potassium 3.74 3.48 L (3.5-5.1) mmol/L 04/30/21 04/30/21 05/01/21 Range/Units 16:05 19:51 04:36 Sodium 108.4 L* 107.5 L* 110.5 L* (134.5-145) mmol/L Potassium 3.17 L (3.5-5.1) mmol/L 05/01/21 05/01/21 05/01/21 Range/Units 08:30 12:19 16:18 Sodium 110.9 L* 113.6 L* 116.4 L* (134.5-145) mmol/L Potassium (3.5-5.1) mmol/L 05/01/21 05/02/21 05/02/21 Range/Units 20:12 00:20 04:49 Sodium 119.2 L* 119.8 L* 119.7 L* (134.5-145) mmol/L Potassium (3.5-5.1) mmol/L 05/02/21 05/02/21 05/02/21 Range/Units 04:58 08:11 12:08 Sodium 119.0 L* 117.3 L* 122.9 L (134.5-145) mmol/L Potassium 3.88 (3.5-5.1) mmol/L 05/02/21 05/02/21 05/03/21 Range/Units 16:35 20:01 05:19 Sodium 122.5 L 122.8 L 126.2 L (134.5-145) mmol/L Potassium 4.15 (3.5-5.1) mmol/L 05/03/21 05/03/21 05/04/21 Range/Units 11:50 17:55 00:30 Sodium 122.8 L 126.6 L 127.9 L (134.5-145) mmol/L Potassium (3.5-5.1) mmol/L 05/04/21 05/04/21 05/04/21 Range/Units 05:05 12:10 17:58 Sodium 128.7 L 128.9 L 129.3 L (134.5-145) mmol/L Potassium 3.94 (3.5-5.1) mmol/L 05/05/21 05/05/21 Range/Units 00:15 06:10 Sodium 129.0 L 128.2 L (134.5-145) mmol/L Potassium 4.49 (3.5-5.1) mmol/L Laboratory Last Values WBC 12.08 K/ul (4.2-10.2) H 05/05/21 06:10 RBC 3.81 10^6/ul (4.70-6.10) L 05/05/21 06:10 Hgb 11.1 g/dl (14.0-18.0) L 05/05/21 06:10 Hct 34.9 % (42.0-52.0) L 05/05/21 06:10 MCV 91.6 fl (80.0-94.0) 05/05/21 06:10 MCH 29.1 pg (27.0-31.0) 05/05/21 06:10 MCHC 31.8 (31.8-35.4) 05/05/21 06:10 RDW Coeff of Heather 12.4 % (11.6-14.8) 05/05/21 06:10 Plt Count 249 10^3/uL (140-440) 05/05/21 06:10 Immature Gran % (Auto) 0.5 % (0.0-5.0) 05/05/21 06:10 Neut % (Auto) 71.5 % (42.2-75.2) 05/05/21 06:10 Lymph % (Auto) 18.8 (10.0-50.0) 05/05/21 06:10 [place] % (Auto) 6.9 (0-10) 05/05/21 06:10 Eos % (Auto) 2.1 % (0.0-7.0) 05/05/21 06:10 Baso % (Auto) 0.2 % (0.0-3.0) 05/05/21 06:10 Neut # (Auto) 8.6 K/ul (2.0-6.9) H 05/05/21 06:10 Lymph # (Auto) 2.3 K/uL (0.60-3.4) 05/05/21 06:10 [place] # (Auto) 0.8 K/uL (0.4-2.0) 05/05/21 06:10 Eos # (Auto) 0.3 K/ul (0.0-0.7) 05/05/21 06:10 Baso # (Auto) 0.0 K/uL (0-0.2) 05/05/21 06:10 Immature Gran # (Auto) 0.1 (0.0-1.0) 05/05/21 06:10 Puncture Site R rad 04/29/21 09:19 Base Excess 8.2 (-2.0-3.0) H 04/29/21 09:19 O2 Saturation 99.7 % (94-98) H 04/29/21 09:19 ABG pH 7.46 (7.35-7.45) H 04/29/21 09:19 ABG pCO2 45.0 mmHg (35-45) 04/29/21 09:19 ABG pO2 180.0 mmHg (85-100) H 04/29/21 09:19 ABG HCO3 32.0 (21-28) H 04/29/21 09:19 ABG Total CO2 33.4 (19-24) H 04/29/21 09:19 Clement Test + 04/29/21 09:19 Hemoglobin 1.9 (0-1.5) H 04/29/21 09:19 Oxyhemoglobin 93.2 % (95-100) L 04/29/21 09:19 Carboxyhemoglobin 2.7 (0.5-1.5) H 04/29/21 09:19 Total Hemoglobin 13.4 g/dl (11.7-17.4) 04/29/21 09:19 O2 Delivery Device Dc 04/29/21 09:19 Oxygen Liter Flow 2.00 04/29/21 09:19 Sodium 128.2 mmol/L (134.5-145) L 05/05/21 06:10 Potassium 4.49 mmol/L (3.5-5.1) 05/05/21 06:10 Chloride 87.6 mmol/L (98-107) L 05/05/21 06:10 Carbon Dioxide 38.2 mmol/L (22-30.0) H 05/05/21 06:10 Anion Gap 6.89 05/05/21 06:10 BUN 12.1 mg/dL (9-20) 05/05/21 06:10 Creatinine 0.75 mg/dL (0.60-1.10) 05/05/21 06:10 Estimated GFR (MDRD) 108.00 mL/min 05/05/21 06:10 BUN/Creatinine Ratio 16.13 05/05/21 06:10 Glucose 97.0 mg/dL (74-106) 05/05/21 06:10 Serum Osmolality 249 05/02/21 07:00 Calcium 8.63 mg/dL (8.4-10.2) 05/05/21 06:10 Ionized Calcium 4.8 mg/dL (4.5-5.6) 04/30/21 00:27 Phosphorus 3.29 mg/dL (2.5-4.5) 05/03/21 05:19 Magnesium 1.39 mg/dL (1.6-2.3) L 05/05/21 06:10 Total Bilirubin 0.33 mg/dL (0.2-1.3) 05/05/21 06:10 AST 32.4 U/L (17-59) 05/05/21 06:10 ALT 54.0 U/L (0-50) H 05/05/21 06:10 Alkaline Phosphatase 67.7 U/L (38-126) 05/05/21 06:10 Total Creatine Kinase 912.5 U/L (55-170) H 04/29/21 09:19 CK-MB (CK-2) 11.100 ng/ml (0.0-2.38) H* 04/29/21 09:19 CK-MB (CK-2) % 1.2100 04/29/21 09:19 Troponin I < 0.012 ng/ml (0.0000-0.120) 04/29/21 09:19 NT-Pro-B Natriuret Pep 656.000 pg/mL (0-124) H 04/29/21 13:30 Total Protein 5.79 g/dL (6.3-8.2) L 05/05/21 06:10 Albumin 3.59 g/dL (3.5-5.0) 05/05/21 06:10 Globulin 2.20 05/05/21 06:10 Albumin/Globulin Ratio 1.63 05/05/21 06:10 TSH 0.690 uIU/L (0.465-4.68) 04/30/21 19:51 Free T4 1.27 ng/dL (0.78-2.19) 05/02/21 08:11 T3 (FERNY) 91 ng/dL (71-180) 05/02/21 08:11 Random Cortisol 19.0 ug/dL (.) 04/29/21 00:03 Urine Color Yellow (YELLOW) 04/29/21 11:05 Urine Clarity Clear (CLEAR) 04/29/21 11:05 Urine pH 7.5 (5-9) 04/29/21 11:05 Ur Specific Kenna 1.020 (1.005-1.030) 04/29/21 11:05 Urine Protein 1+ (NEGATIVE) H 04/29/21 11:05 Urine Glucose (UA) Trace (NEGATIVE) H 04/29/21 11:05 Urine Ketones 3+ (NEGATIVE) H 04/29/21 11:05 Urine Blood Trace-intact (NEGATIVE) H 04/29/21 11:05 Urine Nitrite Negative (NEGATIVE) 04/29/21 11:05 Urine Bilirubin Negative (NEGATIVE) 04/29/21 11:05 Urine Urobilinogen 1.0 (0.2) H 04/29/21 11:05 Ur Leukocyte Esterase Negative (NEGATIVE) 04/29/21 11:05 Urine Microscopic RBC 0-2 (0-2) 04/29/21 11:05 Ur Squamous Epith Cells 0-2 (0-5) 04/29/21 11:05 Urine Osmolality 339 05/02/21 07:08 Ur Random Sodium <20.0 05/02/21 07:08 Urine Opiates Screen Negative (NEGATIVE) 04/29/21 11:05 Ur Oxycodone Screen Positive (NEGATIVE) H 04/29/21 11:05 Urine Methadone Screen Negative (NEGATIVE) 04/29/21 11:05 Ur Propoxyphene Screen Negative (NEGATIVE) 04/29/21 11:05 Ur Barbiturates Screen Negative (NEGATIVE) 04/29/21 11:05 U Tricyclic Antidepress Positive (NEGATIVE) H 04/29/21 11:05 Ur Phencyclidine Scrn Negative (NEGATIVE) 04/29/21 11:05 Ur Amphetamine Screen Negative (NEGATIVE) 04/29/21 11:05 U Methamphetamines Scrn Negative (NEGATIVE) 04/29/21 11:05 U Benzodiazepines Scrn Positive (NEGATIVE) H 04/29/21 11:05 Urine Cocaine Screen Negative (NEGATIVE) 04/29/21 11:05 U Cannabinoids Screen Negative (NEGATIVE) 04/29/21 11:05 Plasma/Serum Alcohol < 10.0 mg/dL (0.0-50.0) 04/29/21 13:30 Adenovirus (PCR) Not detected (NOT DETECT) 04/29/21 08:50 B. pertussis DNA (PCR) Not detected (NOT DETECT) 04/29/21 08:50 B.parapertussis DNA PCR Not detected (NOT DETECT) 04/29/21 08:50 C. pneumoniae DNA (PCR) Not detected (NOT DETECT) 04/29/21 08:50 Coronavirus OC43 (PCR) Not detected (NOT DETECT) 04/29/21 08:50 Coronavirus HKU1 (PCR) Not detected (NOT DETECT) 04/29/21 08:50 Coronavirus 229E (PCR) Not detected (NOT DETECT) 04/29/21 08:50 Coronavirus NL63 (PCR) Not detected (NOT DETECT) 04/29/21 08:50 Human Metapneumovir PCR Not detected (NOT DETECT) 04/29/21 08:50 Influenza Type A (PCR) Not detected (NOT DETECT) 04/29/21 08:50 Influenza B (RT-PCR) Not detected (NOT DETECT) 04/29/21 08:50 M. pneumoniae (PCR) Not detected (NOT DETECT) 04/29/21 08:50 Parainfluenza 1 (PCR) Not detected (NOT DETECT) 04/29/21 08:50 Parainfluenza 2 (PCR) Not detected (NOT DETECT) 04/29/21 08:50 Parainfluenza 3 (PCR) Not detected (NOT DETECT) 04/29/21 08:50 Parainfluenza 4 (PCR) Not detected (NOT DETECT) 04/29/21 08:50 RSV (PCR) Not detected (NOT DETECT) 04/29/21 08:50 Entero/Rhino (PCR) Not detected (NOT DETECT) 04/29/21 08:50 SARS-CoV-2 (PCR) Not detected (NOT DETECT) 04/29/21 08:50 IMAGING: CT HEad: 04/29/21: No acute process. Choronic ischemic disease of white matter and cerebral volume loss. CXR: 04/29/21 Negative, no acute findings. CULTURES: BC: Negative x 5 days. Cdiff: NEgativve on 04/30 Education Provided to Patient and Family: 1. Stop Thiazide 2. ETOH reduction max 2 drinks per day 3. Limit water intake to 2500ml per day 4. Can resume MVI 5. CMP and magnesium to be checked wednesday05/07/21 and 05/09 6. F/U with me in office wednesday05/09/21 at 1400. 7.New meds Mag oxide 400mg daily Calmoseptine to buttock 2x daily Potassium chloride 20meq 2x daily with meal Prednisone 10mg tablets 2 by mouth daily x 3 days then 1 daily x 5 days. Thiamine 100mg daily Torsemide 10mg daily. R/B/A to meds d/w patient, SE reviewed, handout offered regarding medications listed. Follow-ups: 1. 05/09/21 Dr. Borrego at 1400 Discharge Disposition: Home Hospital Course: 55 yo male hospital day 6. The patient presented to ED on 04/29/21 after fall from bus on way to pulmonary OV. Patient was seen in our ED at 830 am and was found to have severe/critical lab derangements to sodium. Coronavirus emergency led to a current state of emergency where this patient required ICU level care but no ICU beds were available. Initial laboratory evaluation showed a white blood cell count of 17.2, hemoglobin 12.6, hematocrit 33.9 and platelets of 228. ABG O2 saturation 99.7, pH 7.46, PCO2 45, PO2 180, HCO3 32, CO2 33.4. This interpreted as a metabolic alkalosis primary with full respiratory compensation. Total CK elevated at 912.5, CK-MB 11.1 which is elevated. Bio Soundrop PCR negative for all viral tests. The critical value was the sodium of 95.1. Potassium was normal at 4.01 and the chloride was very low at 57.3. CO2 elevated at 31.7. The anion gap of 10.11 creatinine 0.6 BUN 8.0 with a GFR of 140. Glucose 129.7 is not significant enough to make any major corrections. Calcium low at 7.89 corrects to 7.9 with an albumin of 3.98 and essentially normal. AST mildly elevated 80.3 ALT mildly elevated 52.2 which is not a ratio of 2:1. Alk phos normal at 97. Troponin was negative. Total protein low at 6.21. Serum osmolality returned at 200 at 1105. This is a send out. Phosphorus was low at 1.95, magnesium low at 1.31. Urine osmolality 418. Urine showed 1+ protein, trace glucose 3+ ketones trace intact blood with urobilinogen 1.0. Vitals at 817 showed temperature 98, pulse 96, respiratory rate 20, blood pressure 165/97 and pulse ox of 97. His HCTZ was just continued abruptly. We have contacted [facility] for the pharmacy. The patient was kept overnight in ER and no beds were available on 04/30, in fact positions on waiting list worsened. The patient was admitted on 04/30/21 to [facility] and we had close observation, neurochecks and cared for the ICU level problem in our hospital. We provide 3% saline, monitored for ODS, daily the sodium improved, phos improved, potassium improved, calcium improved, mag improvved. He was started on steroids for c oncern of adrenal insufficiency. Cortisol ultimately returned normal, TSH normal, free T4/t3 normal, BC negative. His thiazide was held by me on 04/29/21. He had continued 3% bolus several times with goal sodium increase of 4meq/L/day-6meq/L/Day. Several days he had closer to 9meq/L/day but we worked to have no more than 18meq/L in 48 hours. Sodium improved from 95.1 to 96.1, dropped to 95.7 then 98.7 and 100.3. On 04/30/21 levvels were 101.6, 104.9, 106, 106.9, 108.4, 107.5 by end of day. On 05/01 started at 110.5, 110.9, 113.6, 116.4, 119.2. On 05/02/21 he was 119.8, 119.7, 119.0, 117.3. He received another bolus of 3% saline and increased to 122.9. Remaidner of day he was at 122.5, 122.8. on 05/03/21 he was 126.2, 122.8, 126.6. On 05/04/21 he was 128.7, 128.9, 129.3. This am he was 129.0 and then 128.2. He started feeling normally againn 05/03/21 and wanted to go home. Our initial plan was to go home once sodium >130. However he is likely chronic hyponatremia and we will d/c today with 48 hours >126. I will continue to hold the thiazide. I will add torsemide to his regimen 10mg daily. I will continue thiamine 100mg daily, he can resume MVI. he will limit ETOH to no more than 2 drinks in 24 hours. Limit fluid intake to 2500ml. We will order cmp/mag on 05/07 and 05/09. CBC repeat on 05/09. He had leukocytosis that was initially resolved but returned with steroids. Hypotonic hyponatremia was the diagnosis throughout the hospital stay. He never had seizures, never had e/o ODS. Imaging of brain in ED showed chronic process of white matter loss likely ischemic. Vitals remained stable throughout the hospital stay. Afebrile throughout stay. he had SR/ST/1st degree block on tele. BP mildly elevated this am. I will monitor this week and consider adding norvasc 5-10mg on wednesday at our next OV if BP remains elevated. I do not want to add any thiazide diuretics. Chronic o2 dependence. On 2L NC. Most of the visit >90%. Had a single reading at 88 and another at 90. Overnight nursing reviewed. The patient had GCS 15, no changes. This am he is ready to go. He has used the incentivve spirom yesterday, ambulating. He is padding buttock, using calmoseptine. He used VIOLETA/SCD ffor first ~48 hours and then we changed to lovenox for DVT prophy. The patient was on fluid restriction that was eased up a bit over the last 48 hours. We discussed at length need to limit fluid intake and to monitor labs frequently over next few weeks. Labs this am: CBC showed white count of 12.08, hemoglobin of 11.1 which has decreased from 12.6 at admit. Platelets are normal at 249. The differential showed a neutrophilia which is likely steroidal effect.Metabolic panel this morning showed a sodium of 128.2 which is 0.8 decreased from yesterday. We will check this again in 48 hours. Potassium is stable at 4.49. BUN 12.1 creatinine of 0.75. Magnesium increase slightly from yesterday and is currently at 1.39. AST 32.4 stable and ALT 54 and stable.There were no osmolality checks through the weekend as these are send outs. The last osmolality that I have is a urine of 339 urine sodium of less than 20 and the most recent serum osmolality was 249. His serum osmolality was as low as 200. With sodium remaining mildly low we will still plan on discharging with torsemide. We will repeat CMP on Wednesday. If sodium any lower than now I will add salt tablets even though there is some history of possible CHF. SIADH is a possibility here he has not on an SSRI. He is however on a TCA. I have stopped the thiazide I will add a loop diuretic which should help as well. The patient was instructed to return to the emergency room with dizziness with falls with any change in mental status. We will continue the medications as listed above. Patient was seen this morning at 730 and was provided with education. We discussed when to return to the ER. We discussed follow-up in office this coming Wednesday. We reviewed nursing documentation and patient is medically optimized and ready for discharge at this time. Ideally he would be greater than 130 for his sodium however further stay in the hospital may pose increased risk to patient in the time of mcmahon. Vital Signs - 24 hr 05/04/21 09:40 05/04/21 10:00 05/04/21 14:00 Temperature 97.9 F Pulse Rate 117 H 110 H Respiratory Rate 22 20 Blood Pressure 128/85 146/89 H O2 Sat by Pulse Oximetry 95 88 L 95 05/04/21 17:04 05/04/21 20:00 05/04/21 21:05 Temperature 97.1 F L Pulse Rate 110 H 100 H Respiratory Rate 20 20 18 Blood Pressure 133/79 148/91 H O2 Sat by Pulse Oximetry 97 97 97 05/05/21 01:49 05/05/21 05:35 05/05/21 06:00 Temperature 97.9 F 97.9 F Pulse Rate 103 H 109 H Respiratory Rate 18 20 Blood Pressure 123/82 138/93 H O2 Sat by Pulse Oximetry 97 96 93 L REVIEW OF SYMPTOMS Constitutional: Weakness, Fatigue improving. Eyes: No symptoms Ears: No symptoms Nose: No symptoms Throat: No symptoms Mouth: No symptoms Respiratory: Cough, Shortness of air, Wheeze and Pain with breathing Cardiovascular: No symptoms Gastrointestinal: Abdominal pain, Nausea and Diarrhea; No Melena, Hematemesis, Hematochezia or Dysphagia Genitourinary: dysuria and incontinence Neurological: Headache, Dizziness, Weakness, Speech difficulty, Problems with walking and Fainting; No Seizure, Numbness or Tremor Musculoskeletal: Pain (back. ) Skin: Rash, Bruising and Other (decubitus ulcer) Immunology: No symptoms Hematology: No symptoms Endocrine: Weight changes and Excessive thirst Psychiatric: Depression, Anxiety and Hopelessness. Constitutional:Appearance- Patient visit this amwalking in room. He was awake/alert/oriented. He was talkative asked good questions o2 in place. Left forearm skin tear healing nicely. Not bandaged. Still with scattered bruising. Sacral decub is bandaged/healing/clean. Mild distress chronically with breathing but his breathing remains at baseline. Normal eye movements. Sodium is doing much better this am at just under 130. I suspect he is going to be d/c tomorrow. Reactive pupils, follows commands. follows suggestions and appears to understand. Aware of day/date/time/county/hospital, my name.Orientation- Oriented x 3, alertBuild and Nutrition-[Obese Male]General- Patient still has slurred words a little, which is baseline, mild cognitive decline which is baseline. Integumentary: General-No rashes, ulcers or lesions. Bruising along the left lateral forearm (bandaged) this am. ecchymosis along left posterior bicep, unchanged. left lateral hip/flank bruise unchanged. .Numerous Sk on back. No e/ o secondary infection or worsening.Palpation- Normal skin moisture/turgor. Skin is warm to touch, appropriate. Capillary refill is normal bilateral Upper and lower extremity. Remains unchanged. sacral abrasion is padded and bandaged. . Head/Neck:Head- normocephalic and atraumatic.Neck- without visible/palpable lumps or pulsations.Palpation- No bony tenderness about head/neck along frontal, occipital, temporal, parietal, mastoid, jawline, zygoma, orbit or any other location. NO temporal artery tenderness. No TMJ tenderness. Neck Supple.Thyroid-No thyromegaly, no nodules Eye:Bilaterally PERRLA, EOMI. No discharge. Upper and lower eyelids are normal. Sclera/conjunctiva normal without discharge. CHEST/LUNG:Inspection- symmetric chest wall no pectus deformity. Reduced effort, no distress, no use of accessory muscles. gurgling sounds are present. Palpation- nontender sternum, ribline. No abnormal pulsations.Auscultation- Breath sounds diminshed throughout all lung de la cruz. tracheal sounds, bronchial sounds overlying sternum, Bronchovessicular sounds and vessicular breath sounds reduced and coarse sounding.Adventitious sounds- wheezes, rales, rhonchi.These persist. Chronic/baseline state. This is unchanged. No egophany, no pectoriloquy. No e/o consolidation. Chronic coarse sounds. No worse than previous. Maybe a bit more coarse in upper lobes. However, sounds remain consistent with baseline state for patient.. No worsening sounds. Stable/chronic. CARDIOVASCULAR:Carotid artery-normal, no bruits or abnormal pulsations. Jugular vein- no pulsations.Palpation/Percussion- Normal PMI, no palpable thrill dAuscultation- Regular rate and rhythm. No murmur noted in sitting, supine positions.Extremities- no digital clubbing, cyanosis, edema, increased warmth. ABDOMEN:Inspection- normal and no visible pulsations. Normal contour. Auscultation- Bowel sounds normal, no abdominal bruits.Palpation/Percussion- soft, non-tender, no rebound tenderness, no rigidity (guarding), no jar tenderness, no masses.Liver-no hepatomegaly, Peripheral Vascular:Upper extremityLeft- Normal temperature with pink nailbeds and no ulcerations.Upper extremity Right-Normal temperature with pink nailbeds and no ulcerations.Lower extremity- Normal temperature with pink nailbeds and no ulcerations. DP pulses 2+ bilaterally. Pedal hair intact. Normal capillary refill.Edema- Mild dependent edema. Some e/o chronic venous stasis. No acute or worsening edema. Musculoskeletal:Generalized-No generalized swelling or edema of extremities, no digital clubbing or cyanosis, neurovascularly intact all four extremities. Neurological:General- Moves all 4 extremities symmetrically. Symmetrical face and body posture.Cranial nerves- individuallyevaluated II-XII and intact. PERRLA, Normal EOMI, visual/special senses appear intact, Face is symmetrical and normal sensation/movement, normal tongue, normal strength/posture of neck musculature. Neuropsych:Oriented- Person, place, time. (AAOx3),Mood/affect- Pleasant, aware of day/date/time/president/my name/cit/county.Speech-Mild dysarthria.Thought content Impoverished this appears to be chronnic. The patient was asleep upon entry and easily arroused. No stupor, no confusion noted. He was easily awoken was able to answer some questions and we discussed plan today. Lymphatic: Head/Neck- normal size and non tender to palpation.Axillary- normal size and non tender to palpation.Femoral and Inguinal- normal size and non tender to palpation. Plan: D/C Home today. F/U in clinic this wednesday. Labs wednesday and wednesday. 1. CMP and magnesium to be checked wednesday05/07/21 and 05/09 2. F/U with me in office wednesday05/09/21 at 1400. 3. Daily torsemide 10mg. 4. Limit alcohol to no more than 2 drinks per day. 5. Limit fluid intake to 2500ml per day. 6. STOP HYDROCHLOROTHIAZIDE. New meds Mag oxide 400mg daily Calmoseptine to buttock 2x daily Potassium chloride 20meq 2x daily with meal Prednisone 10mg tablets 2 by mouth daily x 3 days then 1 daily x 5 days. Thiamine 100mg daily Torsemide 10mg daily. 32 minutes discharge this am.
[2021-05-05] MEDS: VALIUM PO SCH (08:36)
[2021-05-05] MEDS: ZESTRIL PO SCH (08:36)
[2021-05-05] MEDS: K-DUR PO SCH (08:36)
[2021-05-05] MEDS: NEURONTIN PO SCH (08:36)
[2021-05-05] MEDS: MAG-OX PO SCH (08:36)
[2021-05-05] MEDS: ABILIFY PO SCH (08:36)
[2021-05-05] MEDS: PREDNISONE PO SCH (08:36)
[2021-05-05] MEDS: CALMOSEPTINE OINTMENT TP SCH (08:37)
[2021-05-05] MEDS: LOVENOX SUBCUT SCH (08:40)
[2021-05-05 10:41] VITALS: BP 154/84
[2021-05-06 08:21] LABS: SODIUM,URINE 62 mmol/L (Not Estab.)
[2021-05-07 08:14] LABS: OSMOLALITY,URINE 482 mOsmol/kg (.)
== END 2021-05-05 11:10 | disposition home or self-care (01) | DRG 640 ==
LOC: ED 08:17 → SCU 04-30 12:55 → MEDSURG A 04-30 15:00
PROVIDERS: ADMIT Family Medicine; ATTEND Family Medicine
DX: I10 Essential (primary) hypertension; R06.02 Shortness of breath; E87.6 Hypokalemia; G93.41 Metabolic encephalopathy; D64.9 Anemia, unspecified; F10.10 Alcohol abuse, uncomplicated; Z20.822 Contact with and (suspected) exposure to COVID-19; R41.0 Disorientation, unspecified; R53.1 Weakness; Z99.81 Dependence on supplemental oxygen; J44.9 Chronic obstructive pulmonary disease, unspecified; L89.150 Pressure ulcer of sacral region, unstageable; E83.39 Other disorders of phosphorus metabolism; E83.51 Hypocalcemia; D72.829 Elevated white blood cell count, unspecified; R51.9 Headache, unspecified; R32 Unspecified urinary incontinence; K52.9 Noninfective gastroenteritis and colitis, unspecified; W19.XXXA Unspecified fall, initial encounter; R11.0 Nausea; R42 Dizziness and giddiness; E83.42 Hypomagnesemia; R41.82 Altered mental status, unspecified; R00.2 Palpitations